=== PATIENT | female | born 1930 | race Caucasian/White ===

== ENCOUNTER 2017-09-10 09:32 | Emergency (ER) | payer OTHER ==
[~2017-09-10] VITALS: Ht 170.2 cm; Wt 45.0 kg
[~2017-09-10 09:32] MED LIST: ALBU1AER9 INH; HYT/2 PO; IPRA1AER2 INH; LISI40TA PO; MAGN400T6 PO; PARO1TAB27 PO; SIMV10TA2 PO; ULT50X PO
[2017-09-10 09:39] VITALS: Ht 170.2 cm; Wt 45.0 kg
[2017-09-10] MEDS ORDERED: SODIUM CHLORIDE 0.9% 500ML 500 ML IV STA (10:13)
[2017-09-10 10:45] LABS: BASO % 0.2 %; BASO ABS # 0.02 K/uL (0-0.2); EOS % 0.7 %; EOS ABS # 0.06 K/uL (0-0.5); IG# 0.01 K/uL (0.00-0.02); LYMPH % 19.5 %; LYMPH ABS # 1.58 K/uL (1.2-3.4); MEAN CELL VOLUME 85.8 fL (80-100); MEAN CORPUSCULAR HEMOGLOBIN 29.3 pg (25-34); MEAN CORPUSCULAR HGB CONC 34.1 g/dl (32-36); MEAN PLATELET VOLUME 10.5 fL (7.4-10.4); MONO % 6.5 %; MONO ABS # 0.53 K/uL (0.11-0.59); PLATELET COUNT 202 K/uL (130-400); RED CELL DISTRIBUTION WIDTH CV 13.7 % (11.5-14.5); RED CELL DISTRIBUTION WIDTH SD 43.1 fL (36.4-46.3)
[2017-09-10 10:48] LABS: INR 1.1 (0.9-1.1); PTT PATIENT 24.7 SECONDS (21.0-31.0)
[2017-09-10 10:53] LABS: ALBUMIN 3.8 gm/dl (3.4-5.0); CREATININE 0.99 mg/dl (0.60-1.20); POTASSIUM 3.8 mmol/L (3.5-5.1)
[2017-09-10 11:03] LABS: TOTAL PROTEIN 6.9 gm/dl (6.4-8.2)
--- NOTE | 2017-09-10 11:09 | DIAGNOSTIC IMAGING REPORT ---
CHEST 2 VIEWS ROUTINE HISTORY: 86 years-old Female eval for pna acute weakness with concern for pneumonia COMPARISON: Chest radiograph 07/04/2015 TECHNIQUE: AP and lateral views of the chest FINDINGS: Cardiac silhouette is within normal limits. Atherosclerosis of the aorta. Lungs are hyperinflated without pneumothorax, pleural effusion, focal airspace consolidation or overt pulmonary edema. Increased lucency of the lungs suggests emphysema. Linear subsegmental right basilar opacities suggest atelectasis. Areas of chronic interstitial coarsening are again noted throughout. Chronic left-sided rib fractures are noted. Bones appear osteopenic. Degenerative changes are noted throughout the spine and shoulders. Multiple age-indeterminate compression deformities are seen throughout the spine. IMPRESSION: 1. Emphysema and subsegmental right basilar atelectasis without acute process identified. 2. Multiple age-indeterminate compression deformities throughout the thoracic spine. The above report was generated using voice recognition software. It may contain grammatical, syntax or spelling errors. Electronically signed by: Aneudy Burks M.D. 09/10/2017 11:08 AM Dictated Date/Time: 09/10/2017 11:05 AM
[2017-09-10 13:46] VITALS: BP 168/79; PULSE 89; TEMP 36.6; O2SAT 94
--- NOTE | 2017-09-10 17:29 | EMERGENCY ROOM VISIT NOTE ---
History Report prepared by Lenore: Gordon Clifton Under the Supervision of: Dr. Joseph Farah M.D. First contact with patient: 10:00 Chief Complaint: ILLNESS Stated Complaint: WEAK,SHAKEY,SINUS/ALLERGY,ITCHY,SWOLLEN EYES History of Present Illness The patient is an 86 year old female who presents to the Emergency Room with complaints of a constant illness starting a few weeks ago. The patient's son states that the patient has been having sinus congestion, itchy and watery eyes , and last night the patient was shaking. The son states that she was shaking for 24-36 hours, and he states that he gave her a cupcake and an Ensure, and this stopped her shaking. The son states that the patient has not been eating well recently due to the illness, and the patient states that she has not been drinking fluids regularly. The patient has taken acetaminophen and an antihistamine over the counter, and this has not helped her systems, although her eye symptoms seem to be improved. She additionally notes that she had some chest tightness last night which was relieved with her inhaler. The patient has a history of COPD, and she states that she usually gets chest tightness with her COPD, and she has been wheezing recently. The patient denies any fever , abdominal pain, nausea, black stools, bloody stools, and headache. The son states that the patient had diarrhea 2 weeks ago, though that has since stopped. The son states that the patient is not diabetic, though her mother was a diabetic. The son states that the patient's memory is not very good, and when she was put on Paxil and pain medications she hallucinated after breaking her vertebra and getting a hip replacement years ago. The patient is not currently on any pain medications or Paxil. Source of History: patient, family Onset: a few weeks ago Position: other (global) Quality: other (illness) Timing: constant Associated Symptoms: No fevers, No headache, No nausea, No abdominal pain Note: Associated symptoms: sinus congestion, watery eyes, shaking, chest tightness Review of Systems See HPI for pertinent positives & negatives. A total of 10 systems reviewed and were otherwise negative. Past Medical & Surgical Medical Problems: (1) Asthma (2) COPD (chronic obstructive pulmonary disease) (3) High cholesterol (4) HTN (hypertension) Social History Smoking Status: Current Every Day Smoker Alcohol Use: none Drug Use: none Marital Status: Housing Status: unknown Occupation Status: retired Current/Historical Medications Scheduled Ipratropium-Albuterol (Combivent Respimat), 1 PUFFS INH QID Lisinopril (Zestril), 40 MG PO QAM Scheduled PRN Albuterol (Proair Hfa), 2 PUFFS INH QID PRN for Shortness of Breath Allergies Coded Allergies: Acetaminophen (Unverified Allergy, Severe, MEMORY LOSS, 09/10/17) Oxycodone (Verified Allergy, Unknown, UNKNOWN, 09/10/17) Penicillins (Verified Allergy, Unknown, UNKNOWN, 09/10/17) Uncoded Allergies: no depression meds (Adverse Reaction, Severe, HULLUCINATES, 09/10/17) Physical Exam Vital Signs Date Time Temp Pulse Resp B/P (MAP) Pulse Ox O2 Delivery O2 Flow Rate FiO2 09/10/17 13:46 36.6 89 22 168/79 94 09/10/17 13:40 168/79 09/10/17 13:37 85 22 09/10/17 13:32 154/98 09/10/17 13:19 86 09/10/17 13:07 85 29 94 09/10/17 13:01 187/103 09/10/17 12:43 180/155 09/10/17 12:37 82 92 09/10/17 12:07 82 23 93 09/10/17 11:37 75 27 100 09/10/17 11:32 76 27 100 09/10/17 11:02 71 17 98 09/10/17 10:41 184/89 09/10/17 10:41 77 09/10/17 09:39 36.6 83 20 162/82 95 Room Air Physical Exam Constitutional: Vital signs reviewed. Eyes: Pupils are equal round reactive to light. Conjunctiva are noninjected. ENT: Pharynx is clear without erythema or exudate. Mucous membranes are slightly dry. Neck supple without meningeal signs. No maxillary sinus tenderness. Respiratory: Clear to auscultation bilaterally. Breath sounds are equal bilaterally. Cardiovascular: Regular rate and rhythm. No rubs or gallops. GI: Soft, nondistended and nontender. Bowel sounds are present. Musculoskeletal: No peripheral edema. No lower extremity tenderness. Integumentary: No cyanosis. Neurological: The patient is awake and alert. No focal deficits. No tremors. Psychiatric: Normal affect. Medical Decision & Procedures ER Provider Diagnostic Interpretation: Radiology results as stated below per my review and the radiologist's interpretation: CHEST 2 VIEWS ROUTINE HISTORY: 86 years-old Female eval for pna acute weakness with concern for pneumonia COMPARISON: Chest radiograph 07/04/2015 TECHNIQUE: AP and lateral views of the chest FINDINGS: Cardiac silhouette is within normal limits. Atherosclerosis of the aorta. Lungs are hyperinflated without pneumothorax, pleural effusion, focal airspace consolidation or overt pulmonary edema. Increased lucency of the lungs suggests emphysema. Linear subsegmental right basilar opacities suggest atelectasis. Areas of chronic interstitial coarsening are again noted throughout. Chronic left-sided rib fractures are noted. Bones appear osteopenic. Degenerative changes are noted throughout the spine and shoulders. Multiple age-indeterminate compression deformities are seen throughout the spine. IMPRESSION: 1. Emphysema and subsegmental right basilar atelectasis without acute process identified. 2. Multiple age-indeterminate compression deformities throughout the thoracic spine. The above report was generated using voice recognition software. It may contain grammatical, syntax or spelling errors. Electronically signed by: Aneudy Burks M.D. 09/10/2017 11:08 AM Dictated Date/Time: 09/10/2017 11:05 AM Laboratory Results 09/10/17 10:25 Red Blood Count 4.78, Mean Corpuscular Volume 85.8, Mean Corpuscular Hemoglobin 29.3, Mean Corpuscular Hemoglobin Concent 34.1, Mean Platelet Volume 10.5, Neutrophils (%) (Auto) 73.0, Lymphocytes (%) (Auto) 19.5, Monocytes (%) (Auto) 6.5, Eosinophils (%) (Auto) 0.7, Basophils (%) (Auto) 0.2, Neutrophils # (Auto) 5.90, Lymphocytes # (Auto) 1.58, Monocytes # (Auto) 0.53, Eosinophils # (Auto) 0.06, Basophils # (Auto) 0.02 09/10/17 10:25 Test 09/10/17 10:25 09/10/17 12:08 09/10/17 12:44 White Blood Count 8.10 K/uL (4.8-10.8) Red Blood Count 4.78 M/uL (4.2-5.4) Hemoglobin 14.0 g/dL (12.0-16.0) Hematocrit 41.0 % (37-47) Mean Corpuscular Volume 85.8 fL (80-100) Mean Corpuscular Hemoglobin 29.3 pg (25-34) Mean Corpuscular Hemoglobin Concent 34.1 g/dl (32-36) Platelet Count 202 K/uL (130-400) Mean Platelet Volume 10.5 fL (7.4-10.4) Neutrophils (%) (Auto) 73.0 % Lymphocytes (%) (Auto) 19.5 % Monocytes (%) (Auto) 6.5 % Eosinophils (%) (Auto) 0.7 % Basophils (%) (Auto) 0.2 % Neutrophils # (Auto) 5.90 K/uL (1.4-6.5) Lymphocytes # (Auto) 1.58 K/uL (1.2-3.4) Monocytes # (Auto) 0.53 K/uL (0.11-0.59) Eosinophils # (Auto) 0.06 K/uL (0-0.5) Basophils # (Auto) 0.02 K/uL (0-0.2) RDW Standard Deviation 43.1 fL (36.4-46.3) RDW Coefficient of Variation 13.7 % (11.5-14.5) Immature Granulocyte % (Auto) 0.1 % Immature Granulocyte # (Auto) 0.01 K/uL (0.00-0.02) Prothrombin Time 11.6 SECONDS (9.0-12.0) Prothromb Time International Ratio 1.1 (0.9-1.1) Activated Partial Thromboplast Time 24.7 SECONDS (21.0-31.0) Partial Thromboplastin Ratio 1.0 Anion Gap 7.0 mmol/L (3-11) Est Creatinine Clear Calc Drug Dose 29.5 ml/min Estimated GFR () 60.2 Estimated GFR (Non- 52.0 BUN/Creatinine Ratio 23.9 (10-20) Calcium Level 9.0 mg/dl (8.5-10.1) Total Bilirubin 0.6 mg/dl (0.2-1) Direct Bilirubin 0.2 mg/dl (0-0.2) Aspartate Amino Transf (AST/SGOT) 23 U/L (15-37) Alanine Aminotransferase (ALT/SGPT) 28 U/L (12-78) Alkaline Phosphatase 87 U/L (45-117) Total Protein 6.9 gm/dl (6.4-8.2) Albumin 3.8 gm/dl (3.4-5.0) Thyroid Stimulating Hormone (TSH) 0.535 uIu/ml (0.300-4.500) Free Thyroxine 1.08 ng/dl (0.80-1.60) Bedside Troponin I < 0.030 ng/ml (0-0.045) Urine Color DK YELLOW Urine Appearance CLOUDY (CLEAR) Urine pH 6.0 (4.5-7.5) Urine Specific [place] 1.026 (1.000-1.030) Urine Protein TRACE (NEG) Urine Glucose (UA) NEG (NEG) Urine Ketones TRACE (NEG) Urine Occult Blood NEG (NEG) Urine Nitrite NEG (NEG) Urine Bilirubin NEG (NEG) Urine Urobilinogen NEG (NEG) Urine Leukocyte Esterase SMALL (NEG) Urine WBC (Auto) 1-5 /hpf (0-5) Urine RBC (Auto) 0-4 /hpf (0-4) Urine Hyaline Casts (Auto) 1-5 /lpf (0-5) Urine Epithelial Cells (Auto) >30 /lpf (0-5) Urine Bacteria (Auto) NEG (NEG) Laboratory results as reviewed by me. Medications Administered Medications (Trade) Dose Ordered Sig/Robert Route Start Time Stop Time Status Last Admin Dose Admin Sodium Chloride 500 ml @ 999 mls/hr Q31M STAT IV 09/10/17 10:13 09/10/17 10:43 DC 09/10/17 10:13 999 MLS/HR ECG Per My Interpretation Indication: other (chest tightness) Rate (beats per minute): 77 Rhythm: normal sinus Findings: other (No ST elevations, biphasic T waves in V4 to V5, no Q waves) ED Course 1000: The patient was evaluated in room C7. A complete history and physical exam was performed. 1013: Sodium Chloride 500 ml @ 999 mls/hr IV 1150: I reevaluated the patient, and she has no complaints. I discussed the test results with her, and she is going to get a second troponin. 1231: I reassessed the patient, and she is hungry and wants to go home. I discussed blood tests with her and the limitation of an ED work up. She has not given a urine sample yet, so she agrees to a urine catheterization. 1321: I reevaluated the patient, and she is very eager to go home. She states that she feels better. She will be discharged home. Medical Decision This is an 86-year-old female who presents with tremors and weakness with some chest tightness. Differential diagnosis includes dehydration, hypoglycemia, metabolic derangement, COPD exacerbation, cardiac, UTI. I did perform a limited focused review of portions of the patient's old chart on the electronic medical record. The patient has had no recent pertinent visits to this hospital. I did evaluate the patient as noted above. IV access was established. The patient was placed on a continuous earth auger operator. I did order and personally review the patient's 12-lead EKG and chest x-ray as described above. I did order and review the patient's blood work as noted in the electronic medical record. Troponin 2 are negative. She is not anemic. Her white blood cell count is not elevated. Electrolytes are unremarkable. I did order a urine analysis which did not show any obvious infection. The patient was treated with normal saline IV. She was able to eat here and felt much better. She did wish to go home. The exact cause of her symptoms is unclear. While her chest tightness appears to be related to her COPD and improved with her inhaler, I did recommend they follow closely with her regular physician for further evaluation of these symptoms. She was discharged with her son in good condition. Medication Reconcilliation Current Medication List: was personally reviewed by me Blood Pressure Screening Patient's blood pressure: Elevated blood pressure Blood pressure disposition: Referred to PCP Impression Primary Impression: Generalized weakness Additional Impressions: Tremor Acute chest pain COPD (chronic obstructive pulmonary disease) Scribe Attestation The scribe's documentation has been prepared under my direct and personally reviewed by me in its entirety. I confirm that the note above accurately reflects all work, treatment, procedures, and medical decision making performed by me. Departure Information Dispostion Home / Self-Care Referrals No Doctor, Assigned (PCP) Forms HOME CARE DOCUMENTATION FORM, IMPORTANT VISIT INFORMATION, WORK / SCHOOL INSTRUCTIONS Patient Instructions Chest Pain - [facility], ED Weakness [place], My [facility] Additional Instructions You have been examined and treated today on an emergency basis only. This is not a substitute for, or an effort to provide, complete comprehensive medical care. It is impossible to recognize and treat all injuries or illnesses in a single emergency department visit. It is therefore important that you follow up closely with your physician. Call as soon as possible for an appointment. Return for worsening symptoms or if you develop fever, vomiting, abdominal pain , shortness of breath or any other concerning symptoms. Problem Qualifiers Additional Impressions: COPD (chronic obstructive pulmonary disease) COPD type: unspecified COPD Qualified Codes: J44.9 - Chronic obstructive pulmonary disease, unspecified
== END 2017-09-10 13:47 | disposition home or self-care (01) ==
LOC: C.EDB 09:34 → C.EDC 13:47
DX: R53.1 Weakness (principal); R25.1 Tremor, unspecified; R07.89 Other chest pain; J44.9 Chronic obstructive pulmonary disease, unspecified; I10 Essential (primary) hypertension; F17.200 Nicotine dependence, unspecified, uncomplicated; Z88.6 Allergy status to analgesic agent; Z88.0 Allergy status to penicillin

== ENCOUNTER 2018-08-15 13:41 | Inpatient (IN) ==
[2018-08-15] MEDS ORDERED: levoFLOXacin 250 MG TABLET PO STA (14:18)
[2018-08-15] MEDS ORDERED: ALBUT/IPRATROP 3MG/0.5MG NEB 3 ML VIAL INH STA (14:18)
[2018-08-15] MEDS ORDERED: SODIUM CHLORIDE 0.9% 1000ML 1,000 ML IV SCH (14:30)
--- NOTE | 2018-08-15 14:37 | XRay Report ---
XR chest 1V portable HISTORY: Dyspnea COMPARISON: Chest 08/07/2018. Chest CT 08/12/2018. FINDINGS: Mild emphysema. No pneumothorax. No pleural effusions. The heart is normal in size. Right p erihilar hazy opacity. This is new from the prior study. The left lung remains clear. Healing distal right clavicle fracture. IMPRESSION: 1. There is new hazy opacity within the right perihilar location. This is nonspecific and could be du e to a developing pneumonia or overlying soft tissue. 2. Emphysema. 3. Healing distal right clavicle fracture. Electronically signed by: Enrike Ho M.D. 08/15/2018 2:35 PM
[2018-08-15 14:58] LABS: Hematocrit (blood only) 41.2 % (37-47); Hemoglobin 13.8 g/dL (12.0-16.0); Mean Corpuscular Hgb Conc 33.5 g/dL (32-36); Mean Corpuscular Volume 88.6 fL (80-100); Mean Platelet Volume 10.9 fL (7.4-10.4); Platelet Count 180 K/uL (130-400); RDW Coefficient of Variation 13.8 % (11.5-14.5); RDW Standard Deviation 44.8 fL (36.4-46.3); Red Blood Count 4.65 M/uL (4.2-5.4); White Blood Count 21.72 K/uL (4.8-10.8)
[2018-08-15 15:02] LABS: iSTAT Hemoglobin 13.3 g/dl (12.0-16.0); iSTAT Ionized Calcium 1.1 mmol/l (1.12-1.32)
[2018-08-15 15:10] LABS: Alanine Aminotransferase 27 U/L (12-78); Albumin Level 2.5 gm/dl (3.4-5.0); Aspartate Aminotransferase 17 U/L (15-37); BUN Creatinine Ratio 34.1 (10-20); Blood Urea Nitrogen 41 mg/dl (7-18); Calcium 8.4 mg/dl (8.5-10.1); Carbon Dioxide 27 mmol/L (21-32); Chloride 105 mmol/L (98-107); Creatinine Clr Calc Pharmacy 23.5 ml/min; Est GFR (African American) 47.4; Est GFR (Non-African American) 40.9; Glucose 166 mg/dl (70-99); Sodium 138 mmol/L (136-145)
[2018-08-15 15:15] LABS: Albumin Globulin Ratio 0.6 (0.9-2); Alkaline Phosphatase 122 U/L (45-117); Bilirubin,Total 0.3 mg/dl (0.2-1); Globulin 3.9 gm/dl (2.5-4.0); Total Protein 6.4 gm/dl (6.4-8.2); Troponin I < 0.015 ng/ml (0-0.045)
[2018-08-15 15:17] LABS: Basophils # (auto) 0.05 K/uL (0-0.2); Basophils % (auto) 0.2 %; Eosinophils # (auto) 0.01 K/uL (0-0.5); Immature Granulocytes # (auto) 0.29 K/uL (0.00-0.02); Immature Granulocytes % (auto) 1.3 %; Lymphocytes # (auto) 0.79 K/uL (1.2-3.4); Lymphocytes % (auto) 3.6 %; Monocytes # (auto) 0.64 K/uL (0.11-0.59); Monocytes % (auto) 2.9 %; Neutrophils # (auto) 19.94 K/uL (1.4-6.5)
[2018-08-15 15:19] LABS: INR 1.2 (0.9-1.1); Prothrombin Time 12.3 Seconds (9.0-12.0)
[2018-08-15 15:23] LABS: Influenza A virus by PCR Neg for Influ A (Neg); Influenza B virus by PCR Neg for Influ B (Neg)
[2018-08-15] MEDS ORDERED: methylPREDNISolone 125 MG/2 ML VIAL IV STA (15:39)
[2018-08-15] MEDS ORDERED: IOVERSOL 100ml IV PRN (16:56)
--- NOTE | 2018-08-15 17:12 | CT Scan Report ---
CT ANGIOGRAM OF THE CHEST CLINICAL HISTORY: Atypical chest pain. COMPARISON STUDY: Chest x-ray dated 08/15/2018. Chest CT dated 08/02/2018. TECHNIQUE: Following the IV administration of 92 cc of Optiray 320, CT angiogram of the chest was per formed from the upper abdomen to the thoracic inlet utilizing the pulmonary embolus protocol. Images are reviewed in the axial, sagittal, and coronal planes. 3-D MIPS images are created and assessed. IV contrast was administered without complication. A dose lowering technique was utilized adhering to the principles of ALARA. The examination is degraded by motion artifact, as well as by streak artifac t from the arms which could not be elevated above the chest. CT DOSE: 204.72 mGy.cm FINDINGS: Thyroid: Imaged portions of the thyroid gland are normal in size and attenuation. Thoracic aorta: There is atherosclerotic calcification of the thoracic aorta, which is normal in barbie stiven and demonstrates standard 3-vessel arch anatomy. No dissection is seen. Pulmonary vasculature: The main pulmonary arteries are dilated suggesting pulmonary artery hypertensi on. Segmental and subsegmental pulmonary emboli are seen within branches of the right upper and right middle lobe pulmonary arteries. The main and lobar branches are patent bilaterally. Heart: The heart is normal in size and without pericardial effusion. The coronary arteries are calcif ied. Lungs and pleural spaces: Evaluation of the lung parenchyma is degraded by motion artifact. Emphysema tous change is noted. No airspace consolidation is seen typical for pneumonia. There are small pleura l effusions. There is near complete atelectasis of the right lower lobe. Subsegmental atelectasis is seen at the left lung base and in the lingula. Mediastinum: There is no mediastinal lymphadenopathy. T[place]: Clear. Axillae: There is no axillary lymphadenopathy. 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 The kidneys ar e atrophic and without hydronephrosis. A 1.8 cm cyst is seen in the lower pole of the right kidney. Skeletal structures: The skeletal structures are osteopenic Compression deformities are seen at most thoracic levels. Mildly retropulsed fragments are noted at T8, T9, and L1. Degenerative change and hy perkyphosis are noted in the thoracic spine. No lytic or blastic bony lesions are seen. There are hea led right-sided rib fractures. There is posttraumatic deformity of the manubrium of the sternum. IMPRESSION: 1. The examination is compromised by streak and motion artifact. 2. There are segmental and subsegmental pulmonary emboli within branches of the right upper and right middle lobe pulmonary arteries. 3. Advanced emphysema. 4. There is near complete atelectasis of the right lower lobe. 5. Compression deformities are seen at nearly all thoracic levels. 6. There is age indeterminant posttraumatic deformity of the manubrium. Correlate for point tendernes s. 7. There are small pleural effusions. 8. 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 9. Additional findings as above. Electronically signed by: Efren Pate M.D. 08/15/2018 5:09 PM
--- NOTE | 2018-08-15 17:54 | History & Physical Report ---
Date of Service August 15, 2018 Assessment & Plan (1) Pulmonary embolism: - CXR with a new infiltrate but given the setting of PE this is likely a pulmonary infarct as well as there is RLL collapse due to atelectatsis - CTA supports PE and no findings of consolidation - WBC likely reactive vs steroid- induced as she is finishing a taper - Heparin gtt initiated - Echocardiogram - U/S of b/l lower extremities to R/O additional DVT as further clot burden could be detrimental given her poor underlying lung disease Present on Admission?: Yes (2) Acute and chronic respiratory failure: - She was utilizing 2 L NC prior to D/C and likely needed long-term supplemental O2 prior to her last admission given her advanced emphysema - currently on 4 L - Wean O2 as tolerated to maintain O2 saturations of 88% or greater - This is likely in setting of acute PE and suggested pulmonary HTN/RLL collapse - unlikely this is infectious in nature and did have Zithromax x 3 days on last admission - will hold on further abx at this time Present on Admission?: Yes (3) COPD (chronic obstructive pulmonary disease): - Does not appear to be in an exacerbation at this time with no wheezing - She was on Trelegy as an outpatient but this cost would be too much - it appears she was converted to Breo and Combivent - may need to further supplement due to formulary - Nebs PRN Present on Admission?: Yes (4) HTN (hypertension): - Normally has extremely uncontrolled BP - Continue Lisinopril 10 mg daily and Norvasc 5 mg daily (5) Tibial plateau fracture, right: - Occurred earlier in the month - non-weightbearing to RLE - Tramadol PRN - PT/OT when clinically improved Disposition: Son would like her to go to a [facility] instead of returning to [facility] Present on Admission?: Yes History of Present Illness Primary Care Provider: NO PCP Ms. Rousseau is an 87 y/o female with HTN, Emphysema, Dementia, and Recent R Tibial Plateau Fx who presents to the ED c/o acute SOB starting yesterday. She was recently admitted for hypoxia and her tibial plateau fracture. Her hypoxia and SOB were related to a COPD exacerbation. Per son, he states her breathing has been good until yesterday and this continued today. Patient is a poor historian and states her breathing is bad but denies any other symptoms. She does have some tachypnea but appropriate oxygenation with 4 L at this time. Denies chest pain. Discussed anticoagulation with the patient and son and heparin gtt will be initiated. Allergies Allergy/AdvReac Type Severity Reaction Status Date / Time oxycodone Allergy Unknown Verified 08/15/18 14:57 Penicillins Allergy Unknown Verified 08/15/18 14:57 acetaminophen [From Tylenol] AdvReac Severe memory loss Verified 08/16/18 02:13 antidepressant AdvReac Hallucinati Uncoded 08/15/18 14:33 ng Home Medications Home Medications Medication Instructions Recorded Confirmed Type albuterol sulfate 2 puff INHALATION Q6H PRN 08/02/18 08/15/18 History cyclosporine [Restasis] 1 drp OPB Q12H 08/02/18 08/15/18 History ipratropium-albuterol 1 puff INHALATION QID 08/02/18 08/15/18 History lisinopril 40 mg PO QAM 08/02/18 08/15/18 History amlodipine 5 mg PO DAILY 08/15/18 08/15/18 History bisacodyl 10 mg ND DAILY PRN 08/15/18 08/15/18 History docusate sodium 100 mg PO BID PRN 08/15/18 08/15/18 History fluticasone-vilanterol [Breo 1 inh INHALATION DAILY 08/15/18 08/15/18 History Ellipta] ipratropium-albuterol 3 ml INHALATION QID PRN 08/15/18 08/15/18 History magnesium hydroxide [Milk of 30 ml PO DAILY PRN 08/15/18 08/15/18 History Magnesia] montelukast 10 mg PO PM 08/15/18 08/15/18 History nicotine [Nicoderm CQ] 1 patch TRANSDERMAL DAILY 08/15/18 08/15/18 History prednisone 10 mg PO UD 08/15/18 08/15/18 History sennosides [senna] 8.6 mg PO DAILY PRN 08/15/18 08/15/18 History sulfamethoxazole-trimethoprim 1 tab PO BID 08/15/18 08/15/18 History [Bactrim DS] tramadol 25 mg PO Q4 PRN 08/15/18 08/15/18 History Past Med/Surg History Medical History Degenerative disc disease (Chronic) Osteoporosis Asthma (Chronic) HTN (hypertension) (Chronic) High cholesterol (Chronic) COPD (chronic obstructive pulmonary disease) (Chronic) Surgical History History of right hip replacement Social History Current Living Situation: Family Current Living Situation Comment: SON BUILT ADDITION ON HOUSE, PT WILL BE MOVING INTO SOON Other Information That Helps Us Care for You: No Feels Safe at Home: Yes Smoking Status: Current every day smoker Tobacco Type: cigarettes Do You Dip or Chew Tobacco: No Second Hand Exposure: No Tobacco Cessation Education Requested by Patient: No Hx Alcohol Use: No Hx Substance Use: No Beliefs That Will Affect Care: None Communication Ability: dementia Review of Systems Constitutional: + fatigue; no fever and no chills Respiratory: + dyspnea; no cough and no pain on inspiration Cardiovascular: no chest pain and no edema Gastrointestinal: no abdominal pain, no nausea, no vomiting, no constipation and no diarrhea/loose stools Genitourinary (Female): no dysuria Musculoskeletal: + joint pain (right knee pain) Integumentary: no rash Physical Exam 2 Vital Signs (Past 24 Hours): Last Vital Signs Temp 36.7 C 08/15/18 13:56 Pulse 93 H 08/15/18 17:09 Resp 22 08/15/18 17:09 BP 137/68 08/15/18 17:09 Pulse Ox 95 08/15/18 17:09 Constitutional: + ill appearing (chronically ill appearing); no acute distress Eyes: + anicteric sclerae ENMT: Ears: no hearing impairment Neck: trachea midline Respiratory: + labored breathing (slightly) Auscultation: + diminished lung sounds; no wheezes Cardiovascular: Rate/Rhythm: regular rate and regular rhythm Gastrointestinal (Abdomen): Inspection/Auscultation: normal bowel sounds Percussion/Palpation: abdomen soft; abdomen nontender Musculoskeletal: R knee remains in immobilizer Skin: no rashes, warm and dry Neurologic: moves all extremities Psychiatric: Orientation: alert and oriented x 3 Affect: + flat affect Code Status & VTE Plan Code Status FULL CODE VTE Prophylaxis Plan VTE Prophylaxis will be ordered: No Supervising Physician Co-Signing Physician Notes I examined the patient and interrogated the patient and family. I agree with above history and physical and note as stated above. In regards to her hypoxia, I agree this is likely secondary to her pulmonary emboli. At this time, I doubt an infection. Will hold antibiotics and closely monitor patient. I discussed code status and patient remains a full code. _ (1) Pulmonary embolism Acute cor pulmonale presence: Chronicity: Pulmonary embolism type:
[2018-08-15] MEDS ORDERED: HEPARIN SOD 5,000 UNIT/0.5 ML VIAL ONE (18:27)
[2018-08-15] MEDS ORDERED: HEPARIN 25000 UNIT/500 ML D5W IV ONE (18:27)
[2018-08-15] MEDS ORDERED: Heparin IV Low Dose *NO* Bolus STA (19:20)
[2018-08-15] MEDS ORDERED: TRAMADOL HCL 50 MG TABLET PO PRN (19:20)
[2018-08-15] MEDS ORDERED: SENNA 8.6 MG TAB PO PRN (19:20)
[2018-08-15] MEDS ORDERED: MAGNESIUM HYDROXIDE SUSP 30 ML UDC PO PRN (19:20)
[2018-08-15] MEDS ORDERED: ONDANSETRON INJ 2 MG/ML 2 ML VIAL IV PRN (19:20)
[2018-08-15] MEDS ORDERED: ALBUTEROL HFA 8 GM INHALER INH PRN (19:20)
[2018-08-15] MEDS ORDERED: BISACODYL 10 MG SUPP PR PRN (19:20)
[2018-08-15] MEDS ORDERED: INFLUENZA VIRUS QUAD VACCINE 0.5 ML SYR IM ONE (20:15)
[2018-08-15] MEDS: MONTELUKAST SODIUM 10 MG TABLET PO SCH (20:28)
[2018-08-15] MEDS: HEPARIN STANDARD DEXTROSE 25,000 UNITS/500 ML IV SCH (20:29)
[2018-08-15] MEDS ORDERED: INFLUENZA ADMINISTRATION CHARGE ONE (20:30)
[2018-08-15] MEDS ORDERED: INFLUENZA VACCINE HIGH DOSE 65+ 0.5 ML SYR IM ONE (20:30)
[2018-08-15] MEDS: IPRATROPIUM BROMIDE/ALBUTEROL respimat INH INH SCH (21:02)
--- NOTE | 2018-08-15 21:07 | Emergency Department Note ---
Entered by Neal Murphy acting as a scribe for Mehdi Espinal DO History of Present Illness General Chief complaint: Respiratory Problems Stated complaint: sob Source: patient and family History of Present Illness Provider complaint: SOB Onset (ago): day(s) Location: chest (SOB) Pain Consistency: + other (Worsening) Quality: + other (SOB) Exacerbated By: + other (Exertion) Associated symptoms: + other (Confusion) Treatments prior to arrival: none The patient is an 87 year old female who presents to the Emergency Room with complaints of worsening shortness of breath since this morning. The patient's son at bedside states that the patient has been recently diagnosed with new- onset dementia and has been at [facility] for the past two weeks after breaking her right leg. The son adds that he visited with the patient Burt night, 2 days ago and notes that he could hear a "rattling in her chest" while she was breathing. The nursing staff there placed her on supplemental oxygen, which she does not normally wear at baseline. The patient states that her shortness of breath worsened this morning. Per [facility] documentation the patient suffered a tibial plateau fracture two weeks ago and became dyspneic on exertion with hypoxia. The patient denies any sick contacts. The son adds that the patient is currently being treated with antibiotics for a UTI and has been exhibiting worsening confusion since she was admitted to [facility]. Home Medications Home Medications Medication Instructions Recorded Confirmed Type albuterol sulfate 2 puff INHALATION Q6H PRN 08/02/18 08/15/18 History cyclosporine [Restasis] 1 drp OPB Q12H 08/02/18 08/15/18 History ipratropium-albuterol 1 puff INHALATION QID 08/02/18 08/15/18 History lisinopril 40 mg PO QAM 08/02/18 08/15/18 History amlodipine 5 mg PO DAILY 08/15/18 08/15/18 History bisacodyl 10 mg UT DAILY PRN 08/15/18 08/15/18 History docusate sodium 100 mg PO BID PRN 08/15/18 08/15/18 History fluticasone-vilanterol [Breo 1 inh INHALATION DAILY 08/15/18 08/15/18 History Ellipta] ipratropium-albuterol 3 ml INHALATION QID PRN 08/15/18 08/15/18 History magnesium hydroxide [Milk of 30 ml PO DAILY PRN 08/15/18 08/15/18 History Magnesia] montelukast 10 mg PO PM 08/15/18 08/15/18 History nicotine [Nicoderm CQ] 1 patch TRANSDERMAL DAILY 08/15/18 08/15/18 History prednisone 10 mg PO UD 08/15/18 08/15/18 History sennosides [senna] 8.6 mg PO DAILY PRN 08/15/18 08/15/18 History sulfamethoxazole-trimethoprim 1 tab PO BID 08/15/18 08/15/18 History [Bactrim DS] tramadol 25 mg PO Q4 PRN 08/15/18 08/15/18 History Allergies Allergy/AdvReac Type Severity Reaction Status Date / Time acetaminophen [From Tylenol] Allergy Severe memory loss Verified 08/15/18 14:56 oxycodone Allergy Unknown Verified 08/15/18 14:57 Penicillins Allergy Unknown Verified 08/15/18 14:57 antidepressant AdvReac Hallucinati Uncoded 08/15/18 14:33 ng Past Med/Surg History Medical History Degenerative disc disease (Chronic) Osteoporosis Asthma (Chronic) HTN (hypertension) (Chronic) High cholesterol (Chronic) COPD (chronic obstructive pulmonary disease) (Chronic) Surgical History History of right hip replacement Social History Current Living Situation: Family Current Living Situation Comment: SON BUILT ADDITION ON HOUSE, PT WILL BE MOVING INTO SOON Other Information That Helps Us Care for You: No Feels Safe at Home: Yes Smoking Status: Current every day smoker Tobacco Type: cigarettes Do You Dip or Chew Tobacco: No Second Hand Exposure: No Tobacco Cessation Education Requested by Patient: No Hx Alcohol Use: No Hx Substance Use: No Beliefs That Will Affect Care: None Preferred Language: Korean Communication Ability: Impaired [employer] Operator Required: No Review of Systems See HPI for pertinent positives & negatives. and A total of 10 systems reviewed and were otherwise negative Physical Exam Vital Signs Vital Signs - 24 hr 08/15/18 13:56 08/15/18 14:48 08/15/18 15:38 Temperature 36.7 C Temperature Source Oral Sepsis Recent Fever Within 48 Hours No Sepsis Action Taken by Nursing No Action Required Pulse Rate 101 H Pulse Rate [Apical] 97 H 95 H Pulse Rhythm Regular Pulse Strength Normal Respiratory Rate 22 32 H Respiratory Effort / Characteristics Spontaneous Accessory Muscle Use Short of Breath Respiratory Depth Shallow Respiratory Pattern Regular Blood Pressure 146/80 H Blood Pressure [Right Arm] 125/74 Blood Pressure Mean 102 Blood Pressure Mean [Right Arm] 91 Blood Pressure Position Lying Blood Pressure Position [Right Arm] Pulse Oximetry 92 94 Oxygen Delivery Method Oxymask Room Air Oxymask Oxygen Flow Rate 6 6 5 08/15/18 15:53 08/15/18 17:09 08/15/18 18:32 Temperature Temperature Source Sepsis Recent Fever Within 48 Hours Sepsis Action Taken by Nursing Pulse Rate Pulse Rate [Apical] 98 H 93 H 101 H Pulse Rhythm Pulse Strength Respiratory Rate 30 H 22 30 H Respiratory Effort / Characteristics Labored Non-Labored Respiratory Depth Normal Respiratory Pattern Tachypnea Regular Blood Pressure Blood Pressure [Right Arm] 152/88 H 137/68 137/80 Blood Pressure Mean Blood Pressure Mean [Right Arm] 109 91 99 Blood Pressure Position Blood Pressure Position [Right Arm] Sitting Pulse Oximetry 96 95 94 Oxygen Delivery Method Nebulizer Oxymask Oxymask Oxygen Flow Rate 8 4 08/15/18 19:20 Temperature Temperature Source Sepsis Recent Fever Within 48 Hours Sepsis Action Taken by Nursing Pulse Rate Pulse Rate [Apical] Pulse Rhythm Pulse Strength Respiratory Rate Respiratory Effort / Characteristics Labored Respiratory Depth Normal Respiratory Pattern Tachypnea Blood Pressure Blood Pressure [Right Arm] Blood Pressure Mean Blood Pressure Mean [Right Arm] Blood Pressure Position Blood Pressure Position [Right Arm] Pulse Oximetry Oxygen Delivery Method Oxymask Oxygen Flow Rate 5 GENERAL: Sitting up in bed, alert, Chornically ill appearing, mal nourished, dyspneic with conversation on OXYmask. EYE EXAM: normal conjunctiva. OROPHARYNX: no exudate, no erythema, lips, buccal mucosa, and tongue normal and mucous membranes are moist NECK: supple, no nuchal rigidity, no adenopathy, non-tender. No JVD. LUNGS: There is poor air movement bilaterally. HEART: no murmurs, S1 normal and S2 normal ABDOMEN: abdomen soft, non-tender, normo-active bowel, sounds, no masses, no rebound or guarding. BACK: Back is symmetrical on inspection and there is no deformity, no midline tenderness, no CVA tenderness. SKIN: no rashes and no bruising UPPER EXTREMITIES: upper extremities are grossly normal. LOWER EXTREMITIES: No pitting edema. DPs are 2/4 bilaterally. knee immobilizer on the right lower extremity. NEURO EXAM: Awake and alert and oriented to person, place, but not year. Following all commands, non-focal. Course ED COURSE: Vital signs were reviewed and showed situational hypertension. The patients medical record was reviewed The above diagnostic studies were performed and reviewed. ED treatments and interventions as stated above. 1411: The patient was evaluated in room C5. A complete history and physical examination was performed. 1547: I reviewed the patient's case with Lynesy Pace Edward ALFARO. She will evaluate the patient for further management. 1549: I discussed my findings with the patient and he understands and agrees with the treatment plan. Based on the patients age, coexisting illnesses, exam and lab findings the decision to treat as an inpatient was made. The patient remained stable while under my care. The patient will be evaluated for further management. Consultations Consultation #1: 1547: I reviewed the patient's case with Lynsey Pace Edward ALFARO. She will evaluate the patient for further management. Administered Medications Albuterol (Combivent Respimat) 1 puffs INH QID BLAS Stop: 09/14/18 20:59 Last Admin: 08/15/18 21:02 Dose: 1 puffs Heparin Sodium/Dextrose (Heparin Sodium/Dextrose) 25,000 units in 500 mls @ 11 mls/hr IV .Q24H BLAS; Protocol Stop: 09/14/18 19:26 Last Admin: 08/15/18 20:29 Dose: 550 units/hr, 11 mls/hr Miscellaneous (Remove Nicoderm Patch) 1 ea N/A HS BLAS Stop: 09/14/18 20:59 Last Admin: 08/15/18 20:30 Dose: 1 ea Montelukast Sodium (Singulair) 10 mg PO PM BLAS Stop: 09/14/18 20:59 Last Admin: 08/15/18 20:28 Dose: 10 mg Discontinued Medications Albuterol (Duoneb) 6 ml INH NOW STA Stop: 08/15/18 14:19 Last Admin: 08/15/18 14:57 Dose: 6 ml Heparin Sodium (Porcine) (Heparin Sodium (Porcine)) Confirm Administered Dose 10 ,000 units .ROUTE .STK-MED ONE Stop: 08/15/18 18:28 Last Admin: 08/15/18 18:28 Dose: 4,000 units Heparin Sodium/Dextrose () 1 ea N/A NOW STA; Protocol Stop: 08/15/18 18:14 Last Admin: 08/15/18 20:29 Dose: Not Given Heparin Sodium/Dextrose (Heparin Sodium/Dextrose) Confirm Administered Dose 25, 000 units IV .STK-MED ONE Stop: 08/15/18 18:28 Last Admin: 08/15/18 18:29 Dose: 800 units Sodium Chloride (Nss 1000ml) 1,000 mls @ 999 mls/hr IV .Q1H1M BLAS Stop: 08/15/18 15:30 Last Infusion: 08/15/18 16:42 Dose: 0 mls/hr Admin: 08/15/18 14:54 Dose: 999 mls/hr Ioversol (Optiray 320 100ml) 92 ml IV ONCE PRN PRN Reason: Interaction Checking Stop: 08/19/18 16:55 Last Admin: 08/15/18 16:56 Dose: 92 ml Levofloxacin (Levaquin) 750 mg PO NOW STA Stop: 08/15/18 14:19 Last Admin: 08/15/18 14:54 Dose: 750 mg Methylprednisolone (Solumedrol) 125 mg IV NOW STA Stop: 08/15/18 15:40 Last Admin: 08/15/18 15:52 Dose: 125 mg Medical Decision Making Differential Diagnosis Differential diagnosis: Etiologies such as infections, reactive airway disease, COPD, pneumonia, pleural effusion, pulmonary edema, ARDS, pneumothorax, CHF, cardiac ischemia, cardiac tamponade, dysrhythmia, anemia, pulmonary embolism, musculoskeletal, gastrointestinal process, as well as others were entertained. Medical Records Attestation: I reviewed the patient's medical records. Home Medications Current Medication List: was personally reviewed by me Laboratory Data Attestation: I reviewed the patient's lab results. Result diagrams: 08/15/18 14:42 08/15/18 14:42 Lab Results 08/15/18 08/15/18 08/15/18 Range/Units 14:35 14:42 14:42 WBC 21.72 H (4.8-10.8) K/uL RBC 4.65 (4.2-5.4) M/uL Hgb 13.8 (12.0-16.0) g/dL POC Hgb (12.0-16.0) g/dl Hct 41.2 (37-47) % POC Hct (37-47) % MCV 88.6 (80-100) fL MCH 29.7 (25-34) pg MCHC 33.5 (32-36) g/dL RDW Std Deviation 44.8 (36.4-46.3) fL RDW Coeff of Juan Diego 13.8 (11.5-14.5) % Plt Count 180 (130-400) K/uL MPV 10.9 H (7.4-10.4) fL Immature Gran % (Auto) 1.3 % Neut % (Auto) 92.0 % Lymph % (Auto) 3.6 % [place] % (Auto) 2.9 % Eos % (Auto) 0.0 % Baso % (Auto) 0.2 % Immature Gran # (Auto) 0.29 H (0.00-0.02) K/uL Neut # (Auto) 19.94 H (1.4-6.5) K/uL Lymph # (Auto) 0.79 L (1.2-3.4) K/uL [place] # (Auto) 0.64 H (0.11-0.59) K/uL Eos # (Auto) 0.01 (0-0.5) K/uL Baso # (Auto) 0.05 (0-0.2) K/uL PT 12.3 H (9.0-12.0) Seconds INR 1.2 H (0.9-1.1) APTT 26.0 (21.0-31.0) Seconds PTT Ratio 1.0 D-Dimer 7990 H* (0-500) ug/L FEU POC Sodium (135-144) mEq/L Sodium (136-145) mmol/L POC Potassium (3.3-5.0) mEq/L Potassium (3.5-5.1) mmol/L POC Chloride (101-112) mEq/L Chloride (98-107) mmol/L Carbon Dioxide (21-32) mmol/L POC Total CO2 (24-31) mEq/l Anion Gap (3-11) POC Anion Gap (16-25) mmol/L POC BUN (7-18) mg/dl BUN (7-18) mg/dl Creatinine (0.6-1.2) mg/dl POC Creatinine (0.6-1.3) mg/dl Est Cr Clr Drug Dosing ml/min Est GFR ( Amer) Est GFR (Non-Af Amer) BUN/Creatinine Ratio (10-20) Glucose (70-99) mg/dl POC Glucose (other) (70-99) mg/dl Calcium (8.5-10.1) mg/dl POC Ioniz Calcium Alfredito (1.12-1.32) mmol/l Total Bilirubin (0.2-1) mg/dl AST (15-37) U/L ALT (12-78) U/L Alkaline Phosphatase (45-117) U/L Troponin I (0-0.045) ng/ml Total Protein (6.4-8.2) gm/dl Albumin (3.4-5.0) gm/dl Globulin (2.5-4.0) gm/dl Albumin/Globulin Ratio (0.9-2) Influenza Type A (PCR) Neg for Influ A (Neg) Influenza Type B (PCR) Neg for Influ B (Neg) 08/15/18 08/15/18 Range/Units 14:42 14:46 WBC (4.8-10.8) K/uL RBC (4.2-5.4) M/uL Hgb (12.0-16.0) g/dL POC Hgb 13.3 (12.0-16.0) g/dl Hct (37-47) % POC Hct 39 (37-47) % MCV (80-100) fL MCH (25-34) pg MCHC (32-36) g/dL RDW Std Deviation (36.4-46.3) fL RDW Coeff of Juan Diego (11.5-14.5) % Plt Count (130-400) K/uL MPV (7.4-10.4) fL Immature Gran % (Auto) % Neut % (Auto) % Lymph % (Auto) % [place] % (Auto) % Eos % (Auto) % Baso % (Auto) % Immature Gran # (Auto) (0.00-0.02) K/uL Neut # (Auto) (1.4-6.5) K/uL Lymph # (Auto) (1.2-3.4) K/uL [place] # (Auto) (0.11-0.59) K/uL Eos # (Auto) (0-0.5) K/uL Baso # (Auto) (0-0.2) K/uL PT (9.0-12.0) Seconds INR (0.9-1.1) APTT (21.0-31.0) Seconds PTT Ratio D-Dimer (0-500) ug/L FEU POC Sodium 139 (135-144) mEq/L Sodium 138 (136-145) mmol/L POC Potassium 5.0 (3.3-5.0) mEq/L Potassium 5.0 (3.5-5.1) mmol/L POC Chloride 104 (101-112) mEq/L Chloride 105 (98-107) mmol/L Carbon Dioxide 27 (21-32) mmol/L POC Total CO2 25 (24-31) mEq/l Anion Gap 6.0 (3-11) POC Anion Gap 16.0 (16-25) mmol/L POC BUN 35 H (7-18) mg/dl BUN 41 H (7-18) mg/dl Creatinine 1.20 (0.6-1.2) mg/dl POC Creatinine 1.0 (0.6-1.3) mg/dl Est Cr Clr Drug Dosing 23.5 ml/min Est GFR ( Amer) 47.4 Est GFR (Non-Af Amer) 40.9 BUN/Creatinine Ratio 34.1 H (10-20) Glucose 166 H (70-99) mg/dl POC Glucose (other) 168 H (70-99) mg/dl Calcium 8.4 L (8.5-10.1) mg/dl POC Ioniz Calcium Alfredito 1.10 L (1.12-1.32) mmol/l Total Bilirubin 0.3 (0.2-1) mg/dl AST 17 (15-37) U/L ALT 27 (12-78) U/L Alkaline Phosphatase 122 H (45-117) U/L Troponin I < 0.015 (0-0.045) ng/ml Total Protein 6.4 (6.4-8.2) gm/dl Albumin 2.5 L (3.4-5.0) gm/dl Globulin 3.9 (2.5-4.0) gm/dl Albumin/Globulin Ratio 0.6 L (0.9-2) Influenza Type A (PCR) (Neg) Influenza Type B (PCR) (Neg) Imaging Data Attestation: I personally reviewed and interpreted this imaging study as follows : Radiologist's Impression: XR chest 1V portable HISTORY: Dyspnea COMPARISON: Chest 08/07/2018. Chest CT 08/12/2018. FINDINGS: Mild emphysema. No pneumothorax. No pleural effusions. The heart is normal in size. Right perihilar hazy opacity. This is new from the prior study. The left lung remains clear. Healing distal right clavicle fracture. IMPRESSION: 1. There is new hazy opacity within the right perihilar location. This is nonspecific and could be due to a developing pneumonia or overlying soft tissue. 2. Emphysema. 3. Healing distal right clavicle fracture. Electronically signed by: Enrike Ho M.D. 08/15/2018 2:[address] ANGIOGRAM OF THE CHEST CLINICAL HISTORY: Atypical chest pain. COMPARISON STUDY: Chest x-ray dated 08/15/2018. Chest CT dated 08/02/2018. TECHNIQUE: Following the IV administration of 92 cc of Optiray 320, CT angiogram of the chest was performed from the upper abdomen to the thoracic inlet utilizing the pulmonary embolus protocol. Images are reviewed in the axial , sagittal, and coronal planes. 3-D MIPS images are created and assessed. IV contrast was administered without complication. A dose lowering technique was utilized adhering to the principles of ALARA. The examination is degraded by motion artifact, as well as by streak artifact from the arms which could not be elevated above the chest. CT DOSE: 204.72 mGy.cm FINDINGS: Thyroid: Imaged portions of the thyroid gland are normal in size and attenuation. Thoracic aorta: There is atherosclerotic calcification of the thoracic aorta, which is normal in caliber and demonstrates standard 3-vessel arch anatomy. No dissection is seen. Pulmonary vasculature: The main pulmonary arteries are dilated suggesting pulmonary artery hypertension. Segmental and subsegmental pulmonary emboli are seen within branches of the right upper and right middle lobe pulmonary arteries. The main and lobar branches are patent bilaterally. Heart: The heart is normal in size and without pericardial effusion. The coronary arteries are calcified. Lungs and pleural spaces: Evaluation of the lung parenchyma is degraded by motion artifact. Emphysematous change is noted. No airspace consolidation is seen typical for pneumonia. There are small pleural effusions. There is near complete atelectasis of the right lower lobe. Subsegmental atelectasis is seen at the left lung base and in the lingula. Mediastinum: There is no mediastinal lymphadenopathy. Tiffani: Clear. Axillae: There is no axillary lymphadenopathy. 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 The kidneys are atrophic and without hydronephrosis. A 1.8 cm cyst is seen in the lower pole of the right kidney. Skeletal structures: The skeletal structures are osteopenic Compression deformities are seen at most thoracic levels. Mildly retropulsed fragments are noted at T8, T9, and L1. Degenerative change and hyperkyphosis are noted in the thoracic spine. No lytic or blastic bony lesions are seen. There are healed right-sided rib fractures. There is posttraumatic deformity of the manubrium of the sternum. IMPRESSION: 1. The examination is compromised by streak and motion artifact. 2. There are segmental and subsegmental pulmonary emboli within branches of the right upper and right middle lobe pulmonary arteries. 3. Advanced emphysema. 4. There is near complete atelectasis of the right lower lobe. 5. Compression deformities are seen at nearly all thoracic levels. 6. There is age indeterminant posttraumatic deformity of the manubrium. Correlate for point tenderness. 7. There are small pleural effusions. 8. 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 9. Additional findings as above. Electronically signed by: Efren Pate M.D. 08/15/2018 5:09 PM ECG Data Attestation: I personally reviewed and interpreted this ECG as follows: Indication: SOB/dyspnea Rate (beats per minute): 99 Rhythm: sinus rhythm Findings: + nonspecific-ST abn (in high lateral leads); no PVC Blood Pressure Blood Pressure Findings: Elevated blood pressure Blood Pressure Disposition: elevated BP felt to be situational MDM Narrative Patient is an 87-year-old female who presents the ER from [facility] for altered mental status and shortness of breath. Patient was recently admitted and discharged with a leg fracture. Upon presentation she is found to be tachycardic and slightly hypoxic. She was placed on 5 L oxygen mask. Previous notes were reviewed from admission. Discussed with the hospitalist from previous admission. Labs were obtained and showed a leukocytosis of 21,000. INR was at 1.2. D-dimer elevated at 8000. BMP was unremarkable. Influenza was negative. Chest x-ray with a questionable infiltrate. With the elevated d- dimer and after discussion with the hospitalist CT PE was performed that showed bilateral PEs. Patient was placed on a heparin drip and bolus. Patient was also given IV fluids, neb treatment and Levaquin along with steroids in the history of COPD prior to the diagnosis of PEs. Patient was updated bedside as well as the son and was admitted to the hospital for bilateral PEs with hypoxia. Impression & Plan Pneumonia, Pulmonary embolism Critical Care Time I have personally spent greater than 35 minutes of critical care time in the direct management of this patient. This includes bedside care, interpretation of diagnostic studies, and testing, discussion with consultants, patient, and family members, and other required patient management activities. This 35 minutes is in excess of all separately billable procedures. Critical Care Time: Yes Total Critical Care Time: 35 Discharge Plan Visit Data *Final* Discharge Date/Time: 08/15/18 15:38 Chief Complaint: Respiratory Problems Stated Complaint: sob ED Provider: Mehdi Espinal Discharge Problem: Pneumonia, Pulmonary embolism Patient Disposition: Admitted As Inpatient Discharge Instructions Interventions: ED Discharge Assessment Last Done: 08/15/18 15:38 The scribe's documentation has been prepared under my direction and personally reviewed by me in its entirety. I confirm that the note above accurately reflects all work, treatment, procedures, and medical decision making performed by me.
[2018-08-16 01:42] LABS: Partial Thromboplastin Ratio 1.6; Partial Thromboplastin Time 40.6 Seconds (21.0-31.0)
[2018-08-16] MEDS ORDERED: HEPARIN IV BOLUS 3,000 UNITS in SYRINGE 0 ML IV ONE (02:15)
[2018-08-16 04:34] LABS: Appearance Urine Clear (Clear); Bacteria Urine Automated Negative (Negative); Bilirubin Urine Negative (Negative); Color Urine Yellow; Epithelial Cell Urine Auto >30 /lpf (0-5); Glucose Urine UA Negative (Negative); Ketones Urine Negative (Negative); Leukocyte Esterase Urine 1+ (Negative); Nitrite Urine Negative (Negative); Protein Urine Negative (Negative); Specific Gravity Urine 1.043 (1.000-1.030); Urobilinogen Urine Negative (Negative); pH Urine 5.5 (4.5-7.5)
[2018-08-16 06:53] LABS: Hematocrit (blood only) 37.5 % (37-47); Hemoglobin 12.6 g/dL (12.0-16.0); Mean Corpuscular Hgb Conc 33.6 g/dL (32-36); Mean Corpuscular Volume 88.2 fL (80-100); Mean Platelet Volume 10.8 fL (7.4-10.4); Platelet Count 137 K/uL (130-400); RDW Coefficient of Variation 13.6 % (11.5-14.5); RDW Standard Deviation 44.2 fL (36.4-46.3); Red Blood Count 4.25 M/uL (4.2-5.4)
[2018-08-16] MEDS: BREO ELLIPTA: ORDER AWAITING ACTION SCH ×3 (07:08→16:56)
[2018-08-16] MEDS: RESTASIS: ORDER AWAITING ACTION SCH ×3 (07:08→16:56)
[2018-08-16 07:24] LABS: Creatinine Clr Calc Pharmacy 29.9 ml/min; Est GFR (African American) 61.3; Est GFR (Non-African American) 52.9; Potassium 4.9 mmol/L (3.5-5.1)
--- NOTE | 2018-08-16 07:40 | Ultrasound Report ---
BILATERAL LOWER EXTREMITY VENOUS DOPPLER HISTORY: History of chronic DVT R/O residual DVT COMPARISON STUDY: None. FINDINGS: RIGHT LOWER EXTREMITY: There is normal compressibility, flow, and augmentation within the left lower extremity deep venous s tructures. LEFT LOWER EXTREMITY: Echogenic nonocclusive thrombi noted within the common femoral, superficial femoral vein both proxima lly and distally and also within the profunda femoris vein. The deep venous structures below the leve l of the knee appear normal. No occlusive thrombi identified. IMPRESSION: 1. Nonocclusive likely chronic deep venous thrombi of the left lower extremity as above. 2. No evidence of right-sided deep venous thrombosis. Electronically signed by: Aneudy Burks M.D. 08/16/2018 7:39 AM
[2018-08-16] MEDS: LISINOPRIL 40 MG TAB PO SCH (07:51)
[2018-08-16] MEDS: IPRATROPIUM BROMIDE/ALBUTEROL respimat INH INH SCH ×4 (07:51→21:32)
[2018-08-16] MEDS: AMLODIPINE BESYLATE 5 MG TAB PO SCH (07:51)
[2018-08-16] MEDS: NICOTINE 21 MG/24 HR TDSY TD SCH (07:51)
[2018-08-16 09:43] LABS: Partial Thromboplastin Ratio 1.8
[2018-08-16 09:44] LABS: Partial Thromboplastin Time 47.1 Seconds (21.0-31.0)
--- NOTE | 2018-08-16 12:05 | Hospitalist Progress Note ---
Date of Service August 16, 2018 Assessment & Plan (1) Pulmonary embolism: - CXR with a new infiltrate but given the setting of PE this is likely a pulmonary infarct as well as there is RLL collapse due to atelectatsis - CTA supports PE and no findings of consolidation - WBC likely reactive vs steroid- induced as she is finishing a taper - Heparin gtt initiated - She did have a recent fall resulting in her tibial plateau fracture however she has multiple chronic compression deformities of spine and old rib fractures and did wonder if she falls more than known at home and may be a better candidate for Coumadin therapy if home arrangements could be made with home services etc. - Echocardiogram pending - U/S of b/l lower extremities with nonocclusive thrombi in the common femoral and superficial femoral proximally and distally as well in the profunda femoris (2) Acute and chronic respiratory failure: - She was utilizing 2 L NC prior to D/C and likely needed long-term supplemental O2 prior to her last admission given her advanced emphysema - currently on 4 L - Wean O2 as tolerated to maintain O2 saturations of 88% or greater - This is likely in setting of acute PE and suggested pulmonary HTN/RLL collapse - unlikely this is infectious in nature and did have Zithromax x 3 days on last admission - will hold on further abx at this time (3) COPD (chronic obstructive pulmonary disease): - Does not appear to be in an exacerbation at this time with no wheezing and actually has good airflow on examination today - She was on Trelegy as an outpatient but this cost would be too much - it appears she was converted to Breo at [facility] and Combivent - Will continue Combivent QID and start Symbicort due to Breo being nonformulary - Nebs PRN Present on Admission?: Yes (4) HTN (hypertension): - Normally has extremely uncontrolled BP but improving and will monitor - Continue Lisinopril 10 mg daily and Norvasc 5 mg daily Present on Admission?: Yes (5) Tibial plateau fracture, right: - Occurred earlier in the month - non-weightbearing to RLE - Tramadol PRN - PT/OT when clinically improved Disposition: Son would like her to go to a [place] SNF instead of returning to [facility] (6) DVT prophylaxis: Heparin gtt and likely converting to Coumadin Disposition: Son would like her to go to a SNF in [place] if possible on D/C ; will order PT/OT evaluations Subjective Patient looks more comfortable today on visit. She is a poor historian when trying to obtain details of her symptoms. She states that her breathing isn't great but can't say if it is better than yesterday. She objectively looks more comfortable and not tachypneic. She denies chest pain at this time. She states she ate ok this morning but not much of an appetite. She has moments of hallucinations as she thought her son was in the room with her which this did happen on her last admission Constitutional: + fatigue; no fever and no chills Respiratory: + dyspnea; no cough and no pain on inspiration Musculoskeletal: + joint pain (right knee pain) Physical Exam 2 Vital Signs (Past 24 Hours): Last Vital Signs Temp 36.8 C 08/16/18 11:41 Pulse 88 08/16/18 11:41 Resp 16 08/16/18 11:41 BP 139/84 08/16/18 11:41 Pulse Ox 97 08/16/18 11:41 Constitutional: + ill appearing (chronically ill appearing); no acute distress Eyes: + anicteric sclerae ENMT: Ears: no hearing impairment Neck: trachea midline Respiratory: + labored breathing (slightly) Auscultation: + diminished lung sounds; no wheezes Cardiovascular: Rate/Rhythm: regular rate and regular rhythm Gastrointestinal (Abdomen): Inspection/Auscultation: normal bowel sounds Percussion/Palpation: abdomen soft; abdomen nontender Skin: no rashes, warm and dry Neurologic: moves all extremities Psychiatric: Orientation: alert and oriented x 3 Affect: + flat affect _ (1) Pulmonary embolism Acute cor pulmonale presence: Chronicity: Pulmonary embolism type:
[2018-08-16] MEDS: MONTELUKAST SODIUM 10 MG TABLET PO SCH (21:32)
[2018-08-16] MEDS: BUDESONIDE/FORMOTEROL FUMARATE 160/4.5 60 PUFFS/INHALER INH SCH (21:32)
[2018-08-17 05:53] LABS: Hematocrit (blood only) 41.3 % (37-47); Hemoglobin 13.6 g/dL (12.0-16.0); Mean Corpuscular Hgb Conc 32.9 g/dL (32-36); Mean Platelet Volume 10.6 fL (7.4-10.4); Platelet Count 148 K/uL (130-400); RDW Coefficient of Variation 13.8 % (11.5-14.5); RDW Standard Deviation 45.5 fL (36.4-46.3); Red Blood Count 4.64 M/uL (4.2-5.4); White Blood Count 16.27 K/uL (4.8-10.8)
[2018-08-17] MEDS: HEPARIN STANDARD DEXTROSE 25,000 UNITS/500 ML IV SCH (05:57)
[2018-08-17 06:09] LABS: Partial Thromboplastin Ratio 1.3; Partial Thromboplastin Time 34.5 Seconds (21.0-31.0)
[2018-08-17 06:22] LABS: BUN Creatinine Ratio 35.9 (10-20); Calcium 8.3 mg/dl (8.5-10.1); Est GFR (African American) 56.3; Est GFR (Non-African American) 48.6; Potassium 4.8 mmol/L (3.5-5.1)
[2018-08-17] MEDS ORDERED: HEPARIN IV BOLUS 3,000 UNITS in SYRINGE 0 ML IV ONE (06:45)
[2018-08-17] MEDS: RESTASIS: ORDER AWAITING ACTION SCH ×3 (07:18→16:16)
[2018-08-17] MEDS: BREO ELLIPTA: ORDER AWAITING ACTION SCH ×3 (07:18→16:16)
[2018-08-17] MEDS: AMLODIPINE BESYLATE 5 MG TAB PO SCH (08:05)
[2018-08-17] MEDS: NICOTINE 21 MG/24 HR TDSY TD SCH (08:05)
[2018-08-17] MEDS: LISINOPRIL 40 MG TAB PO SCH (08:06)
[2018-08-17] MEDS: IPRATROPIUM BROMIDE/ALBUTEROL respimat INH INH SCH ×4 (08:06→20:46)
[2018-08-17] MEDS: BUDESONIDE/FORMOTEROL FUMARATE 160/4.5 60 PUFFS/INHALER INH SCH ×2 (08:06→20:46)
--- NOTE | 2018-08-17 12:27 | Hospitalist Progress Note ---
Date of Service August 17, 2018 Assessment & Plan (1) Pulmonary embolism: - Breathing is relatively stable - continues to have significant desaturations with standing and ambulatory efforts - Leukocytosis is resolving without Abx coverage - CTA did not reveal a consolidation to suggest pneumonia but there is evidence of RLL collapse due to atelectasis and therefore will hold on Abx at this time - She did have a recent fall resulting in her tibial plateau fracture however she has multiple chronic compression deformities of spine and old rib fractures and did wonder if she falls more than known at home and may be a better candidate for Coumadin therapy if home arrangements could be made with home services etc. - U/S of b/l lower extremities with nonocclusive thrombi in the common femoral and superficial femoral proximally and distally as well in the profunda femoris - Will begin bridge therapy with Heparin/Coumadin and monitor INR - likely can transition to Lovenox on D/C to complete bridge Present on Admission?: Yes (2) Acute and chronic respiratory failure: - She was utilizing 2 L NC prior to D/C and likely needed long-term supplemental O2 prior to her last admission given her advanced emphysema - currently on 4-5 L - Wean O2 as tolerated to maintain O2 saturations of 88% or greater - This is likely in setting of acute PE and suggested pulmonary HTN/RLL collapse - unlikely this is infectious in nature and did have Zithromax x 3 days on last admission - will hold on further abx at this time Present on Admission?: Yes (3) COPD (chronic obstructive pulmonary disease): - Does not appear to be in an exacerbation at this time with no wheezing and actually has good airflow on examination just poor respiratory effort - She was on Trelegy as an outpatient but this cost would be too much - it appears she was converted to Breo at [facility] and Combivent - Will continue Combivent QID and use Symbicort due to Breo being non-formulary - recommend spacer use due to poor lung capacity - Nebs PRN Present on Admission?: Yes (4) HTN (hypertension): - Normally has extremely uncontrolled BP but improving and will monitor - Continue Lisinopril 10 mg daily and Norvasc 5 mg daily Present on Admission?: Yes (5) Tibial plateau fracture, right: - Occurred earlier in the month - non-weightbearing to RLE - Tramadol PRN - PT/OT - appreciate continued assessment Present on Admission?: Yes (6) DVT prophylaxis: Heparin gtt/Coumadin bridge Disposition: Son would like her to go to a SNF in [place] if possible on D/C ; will order PT/OT evaluations Subjective States today is "crappy" but cannot tell me why. She states her breathing feels okay but doesn't give much details of this either She says she tries to purse-lip breath to help her breathing but it doesn't always help. C/o of a cough but unable to move the mucous. She does seem to have a bit of a wet cough. She had a rough night last night per notes but states it was 50/50. She does not like the food but son states at home they basically can only get her to enjoy eating [employer]. She has some candy and snack at bedside that she states she is trying to gain some weight with Constitutional: no fever, no chills and no anorexia Respiratory: + cough, + chest congestion and + dyspnea; no pain on inspiration Cardiovascular: no chest pain Gastrointestinal: no abdominal pain, no nausea, no vomiting, no constipation and no diarrhea/loose stools Genitourinary (Female): no dysuria Musculoskeletal: + joint pain (right knee pain) Physical Exam 2 Vital Signs (Past 24 Hours): Last Vital Signs Temp 36.8 C 08/17/18 11:56 Pulse 80 08/17/18 11:56 Resp 18 08/17/18 11:56 BP 161/80 H 08/17/18 11:56 Pulse Ox 90 08/17/18 11:56 Constitutional: + ill appearing (chronically ill appearing); no acute distress Eyes: + anicteric sclerae ENMT: Ears: no hearing impairment Neck: trachea midline Respiratory: + labored breathing (occ. pursed lip breathing - rather baseline ) and + cough (wet sounding mostly bronchial but weak cough effort) Auscultation: + diminished lung sounds; no wheezes Cardiovascular: Rate/Rhythm: regular rate and regular rhythm Gastrointestinal (Abdomen): Inspection/Auscultation: normal bowel sounds Percussion/Palpation: abdomen soft; abdomen nontender Skin: no rashes, warm and dry Neurologic: moves all extremities Psychiatric: Orientation: alert and oriented x 3 Affect: + flat affect _ (1) Pulmonary embolism Acute cor pulmonale presence: Chronicity: Pulmonary embolism type:
[2018-08-17 13:39] LABS: Partial Thromboplastin Time 51.6 Seconds (21.0-31.0)
[2018-08-17] MEDS: guaiFENesin 600 MG TABCR PO SCH ×2 (14:18→20:47)
[2018-08-17] MEDS ORDERED: WARFARIN SOD 7.5 MG TAB PO SCH (16:00)
[2018-08-17] MEDS ORDERED: OLANZAPINE 2.5 MG TAB PO PRN (17:31)
[2018-08-17] MEDS: MONTELUKAST SODIUM 10 MG TABLET PO SCH (20:47)
[2018-08-18 06:42] LABS: Hematocrit (blood only) 39.5 % (37-47); Hemoglobin 13.3 g/dL (12.0-16.0); Mean Corpuscular Hgb Conc 33.7 g/dL (32-36); Mean Corpuscular Volume 87.6 fL (80-100); Mean Platelet Volume 10.5 fL (7.4-10.4); Platelet Count 110 K/uL (130-400); RDW Coefficient of Variation 13.7 % (11.5-14.5); RDW Standard Deviation 44.2 fL (36.4-46.3); Red Blood Count 4.51 M/uL (4.2-5.4); White Blood Count 13.58 K/uL (4.8-10.8)
[2018-08-18 07:02] LABS: INR 1.9 (0.9-1.1); Partial Thromboplastin Ratio 1.8; Prothrombin Time 18.9 Seconds (9.0-12.0)
[2018-08-18] MEDS: HEPARIN STANDARD DEXTROSE 25,000 UNITS/500 ML IV SCH ×2 (07:12→19:12)
[2018-08-18] MEDS: RESTASIS: ORDER AWAITING ACTION SCH ×3 (07:13→17:02)
[2018-08-18] MEDS: BREO ELLIPTA: ORDER AWAITING ACTION SCH ×3 (07:13→17:01)
[2018-08-18 07:24] LABS: BUN Creatinine Ratio 24.1 (10-20); Calcium 8.1 mg/dl (8.5-10.1); Creatinine Clr Calc Pharmacy 29.9 ml/min; Est GFR (African American) 62.9; Est GFR (Non-African American) 54.2; Potassium 4.3 mmol/L (3.5-5.1)
[2018-08-18] MEDS ORDERED: HEPARIN IV BOLUS 2,000 UNITS in SYRINGE 0 ML IV STA (07:30)
[2018-08-18] MEDS: guaiFENesin 600 MG TABCR PO SCH ×2 (10:10→20:39)
[2018-08-18] MEDS: LISINOPRIL 40 MG TAB PO SCH ×2 (10:11→11:26)
[2018-08-18] MEDS: NICOTINE 21 MG/24 HR TDSY TD SCH (10:18)
[2018-08-18] MEDS: IPRATROPIUM BROMIDE/ALBUTEROL respimat INH INH SCH ×4 (10:18→20:38)
[2018-08-18] MEDS: BUDESONIDE/FORMOTEROL FUMARATE 160/4.5 60 PUFFS/INHALER INH SCH ×2 (10:19→20:40)
[2018-08-18] MEDS: AMLODIPINE BESYLATE 5 MG TAB PO SCH ×2 (10:19→11:25)
--- NOTE | 2018-08-18 14:09 | XRay Report ---
XR chest 1V portable CLINICAL HISTORY: 87 years-old Female presenting with SOB. TECHNIQUE: Portable upright AP view of the chest was obtained. COMPARISON: 08/15/2018 and CTA from 08/15/2018. FINDINGS: Atherosclerosis of the aortic arch. Tortuosity and prominence of the thoracic aorta. Cardiac silhouet te prominence. Exaggerated thoracic kyphosis. Elevation of the bilateral hemidiaphragms. Heterogeneit y of lung parenchyma with bibasilar opacities. No large effusion or pneumothorax. Osteopenia. Posteri or matter deformity of the distal right clavicle. Multiple right rib fractures. Evaluation of the upp er abdomen limited by overlying leads and positioning of the arms. IMPRESSION: 1. Extensive bibasilar atelectasis suspected. 2. Underlying emphysema. Electronically signed by: Donn Murphy M.D. 08/18/2018 2:07 PM
[2018-08-18 14:13] LABS: Partial Thromboplastin Ratio 2.2
--- NOTE | 2018-08-18 14:29 | Hospitalist Progress Note ---
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 Severe Protein-Calorie Malnutrition - poor ongoing diet - regular diet and allow snacks and foods per patient preference Original Note: Date of Service August 18, 2018 Assessment & Plan (1) Pulmonary embolism: - Her breathing looks more comfortable today and she actually reports it feels better today - keeps taking her O2 off but is saturating around 89% - Leukocytosis is resolving without Abx coverage - CTA did not reveal a consolidation to suggest pneumonia but there is evidence of RLL collapse due to atelectasis and therefore will hold on Abx at this time - She did have a recent fall resulting in her tibial plateau fracture however she has multiple chronic compression deformities of spine and old rib fractures and did wonder if she falls more than known at home and may be a better candidate for Coumadin therapy if home arrangements could be made with home services etc. 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 - Continue heparin gtt at this time. Started Coumadin yesterday and INR is 1.9 and therefore will hold a dose today and check INR in AM prior to administering another dose (2) Acute and chronic respiratory failure: - She was utilizing 2 L NC prior to D/C and likely needed long-term supplemental O2 prior to her last admission given her advanced emphysema - currently on 4-5 L but continues to take this off through the day - Wean O2 as tolerated to maintain O2 saturations of 88% or greater - This is likely in setting of acute PE and suggested pulmonary HTN/RLL collapse - unlikely this is infectious in nature and did have Zithromax x 3 days on last admission - will hold on further abx at this time (3) COPD (chronic obstructive pulmonary disease): - Does not appear to be in an exacerbation at this time with no wheezing and actually has good airflow on examination just poor respiratory effort - She was on Trelegy as an outpatient but this cost would be too much - it appears she was converted to Breo at [facility] and Combivent - Will continue Combivent QID and use Symbicort due to Breo being non-formulary - recommend spacer use due to poor lung capacity - Nebs PRN (4) HTN (hypertension): - Normally has extremely uncontrolled BP but improving and will monitor - Continue Lisinopril 10 mg daily and Norvasc 5 mg daily (5) Tibial plateau fracture, right: - Occurred earlier in the month - non-weightbearing to RLE - Tramadol PRN - PT/OT - appreciate continued assessment (6) Dementia: - Has suggested baseline dementia but not formally evaluated - Seems to have sundowning tendencies which were present on last admission and continue this admission - some delusional thinking and hallucinations noted - Zyprexa 2.5 mg HS PRN Present on Admission?: Yes (7) DVT prophylaxis: Heparin gtt/Coumadin bridge Disposition: Referral to [facility]. If breathing status remains stable likely can be discharged when SNF arrangements made Supervising Physician Co-Signing Physician Notes Attending note: patient seen and examined with Lynsey Hassan PA-C. I agree with her progress note. Long discussion with patient and her son Gordon at the bedside as well as her son Musa over the phone. Discussed the difficulties of treating her hospital delirium on top of her PE and DVT. Patient has baseline dementia, making delirium more likely. Symptoms certainly wax and wane suggesting delirium. Will try to maintain proper sleep wake cycles, frequent re-orientation, watching her favorite shows. Will try some low dose Seroquel at bedtime to try to give her more clarity. Confirmed with her son Musa that she is a full code. - Right sided PE with acute on chronic hypoxia continue heparin drip, Coumadin started, INR 1.9 will need to be overlapped for 2 days with heparin - Delirium: due to hospitalization, baseline dementia try some low dose Seroquel at bedtime Subjective Patient was not very cooperative this morning. Laying in bed without close one and refused all interaction. Revisit at noon she ate her cheeseburger and was at her baseline but still exhibits confusion/delusional thoughts/hallucinations Today is the first day she states her breathing feels good. Surprisingly she was sitting in bed without her oxygen on but was saturating around 89% She reports she coughed up a large amount of sputum this morning. She verbalizes no complaints at this time. States she feels "stuffed" after eating her cheeseburger. Updated her son Musa over the phone and awaiting [facility] referral Constitutional: no fever and no chills Respiratory: + cough; no chest congestion, no dyspnea and no pain on inspiration Cardiovascular: no chest pain Gastrointestinal: no abdominal pain, no nausea, no vomiting, no constipation and no diarrhea/loose stools Genitourinary (Female): no dysuria Musculoskeletal: no joint pain Physical Exam 2 Vital Signs (Past 24 Hours): Last Vital Signs Temp 37.0 C 08/18/18 11:17 Pulse 97 H 08/18/18 11:17 Resp 18 08/18/18 11:17 BP 135/77 08/18/18 11:17 Pulse Ox 88 L 08/18/18 11:17 Constitutional: + ill appearing (chronically ill appearing); no acute distress Eyes: + anicteric sclerae ENMT: Ears: no hearing impairment Neck: trachea midline Respiratory: normal respiratory effort; no cough Auscultation: + diminished lung sounds; no wheezes Cardiovascular: Rate/Rhythm: regular rate and regular rhythm Gastrointestinal (Abdomen): Inspection/Auscultation: normal bowel sounds Percussion/Palpation: abdomen soft; abdomen nontender Skin: no rashes, warm and dry Neurologic: moves all extremities Psychiatric: Orientation: alert and oriented x 3 Affect: + flat affect _ (1) Pulmonary embolism Acute cor pulmonale presence: Chronicity: Pulmonary embolism type:
[2018-08-18 14:53] LABS: Partial Thromboplastin Time 56.4 Seconds (21.0-31.0)
[2018-08-18] MEDS: SODIUM CHLORIDE 0.9% 1000ML 1,000 ML IV SCH (16:32)
--- NOTE | 2018-08-18 17:03 | CT Scan Report ---
CT SCAN OF THE BRAIN WITHOUT IV CONTRAST CLINICAL HISTORY: Change in mental status. COMPARISON STUDY: CT of the brain dated 08/02/2018. TECHNIQUE: Unenhanced axial CT scan of the brain is performed from the vertex to the skull base. A do se lowering technique was utilized adhering to the principles of ALARA. CT DOSE: 614.27 mGy.cm FINDINGS: Brain parenchyma: There are age-related involutional changes noting advanced confluent subcortical a nd periventricular microangiopathic change. There is no hemorrhage, mass effect, or evidence of acute territorial ischemia by CT criteria. Barrientos-white matter differentiation is preserved. No extra-axial fluid collection is seen. Ventricles, sulci, cisterns: Prominent secondary to involutional change. Intracranial vasculature: There is atherosclerotic calcification of the cavernous carotid and vertebr al arteries. Calvarium: Unremarkable. Sinuses and mastoids: There is trace mucosal thickening within the right frontal sinus. The remaining paranasal sinuses are clear. The mastoid air cells are well pneumatized. Orbits: The bony orbits are grossly intact. There is a left ocular lens implants. IMPRESSION: Senescent changes as above with no hemorrhage, mass effect, or evidence of acute territor ial ischemia by CT criteria. Electronically signed by: Efren Pate M.D. 08/18/2018 5:02 PM
[2018-08-18] MEDS: MONTELUKAST SODIUM 10 MG TABLET PO SCH (20:39)
[2018-08-18] MEDS: QUETIAPINE FUMARATE 25 MG TABLET PO SCH (20:40)
[2018-08-19] MEDS: BREO ELLIPTA: ORDER AWAITING ACTION SCH ×4 (00:15→23:39)
[2018-08-19] MEDS: RESTASIS: ORDER AWAITING ACTION SCH ×4 (00:16→23:39)
[2018-08-19] MEDS: SODIUM CHLORIDE 0.9% 1000ML 1,000 ML IV SCH ×2 (00:54→18:34)
[2018-08-19 07:20] LABS: Hematocrit (blood only) 35.9 % (37-47); Hemoglobin 12.1 g/dL (12.0-16.0); Mean Corpuscular Hgb Conc 33.7 g/dL (32-36); Mean Corpuscular Volume 87.1 fL (80-100); Mean Platelet Volume 10.6 fL (7.4-10.4); Platelet Count 105 K/uL (130-400); RDW Coefficient of Variation 13.9 % (11.5-14.5); RDW Standard Deviation 44.3 fL (36.4-46.3); Red Blood Count 4.12 M/uL (4.2-5.4); White Blood Count 18.25 K/uL (4.8-10.8)
[2018-08-19 07:36] LABS: Partial Thromboplastin Ratio 1.8; Prothrombin Time 19.4 Seconds (9.0-12.0)
[2018-08-19 07:46] LABS: Partial Thromboplastin Time 46.1 Seconds (21.0-31.0)
[2018-08-19 07:54] LABS: BUN Creatinine Ratio 30.7 (10-20); Creatinine Clr Calc Pharmacy 36.3 ml/min; Est GFR (Non-African American) 69.9; Potassium 3.5 mmol/L (3.5-5.1)
[2018-08-19] MEDS: guaiFENesin 600 MG TABCR PO SCH ×2 (12:22→21:19)
[2018-08-19] MEDS: IPRATROPIUM BROMIDE/ALBUTEROL respimat INH INH SCH ×4 (12:22→21:19)
[2018-08-19] MEDS: cefTRIAXone SODIUM 1,000 MG in DEXTROSE 5% 50 ML IV SCH (12:23)
[2018-08-19] MEDS: AMLODIPINE BESYLATE 5 MG TAB PO SCH (12:23)
[2018-08-19] MEDS: LISINOPRIL 40 MG TAB PO SCH (12:23)
[2018-08-19] MEDS: BUDESONIDE/FORMOTEROL FUMARATE 160/4.5 60 PUFFS/INHALER INH SCH ×2 (12:23→21:20)
[2018-08-19] MEDS: NICOTINE 21 MG/24 HR TDSY TD SCH (12:24)
--- NOTE | 2018-08-19 15:40 | Hospitalist Progress Note ---
Date of Service August 19, 2018 Assessment & Plan (1) Pulmonary embolism: - Breathing appears relatively baseline and may take some time to improve but does have underlying severe emphysema so supplemental O2 will likely be needed indefinitely - CXR with increasing signs of atelectasis - unlikely this is pneumonia or infection - She did have a recent fall resulting in her tibial plateau fracture however she has multiple chronic compression deformities of spine and old rib fractures and did wonder if she falls more than known at home and may be a better candidate for Coumadin therapy if home arrangements could be made with home services etc. 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 - INR is 2.0 today and will stop heparin gtt and continue Coumadin 2 mg daily - see became therapeutic in only 2 days so likely low doses will be sufficient and will monitor (2) Acute and chronic respiratory failure: - She was utilizing 2 L NC prior to D/C and likely needed long-term supplemental O2 prior to her last admission given her advanced emphysema - currently on 4-5 L - Wean O2 as tolerated to maintain O2 saturations of 88% or greater - This is likely in setting of acute PE and suggested pulmonary HTN/RLL collapse - unlikely this is infectious in nature and did have Zithromax x 3 days on last admission (3) UTI (urinary tract infection): - Suspected UTI - see does endorse some suprapubic pain and pain on urination - She would not allow for straight cath and only has been incontinent so getting a sample will be difficult - Given reported symptoms and low grade fever and increasing WBC will treat - Rocephin 1 g IV daily and likely can convert to an equivalent cephalosporin on D/C to treat Present on Admission?: No (4) COPD (chronic obstructive pulmonary disease): - Does not appear to be in an exacerbation at this time with no wheezing and actually has good airflow on examination just poor respiratory effort - She was on Trelegy as an outpatient but this cost would be too much - it appears she was converted to Breo at [facility] and Combivent - Will continue Combivent QID and use Symbicort due to Breo being non-formulary - recommend spacer use due to poor lung capacity - Nebs PRN Present on Admission?: Yes (5) HTN (hypertension): - Normally has extremely uncontrolled BP but improving and will monitor - Continue Lisinopril 10 mg daily and Norvasc 5 mg daily Present on Admission?: Yes (6) Tibial plateau fracture, right: - Occurred earlier in the month - non-weightbearing to RLE - Tramadol PRN - PT/OT - appreciate continued assessment Present on Admission?: Yes (7) Dementia: - Has suggested baseline dementia but not formally evaluated - Seems to have sundowning tendencies which were present on last admission and continue this admission - some delusional thinking and hallucinations noted - seems delirium is more prevalent this admission - maybe a component of UTI? - Seroquel 25 mg HS (8) DVT prophylaxis: - Coumadin Disposition: Referral to [facility]. Anticipate hospitalization over the weekend given the confusion and for monitoring Subjective States she feels "rotten" today. She is calm and cooperative to most things today. She will not complain of any symptoms when asked generalized questions but with specific questioning she does report her lower abdomen hurting and intermittent pain with urinating. She did not want a straight cath so will treat for UTI given symptoms with increasing WBC and low grade fever this afternoon. Constitutional: + fatigue, + weakness and + anorexia; no fever and no chills Respiratory: + dyspnea; no cough Cardiovascular: no chest pain Gastrointestinal: + abdominal pain (lower - suprapubic region); no nausea and no vomiting Genitourinary (Female): + dysuria and + urinary incontinence Physical Exam 2 Vital Signs (Past 24 Hours): Last Vital Signs Temp 37.7 C H 08/19/18 15:31 Pulse 88 08/19/18 15:31 Resp 23 08/19/18 15:31 BP 161/74 H 08/19/18 15:31 Pulse Ox 91 08/19/18 15:31 Constitutional: + ill appearing (chronically ill appearing); no acute distress Eyes: + anicteric sclerae ENMT: Ears: no hearing impairment Neck: trachea midline Respiratory: normal respiratory effort; no cough Auscultation: + diminished lung sounds and + crackles (bases b/l); no wheezes Cardiovascular: Rate/Rhythm: regular rate and regular rhythm Gastrointestinal (Abdomen): Inspection/Auscultation: normal bowel sounds Percussion/Palpation: + abdomen tender (mild in suprapubic region) and abdomen soft Skin: no rashes, warm and dry Neurologic: moves all extremities Psychiatric: Orientation: alert and oriented x 3 Affect: + flat affect _ (1) Pulmonary embolism Acute cor pulmonale presence: Chronicity: Pulmonary embolism type:
[2018-08-19] MEDS: WARFARIN SOD 2 MG TAB PO SCH (17:05)
[2018-08-19] MEDS: MONTELUKAST SODIUM 10 MG TABLET PO SCH (21:19)
[2018-08-19] MEDS: QUETIAPINE FUMARATE 25 MG TABLET PO SCH (21:19)
[2018-08-20 07:17] LABS: Hematocrit (blood only) 33.9 % (37-47); Hemoglobin 11.4 g/dL (12.0-16.0); Mean Corpuscular Hgb Conc 33.6 g/dL (32-36); Mean Corpuscular Volume 87.6 fL (80-100); Mean Platelet Volume 10.7 fL (7.4-10.4); Platelet Count 128 K/uL (130-400); RDW Coefficient of Variation 13.8 % (11.5-14.5); RDW Standard Deviation 43.9 fL (36.4-46.3); Red Blood Count 3.87 M/uL (4.2-5.4); White Blood Count 16.39 K/uL (4.8-10.8)
[2018-08-20 07:27] LABS: INR 2.1 (0.9-1.1); Prothrombin Time 20.6 Seconds (9.0-12.0)
[2018-08-20 07:53] LABS: BUN Creatinine Ratio 26.4 (10-20); Calcium 7.7 mg/dl (8.5-10.1); Creatinine Clr Calc Pharmacy 37.8 ml/min; Est GFR (Non-African American) 73.4; Potassium 3.5 mmol/L (3.5-5.1)
[2018-08-20] MEDS: IPRATROPIUM BROMIDE/ALBUTEROL respimat INH INH SCH ×4 (10:26→20:32)
[2018-08-20] MEDS: guaiFENesin 600 MG TABCR PO SCH ×2 (10:27→20:37)
[2018-08-20] MEDS: BUDESONIDE/FORMOTEROL FUMARATE 160/4.5 60 PUFFS/INHALER INH SCH ×2 (10:28→20:33)
[2018-08-20] MEDS: NICOTINE 21 MG/24 HR TDSY TD SCH (10:28)
[2018-08-20] MEDS: AMLODIPINE BESYLATE 5 MG TAB PO SCH (10:28)
[2018-08-20] MEDS: LISINOPRIL 40 MG TAB PO SCH (10:29)
[2018-08-20] MEDS: BREO ELLIPTA: ORDER AWAITING ACTION SCH ×3 (10:30→23:14)
[2018-08-20] MEDS: RESTASIS: ORDER AWAITING ACTION SCH ×3 (10:31→23:14)
[2018-08-20] MEDS: cefTRIAXone SODIUM 1,000 MG in DEXTROSE 5% 50 ML IV SCH (12:20)
--- NOTE | 2018-08-20 16:01 | Hospitalist Progress Note ---
Date of Service August 20, 2018 Assessment & Plan (1) Pulmonary embolism: - Breathing appears relatively baseline and may take some time to improve but does have underlying severe emphysema so supplemental O2 will likely be needed indefinitely - She did have a recent fall resulting in her tibial plateau fracture however she has multiple chronic compression deformities of spine and old rib fractures and did wonder if she falls more than known at home and may be a better candidate for Coumadin therapy if home arrangements could be made with home services etc. 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 - INR is 2.1 today, heparin drip can be stopped (2) Acute and chronic respiratory failure: - She was utilizing 2 L NC prior to D/C and likely needed long-term supplemental O2 prior to her last admission given her advanced emphysema - currently on 4-5 L - Wean O2 as tolerated to maintain O2 saturations of 88% or greater - This is likely in setting of acute PE and suggested pulmonary HTN/RLL collapse - unlikely this is infectious in nature and did have Zithromax x 3 days on last admission (3) UTI (urinary tract infection): - Suspected UTI - see does endorse some suprapubic pain and pain on urination - She would not allow for straight cath and only has been incontinent so getting a sample will be difficult - Given reported symptoms and low grade fever and increasing WBC will treat - Rocephin 1 g IV daily, seems to be responding today, denies suprapubic pain, more alert and cooperative (4) COPD (chronic obstructive pulmonary disease): - Does not appear to be in an exacerbation at this time with no wheezing and actually has good airflow on examination just poor respiratory effort - She was on Trelegy as an outpatient but this cost would be too much - it appears she was converted to Breo at [facility] and Combivent - Will continue Combivent QID and use Symbicort due to Breo being non-formulary - recommend spacer use due to poor lung capacity - Nebs PRN (5) HTN (hypertension): - Continue Lisinopril 10 mg daily and Norvasc 5 mg daily (6) Tibial plateau fracture, right: - Occurred earlier in the month - non-weightbearing to RLE - Tramadol PRN - PT/OT - appreciate continued assessment (7) Dementia: - Has suggested baseline dementia but not formally evaluated - Seems to have sundowning tendencies which were present on last admission and continue this admission - some delusional thinking and hallucinations noted - seems delirium is more prevalent this admission - maybe a component of UTI? - Seroquel 25 mg HS, tolerating well, less aggressive the past day (8) DVT prophylaxis: - Coumadin Disposition: Referral to [facility]. Anticipate hospitalization over the weekend given the confusion and for monitoring Subjective patient calm and cooperative this morning she is not oriented but will allow vitals and blood work and will take her medications might be responding to the Rocephin to treat suspected UTI breathing is stable, she denies any chest pain or increased dyspnea reviewed labs, stable Review of Systems All systems reviewed & are unremarkable except as noted in HPI & below Physical Exam 2 Vital Signs (Past 24 Hours): Last Vital Signs Temp 36.3 C L 08/20/18 14:51 Pulse 100 H 08/20/18 14:51 Resp 20 08/20/18 14:51 BP 146/74 H 08/20/18 14:51 Pulse Ox 98 08/20/18 14:51 Constitutional: + ill appearing (chronically ill appearing); no acute distress Eyes: + anicteric sclerae ENMT: Ears: no hearing impairment Neck: trachea midline Respiratory: normal respiratory effort; no cough Auscultation: + diminished lung sounds; no wheezes Cardiovascular: Rate/Rhythm: regular rate and regular rhythm Gastrointestinal (Abdomen): Inspection/Auscultation: normal bowel sounds Percussion/Palpation: abdomen soft; abdomen nontender Musculoskeletal: Extremities: + abnormal strength and + muscle atrophy; no cyanosis and no clubbing Skin: no rashes, warm and dry Neurologic: moves all extremities Psychiatric: Orientation: oriented to person; + not alert (tired), + not oriented to place and + not oriented to time Affect: + flat affect Results & Data Laboratory Results Laboratory Results - last 24 hr 08/20/18 08/20/18 08/20/18 06:57 06:57 06:57 WBC 16.39 H RBC 3.87 L Hgb 11.4 L Hct 33.9 L MCV 87.6 MCH 29.5 MCHC 33.6 RDW Std Deviation 43.9 RDW Coeff of Juan Diego 13.8 Plt Count 128 L MPV 10.7 H PT 20.6 H INR 2.1 H Sodium 136 Potassium 3.5 Chloride 110 H Carbon Dioxide 23 Anion Gap 3.0 BUN 20 H Creatinine 0.74 Est Cr Clr Drug Dosing 37.8 Est GFR ( Amer) 85.0 Est GFR (Non-Af Amer) 73.4 BUN/Creatinine Ratio 26.4 H Glucose 97 Calcium 7.7 L Medications Administered Current Inpatient Medications Albuterol (Duoneb) 3 ml INH QID PRN PRN Reason: Shortness Of Breath Or Wheezing Stop: 09/14/18 19:19 Albuterol (Ventolin Hfa) 2 puffs INH Q6H PRN PRN Reason: Shortness Of Breath Or Wheezing Stop: 09/14/18 19:19 Albuterol (Combivent Respimat) 1 puffs INH QID [facility] Stop: 09/14/18 20:59 Last Admin: 08/20/18 14:31 Dose: 1 puffs Amlodipine Besylate (Norvasc) 5 mg PO DAILY [facility] Stop: 09/15/18 08:59 Last Admin: 08/20/18 10:28 Dose: 5 mg Bisacodyl (Dulcolax) 10 mg [place] DAILY PRN PRN Reason: Constipation Stop: 09/14/18 19:19 Budesonide/Formoterol Fumarate (Symbicort 160mcg/4.5mcg) 2 puffs INH BID [facility] Stop: 09/15/18 20:59 Last Admin: 08/20/18 10:28 Dose: 2 puffs Docusate Sodium (Colace) 100 mg PO BID PRN PRN Reason: Constipation Stop: 09/14/18 19:19 Guaifenesin (Mucinex) 600 mg PO Q12 [facility] Stop: 09/16/18 12:34 Last Admin: 08/20/18 10:27 Dose: 600 mg Ceftriaxone Sodium 1,000 mg/ (Dextrose) 60 mls @ 100 mls/hr IV Q24H [facility]; Protocol Stop: 08/24/18 11:59 Last Infusion: 08/20/18 12:56 Dose: 100 mls/hr Lisinopril (Zestril) 40 mg PO QAM [facility] Stop: 09/15/18 08:59 Last Admin: 08/20/18 10:29 Dose: 40 mg Magnesium Hydroxide (Milk Of Magnesia) 30 ml PO DAILY PRN PRN Reason: Constipation Stop: 09/14/18 19:19 Miscellaneous (Order Awaiting Action) 1 ea N/A QS [facility] Stop: 09/15/18 00:00 Last Admin: 08/20/18 10:31 Dose: Not Given Miscellaneous (Order Awaiting Action) 1 ea N/A QS [facility] Stop: 09/15/18 00:00 Last Admin: 08/20/18 10:30 Dose: Not Given Miscellaneous (Remove Nicoderm Patch) 1 ea N/A [facility] Stop: 09/14/18 20:59 Last Admin: 08/19/18 21:20 Dose: Not Given Montelukast Sodium (Singulair) 10 mg PO PM [facility] Stop: 09/14/18 20:59 Last Admin: 08/19/18 21:19 Dose: 10 mg Nicotine (Nicoderm Cq) 21 mg TD DAILY [facility] Stop: 09/15/18 08:59 Last Admin: 08/20/18 10:28 Dose: Not Given Ondansetron HCl (Zofran) 4 mg IV Q6H PRN PRN Reason: Nausea Stop: 09/14/18 19:19 Polyethylene Glycol (Miralax Powder Packet) 17 gm PO DAILY PRN PRN Reason: Constipation Stop: 09/14/18 19:19 Quetiapine Fumarate (Seroquel) 25 mg PO [facility] Stop: 09/17/18 20:59 Last Admin: 08/19/18 21:19 Dose: 25 mg Sennosides (Senokot) 8.6 mg PO DAILY PRN PRN Reason: Constipation Stop: 09/14/18 19:19 Tramadol HCl (Ultram) 25 mg PO Q4 PRN PRN Reason: Pain Stop: 09/14/18 19:19 Last Admin: 08/17/18 15:13 Dose: 25 mg Warfarin Sodium (Coumadin) 2 mg PO DAILY@1600 [facility] Stop: 09/18/18 15:59 Last Admin: 08/19/18 17:05 Dose: 2 mg _ (1) Pulmonary embolism Acute cor pulmonale presence: Chronicity: Pulmonary embolism type:
[2018-08-20] MEDS: WARFARIN SOD 2 MG TAB PO SCH (16:28)
[2018-08-20] MEDS: ALBUT/IPRATROP 3MG/0.5MG NEB 3 ML VIAL INH PRN (19:03)
[2018-08-20] MEDS: MONTELUKAST SODIUM 10 MG TABLET PO SCH (20:39)
[2018-08-20] MEDS: QUETIAPINE FUMARATE 25 MG TABLET PO SCH (20:39)
[2018-08-21 06:05] LABS: Hemoglobin 11.8 g/dL (12.0-16.0); Mean Corpuscular Hgb Conc 33.7 g/dL (32-36); Mean Corpuscular Volume 86.4 fL (80-100); Mean Platelet Volume 11.1 fL (7.4-10.4); Platelet Count 169 K/uL (130-400); RDW Coefficient of Variation 13.6 % (11.5-14.5); RDW Standard Deviation 43.3 fL (36.4-46.3); Red Blood Count 4.05 M/uL (4.2-5.4); White Blood Count 16.27 K/uL (4.8-10.8)
[2018-08-21 06:13] LABS: INR 2.1 (0.9-1.1); Prothrombin Time 20.6 Seconds (9.0-12.0)
[2018-08-21 06:40] LABS: BUN Creatinine Ratio 26.2 (10-20); Creatinine Clr Calc Pharmacy 36.3 ml/min; Est GFR (Non-African American) 69.9; Potassium 3.5 mmol/L (3.5-5.1)
[2018-08-21] MEDS: BUDESONIDE/FORMOTEROL FUMARATE 160/4.5 60 PUFFS/INHALER INH SCH ×2 (08:17→20:25)
[2018-08-21] MEDS: guaiFENesin 600 MG TABCR PO SCH ×2 (08:17→20:24)
[2018-08-21] MEDS: LISINOPRIL 40 MG TAB PO SCH (08:17)
[2018-08-21] MEDS: AMLODIPINE BESYLATE 5 MG TAB PO SCH (08:17)
[2018-08-21] MEDS: BREO ELLIPTA: ORDER AWAITING ACTION SCH ×3 (08:17→23:40)
[2018-08-21] MEDS: IPRATROPIUM BROMIDE/ALBUTEROL respimat INH INH SCH ×4 (08:18→20:24)
[2018-08-21] MEDS: NICOTINE 21 MG/24 HR TDSY TD SCH (08:18)
[2018-08-21] MEDS: RESTASIS: ORDER AWAITING ACTION SCH ×3 (08:18→23:40)
[2018-08-21] MEDS: cefTRIAXone SODIUM 1,000 MG in DEXTROSE 5% 50 ML IV SCH (12:43)
--- NOTE | 2018-08-21 13:24 | Hospitalist Progress Note ---
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 (2) Acute and chronic respiratory failure: - She was utilizing 2 L NC prior to D/C and likely needed long-term supplemental O2 prior to her last admission given her advanced emphysema - currently on 4L - Wean O2 as tolerated to maintain O2 saturations of 88% or greater, difficult time weaning thus far - This is likely in setting of acute PE and suggested pulmonary HTN/RLL collapse - unlikely this is infectious in nature and did have Zithromax x 3 days on last admission (3) UTI (urinary tract infection): - Suspected UTI - did endorse some suprapubic pain and pain on urination two days ago this has resolved since starting Rocephin will treat for 7 days - She would not allow for straight cath and only has been incontinent so getting a sample will be difficult (4) COPD (chronic obstructive pulmonary disease): - Does not appear to be in an exacerbation at this time with no wheezing and actually has good airflow on examination just poor respiratory effort - She was on Trilogy as an outpatient but this cost would be too much - it appears she was converted to Breo at [facility] and Combivent - Will continue Combivent QID and use Symbicort due to Breo being non-formulary - recommend spacer use due to poor lung capacity - Nebs PRN (5) HTN (hypertension): - Continue Lisinopril 10 mg daily and Norvasc 5 mg daily (6) Tibial plateau fracture, right: - Occurred earlier in the month - non-weightbearing to RLE - Tramadol PRN - PT/OT - appreciate continued assessment (7) Dementia: - Has suggested baseline dementia but not formally evaluated - Seems to have sundowning tendencies which were present on last admission and continue this admission - some delusional thinking and hallucinations noted - seems delirium is more prevalent this admission - maybe a component of UTI? - Seroquel 25 mg HS, tolerating well, less aggressive the past 3 days (8) DVT prophylaxis: - Coumadin Disposition: Referral to [facility]. Anticipate hospitalization over the weekend given the confusion and for monitoring likely okay for discharge on Thursday/Thursday Again, long talke with son YULIANA Vigil, about concerns for poor prognosis and not completely recovering to her former baseline addressed code status, remain level 1 Subjective patient very fatigued today, disoriented allows me to examine her did not eat her breakfast despite multiple attempts by RN she did take all of her medications discussed situation with patient's son over the phone explained that I am concerned about overall prognosis going forward given the fact that she is so inactive discussed that her rehab potential could be quite poor concerned that she will get another infection, breathing could get worse want patient's sons to have reasonable expectations discussed that often a fracture can lead to multiple ongoing issues that patient 's don't recover from son feels that she will do better once at [facility] and she can see sons everyday discussed that certainly that could be the case reviewed labs, WBC 16, Hb 11 INR 2.1 today, stable on the Coumadin 2mg daily BMP normal Review of Systems Unobtainable due to cognitive status Physical Exam 2 Vital Signs (Past 24 Hours): Last Vital Signs Temp 37.2 C 08/21/18 07:15 Pulse 88 08/21/18 07:15 Resp 16 08/21/18 07:15 BP 147/72 H 08/21/18 07:15 Pulse Ox 99 08/21/18 07:15 Constitutional: + ill appearing (chronically ill appearing); no acute distress Eyes: + anicteric sclerae ENMT: Ears: no hearing impairment Neck: trachea midline Respiratory: + labored breathing (slightly labored at rest) and + uses accessory muscles; no cough Auscultation: + diminished lung sounds; no wheezes Cardiovascular: Rate/Rhythm: regular rate and regular rhythm Gastrointestinal (Abdomen): Inspection/Auscultation: normal bowel sounds Percussion/Palpation: abdomen soft; abdomen nontender Musculoskeletal: Extremities: + abnormal strength and + muscle atrophy; no cyanosis and no clubbing Skin: no rashes, warm and dry Neurologic: moves all extremities Psychiatric: Orientation: oriented to person; + not alert (tired), + not oriented to place and + not oriented to time Affect: + flat affect Results & Data Laboratory Results Laboratory Results - last 24 hr 08/21/18 08/21/18 08/21/18 05:20 05:20 05:20 WBC 16.27 H RBC 4.05 L Hgb 11.8 L Hct 35.0 L MCV 86.4 MCH 29.1 MCHC 33.7 RDW Std Deviation 43.3 RDW Coeff of Juan Diego 13.6 Plt Count 169 MPV 11.1 H PT 20.6 H INR 2.1 H Sodium 137 Potassium 3.5 Chloride 106 Carbon Dioxide 24 Anion Gap 8.0 BUN 20 H Creatinine 0.77 Est Cr Clr Drug Dosing 36.3 Est GFR ( Amer) 81.0 Est GFR (Non-Af Amer) 69.9 BUN/Creatinine Ratio 26.2 H Glucose 118 H Calcium 8.0 L Medications Administered Current Inpatient Medications Albuterol (Duoneb) 3 ml INH QID PRN PRN Reason: Shortness Of Breath Or Wheezing Stop: 09/14/18 19:19 Last Admin: 08/20/18 19:03 Dose: 3 ml Albuterol (Ventolin Hfa) 2 puffs INH Q6H PRN PRN Reason: Shortness Of Breath Or Wheezing Stop: 09/14/18 19:19 Albuterol (Combivent Respimat) 1 puffs INH QID [facility] Stop: 09/14/18 20:59 Last Admin: 08/21/18 12:44 Dose: 1 puffs Amlodipine Besylate (Norvasc) 5 mg PO DAILY [facility] Stop: 09/15/18 08:59 Last Admin: 08/21/18 08:17 Dose: 5 mg Bisacodyl (Dulcolax) 10 mg [place] DAILY PRN PRN Reason: Constipation Stop: 09/14/18 19:19 Budesonide/Formoterol Fumarate (Symbicort 160mcg/4.5mcg) 2 puffs INH BID [facility] Stop: 09/15/18 20:59 Last Admin: 08/21/18 08:17 Dose: 2 puffs Docusate Sodium (Colace) 100 mg PO BID PRN PRN Reason: Constipation Stop: 09/14/18 19:19 Guaifenesin (Mucinex) 600 mg PO Q12 [facility] Stop: 09/16/18 12:34 Last Admin: 08/21/18 08:17 Dose: 600 mg Ceftriaxone Sodium 1,000 mg/ (Dextrose) 60 mls @ 100 mls/hr IV Q24H [facility]; Protocol Stop: 08/24/18 11:59 Last Infusion: 08/21/18 13:11 Dose: Infused Lisinopril (Zestril) 40 mg PO QAM [facility] Stop: 09/15/18 08:59 Last Admin: 08/21/18 08:17 Dose: 40 mg Magnesium Hydroxide (Milk Of Magnesia) 30 ml PO DAILY PRN PRN Reason: Constipation Stop: 09/14/18 19:19 Miscellaneous (Order Awaiting Action) 1 ea N/A QS [facility] Stop: 09/15/18 00:00 Last Admin: 08/21/18 08:18 Dose: Not Given Miscellaneous (Order Awaiting Action) 1 ea N/A [facility] Stop: 09/15/18 00:00 Last Admin: 08/21/18 08:17 Dose: Not Given Miscellaneous (Remove Nicoderm Patch) 1 ea N/A [facility] Stop: 09/14/18 20:59 Last Admin: 08/20/18 20:38 Dose: Not Given Montelukast Sodium (Singulair) 10 mg PO PM [facility] Stop: 09/14/18 20:59 Last Admin: 08/20/18 20:39 Dose: 10 mg Nicotine (Nicoderm Cq) 21 mg TD DAILY [facility] Stop: 09/15/18 08:59 Last Admin: 08/21/18 08:18 Dose: Not Given Ondansetron HCl (Zofran) 4 mg IV Q6H PRN PRN Reason: Nausea Stop: 09/14/18 19:19 Polyethylene Glycol (Miralax Powder Packet) 17 gm PO DAILY PRN PRN Reason: Constipation Stop: 09/14/18 19:19 Quetiapine Fumarate (Seroquel) 25 mg PO HS [facility] Stop: 09/17/18 20:59 Last Admin: 08/20/18 20:39 Dose: 25 mg Sennosides (Senokot) 8.6 mg PO DAILY PRN PRN Reason: Constipation Stop: 09/14/18 19:19 Tramadol HCl (Ultram) 25 mg PO Q4 PRN PRN Reason: Pain Stop: 09/14/18 19:19 Last Admin: 08/17/18 15:13 Dose: 25 mg Warfarin Sodium (Coumadin) 2 mg PO DAILY@1600 [facility] Stop: 09/18/18 15:59 Last Admin: 08/20/18 16:28 Dose: 2 mg _ (1) Pulmonary embolism Acute cor pulmonale presence: Chronicity: Pulmonary embolism type:
[2018-08-21] MEDS: WARFARIN SOD 2 MG TAB PO SCH (15:55)
[2018-08-21] MEDS: ALBUT/IPRATROP 3MG/0.5MG NEB 3 ML VIAL INH PRN (18:50)
[2018-08-21] MEDS: QUETIAPINE FUMARATE 25 MG TABLET PO SCH (20:24)
[2018-08-21] MEDS: MONTELUKAST SODIUM 10 MG TABLET PO SCH (20:25)
[2018-08-22 06:26] LABS: INR 2.2 (0.9-1.1); Prothrombin Time 21.6 Seconds (9.0-12.0)
[2018-08-22] MEDS: LISINOPRIL 40 MG TAB PO SCH (08:49)
[2018-08-22] MEDS: AMLODIPINE BESYLATE 5 MG TAB PO SCH (08:49)
[2018-08-22] MEDS: guaiFENesin 600 MG TABCR PO SCH ×2 (08:49→20:44)
[2018-08-22] MEDS: NICOTINE 21 MG/24 HR TDSY TD SCH (08:50)
[2018-08-22] MEDS: BUDESONIDE/FORMOTEROL FUMARATE 160/4.5 60 PUFFS/INHALER INH SCH ×2 (08:50→20:43)
[2018-08-22] MEDS: IPRATROPIUM BROMIDE/ALBUTEROL respimat INH INH SCH ×4 (08:51→20:44)
[2018-08-22] MEDS: RESTASIS: ORDER AWAITING ACTION SCH ×2 (08:51→15:40)
[2018-08-22] MEDS: BREO ELLIPTA: ORDER AWAITING ACTION SCH ×2 (08:51→15:40)
[2018-08-22] MEDS: cefTRIAXone SODIUM 1,000 MG in DEXTROSE 5% 50 ML IV SCH (12:24)
--- NOTE | 2018-08-22 14:13 | Hospitalist Progress Note ---
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 (2) Acute and chronic respiratory failure: - She was utilizing 2 L NC prior to D/C and likely needed long-term supplemental O2 prior to her last admission given her advanced emphysema - currently on 4L - Wean O2 as tolerated to maintain O2 saturations of 88% or greater, difficult time weaning thus far - This is likely in setting of acute PE and suggested pulmonary HTN/RLL collapse - unlikely this is infectious in nature and did have Zithromax x 3 days on last admission cannot perform a two step due to being non-ambulatory should be discharged on 4L when she goes [facility] (3) UTI (urinary tract infection): - Suspected UTI - did endorse some suprapubic pain and pain on urination two days ago this has resolved since starting Rocephin will treat for 7 days continue Rocephin while inpatient, change to Keflex BID on discharge - She would not allow for straight cath and only has been incontinent so getting a sample will be difficult (4) COPD (chronic obstructive pulmonary disease): - Does not appear to be in an exacerbation at this time with no wheezing and actually has good airflow on examination just poor respiratory effort - She was on Trilogy as an outpatient but this cost would be too much - it appears she was converted to Breo at [facility] and Combivent - Will continue Combivent QID and use Symbicort due to Breo being non-formulary - recommend spacer use due to poor lung capacity - Nebs PRN (5) HTN (hypertension): - Continue Lisinopril 10 mg daily and Norvasc 5 mg daily (6) Tibial plateau fracture, right: - Occurred earlier in the month - non-weightbearing to RLE - Tramadol PRN - PT/OT - appreciate continued assessment should follow up with orthopedics, Dr. [facility] can call his office to arrange appintment in next 7-10 days (7) Dementia: - Has suggested baseline dementia but not formally evaluated - Seems to have sundowning tendencies which were present on last admission and continue this admission - some delusional thinking and hallucinations noted - seems delirium is more prevalent this admission - maybe a component of UTI? - Seroquel 25 mg HS, tolerating well, less aggressive the past 3 days would continue Seroquel on discharge at least short term to try to prevent any delirium when she changes location realistically could come off in next 1-2 weeks (8) DVT prophylaxis: - Coumadin Disposition: Referral to [facility]. Anticipate hospitalization over the weekend given the confusion and for monitoring patient is calm for two days, cooperative likely okay for discharge on Thursday, check with CM in the morning will need to be on Coumadin, Keflex, Seroquel needs oxygen 4L long talk with son YULIANA Vigil, on 08/21/18 about concerns for poor prognosis and not completely recovering to her former baseline addressed code status, remain level 1 Subjective patient resting comfortably this morning, breathing is better denies any pain eating better the past [address] [facility] for rehab, she agrees with this plan discussed case with patient's sons yesterday, they would like her to go to [facility] tomorrow Review of Systems Unobtainable due to cognitive status (dementia) Physical Exam 2 Vital Signs (Past 24 Hours): Last Vital Signs Temp 36.9 C 08/22/18 07:08 Pulse 91 H 08/22/18 07:08 Resp 16 08/22/18 07:08 BP 148/66 H 08/22/18 07:08 Pulse Ox 93 08/22/18 07:08 Constitutional: + ill appearing (chronically ill appearing); no acute distress Eyes: + anicteric sclerae ENMT: Ears: no hearing impairment Neck: trachea midline Respiratory: normal respiratory effort, lungs clear to auscultation no cough Auscultation: no wheezes Cardiovascular: Rate/Rhythm: regular rate and regular rhythm Gastrointestinal (Abdomen): Inspection/Auscultation: normal bowel sounds Percussion/Palpation: abdomen soft; abdomen nontender Musculoskeletal: Extremities: + abnormal strength and + muscle atrophy; no cyanosis and no clubbing Skin: no rashes, warm and dry Neurologic: moves all extremities Psychiatric: Orientation: oriented to person; + not alert (tired), + not oriented to place and + not oriented to time Affect: + flat affect Results & Data Laboratory Results Laboratory Results - last 24 hr 08/22/18 05:18 PT 21.6 H INR 2.2 H Medications Administered Current Inpatient Medications Albuterol (Duoneb) 3 ml INH QID PRN PRN Reason: Shortness Of Breath Or Wheezing Stop: 09/14/18 19:19 Last Admin: 08/21/18 18:50 Dose: 3 ml Albuterol (Ventolin Hfa) 2 puffs INH Q6H PRN PRN Reason: Shortness Of Breath Or Wheezing Stop: 09/14/18 19:19 Albuterol (Combivent Respimat) 1 puffs INH QID [facility] Stop: 09/14/18 20:59 Last Admin: 08/22/18 12:24 Dose: 1 puffs Amlodipine Besylate (Norvasc) 5 mg PO DAILY [facility] Stop: 09/15/18 08:59 Last Admin: 08/22/18 08:49 Dose: 5 mg Bisacodyl (Dulcolax) 10 mg [place] DAILY PRN PRN Reason: Constipation Stop: 09/14/18 19:19 Budesonide/Formoterol Fumarate (Symbicort 160mcg/4.5mcg) 2 puffs INH BID [facility] Stop: 09/15/18 20:59 Last Admin: 08/22/18 08:50 Dose: 2 puffs Docusate Sodium (Colace) 100 mg PO BID PRN PRN Reason: Constipation Stop: 09/14/18 19:19 Guaifenesin (Mucinex) 600 mg PO Q12 [facility] Stop: 09/16/18 12:34 Last Admin: 08/22/18 08:49 Dose: 600 mg Ceftriaxone Sodium 1,000 mg/ (Dextrose) 60 mls @ 100 mls/hr IV Q24H [facility]; Protocol Stop: 08/24/18 11:59 Last Infusion: 08/22/18 13:16 Dose: Infused Lisinopril (Zestril) 40 mg PO QAM [facility] Stop: 09/15/18 08:59 Last Admin: 08/22/18 08:49 Dose: 40 mg Magnesium Hydroxide (Milk Of Magnesia) 30 ml PO DAILY PRN PRN Reason: Constipation Stop: 09/14/18 19:19 Miscellaneous (Order Awaiting Action) 1 ea N/A QS [facility] Stop: 09/15/18 00:00 Last Admin: 08/22/18 08:51 Dose: Not Given Miscellaneous (Order Awaiting Action) 1 ea N/A QS [facility] Stop: 09/15/18 00:00 Last Admin: 08/22/18 08:51 Dose: Not Given Miscellaneous (Remove Nicoderm Patch) 1 ea N/A HS [facility] Stop: 09/14/18 20:59 Last Admin: 08/21/18 20:24 Dose: Not Given Montelukast Sodium (Singulair) 10 mg PO PM [facility] Stop: 09/14/18 20:59 Last Admin: 08/21/18 20:25 Dose: 10 mg Nicotine (Nicoderm Cq) 21 mg TD DAILY [facility] Stop: 09/15/18 08:59 Last Admin: 08/22/18 08:50 Dose: Not Given Ondansetron HCl (Zofran) 4 mg IV Q6H PRN PRN Reason: Nausea Stop: 09/14/18 19:19 Polyethylene Glycol (Miralax Powder Packet) 17 gm PO DAILY PRN PRN Reason: Constipation Stop: 09/14/18 19:19 Quetiapine Fumarate (Seroquel) 25 mg PO [facility] Stop: 09/17/18 20:59 Last Admin: 08/21/18 20:24 Dose: 25 mg Sennosides (Senokot) 8.6 mg PO DAILY PRN PRN Reason: Constipation Stop: 09/14/18 19:19 Tramadol HCl (Ultram) 25 mg PO Q4 PRN PRN Reason: Pain Stop: 09/14/18 19:19 Last Admin: 08/17/18 15:13 Dose: 25 mg Warfarin Sodium (Coumadin) 2 mg PO DAILY@1600 [facility] Stop: 09/18/18 15:59 Last Admin: 08/21/18 15:55 Dose: 2 mg _ (1) Pulmonary embolism Acute cor pulmonale presence: Chronicity: Pulmonary embolism type:
[2018-08-22] MEDS ORDERED: SODIUM CHLORIDE 0.9% 500 ML IV SCH (15:00)
[2018-08-22] MEDS ORDERED: OPTIRAY 320 125ml IV PRN (15:33)
[2018-08-22] MEDS: IBUPROFEN 600 MG TAB PO PRN (15:37)
[2018-08-22] MEDS: WARFARIN SOD 2 MG TAB PO SCH (15:38)
--- NOTE | 2018-08-22 15:57 | CT Scan Report ---
CT chest w con CLINICAL HISTORY: 87 years-old Female presenting with fever, possible pneumonia? recent PE on right. TECHNIQUE: Multidetector CT imaging of the chest was performed after the administration of intravenou s contrast. IV contrast: 116 mL of Optiray 320. A dose lowering technique was used consistent with th e principles of ALARA (as low as reasonably achievable). COMPARISON: 08/15/2018. CT DOSE (mGy.cm): The estimated cumulative dose is 194.31 mGy.cm. FINDINGS: Casino Attendant topogram: Exaggerated thoracic kyphosis. Bilateral pleural effusions. On soft tissue windows, multinodular thyroid. No axillary, supraclavicular, hilar, or mediastinal lym phadenopathy. Atherosclerosis of the aorta. Suprarenal abdominal aortic aneurysm measuring up to 2.8 cm in diameter with prominent mural thrombus. Significant interval decrease in pulmonary emboli burde n previously most evident in the right lung. Main pulmonary artery top normal in size. Normal heart s ize. Coronary artery and aortic valve calcification. Small to moderate bilateral pleural effusions, w hich are simple appearing. Bilateral renal cysts primarily on the right. Left renal cortical atrophy. On lung windows, no pneumothorax. Central airways patent. Complete collapse of the right lower lobe. Near complete collapse of the left lower lobe. Moderate upper lobe predominant centrilobular emphysem a. Reticular and solid nodular consolidation in the anterior and apical segment of the right upper lo be is new from prior. Few additional scattered nodular opacities in the upper lobes are also new from prior. On bone windows, exaggerated thoracic kyphosis with multilevel compression deformities of varying sev erity. Osteopenia. Multiple bilateral old rib fractures. IMPRESSION: 1. Interval decrease in pulmonary embolus burden. 2. Worsened bilateral pleural effusions with worsened lower lobe predominant passive atelectasis. 3. Interval development of consolidation in the right upper lobe apex and anterior segment as well a s nodular opacities in the bilateral upper lobes. This is new since the prior CT on 08/15/2018. This i s most concerning for multifocal pneumonia with predominant right upper lobe involvement. 4. Abdominal aortic aneurysm. 5. Exaggerated thoracic kyphosis with multilevel severe compression deformities. Electronically signed by: Donn Murphy M.D. 08/22/2018 3:56 PM
[2018-08-22] MEDS ORDERED: VANCOMYCIN CONSULT ACTIVE PRN (16:01)
[2018-08-22] MEDS ORDERED: VANCOMYCIN HCL 500 MG in SODIUM CHLORIDE 0.9% 250 ML IV SCH (16:15)
[2018-08-22] MEDS ORDERED: VANCOMYCIN HCL 1,000 MG in SODIUM CHLORIDE 0.9% 250 ML IV ONE (16:30)
[2018-08-22] MEDS: LEVOFLOXACIN/D5W 750 MG/150 ML BAG IV SCH (19:11)
[2018-08-22] MEDS: QUETIAPINE FUMARATE 25 MG TABLET PO SCH (20:44)
[2018-08-22] MEDS: MONTELUKAST SODIUM 10 MG TABLET PO SCH (20:44)
[2018-08-22] MEDS ORDERED: CEFEPIME 1,000 MG in SYRINGE 0 ML IV SCH (21:00)
[2018-08-23] MEDS: RESTASIS: ORDER AWAITING ACTION SCH ×3 (00:14→16:35)
[2018-08-23] MEDS: BREO ELLIPTA: ORDER AWAITING ACTION SCH ×3 (00:14→16:35)
[2018-08-23] MEDS: IPRATROPIUM BROMIDE/ALBUTEROL respimat INH INH SCH ×4 (07:53→20:52)
[2018-08-23] MEDS: AMLODIPINE BESYLATE 5 MG TAB PO SCH (07:53)
[2018-08-23] MEDS: BUDESONIDE/FORMOTEROL FUMARATE 160/4.5 60 PUFFS/INHALER INH SCH ×2 (07:53→20:52)
[2018-08-23] MEDS: LISINOPRIL 40 MG TAB PO SCH (07:53)
[2018-08-23] MEDS: NICOTINE 21 MG/24 HR TDSY TD SCH (07:53)
[2018-08-23] MEDS: guaiFENesin 600 MG TABCR PO SCH ×2 (07:53→20:54)
[2018-08-23] MEDS: IBUPROFEN 600 MG TAB PO PRN (07:56)
[2018-08-23] MEDS: CEFEPIME 1,000 MG in SYRINGE 0 ML IV SCH ×2 (09:48→20:54)
[2018-08-23 10:54] LABS: Hematocrit (blood only) 32.6 % (37-47); Hemoglobin 10.9 g/dL (12.0-16.0); Mean Corpuscular Hgb Conc 33.4 g/dL (32-36); Mean Corpuscular Volume 86.7 fL (80-100); Mean Platelet Volume 10.8 fL (7.4-10.4); Platelet Count 255 K/uL (130-400); RDW Coefficient of Variation 13.7 % (11.5-14.5); RDW Standard Deviation 43.5 fL (36.4-46.3); Red Blood Count 3.76 M/uL (4.2-5.4); White Blood Count 16.61 K/uL (4.8-10.8)
[2018-08-23 11:18] LABS: BUN Creatinine Ratio 20.7 (10-20); Calcium 7.9 mg/dl (8.5-10.1); Creatinine Clr Calc Pharmacy 34.1 ml/min; Est GFR (African American) 75.1; Est GFR (Non-African American) 64.8; Potassium 3.5 mmol/L (3.5-5.1)
[2018-08-23 11:24] LABS: Basophils # (auto) 0.01 K/uL (0-0.2); Basophils % (auto) 0.1 %; Eosinophils # (auto) 0.06 K/uL (0-0.5); Eosinophils % (auto) 0.4 %; Immature Granulocytes # (auto) 0.11 K/uL (0.00-0.02); Immature Granulocytes % (auto) 0.7 %; Lymphocytes # (auto) 1.03 K/uL (1.2-3.4); Lymphocytes % (auto) 6.2 %; Monocytes # (auto) 0.26 K/uL (0.11-0.59); Monocytes % (auto) 1.6 %; Neutrophils # (auto) 15.14 K/uL (1.4-6.5)
[2018-08-23 11:30] LABS: INR 2.8 (0.9-1.1); Prothrombin Time 26.7 Seconds (9.0-12.0)
--- NOTE | 2018-08-23 13:01 | Hospitalist Progress Note ---
Date of Service August 23, 2018 Assessment & Plan (1) Pulmonary embolism: Provoked PE and DVT given recent tibial fracture and hospitalization breathing is stable today, oxygen saturations stable on 4L continue Coumadin, INR 2.8 U/S of b/l lower extremities with nonocclusive thrombi in the common femoral and superficial femoral proximally and distally as well in the profunda femoris - this likely supports a chronic DVT of LLE (2) Pneumonia: Developed fever on 08/[address] CHest with RUL predominant PNA Leukocytosis persistent since admission at 16k -started on Cefepime, Vanco, Levaquin for gram negative and MRSA PNAs MRSA swab neg so Vanco dcd -continue Cefepime, Levaquin-day#2 -follow CBC (3) Acute and chronic respiratory failure: - She was utilizing 2 L NC prior to D/C and likely needed long-term supplemental O2 prior to her last admission given her advanced emphysema - currently on 4L - Wean O2 as tolerated to maintain O2 saturations of 88% or greater, difficult time weaning thus far - This is likely in setting of acute PE and suggested pulmonary HTN, as well as bilateral lower lobe collapse/atelectasis on CT Chest -should be discharged on 4L when she goes to [facility] (4) UTI (urinary tract infection): - Suspected UTI - did endorse some suprapubic pain and pain on urination this admission which resolved since starting Rocephin UA on admission was contaminated - She would not allow for straight cath and only has been incontinent so getting a sample will be difficult -now on abx for PNA as above (5) COPD (chronic obstructive pulmonary disease): - no acute exacerbation, recently finished course of prednisone prior to admission - She was on Breo and Combivent at [facility] - Will continue Combivent QID and use Symbicort due to Breo being non-formulary - recommend spacer use due to poor lung capacity - Nebs PRN (6) HTN (hypertension): controlled to mildly elevated - Continue Lisinopril 10 mg daily and Norvasc 5 mg daily (7) Dementia: - Has suggested baseline dementia but not formally evaluated - Seems to have sundowning tendencies which were present on last admission and continue this admission - some delusional thinking and hallucinations noted - seems delirium is more prevalent this admission - maybe a component of UTI? - continue Seroquel 25 mg HS, tolerating well, less aggressive would continue Seroquel on discharge at least short term to try to prevent any delirium when she changes location realistically could come off in next 1-2 weeks (8) Tibial plateau fracture, right: - Occurred earlier in the month - non-weightbearing to RLE - Tramadol PRN, wearing knee immobilizer - PT/OT - appreciate continued assessment should follow up with orthopedics, Dr. George Gaines can call his office to arrange appointment in next 7-10 days (9) Osteoporosis with current pathological fracture: rt tibial plateau fracture,multiple compression fxs in thoracolumbar spine -check Vit D level, start Ca++ and Vit D -candidate for Forteo or Prolia as outpt (10) Severe protein-calorie malnutrition: underweight, BMI 16.6, albumin low at 2.5 -needs nutritional support, Dietary is consulted (11) Chronic deep vein thrombosis (DVT): LLE, nonocclusive, likely chronic -continue coumadin (12) Chronic diastolic CHF (congestive heart failure): Seen on ECHO this admission -no volume overload (13) Pleural effusion: Bilateral effusions, could be parapneumonic or secondary to PEs -Consulted Thoracic Surgery-too small to tap -with bilateral lower lobe collapse/atelectasis passive--> likely secondary to severe kyphosis (14) AAA (abdominal aortic aneurysm): 3.[address] imaging, with mural thrombus -on coumadin -follow as outpt if desired (15) Anemia: Hgb has trended downward since admission to 10.9. Normocytic, has been on anticoagulation -no gross bleeding evident -follow CBC -check Hemoccult (16) DVT prophylaxis: - Coumadin Disposition: Has been accepted at [facility] for SNF, however with new PNA, not stable for dc at this time--> likely in 1-2 days Subjective Pt reports she feels about the same, some cough, some SOB, no CP, no abd pain Slightly confused Review of Systems All systems reviewed & are unremarkable except as noted in HPI & below Physical Exam 2 Vital Signs (Past 24 Hours): Last Vital Signs Temp 36.2 C L 08/23/18 07:42 Pulse 87 08/23/18 07:42 Resp 18 08/23/18 07:42 BP 149/73 H 08/23/18 07:42 Pulse Ox 94 08/23/18 07:42 Constitutional: + cachectic; no acute distress Eyes: PERRL, conjunctivae normal, anicteric sclerae Neck: trachea midline, no thyromegaly Respiratory: Auscultation: + diminished lung sounds (at lower and middle lung jerez bilat) and + crackles (right upper lung field) Cardiovascular: RRR, no murmur, no edema Gastrointestinal (Abdomen): normal bowel sounds, soft, nontender, no hepatosplenomegaly Musculoskeletal: Extremities: + extremities abnormal to inspection (Right knee in immobilizer; bilat feet with hammer toes; Right ankle is frozen), no cyanosis and no clubbing +Severe kyphosis Skin: no rashes, warm and dry Neurologic: moves all extremities and awake; no focal motor deficits Psychiatric: Orientation: alert, oriented to person and cooperative Eye Contact: good eye contact Results & Data Laboratory Results 08/23/18 08/23/18 08/23/18 Range/Units 10:26 10:26 10:26 WBC 16.61 H (4.8-10.8) K/uL RBC 3.76 L (4.2-5.4) M/uL Hgb 10.9 L (12.0-16.0) g/dL Hct 32.6 L (37-47) % MCV 86.7 (80-100) fL MCH 29.0 (25-34) pg MCHC 33.4 (32-36) g/dL RDW Std Deviation 43.5 (36.4-46.3) fL RDW Coeff of Juan Diego 13.7 (11.5-14.5) % Plt Count 255 (130-400) K/uL MPV 10.8 H (7.4-10.4) fL Immature Gran % (Auto) 0.7 % Neut % (Auto) 91.0 % Lymph % (Auto) 6.2 % Bowie % (Auto) 1.6 % Eos % (Auto) 0.4 % Baso % (Auto) 0.1 % Immature Gran # (Auto) 0.11 H (0.00-0.02) K/uL Neut # (Auto) 15.14 H (1.4-6.5) K/uL Lymph # (Auto) 1.03 L (1.2-3.4) K/uL Bowie # (Auto) 0.26 (0.11-0.59) K/uL Eos # (Auto) 0.06 (0-0.5) K/uL Baso # (Auto) 0.01 (0-0.2) K/uL PT 26.7 H (9.0-12.0) Seconds INR 2.8 H (0.9-1.1) Sodium 136 (136-145) mmol/L Potassium 3.5 (3.5-5.1) mmol/L Chloride 104 (98-107) mmol/L Carbon Dioxide 24 (21-32) mmol/L Anion Gap 8.0 (3-11) BUN 17 (7-18) mg/dl Creatinine 0.82 (0.6-1.2) mg/dl Est Cr Clr Drug Dosing 34.1 ml/min Est GFR ( Amer) 75.1 Est GFR (Non-Af Amer) 64.8 BUN/Creatinine Ratio 20.7 H (10-20) Glucose 186 H (70-99) mg/dl Calcium 7.9 L (8.5-10.1) mg/dl _ (1) UTI (urinary tract infection) Urinary tract infection type: acute cystitis Hematuria presence: without hematuria Qualified Code(s): N30.00 - Acute cystitis without hematuria (2) Acute and chronic respiratory failure Respiratory failure complication: hypoxia Qualified Code(s): J96.21 - Acute and chronic respiratory failure with hypoxia (3) Dementia Dementia type: unspecified type Dementia behavioral disturbance: without behavioral disturbance Qualified Code(s): F03.90 - Unspecified dementia without behavioral disturbance (4) Tibial plateau fracture, right Encounter type: sequela Fracture type: closed Qualified Code(s): S82.141S - Displaced bicondylar fracture of right tibia, sequela (5) COPD (chronic obstructive pulmonary disease) COPD type: unspecified COPD Qualified Code(s): J44.9 - Chronic obstructive pulmonary disease, unspecified (6) Pulmonary embolism Acute cor pulmonale presence: without acute cor pulmonale Chronicity: acute Pulmonary embolism type: unspecified Qualified Code(s): I26.99 - Other pulmonary embolism without acute cor pulmonale (7) HTN (hypertension) Hypertension type: essential hypertension Qualified Code(s): I10 - Essential (primary) hypertension (8) Osteoporosis with current pathological fracture Osteoporosis type: age-related Encounter type: sequela Qualified Code(s): M80.00XS - Age-related osteoporosis with current pathological fracture, unspecified site, sequela (9) Pneumonia Laterality: right Lung location: upper lobe of lung Pneumonia type: due to unspecified organism Qualified Code(s): J18.1 - Lobar pneumonia, unspecified organism (10) Chronic deep vein thrombosis (DVT) DVT location: lower extremity Affected thrombotic vein of extremity: femoral Laterality: left Qualified Code(s): I82.512 - Chronic embolism and thrombosis of left femoral vein (11) Anemia Anemia type: unspecified type Qualified Code(s): D64.9 - Anemia, unspecified
[2018-08-23] MEDS ORDERED: VANCOMYCIN HCL 750 MG in SODIUM CHLORIDE 0.9% 250 ML IV SCH (16:00)
--- NOTE | 2018-08-23 19:13 | Consultation Report ---
DATE OF CONSULTATION: 08/23/2018 REASON FOR CONSULTATION: Evaluate pleural effusions. HISTORY OF PRESENT ILLNESS: Kimi Rousseau is a very nice 87-year-old female who is quite frail and presented to [facility] 8 days ago with acute on top of chronic respiratory failure. It is important to note the patient had a deep vein thrombosis following a recent tibial fracture. She is on Coumadin with an INR of 2.2. She had a urinary tract infection and has multiple underlying problems including oxygen-dependent chronic obstructive pulmonary disease, and some dementia. She is pleasantly demented. I was asked to evaluate her as she has small pleural effusions bilaterally. It was a point of discussion that perhaps draining these effusions would improve her oxygenation. Currently, she is in the low. She has a saturation in the low 90s on 3.5 L. The patient is awake and alert in bed, but she is confused. She is eating her breakfast independently. PAST MEDICAL HISTORY: 1. History of pulmonary emboli. 2. Chronic respiratory failure with chronic obstructive pulmonary disease. 3. Hypertension. 4. Recent right tibial plateau fracture. 5. Hypertension. 6. Degenerative disc disease. 7. Hypercholesterolemia. 8. Questionable chronic asthma. PAST SURGICAL HISTORY: 1. Right hip replacement. MEDICATIONS AT HOME: 1. Inhalers. 2. Tramadol. 3. Bactrim. 4. Prednisone. 5. Senokot. 6. Breo Ellipta. 7. Amlodipine. 8. Lisinopril. 9. Restasis eyedrops. ALLERGIES: 1. OXYCODONE. 2. APPARENT ACETAMINOPHEN. 3. PENICILLIN. 4. ANTIDEPRESSANTS. SOCIAL HISTORY: The patient's family is supportive. Her son has recently built additional house for his mother. Apparently she does smoke, although she was unclear whether she smoked when asked. She apparently does not use alcohol. FAMILY MEDICAL HISTORY: Apparently, her children are healthy. REVIEW OF SYSTEMS: It is difficult to ascertain is, but judging from the chart, the patient did have some chest pain with shortness of breath. She does complain of knee pain. She really did not have wound breakdown. She does not feel that her vision or hearing has been impacted recently. She denies palpitations. Again, it is difficult to say. She does smoke cigarettes every day. She currently states that she is in no pain. She is eating well. Rest of the systems are negative. PHYSICAL EXAMINATION: GENERAL: This is a tiny 5 feet 4 inches, female who weighs about 96 pounds. She is awake and alert and disoriented. HEENT: Her extraocular movements are intact. Sclerae are injected, but anicteric. She has bilateral arcus senilis. Tongue is midline. Oral mucosa is moist. She has no nasolabial flattening. NECK: She has very thin neck with no carotid bruits or lymphadenopathy. She has marked kyphosis. LUNGS: She has markedly decreased breath sounds in both lung jerez. I detect no wheezing today. HEART: She has a regular rate and rhythm of her heart. ABDOMEN: Flat, soft, nontender with no ascites. EXTREMITIES: She has marked muscle atrophy in her left leg. Of course, it is immobilized. She does have good perfusion to her feet. NEUROLOGIC: She is not oriented to time or place, although she does know who she is. She moves all extremities to commands, although I did not really push it with the left lower extremity. ASSESSMENT AND PLAN: Small bilateral pleural effusions. I would be glad to perform a thoracentesis if I thought it would help; however, quite frankly I am not sure this is going to add much. Let me follow along while she is here in the hospital and make a determination about whether to offer her a left thoracentesis, although at this point I am not an inclined to offer it to her. I simply do think it is going to help her much. I will follow along and we can always tap if necessary. I did discuss this with her and she is agreeable if we decide to do so, be it.
[2018-08-23] MEDS: MONTELUKAST SODIUM 10 MG TABLET PO SCH (20:54)
[2018-08-23] MEDS: QUETIAPINE FUMARATE 25 MG TABLET PO SCH (20:54)
[2018-08-24] MEDS: BREO ELLIPTA: ORDER AWAITING ACTION SCH ×3 (00:20→15:50)
[2018-08-24] MEDS: RESTASIS: ORDER AWAITING ACTION SCH ×3 (00:20→15:50)
[2018-08-24 05:55] LABS: Basophils # (auto) 0.01 K/uL (0-0.2); Basophils % (auto) 0.1 %; Eosinophils # (auto) 0.07 K/uL (0-0.5); Eosinophils % (auto) 0.5 %; Hematocrit (blood only) 31.3 % (37-47); Hemoglobin 10.3 g/dL (12.0-16.0); Immature Granulocytes # (auto) 0.06 K/uL (0.00-0.02); Immature Granulocytes % (auto) 0.4 %; Lymphocytes # (auto) 0.68 K/uL (1.2-3.4); Mean Corpuscular Hgb Conc 32.9 g/dL (32-36); Mean Corpuscular Volume 87.7 fL (80-100); Mean Platelet Volume 10.3 fL (7.4-10.4); Monocytes # (auto) 0.79 K/uL (0.11-0.59); Monocytes % (auto) 5.8 %; Neutrophils # (auto) 12.09 K/uL (1.4-6.5); Neutrophils % (auto) 88.2 %; Platelet Count 253 K/uL (130-400); RDW Coefficient of Variation 13.5 % (11.5-14.5); RDW Standard Deviation 43.9 fL (36.4-46.3); Red Blood Count 3.57 M/uL (4.2-5.4)
[2018-08-24 06:29] LABS: BUN Creatinine Ratio 23.8 (10-20); Creatinine Clr Calc Pharmacy 41.8 ml/min; Est GFR (African American) 92.2; Est GFR (Non-African American) 79.6; Potassium 3.5 mmol/L (3.5-5.1)
[2018-08-24] MEDS: IPRATROPIUM BROMIDE/ALBUTEROL respimat INH INH SCH ×4 (07:54→21:02)
[2018-08-24] MEDS: NICOTINE 21 MG/24 HR TDSY TD SCH (07:55)
[2018-08-24] MEDS: guaiFENesin 600 MG TABCR PO SCH ×2 (07:55→21:04)
[2018-08-24] MEDS: LISINOPRIL 40 MG TAB PO SCH (07:55)
[2018-08-24] MEDS: AMLODIPINE BESYLATE 5 MG TAB PO SCH (07:55)
[2018-08-24] MEDS: BUDESONIDE/FORMOTEROL FUMARATE 160/4.5 60 PUFFS/INHALER INH SCH ×2 (07:55→21:02)
[2018-08-24] MEDS: DOCUSATE SODIUM 100 MG CAP PO PRN (07:59)
[2018-08-24] MEDS: CEFEPIME 1,000 MG in SYRINGE 0 ML IV SCH ×2 (07:59→21:06)
[2018-08-24] MEDS: POLYETHYLENE (MIRALAX) 17 GM PACK PO PRN (07:59)
[2018-08-24] MEDS: CALCIUM 600MG + VIT D 400 IU TAB PO SCH ×2 (08:00→21:03)
[2018-08-24] MEDS ORDERED: ERGOCALCIFEROL 50,000 UNITS CAP PO ONE (09:30)
[2018-08-24 09:58] LABS: INR 2.1 (0.9-1.1); Prothrombin Time 19.9 Seconds (9.0-12.0)
--- NOTE | 2018-08-24 13:52 | Progress Note ---
DATE: 08/24/2018 Ms. Rousseau is seen today. She remains confused. I think her aeration is about the same. At this point, I would not keep her in the hospital any longer. I will be glad to follow up with her. I would be hesitant to drain this lady, and I think these effusions should be treated medically.
[2018-08-24] MEDS: WARFARIN SOD 2 MG TAB PO SCH (15:50)
[2018-08-24] MEDS: LEVOFLOXACIN/D5W 750 MG/150 ML BAG IV SCH (17:53)
--- NOTE | 2018-08-24 20:36 | Hospitalist Progress Note ---
Date of Service August 24, 2018 Assessment & Plan (1) Acute respiratory failure with hypoxia: 2nd to multiple PEs - and then later hospital-acquired pneumonia - in a background of pre-existing COPD from long-standing tobacco use. Cont to Rx the pneumonia and PEs. Cont NC O2. Will attempt to wean O2 but suspect she may need the O2 at hospital d/c. Repeat cxr today to ensure no complicating pulmonary edema, worsening infiltrates, etc. (2) Pulmonary embolism: 2nd to DVT in the setting of right tibia fracture and poor mobility. Coumadin therapeutic. Daily INR. (3) Pneumonia: gram negative etiology likely as she developed this while hospitalized. I cannot exclude that some of the infiltrates are pulmonary infarction from her PEs. However, she doesn't appear to be having any obvious pleuritic pain. Day #3 of cefepime/levaquin. Plan 7 days of Rx. Supportive care. (4) Chronic deep vein thrombosis (DVT): left leg coumadin daily INR (5) Severe protein-calorie malnutrition: MVI, boost, etc. likely due to underling dementia? cannot exclude other occult process (ie cancer) (6) UTI (urinary tract infection): history of such but urine cx this admission negative (7) Dementia: per her sons it appears she has developed a dementia process over the last year neurology referral after d/c (8) Chronic diastolic CHF (congestive heart failure): appears clinically compensated (9) COPD (chronic obstructive pulmonary disease): not in exacerbation at this time (10) Abdominal distension: check abd xrays -- r/o ileus, r/o fecal impaction (11) Metabolic encephalopathy: in the setting of dementia encephalopathy likely 2nd to pneuonia, etc seroquel HS (12) Chronic kidney disease, stage 3a: creatinine stable today sons updated Subjective 2 sons at bedside during the visit patient could not offer any meaningful history or ROS very confused - could not tell me the month, year, president, where she was, etc sons report "dementia" for 4-6 months if not longer patient w/ ongoing O2 requirement Review of Systems Unobtainable due to cognitive status Physical Exam 2 Vital Signs (Past 24 Hours): Last Vital Signs Temp 36.9 C 08/24/18 15:16 Pulse 94 H 08/24/18 15:16 Resp 18 08/24/18 15:16 BP 147/74 H 08/24/18 15:16 Pulse Ox 90 08/24/18 15:16 Constitutional: + ill appearing, + thin and + altered mental status mild dyspnea, mild tachypnea ENMT: external ear and nose normal, oropharynx normal Respiratory: + respiratory distress (tachypnea, mild retractions, but able to speak in full sentences ) Auscultation: lungs clear to auscultation bilaterally Cardiovascular: Rate/Rhythm: regular rate and regular rhythm Heart Sounds: normal S1 and normal S2; no murmur Vessels: posterior tibial pulses present and dorsalis pedis pulses present Extremities: no pedal edema Gastrointestinal (Abdomen): Inspection/Auscultation: + abdomen distended; + abnormal bowel sounds (decreased) Percussion/Palpation: abdomen nontender and no hepatosplenomegaly Musculoskeletal: right knee in immobilizer Psychiatric: Orientation: alert; + not oriented x 3 Results & Data Laboratory Results Laboratory Results - last 24 hr 08/24/18 08/24/18 08/24/18 05:30 05:30 05:30 WBC 13.70 H RBC 3.57 L Hgb 10.3 L Hct 31.3 L MCV 87.7 MCH 28.9 MCHC 32.9 RDW Std Deviation 43.9 RDW Coeff of Juan Diego 13.5 Plt Count 253 MPV 10.3 Immature Gran % (Auto) 0.4 Neut % (Auto) 88.2 Lymph % (Auto) 5.0 [place] % (Auto) 5.8 Eos % (Auto) 0.5 Baso % (Auto) 0.1 Immature Gran # (Auto) 0.06 H Neut # (Auto) 12.09 H Lymph # (Auto) 0.68 L [place] # (Auto) 0.79 H Eos # (Auto) 0.07 Baso # (Auto) 0.01 PT INR Sodium 138 Potassium 3.5 Chloride 107 Carbon Dioxide 25 Anion Gap 6.0 BUN 16 Creatinine 0.67 Est Cr Clr Drug Dosing 41.8 Est GFR ( Amer) 92.2 Est GFR (Non-Af Amer) 79.6 BUN/Creatinine Ratio 23.8 H Glucose 105 H Calcium 8.0 L 25-OH Vitamin D Total 12.7 L 08/24/18 09:27 WBC RBC Hgb Hct MCV MCH MCHC RDW Std Deviation RDW Coeff of Juan Diego Plt Count MPV Immature Gran % (Auto) Neut % (Auto) Lymph % (Auto) [place] % (Auto) Eos % (Auto) Baso % (Auto) Immature Gran # (Auto) Neut # (Auto) Lymph # (Auto) [place] # (Auto) Eos # (Auto) Baso # (Auto) PT 19.9 H INR 2.1 H Sodium Potassium Chloride Carbon Dioxide Anion Gap BUN Creatinine Est Cr Clr Drug Dosing Est GFR ( Amer) Est GFR (Non-Af Amer) BUN/Creatinine Ratio Glucose Calcium 25-OH Vitamin D Total _ (1) Pulmonary embolism Acute cor pulmonale presence: without acute cor pulmonale Chronicity: acute Pulmonary embolism type: unspecified Qualified Code(s): I26.99 - Other pulmonary embolism without acute cor pulmonale (2) Pneumonia Aspiration pneumonia type: Laterality: right Lung location: upper lobe of lung Pneumonia type: due to unspecified organism Qualified Code(s): J18.1 - Lobar pneumonia, unspecified organism (3) Chronic deep vein thrombosis (DVT) DVT location: lower extremity Affected thrombotic vein of extremity: femoral Laterality: left Qualified Code(s): I82.512 - Chronic embolism and thrombosis of left femoral vein (4) UTI (urinary tract infection) Urinary tract infection type: acute cystitis Hematuria presence: without hematuria Indwelling urinary catheter type: Encounter type: Qualified Code( s): N30.00 - Acute cystitis without hematuria (5) Dementia Dementia type: unspecified type Alzheimer's disease onset: Dementia behavioral disturbance: without behavioral disturbance Qualified Code(s): F03.90 - Unspecified dementia without behavioral disturbance (6) COPD (chronic obstructive pulmonary disease) COPD type: unspecified COPD Chronic bronchitis type: Emphysema type: Qualified Code(s): J44.9 - Chronic obstructive pulmonary disease, unspecified
[2018-08-24] MEDS: MONTELUKAST SODIUM 10 MG TABLET PO SCH (21:03)
[2018-08-24] MEDS: QUETIAPINE FUMARATE 25 MG TABLET PO SCH (21:04)
--- NOTE | 2018-08-24 21:16 | XRay Report ---
XR abdomen 2V w PA chest HISTORY: 87 years-old Female abd distension; ileus? fecal impaction? Acute abdominal pain with abdom inal distention COMPARISON: Chest radiograph 08/18/2018, CT chest 08/22/2018 TECHNIQUE: AP view the chest with erect and supine views of the abdomen. FINDINGS: Cardiac silhouette is mildly enlarged, unchanged. Small bilateral pleural effusions redemonstrated al viviane with bibasilar consolidation. Right upper lobe consolidative opacity redemonstrated without pneum othorax or overt pulmonary edema. Healed remote bilateral rib fractures. Degenerative changes of the shoulders and spine with osteoporotic appearance of the bones. Moderate gaseous distention of large bowel suggestive of transverse colon of the mid upper abdomen me asures up to 7.7 cm transversely. Gaseous distention of the descending colon also noted. Large volume of formed stool noted about the cecum and right hemicolon, distal sigmoid and rectum. No evidence of small bowel obstruction. No definite pneumatosis or pneumoperitoneum. Degenerative changes about the left hip, pelvis and lumbar spine. Right hip arthroplasty with heterotopic ossifications. IMPRESSION: 1. Persistent pleural effusions with bibasilar and right upper lobe consolidation. 2. No small bowel obstruction, pneumatosis or pneumoperitoneum. 3. Constipation with moderate gaseous distention of the transverse and descending colon. The above report was generated using voice recognition software. It may contain grammatical, syntax o r spelling errors. Electronically signed by: Aneudy Burks M.D. 08/24/2018 9:14 PM
[2018-08-25] MEDS: BREO ELLIPTA: ORDER AWAITING ACTION SCH ×3 (01:06→16:49)
[2018-08-25] MEDS: RESTASIS: ORDER AWAITING ACTION SCH ×3 (01:06→16:49)
[2018-08-25] MEDS: ALBUT/IPRATROP 3MG/0.5MG NEB 3 ML VIAL INH PRN (06:46)
[2018-08-25] MEDS ORDERED: FUROSEMIDE 10 MG in SYRINGE 0 ML IV STA (06:57)
--- NOTE | 2018-08-25 07:05 | XRay Report ---
XR chest 1V portable CLINICAL HISTORY: effusion COMPARISON STUDY: 08/24/2018 FINDINGS: The heart remains mildly enlarged. There is aortic tortuosity/ectasia. There are persistent bilateral pleural effusions. There is associated lower lobe compressive atelectatic change. There ar e right apical airspace opacity suspicious for a pneumonia. This appears slightly progressive.[ IMPRESSION: 1. Slight progression in the right upper lobe airspace opacity suspicious for pneumonia 2. Persistent bilateral pleural effusions with associated basilar parenchymal opacities likely atelec tatic Electronically signed by: Olivier Iqbal M.D. 08/25/2018 7:03 AM
[2018-08-25 08:13] LABS: INR 2.1 (0.9-1.1); Prothrombin Time 19.9 Seconds (9.0-12.0)
[2018-08-25] MEDS: DOCUSATE SODIUM 100 MG CAP PO PRN (08:19)
[2018-08-25] MEDS: POLYETHYLENE (MIRALAX) 17 GM PACK PO PRN (08:19)
[2018-08-25] MEDS: CEFEPIME 1,000 MG in SYRINGE 0 ML IV SCH ×2 (08:19→20:39)
[2018-08-25] MEDS: IPRATROPIUM BROMIDE/ALBUTEROL respimat INH INH SCH ×4 (08:19→20:43)
[2018-08-25] MEDS: CALCIUM 600MG + VIT D 400 IU TAB PO SCH ×2 (08:19→20:45)
[2018-08-25] MEDS: guaiFENesin 600 MG TABCR PO SCH ×2 (08:19→20:43)
[2018-08-25] MEDS: NICOTINE 21 MG/24 HR TDSY TD SCH (08:20)
[2018-08-25] MEDS: LISINOPRIL 40 MG TAB PO SCH (08:20)
[2018-08-25] MEDS: AMLODIPINE BESYLATE 5 MG TAB PO SCH (08:20)
[2018-08-25] MEDS: BUDESONIDE/FORMOTEROL FUMARATE 160/4.5 60 PUFFS/INHALER INH SCH ×2 (08:20→20:44)
[2018-08-25 08:42] LABS: BUN Creatinine Ratio 23.4 (10-20); Est GFR (African American) 77.4; Est GFR (Non-African American) 66.8; Potassium 3.7 mmol/L (3.5-5.1)
[2018-08-25] MEDS ORDERED: SOD PHOSPHATE/SOD BIPHOSPHATE ENEMA 132 ML BTL PR STA (13:29)
[2018-08-25] MEDS ORDERED: methylPREDNISolone 40 MG in SYRINGE 0 ML IV ONE (16:30)
[2018-08-25] MEDS: WARFARIN SOD 2 MG TAB PO SCH (17:19)
[2018-08-25] MEDS: NYSTATIN SUSP 500,000 U/5 ML UDC PO SCH ×2 (17:20→20:44)
--- NOTE | 2018-08-25 20:30 | Hospitalist Progress Note ---
Date of Service August 25, 2018 Assessment & Plan (1) Acute respiratory failure with hypoxia: 2nd to multiple PEs - and then later hospital-acquired pneumonia - in a background of pre-existing COPD from long-standing tobacco use. Cont to Rx the pneumonia and PEs. Cont NC O2. Will attempt to wean O2 but suspect she may need the O2 at hospital d/c. CXR today w/o overt pulmonary edema but worsening RUL infiltration. In light of worsening pulmonary status I asked Dr. Dixon to see in consult. appreciate any further recommendations. (2) Pulmonary embolism: 2nd to DVT in the setting of right tibia fracture and poor mobility. Coumadin therapeutic. Daily INR. (3) Pneumonia: gram negative etiology likely as she developed this while hospitalized. I cannot exclude that some of the infiltrates are pulmonary infarction from her PEs. However, she doesn't appear to be having any obvious pleuritic pain. Day #4 of cefepime/levaquin. Speech therapy saw patient - no dysphagia or overt aspiration seen. Plan 7 days of Rx. Supportive care. (4) Chronic deep vein thrombosis (DVT): left leg coumadin daily INR (5) Severe protein-calorie malnutrition: MVI, boost, etc. likely due to underling dementia cannot exclude other occult process (ie cancer) (6) UTI (urinary tract infection): history of such but urine cx this admission negative (7) Dementia: per her sons it appears she has developed a dementia process over the last year neurology referral after d/c (8) Chronic diastolic CHF (congestive heart failure): received IV lasix today but I don't believe she is decompensated serial exams repeat labs am (9) COPD (chronic obstructive pulmonary disease): not in exacerbation at this time cont nebs and symbicort (10) Abdominal distension: 2nd to fecal impaction mild colonic gaseous distension is likely from the impaction fleets enema x 1 today (11) Metabolic encephalopathy: in the setting of dementia encephalopathy likely 2nd to pneumonia cont seroquel (12) Chronic kidney disease, stage 3a: creatinine stable repeat bmp am 2 sons updated at bedside once again Subjective like yesterday, due to the patient's probable dementia and likely delirium, she offers no meaningful history or ROS overnight had more respiratory distress night resident evaluated, chest x-ray repeated, small dose of lasix (10mg IV) given for possible fluid overload during my visit she was tachypneic but able to speak in full sentences no change from yesterday's visit Review of Systems Unobtainable due to cognitive status Physical Exam 2 Vital Signs (Past 24 Hours): Last Vital Signs Temp 36.6 C 08/25/18 14:24 Pulse 96 H 08/25/18 14:24 Resp 26 H 08/25/18 14:24 BP 156/63 H 08/25/18 14:24 Pulse Ox 97 08/25/18 14:29 Constitutional: + ill appearing, + thin and + altered mental status ENMT: external ear and nose normal, oropharynx normal Respiratory: + respiratory distress (tachypnea, mild retractions, but able to speak in full sentences ) Auscultation: lungs clear to auscultation bilaterally Cardiovascular: Rate/Rhythm: regular rate and regular rhythm Heart Sounds: normal S1 and normal S2; no murmur Vessels: posterior tibial pulses present and dorsalis pedis pulses present Extremities: no pedal edema Gastrointestinal (Abdomen): Inspection/Auscultation: + abdomen distended and normal bowel sounds Percussion/Palpation: abdomen nontender and no hepatosplenomegaly Psychiatric: Orientation: alert; + not oriented x 3 Results & Data Laboratory Results Laboratory Results - last 24 hr 08/25/18 08/25/18 07:42 07:42 PT 19.9 H INR 2.1 H Sodium 137 Potassium 3.7 Chloride 100 Carbon Dioxide 28 Anion Gap 8.0 BUN 19 H Creatinine 0.80 Est Cr Clr Drug Dosing 35.0 Est GFR ( Amer) 77.4 Est GFR (Non-Af Amer) 66.8 BUN/Creatinine Ratio 23.4 H Glucose 106 H Calcium 9.0 Magnesium 2.0 _ (1) UTI (urinary tract infection) Encounter type: Hematuria presence: without hematuria Indwelling urinary catheter type: Urinary tract infection type: acute cystitis Qualified Code(s) : N30.00 - Acute cystitis without hematuria (2) Dementia Alzheimer's disease onset: Dementia behavioral disturbance: without behavioral disturbance Dementia type: unspecified type Qualified Code(s): F03.90 - Unspecified dementia without behavioral disturbance (3) Chronic deep vein thrombosis (DVT) Affected thrombotic vein of extremity: femoral DVT location: lower extremity Laterality: left Qualified Code(s): I82.512 - Chronic embolism and thrombosis of left femoral vein (4) COPD (chronic obstructive pulmonary disease) COPD type: unspecified COPD Chronic bronchitis type: Emphysema type: Qualified Code(s): J44.9 - Chronic obstructive pulmonary disease, unspecified (5) Pulmonary embolism Acute cor pulmonale presence: without acute cor pulmonale Chronicity: acute Pulmonary embolism type: unspecified Qualified Code(s): I26.99 - Other pulmonary embolism without acute cor pulmonale (6) Pneumonia Aspiration pneumonia type: Laterality: right Lung location: upper lobe of lung Pneumonia type: due to unspecified organism Qualified Code(s): J18.1 - Lobar pneumonia, unspecified organism
[2018-08-25] MEDS: QUETIAPINE FUMARATE 25 MG TABLET PO SCH (20:43)
[2018-08-25] MEDS: MONTELUKAST SODIUM 10 MG TABLET PO SCH (20:45)
--- NOTE | 2018-08-25 22:53 | Consultation Report ---
DATE OF CONSULTATION: 08/25/2018 TIME: 3:40 p.m. REPORT OF CONSULTATION: The patient was seen in room 403. She is a pleasant, but confused 87-year-old female who has a history of dementia which apparently began about 6 months ago and has been progressive. She did suffer a fall on 08/03/2018. She had a tibial plateau fracture on the right. She appears to have been treated with immobilization. She subsequently was referred to [facility]. It appears that she was discharged initially on 08/08/2018. She was readmitted on 08/15/2018. At that time, she had increasing shortness of breath. She also had some perihilar infiltrate. The patient is a poor historian. She really cannot give much detail about anything. She does acknowledge, however, that she is short of breath. She denies any cough. However, she admits that food occasionally goes the wrong way when she swallows. Reportedly, however, she has had a speech evaluation and they did not think she had any swallowing dysfunction. I think they just did an evaluation but not a swallow type eval. The patient denies any heartburn. She admits to feeling very cold, although her room is a little bit cold. PAST SURGICAL HISTORY: 1. Right hip replacement. 2. Left cataract surgery. PAST MEDICAL HISTORY: 1. Abdominal aortic aneurysm. 2. Emphysema. 3. Dementia. 4. Hyperlipidemia. 5. Osteoporosis. 6. Hypertension. 7. Numerous compression fractures including T2 through T9 and T11 and L1. 8. DJD of the spine. 9. Childbirth x2. SOCIAL HISTORY: Tobacco, the patient tells me that she quit smoking a while ago but could not tell me when. Historically, she did smoke more than 60 years at 1 pack per day or more. ALLERGIES: 1. OXYCODONE. 2. ACETAMINOPHEN. 3. PENICILLIN. 4. ANTIDEPRESSANT MEDICATIONS. HOME MEDICATIONS: 1. Albuterol inhaler. 2. Amlodipine 5 mg daily. 3. Bisacodyl p.r.n. 4. Restasis. 5. Docusate. 6. Breo Ellipta. 7. Combivent Respimat q.i.d. 8. DuoNeb p.r.n. 9. Lisinopril 40 mg daily. 10. Milk of magnesia. 11. Montelukast 10 mg. 12. Nicotine patch. 13. Prednisone. 14. Senna. 15. Bactrim DS. 16. Tramadol. REVIEW OF SYSTEMS: This was very difficult to obtain as the patient is a very poor historian. At this time, she denies any bowel problems or urine problems. She mostly is complaining of the shortness of breath. Ten systems were attempted to be reviewed, but with limitations as noted. PHYSICAL EXAMINATION: GENERAL: The patient is a pleasant 87-year-old female who was dyspneic at rest. She appears chronically ill as well. VITAL SIGNS: Weight is 43.9 kilograms with a BMI of only 16.6. HEENT: Eye exam suggests an implant in the left eye and a cataract on the right eye. Nares were clear. Mouth exam showed dry membranes with no erythema or exudate. Dentures are on top and an absence of teeth on the bottom. NECK: Palpation of the neck reveals no lymph nodes. HEART: The cardiac rate was 108. Blood pressure was 156/63. The cardiac rhythm was regular. LUNGS: Respiratory rate at the time of this exam is 36 per minute. As noted, she seemed short of breath. Saturation only could be obtained by forehead pulse oximetry and it was 95% on 4 liter nasal cannula. The breath sounds are diffusely diminished throughout. I did not hear significant wheezes, rales, or rhonchi. ABDOMEN: Soft. Bowel sounds were present. There was no apparent tenderness to palpation or definite mass. EXTREMITIES: Reveals the hands are cool to touch. They look slightly cyanotic. The right leg is in an immobilizer. There was no edema of the left leg. DATA: EKG on 08/17/2018 showed sinus rhythm, rate 90. No acute changes were noted, although she did have Q-waves across the precordium. The patient has had several chest x-rays and CAT scans done. On 08/15/2018, mild emphysema was noted with some right perihilar hazy opacity. There was a healing distal right clavicle fracture reported. She had a CT angio of the chest done on 08/15/2018. This revealed segmental and subsegmental pulmonary emboli in the right upper lobe and right middle lobe areas. Advanced emphysema was noted. There was near complete atelectasis of the right lower lobe. There was age-indeterminant posttraumatic deformity of the manubrium. There was a small aneurysm of the proximal abdominal aorta measuring 2.7 cm. Venous Doppler of the lower extremities showed nonocclusive and possibly chronic deep vein thrombi of the left lower extremity. X-ray on 08/18/2018 showed what appeared to be bibasilar atelectatic changes. Severe kyphosis was noted. Head CT on 08/18/2018 showed senescent changes, but no acute change. There were age-related involutional changes with advanced subcortical and periventricular microangiopathic change. A repeat chest CT was done on August 22. This showed a decrease in the pulmonary embolus. There was an increase in pleural effusions which were still fairly small. There was near complete right lower lobe atelectasis with some atelectasis also of the left lower lobe. There was no infiltrate involving the apical and anterior segments of the right upper lobe which had not been seen previously. In my opinion, these are not strongly suggestive for pulmonary infarctions. I would more likely suspect either infectious or aspiration etiologies. Chest x-ray done on 08/25/2018 showed some progression of the right upper lobe airspace opacity suggesting pneumonia. White count yesterday was 13.7. Hemoglobin 10.3. Platelets 253,000. INR today is 2.1. Electrolytes show sodium 137, potassium 3.7, chloride 100, bicarbonate 28. BUN is 19 with a creatinine of 0.8. Nasal smear for MRSA was negative. Flu test was negative back on 08/15/2018. IMPRESSION: 1. Acute pulmonary embolism. 2. Deep venous thrombosis of the left leg - questionable chronic. 3. Right lower lobe and left lower lobe atelectasis. 4. Right upper lobe infiltrate, suspicion for pneumonia - possibly aspiration. 5. Emphysema. COMMENTS: The patient appears poorly. She is quite tachypneic. I suspect the tachypnea is multifactorial based upon the reasons noted. The case was discussed with Dr. Moffett. Regarding the pulmonary embolism, obviously she needs anticoagulation for now and that seems to be doing reasonably well with the Coumadin. I suspect she is nonambulatory at present and thus the risk for falls are lessened significantly. Regarding the infiltrate in the right upper lobe, I would assume this is either infectious or aspiration induced. She is on cefepime and levofloxacin and I am fine with that. The areas of atelectasis in the right lower lobe and left lower lobe could also be related to aspiration if indeed that had happened. I do not believe she is a candidate for bronchoscopy or anything invasive. I do think the patient is likely not capable of doing Combivent Respimat. Would suggest giving her neb treatments 3-4 times per day, perhaps with levalbuterol rather than albuterol in light of the tachycardia and would likely do the 0.63 dosage, particularly considering her very low BMI. Would add ipratropium to the levalbuterol. I believe she will get more benefit out of this than she will her inhalers which I am quite certain she is incapable of doing properly. Finally, I believe her code status should be addressed with the family. She is a full code and considering her dementia and multiple problems mainly from a respiratory perspective, we would want to do whatever their wishes are, but I do not believe that putting her on the ventilator is likely in her best interests. I am going to give her a dose of methylprednisolone and then we can reassess if she should have more if it seems to improve her breathing.
[2018-08-26] MEDS: BREO ELLIPTA: ORDER AWAITING ACTION SCH ×4 (01:27→23:41)
[2018-08-26] MEDS: RESTASIS: ORDER AWAITING ACTION SCH ×4 (01:27→23:41)
[2018-08-26] MEDS: CALCIUM 600MG + VIT D 400 IU TAB PO SCH ×2 (08:34→20:25)
[2018-08-26] MEDS: guaiFENesin 600 MG TABCR PO SCH ×2 (08:35→20:25)
[2018-08-26] MEDS: CEFEPIME 1,000 MG in SYRINGE 0 ML IV SCH ×2 (08:35→20:24)
[2018-08-26] MEDS: IPRATROPIUM BROMIDE/ALBUTEROL respimat INH INH SCH ×4 (08:35→20:25)
[2018-08-26] MEDS: NICOTINE 21 MG/24 HR TDSY TD SCH (08:36)
[2018-08-26] MEDS: NYSTATIN SUSP 500,000 U/5 ML UDC PO SCH ×4 (08:36→20:26)
[2018-08-26] MEDS: AMLODIPINE BESYLATE 5 MG TAB PO SCH (08:37)
[2018-08-26] MEDS: BUDESONIDE/FORMOTEROL FUMARATE 160/4.5 60 PUFFS/INHALER INH SCH ×2 (08:37→20:26)
[2018-08-26] MEDS: LISINOPRIL 40 MG TAB PO SCH (08:38)
[2018-08-26 09:36] LABS: INR 2.4 (0.9-1.1); Prothrombin Time 23.2 Seconds (9.0-12.0)
[2018-08-26 09:51] LABS: BUN Creatinine Ratio 31.6 (10-20); Creatinine Clr Calc Pharmacy 36.3 ml/min; Est GFR (Non-African American) 69.9; Magnesium 2.2 mg/dl (1.8-2.4); Phosphorus 4.3 mg/dl (2.5-4.9); Potassium 4.2 mmol/L (3.5-5.1)
--- NOTE | 2018-08-26 10:02 | Progress Note ---
DATE: 08/26/2018 Ms. Rousseau is demented, but subjectively, she is more short of breath. In addition, she is on 4 L of O2 now. Despite the fact that this effusion appears to be small, we are going to do an ultrasound-guided thoracentesis on the left side later today. We will discuss this with her family.
--- NOTE | 2018-08-26 16:00 | Progress Note ---
DATE: 08/26/2018 Ms. Rousseau was seen this afternoon. We are going to perform a thoracentesis if she looked worse to me from a pulmonary standpoint this morning. This afternoon she looks better. She still has markedly decreased breath sounds; however her son was in the room and agreed that her pulmonary function was not what it has been in the past. I felt that a thoracentesis may be helpful symptomatically. The patient was set up at the edge of the bed and using a bedside ultrasound, I evaluated both pleural cavities and quite frankly she had very little fluid on either side. I elected to hold off offering her a tap. Her son was present for the entire procedure. We discussed this in detail. We will continue to follow along. At this point, I would hold off offering her a thoracentesis.
--- NOTE | 2018-08-26 16:03 | Progress Note ---
DATE: 08/26/2018 PULMONARY PROGRESS NOTE TIME: 3:10 p.m. SUBJECTIVE: The patient is a poor historian. She denies any complaints. Her son was with her during this evaluation. OBJECTIVE: GENERAL: The patient looked more comfortable than when she was seen yesterday. She was in no distress. VITAL SIGNS: Temperature is 36.5. She has had no fevers in the past 2 plus days. Cardiac rate was 83 per minute. The rhythm was regular. Blood pressure 122/67. CHEST: Examination of the chest reveals a significant kyphosis. Respiratory rate 16 breaths per minute and not labored. There are diminished breath sounds at the left lung base. Elsewhere, the breath sounds are just diminished. No active wheeze or rhonchi was heard. Saturation 95% on 4 liters. EXTREMITIES: Reveals the right leg to be in an immobilizer. No edema was noted. Dr. Adkins saw the patient today. He did an ultrasound of the chest to evaluate the effusions. He states they are small and from his conversation, I did not think he was going to do a thoracentesis. LABORATORY DATA: Electrolytes today show sodium 133, potassium 4.2, chloride 99, bicarbonate 30. BUN 24, creatinine 0.77. INR today was 2.4. IMPRESSION: 1. Acute pulmonary emboli. 2. Deep venous thrombosis of the left leg. 3. Right lower lobe atelectasis and left lower lobe atelectasis. 4. Right upper lobe pneumonia - questionable aspiration. 5. Emphysema. COMMENTS: Clinically, the patient seems improved. Would continue with her current treatments. She remains on cefepime and levofloxacin.
[2018-08-26] MEDS: WARFARIN SOD 2 MG TAB PO SCH (16:29)
[2018-08-26] MEDS: levoFLOXacin 750 MG TAB PO SCH (17:54)
--- NOTE | 2018-08-26 18:23 | Hospitalist Progress Note ---
Date of Service August 26, 2018 Assessment & Plan (1) Acute respiratory failure with hypoxia: 2nd to multiple PEs & hospital-acquired pneumonia - in a background of pre -existing COPD from long-standing tobacco use. Cont to Rx the pneumonia and PEs. Cont NC O2. Suspect she may need the O2 at hospital d/c. Appreciate pulmonary consultation. (2) Pulmonary embolism: 2nd to DVT in the setting of right tibia fracture and poor mobility. Coumadin therapeutic. Daily INR. (3) Pneumonia: gram negative etiology likely as she developed this while hospitalized. I cannot exclude that some of the infiltrates are pulmonary infarction from her PEs. aspiration also possible but passed swallow eval. Day #5 of cefepime/levaquin. Plan 7 days of Rx. Can possibly transition to just levaquin monotherapy tomorrow depending on her status. Supportive care. (4) Chronic deep vein thrombosis (DVT): left leg coumadin daily INR (5) Severe protein-calorie malnutrition: MVI, boost, etc. likely due to underling dementia cannot exclude other occult process (ie cancer) (6) UTI (urinary tract infection): history of such but urine cx this admission negative (7) Dementia: per her sons it appears she has developed a dementia process over the last year neurology referral after d/c (8) Chronic diastolic CHF (congestive heart failure): appears compensated (9) COPD (chronic obstructive pulmonary disease): not in exacerbation at this time; defer on steroids cont nebs and symbicort (10) Abdominal distension: 2nd to fecal impaction improved today s/p enema (11) Metabolic encephalopathy: seems better cont seroquel (12) Chronic kidney disease, stage 3a: creatinine stable repeat bmp am for stability to [facility] - next 48 hours? Subjective patient unable to provider any history or ROS due to altered mental status with that said she seemed more comfortable today --- less distress/tachypnea, more sprightly in appearance staff report no issues appetite is poor overall Review of Systems Unobtainable due to cognitive status Physical Exam 2 Vital Signs (Past 24 Hours): Last Vital Signs Temp 36.6 C 08/26/18 15:34 Pulse 96 H 08/26/18 15:34 Resp 26 H 08/26/18 15:34 BP 132/79 08/26/18 15:34 Pulse Ox 94 08/26/18 15:34 Constitutional: + ill appearing, + thin and + altered mental status ENMT: external ear and nose normal, oropharynx normal Respiratory: no respiratory distress Auscultation: lungs clear to auscultation bilaterally; no crackles, no rhonchi and no wheezes Cardiovascular: Rate/Rhythm: regular rate and regular rhythm Heart Sounds: normal S1 and normal S2; no murmur Vessels: posterior tibial pulses present and dorsalis pedis pulses present Extremities: no pedal edema Gastrointestinal (Abdomen): Inspection/Auscultation: + abdomen distended (but much less than previous ) and normal bowel sounds Percussion/Palpation: abdomen nontender and no hepatosplenomegaly Psychiatric: Orientation: alert; + not oriented x 3 Results & Data Laboratory Results Laboratory Results - last 24 hr 08/26/18 08/26/18 08:59 08:59 PT 23.2 H INR 2.4 H Sodium 133 L Potassium 4.2 Chloride 99 Carbon Dioxide 30 Anion Gap 4.0 BUN 24 H Creatinine 0.77 Est Cr Clr Drug Dosing 36.3 Est GFR ( Amer) 81.0 Est GFR (Non-Af Amer) 69.9 BUN/Creatinine Ratio 31.6 H Glucose 132 H Calcium 9.0 Phosphorus 4.3 Magnesium 2.2 _ (1) UTI (urinary tract infection) Encounter type: Hematuria presence: without hematuria Indwelling urinary catheter type: Urinary tract infection type: acute cystitis Qualified Code(s) : N30.00 - Acute cystitis without hematuria (2) Dementia Alzheimer's disease onset: Dementia behavioral disturbance: without behavioral disturbance Dementia type: unspecified type Qualified Code(s): F03.90 - Unspecified dementia without behavioral disturbance (3) Chronic deep vein thrombosis (DVT) Affected thrombotic vein of extremity: femoral DVT location: lower extremity Laterality: left Qualified Code(s): I82.512 - Chronic embolism and thrombosis of left femoral vein (4) COPD (chronic obstructive pulmonary disease) COPD type: unspecified COPD Chronic bronchitis type: Emphysema type: Qualified Code(s): J44.9 - Chronic obstructive pulmonary disease, unspecified (5) Pulmonary embolism Acute cor pulmonale presence: without acute cor pulmonale Chronicity: acute Pulmonary embolism type: unspecified Qualified Code(s): I26.99 - Other pulmonary embolism without acute cor pulmonale (6) Pneumonia Aspiration pneumonia type: Laterality: right Lung location: upper lobe of lung Pneumonia type: due to unspecified organism Qualified Code(s): J18.1 - Lobar pneumonia, unspecified organism
[2018-08-26] MEDS: QUETIAPINE FUMARATE 25 MG TABLET PO SCH (20:26)
[2018-08-26] MEDS: MONTELUKAST SODIUM 10 MG TABLET PO SCH (20:26)
[2018-08-27 06:15] LABS: Prothrombin Time 34.4 Seconds (9.0-12.0)
[2018-08-27 06:19] LABS: INR 3.7 (0.9-1.1)
[2018-08-27 06:24] LABS: BUN Creatinine Ratio 33.9 (10-20); Calcium 8.5 mg/dl (8.5-10.1); Est GFR (African American) 59.1
[2018-08-27] MEDS: RESTASIS: ORDER AWAITING ACTION SCH ×3 (08:24→23:12)
[2018-08-27] MEDS: CALCIUM 600MG + VIT D 400 IU TAB PO SCH ×2 (08:24→20:25)
[2018-08-27] MEDS: guaiFENesin 600 MG TABCR PO SCH ×2 (08:24→20:35)
[2018-08-27] MEDS: BREO ELLIPTA: ORDER AWAITING ACTION SCH ×3 (08:24→23:11)
[2018-08-27] MEDS: NYSTATIN SUSP 500,000 U/5 ML UDC PO SCH ×4 (08:25→20:32)
[2018-08-27] MEDS: BUDESONIDE/FORMOTEROL FUMARATE 160/4.5 60 PUFFS/INHALER INH SCH ×2 (08:25→20:25)
[2018-08-27] MEDS: LISINOPRIL 40 MG TAB PO SCH (08:25)
[2018-08-27] MEDS: AMLODIPINE BESYLATE 5 MG TAB PO SCH (08:25)
[2018-08-27] MEDS: IPRATROPIUM BROMIDE/ALBUTEROL respimat INH INH SCH ×4 (08:26→20:26)
[2018-08-27] MEDS: NICOTINE 21 MG/24 HR TDSY TD SCH (08:26)
[2018-08-27] MEDS: CEFEPIME 1,000 MG in SYRINGE 0 ML IV SCH ×2 (08:29→20:41)
--- NOTE | 2018-08-27 15:10 | XRay Report ---
XR chest 1V portable CLINICAL HISTORY: RUL pneumonia, left sided rales, eval infiltrates COMPARISON STUDY: 08/25/2018 FINDINGS: The cardiac and mediastinal contours remain stable. Underlying emphysema is suspected. Ther e are persistent bilateral pleural effusions. There are associated basilar opacities likely represent ing compressive atelectatic change. There are persistent right apical airspace opacity suspicious for pneumonia. IMPRESSION: 1. Persistent right apical airspace opacity suspicious for pneumonia 2. Persistent bilateral pleural effusions with basilar parenchymal opacities likely atelectatic Electronically signed by: Olivier Iqbal M.D. 08/27/2018 3:09 PM
--- NOTE | 2018-08-27 16:05 | Progress Note ---
DATE: 08/27/2018 PULMONARY PROGRESS NOTE TIME: 3:45 p.m. SUBJECTIVE: The patient remains weak. She is not a good historian. She denies any significant shortness of breath or cough. OBJECTIVE: GENERAL: The patient was comfortable. VITAL SIGNS: Temperature was 36.4. She was cooperative and alert. Cardiac rate was 84 per minute. Rhythm was regular. Blood pressure 132/68. LUNGS: Auscultation of the lung jerez revealed just a few rales posteriorly. Respiratory rate was 16. Saturation was 94% on 4-liter nasal cannula. EXTREMITIES: Showed no cyanosis, clubbing or edema. The right leg is immobilized. LABORATORY DATA: A chest x-ray was done this afternoon. This shows a persistent right apical infiltrate. There are bibasilar opacifications representing combination of effusions and atelectasis. These are unchanged. INR today was elevated at 3.7. Electrolytes show sodium 134, potassium 4, chloride 96, bicarbonate 31. BUN is increased to 34 and prior was 24. Creatinine was 1.0 and previously was 0.77. IMPRESSION: 1. Pulmonary embolism. 2. Deep venous thrombosis on the left leg. 3. Right lower lobe and left lower lobe atelectasis. 4. Bilateral pleural effusions. 5. Right upper lobe pneumonia - rule out aspiration. 6. Emphysema. COMMENTS AND RECOMMENDATIONS: The patient seems about the same. She was in no distress at all. She looks very similar to yesterday. She has not had significant fevers since August 22. Her overall status remains very marginal. Would continue with her current antibiotics. The INR is likely rising in response to the Levaquin in all likelihood and will need to be carefully watched and observed. She is still requiring more oxygen than expected considering her relatively few symptoms.
[2018-08-27] MEDS: QUETIAPINE FUMARATE 25 MG TABLET PO SCH (20:35)
[2018-08-27] MEDS: MONTELUKAST SODIUM 10 MG TABLET PO SCH (20:35)
--- NOTE | 2018-08-27 20:51 | Hospitalist Progress Note ---
Date of Service August 27, 2018 Assessment & Plan (1) Acute respiratory failure with hypoxia: 2nd to multiple PEs & hospital-acquired pneumonia - in a background of pre -existing COPD. Cont to Rx the pneumonia and PEs. Cont NC O2. Likely to need O2 at d/c. Appreciate pulmonary consultation and recs. (2) Pulmonary embolism: 2nd to DVT in the setting of right tibia fracture and poor mobility. Coumadin supratherapeutic. Hold coumadin today. Daily INR. (3) Pneumonia: gram negative etiology likely as she developed this while hospitalized. I cannot exclude that some of the infiltrates are pulmonary infarction from her PEs. aspiration also possible but passed swallow eval. Day #6 of cefepime/levaquin. Stop cefepime. Continue with levaquin monotherapy. Consider treating 10 days in light of severity of illness. (4) Chronic deep vein thrombosis (DVT): left leg daily INR INR high today - hold coumadin (5) Severe protein-calorie malnutrition: MVI, boost, etc. likely due to underling dementia cannot exclude other occult process (ie cancer) (6) UTI (urinary tract infection): none at this time (7) Dementia: per her sons it appears she has developed a dementia process over the last year neurology referral after d/c probably has superimposed delirium/encephalopathy from infection supportive care (8) Chronic diastolic CHF (congestive heart failure): compensated (9) COPD (chronic obstructive pulmonary disease): not in exacerbation at this time; defer on steroids cont nebs and symbicort (10) Abdominal distension: due to constipation no symptoms continue bowel regimen (11) Metabolic encephalopathy: ongoing cont seroquel (12) Chronic kidney disease, stage 3a: creatinine stable repeat bmp am for stability to [facility] - next 48 hours? attempted to call son Musa yesterday - could not leave message - voicemail full Subjective like previous visits the patient states "I"m tired" with asking a limited ROS she says no to every question but unsure if reliable staff report no issues Review of Systems Unobtainable due to cognitive status Physical Exam 2 Vital Signs (Past 24 Hours): Last Vital Signs Temp 36.5 C 08/27/18 16:24 Pulse 100 H 08/27/18 16:24 Resp 25 H 08/27/18 16:24 BP 137/72 08/27/18 16:24 Pulse Ox 92 08/27/18 16:24 Constitutional: + ill appearing, + thin and + altered mental status (baseline ) ENMT: external ear and nose normal, oropharynx normal Respiratory: no respiratory distress Auscultation: lungs clear to auscultation bilaterally; no crackles, no rhonchi and no wheezes Cardiovascular: Rate/Rhythm: regular rate and regular rhythm Heart Sounds: normal S1 and normal S2; no murmur Vessels: posterior tibial pulses present and dorsalis pedis pulses present Extremities: no pedal edema Gastrointestinal (Abdomen): Inspection/Auscultation: + abdomen distended (no change from prior exam) and normal bowel sounds Percussion/Palpation: abdomen nontender and no hepatosplenomegaly Psychiatric: Orientation: alert; + not oriented x 3 Results & Data Laboratory Results Laboratory Results - last 24 hr 08/27/18 08/27/18 05:22 05:22 PT 34.4 H INR 3.7 H Sodium 134 L Potassium 4.0 Chloride 96 L Carbon Dioxide 31 Anion Gap 7.0 BUN 34 H Creatinine 1.00 Est Cr Clr Drug Dosing 28.0 Est GFR ( Amer) 59.1 Est GFR (Non-Af Amer) 51.0 BUN/Creatinine Ratio 33.9 H Glucose 102 H Calcium 8.5 _ (1) UTI (urinary tract infection) Encounter type: Hematuria presence: without hematuria Indwelling urinary catheter type: Urinary tract infection type: acute cystitis Qualified Code(s) : N30.00 - Acute cystitis without hematuria (2) Dementia Alzheimer's disease onset: Dementia behavioral disturbance: without behavioral disturbance Dementia type: unspecified type Qualified Code(s): F03.90 - Unspecified dementia without behavioral disturbance (3) Chronic deep vein thrombosis (DVT) Affected thrombotic vein of extremity: femoral DVT location: lower extremity Laterality: left Qualified Code(s): I82.512 - Chronic embolism and thrombosis of left femoral vein (4) COPD (chronic obstructive pulmonary disease) COPD type: unspecified COPD Chronic bronchitis type: Emphysema type: Qualified Code(s): J44.9 - Chronic obstructive pulmonary disease, unspecified (5) Pulmonary embolism Acute cor pulmonale presence: without acute cor pulmonale Chronicity: acute Pulmonary embolism type: unspecified Qualified Code(s): I26.99 - Other pulmonary embolism without acute cor pulmonale (6) Pneumonia Aspiration pneumonia type: Laterality: right Lung location: upper lobe of lung Pneumonia type: due to unspecified organism Qualified Code(s): J18.1 - Lobar pneumonia, unspecified organism
[2018-08-28] MEDS: IPRATROPIUM BROMIDE/ALBUTEROL respimat INH INH SCH ×5 (07:43→21:01)
[2018-08-28] MEDS: LISINOPRIL 40 MG TAB PO SCH ×2 (07:43→10:49)
[2018-08-28] MEDS: AMLODIPINE BESYLATE 5 MG TAB PO SCH ×2 (07:43→10:49)
[2018-08-28] MEDS: CALCIUM 600MG + VIT D 400 IU TAB PO SCH ×3 (07:43→20:59)
[2018-08-28] MEDS: NICOTINE 21 MG/24 HR TDSY TD SCH (07:44)
[2018-08-28] MEDS: guaiFENesin 600 MG TABCR PO SCH ×3 (07:44→20:58)
[2018-08-28] MEDS: BUDESONIDE/FORMOTEROL FUMARATE 160/4.5 60 PUFFS/INHALER INH SCH ×3 (07:44→21:00)
[2018-08-28] MEDS: NYSTATIN SUSP 500,000 U/5 ML UDC PO SCH ×5 (07:44→21:01)
[2018-08-28] MEDS: BREO ELLIPTA: ORDER AWAITING ACTION SCH ×3 (07:45→23:30)
[2018-08-28] MEDS: RESTASIS: ORDER AWAITING ACTION SCH ×3 (07:45→23:30)
[2018-08-28 12:39] LABS: Hematocrit (blood only) 33.3 % (37-47); Hemoglobin 10.9 g/dL (12.0-16.0); Mean Corpuscular Hgb Conc 32.7 g/dL (32-36); Mean Corpuscular Volume 88.1 fL (80-100); Platelet Count 388 K/uL (130-400); RDW Coefficient of Variation 13.6 % (11.5-14.5); Red Blood Count 3.78 M/uL (4.2-5.4); White Blood Count 13.37 K/uL (4.8-10.8)
[2018-08-28 12:59] LABS: BUN Creatinine Ratio 25.5 (10-20); Creatinine Clr Calc Pharmacy 32.2 ml/min; Est GFR (African American) 69.9; Est GFR (Non-African American) 60.3; Potassium 3.8 mmol/L (3.5-5.1)
[2018-08-28 15:36] LABS: INR 2.2 (0.9-1.1); Prothrombin Time 21.7 Seconds (9.0-12.0)
[2018-08-28] MEDS: levoFLOXacin 750 MG TAB PO SCH (17:00)
[2018-08-28] MEDS: QUETIAPINE FUMARATE 25 MG TABLET PO SCH (20:57)
[2018-08-28] MEDS: MONTELUKAST SODIUM 10 MG TABLET PO SCH (20:58)
--- NOTE | 2018-08-28 21:56 | Hospitalist Progress Note ---
Date of Service August 28, 2018 Assessment & Plan (1) Acute respiratory failure with hypoxia: 2nd to multiple PEs & hospital-acquired pneumonia - in a background of pre -existing COPD. Supportive care of both issues. Cont NC O2. Likely to need O2 at d/c. Appreciate pulmonary consultation and recs. (2) Pulmonary embolism: 2nd to DVT in the setting of right tibia fracture and poor mobility. Coumadin was supratherapeutic but now INR back down to goal of between 2 and 3. Resume coumadin today. Daily INR. (3) Pneumonia: gram negative etiology likely as she developed this while hospitalized. I cannot exclude that some of the infiltrates are pulmonary infarction from her PEs. aspiration also possible but passed swallow eval. Day #7 of antibiotics. Currently on monotherapy alone with levaquin. In light of severity of pneumonia I have elected to keep the levaquin on board for total of 10 days. (4) Chronic deep vein thrombosis (DVT): left leg daily INR (5) Severe protein-calorie malnutrition: MVI, boost, etc. likely due to underling dementia cannot exclude other occult process (ie cancer) (6) UTI (urinary tract infection): none at this time (7) Dementia: per her sons it appears she has developed a dementia process over the last year neurology referral after d/c probably has superimposed delirium/encephalopathy from infection supportive care mental status is about the same as yesterday (8) Chronic diastolic CHF (congestive heart failure): compensated (9) COPD (chronic obstructive pulmonary disease): not in exacerbation at this time cont nebs/symbicort (10) Abdominal distension: due to constipation -- resolved continue bowel regimen (11) Metabolic encephalopathy: ongoing cont seroquel could consider titration if necessary (12) Chronic kidney disease, stage 3a: creatinine stable (13) HTN (hypertension): controlled cont current meds (14) DVT prophylaxis: [facility]in [facility] - next 48 hours? social work today called [facility] to see what bed status was possible d/c next 1-2 days depending on bed availability she is about as stable as she has been during her stay discussed code status with son Musa today his initial thought was that his mother would probably NOT want to be full code I encouraged him to talk w/ his brother about her code status and let us know their final wishes Subjective no issues overnight per staff son, Musa, was at bedside during the visit she is eating about the same still requiring 4-5 L NC O2 patient offered no complaints, history or any ROS during the encounter son Musa - when asked about code status - thought his mother would probably not want full code Review of Systems Unobtainable due to cognitive status Physical Exam 2 Vital Signs (Past 24 Hours): Last Vital Signs Temp 37.1 C 08/28/18 07:46 Pulse 85 08/28/18 07:46 Resp 20 08/28/18 07:46 BP 151/75 H 08/28/18 07:46 Pulse Ox 94 08/28/18 07:46 Constitutional: + ill appearing, + thin and + altered mental status (baseline ) ENMT: external ear and nose normal, oropharynx normal Respiratory: no respiratory distress (very mild "quiet" tachypnea but no distress) Auscultation: lungs clear to auscultation bilaterally; no crackles , no rhonchi and no wheezes Cardiovascular: Rate/Rhythm: regular rate and regular rhythm Heart Sounds: normal S1 and normal S2; no murmur Vessels: posterior tibial pulses present and dorsalis pedis pulses present Extremities: no pedal edema Gastrointestinal (Abdomen): Inspection/Auscultation: normal bowel sounds; abdomen not distended (no change from prior exam) Percussion/Palpation: abdomen soft; abdomen nontender and no hepatosplenomegaly Psychiatric: Orientation: alert; + not oriented x 3 Results & Data Laboratory Results Laboratory Results - last 24 hr 08/28/18 08/28/18 08/28/18 12:28 12:28 15:14 WBC 13.37 H RBC 3.78 L Hgb 10.9 L Hct 33.3 L MCV 88.1 MCH 28.8 MCHC 32.7 RDW Std Deviation 44.0 RDW Coeff of [place] 13.6 Plt Count 388 MPV 10.0 PT 21.7 H INR 2.2 H Sodium 136 Potassium 3.8 Chloride 97 L Carbon Dioxide 32 Anion Gap 7.0 BUN 22 H Creatinine 0.87 Est Cr Clr Drug Dosing 32.2 Est GFR ( Amer) 69.9 Est GFR (Non-Af Amer) 60.3 BUN/Creatinine Ratio 25.5 H Glucose 115 H Calcium 9.0 _ (1) UTI (urinary tract infection) Encounter type: Hematuria presence: without hematuria Indwelling urinary catheter type: Urinary tract infection type: acute cystitis Qualified Code(s) : N30.00 - Acute cystitis without hematuria (2) Dementia Alzheimer's disease onset: Dementia behavioral disturbance: without behavioral disturbance Dementia type: unspecified type Qualified Code(s): F03.90 - Unspecified dementia without behavioral disturbance (3) Chronic deep vein thrombosis (DVT) Affected thrombotic vein of extremity: femoral DVT location: lower extremity Laterality: left Qualified Code(s): I82.512 - Chronic embolism and thrombosis of left femoral vein (4) COPD (chronic obstructive pulmonary disease) COPD type: unspecified COPD Chronic bronchitis type: Emphysema type: Qualified Code(s): J44.9 - Chronic obstructive pulmonary disease, unspecified (5) Pulmonary embolism Acute cor pulmonale presence: without acute cor pulmonale Chronicity: acute Pulmonary embolism type: unspecified Qualified Code(s): I26.99 - Other pulmonary embolism without acute cor pulmonale (6) Pneumonia Aspiration pneumonia type: Laterality: right Lung location: upper lobe of lung Pneumonia type: due to unspecified organism Qualified Code(s): J18.1 - Lobar pneumonia, unspecified organism
[2018-08-29 06:31] LABS: INR 1.8 (0.9-1.1); Prothrombin Time 17.4 Seconds (9.0-12.0)
[2018-08-29] MEDS: BREO ELLIPTA: ORDER AWAITING ACTION SCH ×2 (07:57→15:00)
[2018-08-29] MEDS: RESTASIS: ORDER AWAITING ACTION SCH ×2 (07:57→15:00)
--- NOTE | 2018-08-29 08:43 | Progress Note ---
DATE: 08/29/2018 PULMONARY PROGRESS NOTE TIME: 8:05 a.m. SUBJECTIVE: The patient offers no complaints of significance. She denies being short of breath. She has just a mild cough. OBJECTIVE: GENERAL: The patient is pleasantly confused. She was cooperative. Overall, the patient appears a little stronger than she did a few days ago and a little mentally brighter. VITAL SIGNS: Temperature is 37 degrees. Heart rate is 78 per minute. Rhythm was regular. Blood pressure 156/72. LUNGS: Auscultation of the lung jerez reveals mildly decreased breath sounds at the left base compared with the right base. No significant rales, wheezes or rhonchi were heard. Saturation is still lower than expected at 90% on 4 liter nasal cannula. ABDOMEN: Soft. Bowel sounds were present. EXTREMITIES: Showed no cyanosis, clubbing or edema. The right leg has an immobilizer in place. Last chest x-ray was done back on 08/27 and showed persistent right apical airspace disease suggesting pneumonia as well as bibasilar opacification secondary to effusion and atelectasis. INR this morning is 1.8. No other labs are available from today. IMPRESSIONS: 1. Acute pulmonary embolism. 2. Left leg deep venous thrombosis. 3. Right lower lobe and left lower lobe atelectasis. 4. Right upper lobe pneumonia -- questionable aspiration -- doubtful for infarct. 5. Emphysema. 6. Small bilateral effusions. The patient seems reasonably stable but certainly chronically ill. Arrangements are apparently being made for her for [facility]. She has made slow but mild progress in the past several days that I have been seeing her. Case has been discussed with Dr. Moffett. Pulmonary will sign off for now, but will be happy to see again if requested.
[2018-08-29] MEDS: CALCIUM 600MG + VIT D 400 IU TAB PO SCH ×2 (09:41→20:33)
[2018-08-29] MEDS: AMLODIPINE BESYLATE 5 MG TAB PO SCH (09:42)
[2018-08-29] MEDS: LISINOPRIL 40 MG TAB PO SCH (09:42)
[2018-08-29] MEDS: NYSTATIN SUSP 500,000 U/5 ML UDC PO SCH ×4 (09:42→20:41)
[2018-08-29] MEDS: NICOTINE 21 MG/24 HR TDSY TD SCH (09:42)
[2018-08-29] MEDS: guaiFENesin 600 MG TABCR PO SCH ×2 (09:42→20:36)
[2018-08-29] MEDS: BUDESONIDE/FORMOTEROL FUMARATE 160/4.5 60 PUFFS/INHALER INH SCH ×2 (09:43→20:40)
[2018-08-29] MEDS: IPRATROPIUM BROMIDE/ALBUTEROL respimat INH INH SCH ×4 (09:43→20:39)
[2018-08-29] MEDS ORDERED: ENOXAPARIN INJ 40 MG/0.4 ML SYR SQ SCH (10:00)
--- NOTE | 2018-08-29 15:06 | Discharge Summary ---
Date of Service August 29, 2018 Admission HPI Per Admitting Provider Ms. Rousseau is an 87 y/o female with HTN, Emphysema, Dementia, and Recent R Tibial Plateau Fx who presents to the ED c/o acute SOB starting yesterday. She was recently admitted for hypoxia and her tibial plateau fracture. Her hypoxia and SOB were related to a COPD exacerbation. Per son, he states her breathing has been good until yesterday and this continued today. Patient is a poor historian and states her breathing is bad but denies any other symptoms. She does have some tachypnea but appropriate oxygenation with 4 L at this time. Denies chest pain. Discussed anticoagulation with the patient and son and heparin gtt will be initiated. Principal Diagnosis Acute pulmonary embolism, pneumonia Discharge Exam Constitutional + cachectic; no acute distress Eyes PERRL, conjunctivae normal, anicteric sclerae Neck trachea midline, no thyromegaly Respiratory Auscultation: + diminished lung sounds (at lower and middle lung jerez bilat) and + crackles (right upper lung field) Cardiovascular RRR, no murmur, no edema Gastrointestinal (Abdomen) normal bowel sounds, soft, nontender, no hepatosplenomegaly Musculoskeletal Spine: + kyphosis Extremities: + extremities abnormal to inspection (Right knee in immobilizer; bilat feet with hammer toes; Right ankle is frozen), no cyanosis and no clubbing Skin no rashes, warm and dry Neurologic moves all extremities and awake; no focal motor deficits Psychiatric Orientation: alert, oriented to person and cooperative Eye Contact: good eye contact Discharge Data Allergies Allergy/AdvReac Type Severity Reaction Status Date / Time oxycodone Allergy Unknown Verified 08/15/18 14:57 Penicillins Allergy Unknown Verified 08/15/18 14:57 acetaminophen [From Tylenol] AdvReac Severe memory loss Verified 08/16/18 02:13 antidepressant AdvReac Hallucinati Uncoded 08/15/18 14:33 ng Consultations Thoracic Surgery Pulmonology Procedures Performed Echocardiogram Ordered Studies 08/15/18 15:47 CT angio chest PE protocol Stat 08/15/18 20:00 US venous doppler LE BI Routine 08/18/18 16:32 CT head/brain wo con Urgent 08/22/18 14:50 CT chest w con Urgent Chest x-ray x4 Abdomen x-ray Hospital Course (1) Acute respiratory failure with hypoxia: Secondary to multiple PEs & hospital-acquired pneumonia - in a background of pre-existing COPD. Supportive care of both issues was provided. Cont NC supplemental O2. Appreciate pulmonary consultation and recs. (2) Pulmonary embolism: Secondary to DVT in the setting of right tibia fracture and poor mobility. Coumadin was supratherapeutic and Coumadin had been held, has since been restarted but INR was 1.8 on the day of discharge Bridged with Lovenox 1 mg/kg subcutaneously every 12 hours until INR therapeutic again -Continue Coumadin -Follow PT/INR (3) Pneumonia: Suspected gram negative etiology likely as she developed this while hospitalized. I cannot exclude that some of the infiltrates are pulmonary infarction from her PEs. aspiration also possible but passed swallow eval. Day #8 of antibiotics. Currently on monotherapy alone with levaquin. In light of severity of pneumonia I have elected to keep the levaquin on board for total of 10 days. (4) Chronic deep vein thrombosis (DVT): left leg daily INR (5) Severe protein-calorie malnutrition: MVI, boost, etc. likely due to underling dementia cannot exclude other occult process (ie cancer) (6) UTI (urinary tract infection): none at this time (7) Dementia: per her sons it appears she has developed a dementia process over the last year neurology referral after d/c routinely as an outpatient probably had some element of superimposed delirium/encephalopathy from infection supportive care Stable -Started on Seroquel 25 mg p.o. nightly (8) Chronic diastolic CHF (congestive heart failure): compensated Is not on diuretics (9) COPD (chronic obstructive pulmonary disease): not in exacerbation at this time cont nebs/symbicort (10) Abdominal distension: due to constipation -- resolved continue bowel regimen (11) Metabolic encephalopathy: As above, improved cont seroquel (12) Chronic kidney disease, stage 3a: creatinine stable (13) HTN (hypertension): controlled cont current meds (14) DVT prophylaxis: coumadin to [facility] -today Full code Total Time Total Time Spent Total Time Spent (In Minutes): Greater than 30 minutes Total Time Includes: Examination of the Patient, Discharge Planning and Medication Reconciliation Discharge Plan Discharge Items Patient Disposition: Transfer [facility] Fac Reason For Visit: PULMONARY EMBOLISM Discharge Diagnosis: Pulmonary embolism, pneumonia Condition: Fair Discharge Goals: Decrease discomfort, Diagnostic testing, Improve disease control, Learn about illness and Therapeutic intervention Activity: As commented below Activity Comment: Work daily with PT and OT Lifting: Gradually increase as tolerated Bathing: No limitations Exercise/Sports: Gradually increase as tolerated Non-emergency contact: Primary Care Provider Call non-emergency contact if: you have any medication questions, your symptoms worsen and your temperature is above 101 Follow-up/Referrals: George Richardson MD [Surgeon] - (Needs appointment within 1 week for right tibial plateau fracture) Addtl Provider Instructions: Mrs. Rousseau was admitted with acute pulmonary embolism. She was started on Coumadin and needs her INR checked on 08/30/18. Her INR was supratherapeutic and Coumadin had been held, then it was subtherapeutic on 08/29/18 at 1.8. She is currently being bridged with Lovenox 1 mg/kilogram SQ every 12 hours. She was also treated for pneumonia and needs 2 more days of her p.o. Levaquin.She is requiring oxygen. She needs follow-up with orthopedic surgery for her previous right tibial plateau fracture within 1 week-this will have been 4 weeks since the time of the fracture. She needs to remain nonweightbearing with the right lower extremity in a knee immobilizer. Prescriptions: New nystatin 100,000 unit/mL Suspension 5 ml PO QID 5 Days Qty: 100 RF: 0 levofloxacin 750 mg Tablet 750 mg PO Q48H Qty: 1 RF: 0 enoxaparin 40 mg/0.4 mL Syringe 40 mg subcut Q12H 5 Days Qty: 4 RF: 0 quetiapine 25 mg Tablet 25 mg PO HS Qty: 30 RF: 0 warfarin [Coumadin] 2 mg Tablet 2 mg PO DAILY@1600 Qty: 30 RF: 0 [id number] [Caltrate 600-D Plus Minerals] 600 mg calcium- 800 unit-50 mg Tablet 1 tab PO BID Qty: 60 RF: 0 Continue albuterol sulfate 90 mcg/actuation HFA aerosol inhaler 2 puff Inhalation Q6H PRN (Reason: Shortness Of Breath Or Wheezing) RF: 0 lisinopril 40 mg tablet 40 mg PO QAM RF: 0 cyclosporine [Restasis] 0.05 % Dropperette 1 drp OPB Q12H RF: 0 ipratropium-albuterol 20-100 mcg/actuation mist 1 puff Inhalation QID RF: 0 sennosides [senna] 8.6 mg Tablet 8.6 mg PO DAILY PRN (Reason: Constipation) RF: 0 ipratropium-albuterol 0.5 mg-3 mg(2.5 mg base)/3 mL Solution For Nebulization 3 ml Inhalation QID PRN (Reason: Shortness Of Breath Or Wheezing) RF: 0 amlodipine 5 mg Tablet 5 mg PO DAILY RF: 0 magnesium hydroxide [Milk of Magnesia] 400 mg/5 mL Suspension 30 ml PO DAILY PRN (Reason: Constipation) RF: 0 bisacodyl 10 mg Suppository 10 mg DC DAILY PRN (Reason: Constipation) RF: 0 nicotine [Nicoderm CQ] 21 mg/24 hr Patch 24 Hour 1 patch TRANSDERMAL DAILY RF: 0 docusate sodium 100 mg Capsule 100 mg PO BID PRN (Reason: Constipation) RF: 0 montelukast 10 mg Tablet 10 mg PO PM RF: 0 fluticasone-vilanterol [Breo Ellipta] 100-25 mcg/dose Blister With Device 1 inh INHALATION DAILY RF: 0 tramadol 50 mg Tablet 25 mg PO Q4 PRN (Reason: Pain) Qty: 6 RF: 0 Discontinued prednisone 10 mg Tablet 10 mg PO UD RF: 0 sulfamethoxazole-trimethoprim [Bactrim DS] 800-160 mg Tablet 1 tab PO BID RF: 0 Stand-Alone Forms: [facility] Discharge Orders: Discharge Order (Routine); Ordered 08/29/18 Ordered By: Augustina Eaton Skilled Items Patient informed of condition?: Yes DNR: No Discharge Level of Care: Skilled Communicable Disease: No Discharge Prognosis: Stable Admission Data Admit Date/Time: 08/15/18 17:53 Attending Provider: Augustina Eaton Admit Provider: Momo Hay Primary Care Provider: PCP,NO Other Providers: Reece Ruiz ; Momo Hay ; Alfredo Adkins ; Alfredo Dixon ; IRB Approved Study,Shalini Service: Medical Other Interventions: Discharge Summary Assessment (RN) Last Done: 08/29/18 15:04 Pending Studies at Discharge: No DC Date/Time DO NOT enter until pt leaves facility: 08/29/18 21:28
[2018-08-29] MEDS: WARFARIN SOD 2 MG TAB PO SCH (18:17)
[2018-08-29] MEDS: QUETIAPINE FUMARATE 25 MG TABLET PO SCH (20:37)
[2018-08-29] MEDS: MONTELUKAST SODIUM 10 MG TABLET PO SCH (20:38)
== END 2018-08-29 21:28 | DRG 175 ==
LOC: ED 13:41 → 2S 15:38 → SUATTDRO 17:53 → 2S 17:53 → 4E 08-19 15:35
DX: M81.0 Age-related osteoporosis without current pathological fracture; J44.9 Chronic obstructive pulmonary disease, unspecified; F03.90 Unspecified dementia, unspecified severity, without behavioral disturbance, psychotic disturbance, mood disturbance, and anxiety; J90 Pleural effusion, not elsewhere classified; Z88.5 Allergy status to narcotic agent; Z88.0 Allergy status to penicillin; I82.502 Chronic embolism and thrombosis of unspecified deep veins of left lower extremity; I10 Essential (primary) hypertension; J96.20 Acute and chronic respiratory failure, unspecified whether with hypoxia or hypercapnia; W19.XXXA Unspecified fall, initial encounter; S82.191A Other fracture of upper end of right tibia, initial encounter for closed fracture; Z96.641 Presence of right artificial hip joint; J45.909 Unspecified asthma, uncomplicated; E43 Unspecified severe protein-calorie malnutrition; N39.0 Urinary tract infection, site not specified; J18.9 Pneumonia, unspecified organism; J98.11 Atelectasis; Z88.8 Allergy status to other drugs, medicaments and biological substances; I26.99 Other pulmonary embolism without acute cor pulmonale

== ENCOUNTER 2018-09-05 09:43 | Inpatient (IN) ==
[2018-09-05] MEDS ORDERED: ALBUT/IPRATROP 3MG/0.5MG NEB 3 ML VIAL NEB STA (09:55)
--- NOTE | 2018-09-05 09:57 | Emergency Department Note ---
Entered by Stephie Shelton acting as a scribe for History of Present Illness General Chief complaint: Lethargic Source: other (nursing staff) History of Present Illness Onset (ago): day(s) (several) Location: chest Pain Consistency: + other (persistent ) Quality: + other (shortness of breath) Associated symptoms: + loss of appetite The patient is a 87 year old female who presents to the Emergency Room with complaints of persistent shortness of breath that began several days prior to arrival, per the nursing staff. Per nursing staff, the patient has not been eating or drinking over the past several days. Per nursing staff, the patient is on 4L of oxygen. Per medical records, the patient was started on 750 of Levaquin every other day beginning 6 days ago. Per the patient's medical records , the patient was found to have moderate right upper lobe and modest bilateral lower lobe infiltrates on chest x-ray 5 days ago. The patient's history and physical are limited secondary to altered mental status. Home Medications Home Medications Medication Instructions Recorded Confirmed Type albuterol sulfate 2 puff INHALATION Q6H PRN 08/02/18 09/05/18 History cyclosporine [Restasis] 1 drp OPB Q12H 08/02/18 09/05/18 History ipratropium-albuterol 1 puff INHALATION QID 08/02/18 09/05/18 History lisinopril 40 mg PO QAM 08/02/18 09/05/18 History amlodipine 5 mg PO DAILY 08/15/18 09/05/18 History bisacodyl 10 mg DC DAILY PRN 08/15/18 09/05/18 History docusate sodium 100 mg PO BID PRN 08/15/18 09/05/18 History fluticasone-vilanterol [Breo 1 inh INHALATION DAILY 08/15/18 09/05/18 History Ellipta] ipratropium-albuterol 3 ml INHALATION QID PRN 08/15/18 09/05/18 History magnesium hydroxide [Milk of 30 ml PO DAILY PRN 08/15/18 09/05/18 History Magnesia] montelukast 10 mg PO PM 08/15/18 09/05/18 History nicotine [Nicoderm CQ] 1 patch TRANSDERMAL DAILY 08/15/18 09/05/18 History sennosides [senna] 8.6 mg PO DAILY PRN 08/15/18 09/05/18 History [id number] 1 tab PO BID #60 tab 08/29/18 09/05/18 Rx [Caltrate 600-D Plus Minerals] levofloxacin 750 mg PO Q48H #1 tab 08/29/18 09/05/18 Rx quetiapine 25 mg PO HS #30 tab 08/29/18 09/05/18 Rx tramadol 25 mg PO Q4 PRN #6 tab 08/29/18 09/05/18 Rx warfarin [Coumadin] 2 mg PO DAILY@1600 #30 tab 08/29/18 09/05/18 Rx Allergies Allergy/AdvReac Type Severity Reaction Status Date / Time oxycodone Allergy Unknown Verified 09/05/18 10:12 Penicillins Allergy Unknown Verified 09/05/18 10:12 acetaminophen [From Tylenol] AdvReac Severe memory loss Verified 09/05/18 10:12 antidepressant AdvReac Hallucinati Uncoded 09/05/18 10:12 ng Past Med/Surg History Medical History Chronic diastolic CHF (congestive heart failure) Chronic deep vein thrombosis (DVT) Severe protein-calorie malnutrition Degenerative disc disease (Chronic) Osteoporosis Asthma (Chronic) HTN (hypertension) (Chronic) High cholesterol (Chronic) COPD (chronic obstructive pulmonary disease) (Chronic) Surgical History History of right hip replacement Social History Current Living Situation: Family Current Living Situation Comment: [facility]elsie Gaines Other Information That Helps Us Care for You: No Feels Safe at Home: Yes Safety Concerns: Feels Safe At This Time Smoking Status: Current every day smoker Tobacco Type: cigarettes Hx Alcohol Use: No Hx Substance Use: No Beliefs That Will Affect Care: None Preferred Language: Indonesian Communication Ability: Impaired [employer] Supervisor Required: No Review of Systems The patient's history and physical are limited secondary to altered mental status. Physical Exam Vital Signs Vital Signs - 24 hr 09/05/18 10:02 09/05/18 10:09 09/05/18 11:00 Temperature 36.8 C Temperature Source Oral Sepsis Recent Fever Within 48 Hours No Sepsis Action Taken by Nursing No Action Required Pulse Rate 89 87 Pulse Rate [Right Finger] Pulse Rhythm Regular Pulse Strength Normal Respiratory Rate 26 H 24 Respiratory Effort / Characteristics Respiratory Depth Shallow Blood Pressure 145/86 H 152/85 H Blood Pressure [Left Arm] Blood Pressure Mean 105 107 Blood Pressure Mean [Left Arm] Blood Pressure Position Lying Blood Pressure Position [Left Arm] Pulse Oximetry 90 93 Oxygen Delivery Method Nasal Cannula Nasal Cannula Nasal Cannula Oxygen Flow Rate 4 4 4 09/05/18 11:30 09/05/18 12:00 09/05/18 12:31 Temperature Temperature Source Sepsis Recent Fever Within 48 Hours Sepsis Action Taken by Nursing Pulse Rate 85 87 89 Pulse Rate [Right Finger] Pulse Rhythm Pulse Strength Respiratory Rate 24 25 H 23 Respiratory Effort / Characteristics Respiratory Depth Blood Pressure 152/110 H 159/91 H 136/87 Blood Pressure [Left Arm] Blood Pressure Mean 124 113 103 Blood Pressure Mean [Left Arm] Blood Pressure Position Blood Pressure Position [Left Arm] Pulse Oximetry 94 93 92 Oxygen Delivery Method Oxygen Flow Rate 09/05/18 13:00 09/05/18 13:31 09/05/18 14:00 Temperature Temperature Source Sepsis Recent Fever Within 48 Hours Sepsis Action Taken by Nursing Pulse Rate 85 84 84 Pulse Rate [Right Finger] Pulse Rhythm Pulse Strength Respiratory Rate 26 H 26 H 25 H Respiratory Effort / Characteristics Respiratory Depth Blood Pressure 159/78 H 157/72 H 136/73 Blood Pressure [Left Arm] Blood Pressure Mean 105 100 94 Blood Pressure Mean [Left Arm] Blood Pressure Position Blood Pressure Position [Left Arm] Pulse Oximetry 94 97 94 Oxygen Delivery Method Nasal Cannula Nasal Cannula Oxygen Flow Rate 4 4 09/05/18 14:08 09/05/18 14:38 09/05/18 15:45 Temperature 36.8 C Temperature Source Oral Sepsis Recent Fever Within 48 Hours Sepsis Action Taken by Nursing Pulse Rate 84 Pulse Rate [Right Finger] 88 Pulse Rhythm Pulse Strength Respiratory Rate 25 H 18 16 Respiratory Effort / Characteristics Non-Labored Spontaneous Respiratory Depth Blood Pressure 136/73 Blood Pressure [Left Arm] 160/78 H Blood Pressure Mean Blood Pressure Mean [Left Arm] 105 Blood Pressure Position Blood Pressure Position [Left Arm] Lying Pulse Oximetry 94 90 92 Oxygen Delivery Method Room Air Nasal Cannula Oxygen Flow Rate 3 3 09/05/18 17:46 Temperature Temperature Source Sepsis Recent Fever Within 48 Hours Sepsis Action Taken by Nursing Pulse Rate Pulse Rate [Right Finger] Pulse Rhythm Pulse Strength Respiratory Rate Respiratory Effort / Characteristics Respiratory Depth Blood Pressure Blood Pressure [Left Arm] Blood Pressure Mean Blood Pressure Mean [Left Arm] Blood Pressure Position Blood Pressure Position [Left Arm] Pulse Oximetry 91 Oxygen Delivery Method Nasal Cannula Oxygen Flow Rate 4 GENERAL: Patient was listless and very lethargic. She does respond to loud verbal commands. EYES: The conjunctivae are clear. The pupils are round and reactive. EARS, NOSE, MOUTH AND THROAT: Mucous members are dry peer NECK: The neck is nontender and supple. RESPIRATORY: Shallow respirations were noted. There were diminished breath sounds noted throughout with expiratory wheezing in upper lung jerez. CARDIOVASCULAR: Regular rate and rhythm noted there no murmurs rubs or gallops normal S1 normal S2 GASTROINTESTINAL: The abdomen is soft. Bowel sounds are present in all quadrants. Abdomen is nontender MUSCULOSKELETAL/EXTREMITIES: There is no evidence of gross deformity full range of motion is noted in the hips and shoulders SKIN: There is no obvious evidence of any rash. There was no pedal edema. Skin was warm and dry. NEUROLOGIC: Patient moves all extremities but strength is symmetric but diminished. Course 0949: Past medical records reviewed. The patient was evaluated in room A11B, and a complete history and physical examination were performed. 1103: I discussed the case with the patient's son and [id number]. The patient's family states that the patient was living on her own until she had a fall several weeks ago where she suffered from a leg fracture. The patient's family states that since this time the patient has been in and out of the , [facility] with DVTs and PEs. 1124: I discussed the [facility] who will further evaluate the patient. 1128: I discussed the case with the patient's son who was made aware of the treatment plan. Consultations Consultation #1: I discussed the [facility] who will further evaluate the patient. Time: 11:24 Administered Medications Albuterol (Duoneb) 3 ml NEB QIDR BLAS Stop: 10/05/18 15:59 Last Admin: 09/05/18 15:41 Dose: 3 ml Metronidazole (Flagyl) 500 mg in 100 mls @ 100 mls/hr IV Q8H BLAS Stop: 09/12/18 15:59 Last Infusion: 09/05/18 17:31 Dose: 0 mls/hr Admin: 09/05/18 16:16 Dose: 100 mls/hr Cefepime HCl 2,000 mg/ Syringe 20 mls @ 5.5 mls/min IV Q12H BLAS; Protocol Stop: 09/12/18 17:59 Last Admin: 09/05/18 17:32 Dose: 5.5 mls/min Sodium Chloride (Nss 1000ml) 1,000 mls @ 80 mls/hr IV .[id number] BLAS Stop: 10/05/18 15:59 Last Admin: 09/05/18 15:00 Dose: 80 mls/hr Miscellaneous (Order Awaiting Action) 1 ea N/A QS BLAS Stop: 10/05/18 15:59 Last Admin: 09/05/18 16:18 Dose: Not Given Miscellaneous (Order Awaiting Action) 1 ea N/A QS BLAS Stop: 10/05/18 15:59 Last Admin: 09/05/18 16:18 Dose: Not Given Discontinued Medications Albuterol (Duoneb) 3 ml NEB NOW STA Stop: 09/05/18 09:56 Last Admin: 09/05/18 10:22 Dose: 3 ml Sodium Chloride (Nss) 500 mls @ 999 mls/hr IV .Q31M BLAS Stop: 09/05/18 10:30 Last Infusion: 09/05/18 16:19 Dose: 0 mls/hr Admin: 09/05/18 10:14 Dose: 999 mls/hr Ceftriaxone Sodium (Rocephin) 1,000 mg in 50 mls @ 100 mls/hr IV NOW STA Stop: 09/05/18 11:38 Last Infusion: 09/05/18 12:19 Dose: 0 mls/hr Admin: 09/05/18 11:49 Dose: 100 mls/hr Medical Decision Making Differential Diagnosis Differential diagnosis: Etiologies such as infections, reactive airway disease, COPD, pneumonia, pleural effusion, pulmonary edema, ARDS, pneumothorax, CHF, cardiac ischemia, cardiac tamponade, dysrhythmia, anemia, pulmonary embolism, musculoskeletal, gastrointestinal process, as well as others were entertained. Medical Records Attestation: I reviewed the patient's medical records. Home Medications Current Medication List: was personally reviewed by me Laboratory Data Attestation: I reviewed the patient's lab results. Result diagrams: 09/05/18 10:00 09/05/18 10:00 Lab Results 09/05/18 09/05/18 09/05/18 Range/Units 10:00 10:00 10:42 WBC 20.64 H (4.8-10.8) K/uL RBC 3.89 L (4.2-5.4) M/uL Hgb 11.2 L (12.0-16.0) g/dL Hct 34.6 L (37-47) % MCV 88.9 (80-100) fL MCH 28.8 (25-34) pg MCHC 32.4 (32-36) g/dL RDW Std Deviation 46.4 H (36.4-46.3) fL RDW Coeff of Juan [place] 14.3 (11.5-14.5) % Plt Count 418 H (130-400) K/uL MPV 9.5 (7.4-10.4) fL Immature Gran % (Auto) 1.9 % Neut % (Auto) 85.8 % Lymph % (Auto) 6.2 % [place] % (Auto) 5.1 % Eos % (Auto) 0.8 % Baso % (Auto) 0.2 % Immature Gran # (Auto) 0.39 H (0.00-0.02) K/uL Neut # (Auto) 17.71 H (1.4-6.5) K/uL Lymph # (Auto) 1.28 (1.2-3.4) K/uL [place] # (Auto) 1.05 H (0.11-0.59) K/uL Eos # (Auto) 0.16 (0-0.5) K/uL Baso # (Auto) 0.05 (0-0.2) K/uL PT 59.5 H (9.0-12.0) Seconds INR 6.6 H* (0.9-1.1) APTT 52.7 H* (21.0-31.0) Seconds PTT Ratio 2.0 ABG pH (7.35-7.45) ABG pCO2 (35-46) mmHg ABG pO2 (80-95) mm/Hg ABG HCO3 (19-24) mmol/L ABG O2 Saturation (90-95) % ABG Base Excess (-9-1.8) mEq/L Cuco Test (Pos) VBG pH (7.36-7.41) VBG pCO2 (38-50) mmHg VBG pO2 mmHg VBG HCO3 mmol/L VBG O2 Saturation % VBG Base Excess mEq/L Barometric Pressure mm/Hg Oxygen Given Sodium 137 (136-145) mmol/L Potassium 4.1 (3.5-5.1) mmol/L Chloride 104 (98-107) mmol/L Carbon Dioxide 30 (21-32) mmol/L Anion Gap 3.0 (3-11) BUN 21 H (7-18) mg/dl Creatinine 0.78 (0.6-1.2) mg/dl Est Cr Clr Drug Dosing Not Reportable Est GFR ( Amer) 79.8 Est GFR (Non-Af Amer) 68.8 BUN/Creatinine Ratio 26.5 H (10-20) Glucose 85 (70-99) mg/dl Calcium 8.6 (8.5-10.1) mg/dl Magnesium 2.1 (1.8-2.4) mg/dl Total Bilirubin 0.4 (0.2-1) mg/dl AST 22 (15-37) U/L ALT 25 (12-78) U/L Alkaline Phosphatase 97 (45-117) U/L Troponin I < 0.015 (0-0.045) ng/ml Total Protein 6.9 (6.4-8.2) gm/dl Albumin 1.8 L (3.4-5.0) gm/dl Globulin 5.1 H (2.5-4.0) gm/dl Albumin/Globulin Ratio 0.4 L (0.9-2) Procalcitonin (0-0.5) ng/ml Nasal Screen MRSA (PCR) (Negative) Influenza Type A (PCR) (Neg) Influenza Type B (PCR) (Neg) 09/05/18 09/05/18 09/05/18 Range/Units 10:44 15:16 16:40 WBC (4.8-10.8) K/uL RBC (4.2-5.4) M/uL Hgb (12.0-16.0) g/dL Hct (37-47) % MCV (80-100) fL MCH (25-34) pg MCHC (32-36) g/dL RDW Std Deviation (36.4-46.3) fL RDW Coeff of [place] (11.5-14.5) % Plt Count (130-400) K/uL MPV (7.4-10.4) fL Immature Gran % (Auto) % Neut % (Auto) % Lymph % (Auto) % [place] % (Auto) % Eos % (Auto) % Baso % (Auto) % Immature Gran # (Auto) (0.00-0.02) K/uL Neut # (Auto) (1.4-6.5) K/uL Lymph # (Auto) (1.2-3.4) K/uL [place] # (Auto) (0.11-0.59) K/uL Eos # (Auto) (0-0.5) K/uL Baso # (Auto) (0-0.2) K/uL PT (9.0-12.0) Seconds INR (0.9-1.1) APTT (21.0-31.0) Seconds PTT Ratio ABG pH (7.35-7.45) ABG pCO2 (35-46) mmHg ABG pO2 (80-95) mm/Hg ABG HCO3 (19-24) mmol/L ABG O2 Saturation (90-95) % ABG Base Excess (-9-1.8) mEq/L Cuco Test (Pos) VBG pH 7.40 (7.36-7.41) VBG pCO2 47 (38-50) mmHg VBG pO2 33 mmHg VBG HCO3 28 mmol/L VBG O2 Saturation 60.1 % VBG Base Excess 2.8 mEq/L Barometric Pressure 741.7 mm/Hg Oxygen Given Sodium (136-145) mmol/L Potassium (3.5-5.1) mmol/L Chloride (98-107) mmol/L Carbon Dioxide (21-32) mmol/L Anion Gap (3-11) BUN (7-18) mg/dl Creatinine (0.6-1.2) mg/dl Est Cr Clr Drug Dosing Est GFR ( Amer) Est GFR (Non-Af Amer) BUN/Creatinine Ratio (10-20) Glucose (70-99) mg/dl Calcium (8.5-10.1) mg/dl Magnesium (1.8-2.4) mg/dl Total Bilirubin (0.2-1) mg/dl AST (15-37) U/L ALT (12-78) U/L Alkaline Phosphatase (45-117) U/L Troponin I (0-0.045) ng/ml Total Protein (6.4-8.2) gm/dl Albumin (3.4-5.0) gm/dl Globulin (2.5-4.0) gm/dl Albumin/Globulin Ratio (0.9-2) Procalcitonin 0.14 (0-0.5) ng/ml Nasal Screen MRSA (PCR) (Negative) Influenza Type A (PCR) Neg for Influ A (Neg) Influenza Type B (PCR) Neg for Influ B (Neg) 09/05/18 09/05/18 Range/Units 16:40 16:56 WBC (4.8-10.8) K/uL RBC (4.2-5.4) M/uL Hgb (12.0-16.0) g/dL Hct (37-47) % MCV (80-100) fL MCH (25-34) pg MCHC (32-36) g/dL RDW Std Deviation (36.4-46.3) fL RDW Coeff of [place] (11.5-14.5) % Plt Count (130-400) K/uL MPV (7.4-10.4) fL Immature Gran % (Auto) % Neut % (Auto) % Lymph % (Auto) % [place] % (Auto) % Eos % (Auto) % Baso % (Auto) % Immature Gran # (Auto) (0.00-0.02) K/uL Neut # (Auto) (1.4-6.5) K/uL Lymph # (Auto) (1.2-3.4) K/uL [place] # (Auto) (0.11-0.59) K/uL Eos # (Auto) (0-0.5) K/uL Baso # (Auto) (0-0.2) K/uL PT (9.0-12.0) Seconds INR (0.9-1.1) APTT (21.0-31.0) Seconds PTT Ratio ABG pH 7.45 (7.35-7.45) ABG pCO2 38 (35-46) mmHg ABG pO2 59 L (80-95) mm/Hg ABG HCO3 26 H (19-24) mmol/L ABG O2 Saturation 89.2 L (90-95) % ABG Base Excess 1.9 H (-9-1.8) mEq/L Cuco Test Pos (Pos) VBG pH (7.36-7.41) VBG pCO2 (38-50) mmHg VBG pO2 mmHg VBG HCO3 mmol/L VBG O2 Saturation % VBG Base Excess mEq/L Barometric Pressure 741.2 mm/Hg Oxygen Given 3 LITERS Sodium (136-145) mmol/L Potassium (3.5-5.1) mmol/L Chloride (98-107) mmol/L Carbon Dioxide (21-32) mmol/L Anion Gap (3-11) BUN (7-18) mg/dl Creatinine (0.6-1.2) mg/dl Est Cr Clr Drug Dosing Est GFR ( Amer) Est GFR (Non-Af Amer) BUN/Creatinine Ratio (10-20) Glucose (70-99) mg/dl Calcium (8.5-10.1) mg/dl Magnesium (1.8-2.4) mg/dl Total Bilirubin (0.2-1) mg/dl AST (15-37) U/L ALT (12-78) U/L Alkaline Phosphatase (45-117) U/L Troponin I (0-0.045) ng/ml Total Protein (6.4-8.2) gm/dl Albumin (3.4-5.0) gm/dl Globulin (2.5-4.0) gm/dl Albumin/Globulin Ratio (0.9-2) Procalcitonin (0-0.5) ng/ml Nasal Screen MRSA (PCR) Negative (Negative) Influenza Type A (PCR) (Neg) Influenza Type B (PCR) (Neg) Imaging Data Radiologist's Impression: Radiology results as stated below per my review and the radiologist's interpretation: XR chest 1V portable HISTORY: Dyspnea COMPARISON: Chest 08/27/2018. FINDINGS: Severe emphysema. No pneumothorax. Old, healed bilateral rib fractures. The bones are osteopenic. There is no distal right clavicle fracture , unchanged. The heart is normal in size. Small bilateral pleural effusions and bibasilar densities persist. There is progressive right upper lobe airspace opacity consistent with worsening pneumonia. IMPRESSION: 1. Progressive right upper lobe airspace opacity consistent with a worsening pneumonia. 2. Small bilateral pleural effusions and bibasilar densities persist. Electronically signed by: Enrike Ho M.D. 09/05/2018 10:28 AM ECG Data Attestation: I personally reviewed and interpreted this ECG as follows: Indication: SOB/dyspnea Rate (beats per minute): 91 Rhythm: normal sinus Findings: no nonspecific-ST abn and no ectopy Comparison ECG Date: from (08/17/2018) Change: no significant change Blood Pressure Blood Pressure Findings: Elevated blood pressure Blood Pressure Disposition: further management by hospitalist MDM Narrative The patient is an 87-year-old female who presented to the emergency department for an evaluation of altered mental status and difficulty breathing. The patient was diagnosed with pneumonia and started on antibiotic approximately 6 days ago. The patient continues to worsen. The patient was visited by the son today and was found to be in worsening mental status than baseline. The patient has a history of recurrent pneumonia over the last few weeks. She has a history of a recent leg injury which led to a DVT which led to a pulmonary embolus. The patient's clinical status continues to deteriorate ever since that time. The son has noticed a significant change in her mental status over the last 3-4 days. I discussed the patient's laboratory and radiographic studies with the family. The patient was started on an antibiotic, Levaquin. This does not appear to be helping the patient's condition so a different antibiotic was started in the emergency department along with IV fluids. I also discussed this case with the on-call [facility] hospitalist. They have agreed to evaluate the patient in the emergency department for further management and disposition. Impression & Plan Altered mental status, Hypoxia, Pneumonia Discharge Plan Visit Data *Final* Discharge Date/Time: 09/05/18 14:08 Chief Complaint: Lethargic Other Complaint: Shortness of Breath/Dyspnea ED Provider: Gopal Covarrubias Discharge Problem: Altered mental status, Hypoxia, Pneumonia Patient Disposition: Admitted As Inpatient Discharge Instructions Interventions: ED Discharge Assessment Last Done: 09/05/18 14:08 The scribe's documentation has been prepared under my direction and personally reviewed by me in its entirety. I confirm that the note above accurately reflects all work, treatment, procedures, and medical decision making performed by me.
[2018-09-05] MEDS ORDERED: SODIUM CHLORIDE 0.9% 500 ML IV SCH (10:00)
[2018-09-05 10:08] LABS: Basophils # (auto) 0.05 K/uL (0-0.2); Basophils % (auto) 0.2 %; Eosinophils # (auto) 0.16 K/uL (0-0.5); Eosinophils % (auto) 0.8 %; Hematocrit (blood only) 34.6 % (37-47); Hemoglobin 11.2 g/dL (12.0-16.0); Immature Granulocytes # (auto) 0.39 K/uL (0.00-0.02); Immature Granulocytes % (auto) 1.9 %; Lymphocytes # (auto) 1.28 K/uL (1.2-3.4); Lymphocytes % (auto) 6.2 %; Mean Corpuscular Hgb Conc 32.4 g/dL (32-36); Mean Corpuscular Volume 88.9 fL (80-100); Mean Platelet Volume 9.5 fL (7.4-10.4); Monocytes # (auto) 1.05 K/uL (0.11-0.59); Monocytes % (auto) 5.1 %; Neutrophils # (auto) 17.71 K/uL (1.4-6.5); Neutrophils % (auto) 85.8 %; Platelet Count 418 K/uL (130-400); RDW Coefficient of Variation 14.3 % (11.5-14.5); RDW Standard Deviation 46.4 fL (36.4-46.3); Red Blood Count 3.89 M/uL (4.2-5.4); White Blood Count 20.64 K/uL (4.8-10.8)
[2018-09-05 10:24] LABS: Alanine Aminotransferase 25 U/L (12-78); Albumin Level 1.8 gm/dl (3.4-5.0); Aspartate Aminotransferase 22 U/L (15-37); BUN Creatinine Ratio 26.5 (10-20); Blood Urea Nitrogen 21 mg/dl (7-18); Calcium 8.6 mg/dl (8.5-10.1); Carbon Dioxide 30 mmol/L (21-32); Chloride 104 mmol/L (98-107); Est GFR (African American) 79.8; Est GFR (Non-African American) 68.8; Glucose 85 mg/dl (70-99); Magnesium 2.1 mg/dl (1.8-2.4); Potassium 4.1 mmol/L (3.5-5.1); Sodium 137 mmol/L (136-145)
[2018-09-05 10:29] LABS: Albumin Globulin Ratio 0.4 (0.9-2); Alkaline Phosphatase 97 U/L (45-117); Bilirubin,Total 0.4 mg/dl (0.2-1); Globulin 5.1 gm/dl (2.5-4.0); Total Protein 6.9 gm/dl (6.4-8.2); Troponin I < 0.015 ng/ml (0-0.045)
--- NOTE | 2018-09-05 10:30 | XRay Report ---
XR chest 1V portable HISTORY: Dyspnea COMPARISON: Chest 08/27/2018. FINDINGS: Severe emphysema. No pneumothorax. Old, healed bilateral rib fractures. The bones are osteo penic. There is no distal right clavicle fracture, unchanged. The heart is normal in size. Small bila teral pleural effusions and bibasilar densities persist. There is progressive right upper lobe airspa ce opacity consistent with worsening pneumonia. IMPRESSION: 1. Progressive right upper lobe airspace opacity consistent with a worsening pneumonia. 2. Small bilateral pleural effusions and bibasilar densities persist. Electronically signed by: Enrike Ho M.D. 09/05/2018 10:28 AM
[2018-09-05] MEDS ORDERED: cefTRIAXone SODIUM 1,000 MG/50 ML BAG IV STA (11:09)
[2018-09-05 11:18] LABS: Prothrombin Time 59.5 Seconds (9.0-12.0)
[2018-09-05 11:20] LABS: INR 6.6 (0.9-1.1)
[2018-09-05 11:21] LABS: Partial Thromboplastin Time 52.7 Seconds (21.0-31.0)
--- NOTE | 2018-09-05 13:45 | History & Physical Report ---
Date of Service September 05, 2018 Assessment & Plan (1) Pneumonia: CXR on 09/05 showed worsening RUL pneumonia, despite being on levofloxacin. WBC elevated to 20. - Switch to cefepime & metronidazole given her frequent hospitalizations ( Concern for Pseudomonas and anaerobes with aspiration) - Gentle IV fluids given her history of diastolic CHF - Sputum culture - Chest CT - O2 PRN - DuoNebs standing - Note: Patient does not want intubation or CPR. In discussion with family, will hold off on BiPap/CPaP due to discomfort and concern for aspiration. - Palliative care consult (2) Altered mental status: Mental status is depressed, likely in the setting of infection vs. hypercapnea. - Vbg - Hold BiPap for now (see above) - Treat infection as above - Hold evening quetiapine for now (3) COPD (chronic obstructive pulmonary disease): Long-standing smoking history with only recently quitting due to having the broken leg. - Continue home inhaler (4) Chronic diastolic CHF (congestive heart failure): Echo in 07/2018 showed EF 65% with Grade 1 diastolic dysfunction. Currently appears hypovolemic which corresponds as son says she has had little PO intake in the last few days. - Gentle IV fluids - Monitor volume status (5) Chronic deep vein thrombosis (DVT): DVT/PE diagnosed on 08/15/2018, presumed due to the leg fracture. On admission, INR was 6.6 without any signs of bleeding. - Hold warfarin - Monitor INR - Will not reverse given she has no signs of bleeding and is on anticoagulation for clot and not afib. (6) HTN (hypertension): BP was 135/75 in the ED. - Continue home meds as mental status allows (7) DVT prophylaxis: On warfarin for DVT/PE (INR currently 6.6). History of Present Illness Primary Care Provider: NO PCP 87yo F w/ hx of right tibial plateau fracture on 08/02/2018 and DVT/PE afterward who presents for worsening pneumonia and lethargy. The son reports that his mother was in an ok state of health on Thursday when he saw her at [facility]. She was tired, but had been up in a chair and had a normal conversation. On Thursday, he saw her, and she looked sicker and more tired, but was alert and talking with him. On Thursday, he went in, and she was essentially unresponsive , only opening her eyes for a few minutes before falling back asleep and not really answering questions. He reports that she had a cough at that time with yellow sputum. On my interview, she wakes up and reports some shortness of breath and cough, but otherwise denies any nausea or vomiting, denies any chest pain or abdominal pain, or any MSK pain. Allergies Allergy/AdvReac Type Severity Reaction Status Date / Time oxycodone Allergy Unknown Verified 09/05/18 10:12 Penicillins Allergy Unknown Verified 09/05/18 10:12 acetaminophen [From Tylenol] AdvReac Severe memory loss Verified 09/05/18 10:12 antidepressant AdvReac Hallucinati Uncoded 09/05/18 10:12 ng Home Medications Home Medications Medication Instructions Recorded Confirmed Type albuterol sulfate 2 puff INHALATION Q6H PRN 08/02/18 09/05/18 History cyclosporine [Restasis] 1 drp OPB Q12H 08/02/18 09/05/18 History ipratropium-albuterol 1 puff INHALATION QID 08/02/18 09/05/18 History lisinopril 40 mg PO QAM 08/02/18 09/05/18 History amlodipine 5 mg PO DAILY 08/15/18 09/05/18 History bisacodyl 10 mg DC DAILY PRN 08/15/18 09/05/18 History docusate sodium 100 mg PO BID PRN 08/15/18 09/05/18 History fluticasone-vilanterol [Breo 1 inh INHALATION DAILY 08/15/18 09/05/18 History Ellipta] ipratropium-albuterol 3 ml INHALATION QID PRN 08/15/18 09/05/18 History magnesium hydroxide [Milk of 30 ml PO DAILY PRN 08/15/18 09/05/18 History Magnesia] montelukast 10 mg PO PM 08/15/18 09/05/18 History nicotine [Nicoderm CQ] 1 patch TRANSDERMAL DAILY 08/15/18 09/05/18 History sennosides [senna] 8.6 mg PO DAILY PRN 08/15/18 09/05/18 History [id number] 1 tab PO BID #60 tab 08/29/18 09/05/18 Rx [Caltrate 600-D Plus Minerals] levofloxacin 750 mg PO Q48H #1 tab 08/29/18 09/05/18 Rx quetiapine 25 mg PO HS #30 tab 08/29/18 09/05/18 Rx tramadol 25 mg PO Q4 PRN #6 tab 08/29/18 09/05/18 Rx warfarin [Coumadin] 2 mg PO DAILY@1600 #30 tab 08/29/18 09/05/18 Rx Past Med/Surg History Medical History Chronic diastolic CHF (congestive heart failure) Chronic deep vein thrombosis (DVT) Severe protein-calorie malnutrition Degenerative disc disease (Chronic) Osteoporosis Asthma (Chronic) HTN (hypertension) (Chronic) High cholesterol (Chronic) COPD (chronic obstructive pulmonary disease) (Chronic) Surgical History History of right hip replacement Social History Current Living Situation: Family Current Living Situation Comment: [facility] Other Information That Helps Us Care for You: No Feels Safe at Home: Yes Safety Concerns: Feels Safe At This Time Smoking Status: Current every day smoker Tobacco Type: cigarettes Hx Alcohol Use: No Hx Substance Use: No Beliefs That Will Affect Care: None Preferred Language: Welsh Communication Ability: Impaired 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 Required: No Review of Systems Constitutional: no fever, no chills and no sweats Eyes: no diplopia Ear, Nose, Mouth, Throat: no ear trauma, no nasal discharge and no dental pain Respiratory: + cough and + dyspnea; no chest congestion Cardiovascular: no chest pain, no dyspnea on exertion, no palpitations and no syncope Gastrointestinal: no abdominal pain, no belching, no constipation, no diarrhea/ loose stools, no blood in stools and no melena Musculoskeletal: no back pain, no joint pain and no muscle weakness Integumentary: no rash, no skin ulcer and no erythema Neurologic: no generalized weakness, no loss of sensation, no numbness and no paresthesia Psychiatric: no depression and no anxiety Endocrine: no fatigue, no polydipsia and no polyphagia Physical Exam 2 Vital Signs (Past 24 Hours): Last Vital Signs Temp 36.8 C 09/05/18 10:02 Pulse 85 09/05/18 13:00 Resp 26 H 09/05/18 13:00 BP 159/78 H 09/05/18 13:00 Pulse Ox 94 09/05/18 13:00 Constitutional: WD/WN, vitals as above + cachectic, + frail appearing and + lethargic Eyes: EOM intact bilaterally; no conjunctival abnormality ENMT: external ear and nose normal, oropharynx normal Neck: trachea midline, no thyromegaly normal visual inspection Respiratory: normal respiratory effort, lungs clear to auscultation no respiratory distress Cardiovascular: RRR, no murmur, no edema Gastrointestinal (Abdomen): Inspection/Auscultation: abdomen normal to inspection; abdomen not distended Musculoskeletal: no cyanosis or clubbing, extremities motor strength 5/5 Skin: no rashes, warm and dry Neurologic: moves all extremities and awake Psychiatric: Orientation: alert, oriented to person and cooperative _ (1) COPD (chronic obstructive pulmonary disease) COPD type: unspecified COPD Chronic bronchitis type: Emphysema type: Qualified Code(s): J44.9 - Chronic obstructive pulmonary disease, unspecified (2) Chronic deep vein thrombosis (DVT) DVT location: lower extremity Affected thrombotic vein of extremity: femoral Laterality: left Qualified Code(s): I82.512 - Chronic embolism and thrombosis of left femoral vein (3) HTN (hypertension) Hypertension type: essential hypertension Qualified Code(s): I10 - Essential (primary) hypertension (4) Pneumonia Aspiration pneumonia type: Laterality: right Lung location: upper lobe of lung Pneumonia type: due to unspecified organism Qualified Code(s): J18.1 - Lobar pneumonia, unspecified organism (5) Altered mental status Altered mental status type: unspecified Coma depth: Coma timing: Qualified Code(s): R41.82 - Altered mental status, unspecified
[2018-09-05] MEDS ORDERED: ACETAMINOPHEN 325 MG TAB PO PRN (14:36)
[2018-09-05] MEDS: SODIUM CHLORIDE 0.9% 1000ML 1,000 ML IV SCH (15:00)
[2018-09-05 15:26] LABS: Base Excess VBG 2.8 mEq/L; Oxygen Saturation VBG 60.1 %; pH VBG 7.4 (7.36-7.41)
[2018-09-05] MEDS: ALBUT/IPRATROP 3MG/0.5MG NEB 3 ML VIAL NEB SCH ×2 (15:41→19:16)
--- NOTE | 2018-09-05 15:49 | CT Scan Report ---
CT OF THE CHEST WITHOUT IV CONTRAST CLINICAL HISTORY: Pneumonia, abnormal CXR COMPARISON STUDY: Chest CT August 22, 2018. Chest radiograph September 05, 2018. CT DOSE: 177.96 mGycm TECHNIQUE: Axial images of the chest were obtained without IV contrast. Images were reviewed in the axial, sagittal, and coronal planes. IV contrast was not administered for this examination. Automat ed exposure control was utilized for the study. A dose lowering technique was utilized adhering to t he principles of ALARA. FINDINGS: No enlarged thoracic lymph nodes are present. The heart is mildly enlarged. There is no pe ricardial effusion. Small bilateral pleural effusions are noted. These have slightly decreased since exam of August 22, 2018. There is extensive bilateral lower lobe opacity with volume loss. There are extensive secretions within the bilateral lower lobe bronchi. Right lower lobe aeration has slightly improved since CT of August 22, 2018. Left lower lobe aeration has slightly worsened. There is mode rate emphysema. Interlobular septal thickening is noted within the right upper lobe. Right upper lobe airspace opacity has progressed since CT of August 22, 2018. A 3.9 cm cavity within the right upper lobe which contains a 2.2 cm soft tissue focus is new since prior CT. There is no pneumothorax. Old thoracic spine, manubrial and rib fractures are noted. Apparent urothelial thickening of the proximal left ureter is noted. There is a right renal cyst. IMPRESSION: 1. Interval increase in right upper lobe consolidation since CT of August 22, 2018 suggestive of pne umonia. Interval development of an associated 3.9 cm right upper lobe cavitary opacity which contains a 2.2 cm soft tissue focus. This favors a cavitary/necrotizing pneumonia. A fungal pneumonia such as aspergillosis could appear similar. A cavitary infarct is within the differential but considered les s likely. Radiographic follow up to ensure resolution is recommended. 2. Extensive bilateral lower lobe opacity with volume loss, as described above. This may reflect atel ectasis or pneumonia. Extensive lower lobe secretions raise the possibility of aspiration. 3. Small bilateral pleural effusions. 4. Moderate emphysema. 5. Apparent left-sided urothelial thickening which could be correlated with urinalysis. Electronically signed by: Dex Sanchez M.D. 09/05/2018 3:47 PM
[2018-09-05] MEDS ORDERED: CEFEPIME CONSULT ACTIVE PRN (15:52)
[2018-09-05] MEDS: metroNIDAZOLE 500 MG/100 ML BAG IV SCH (16:16)
[2018-09-05] MEDS: BREO ELLIPTA: ORDER AWAITING ACTION SCH (16:18)
[2018-09-05] MEDS: RESTASIS: ORDER AWAITING ACTION SCH (16:18)
[2018-09-05 17:13] LABS: HCO3 ABG 26 mmol/L (19-24); Oxygen Saturation ABG 89.2 % (90-95); PCO2 ABG 38 mmHg (35-46); PO2 ABG 59 mm/Hg (80-95); pH ABG 7.45 (7.35-7.45)
[2018-09-05 17:24] LABS: Influenza A virus by PCR Neg for Influ A (Neg); Influenza B virus by PCR Neg for Influ B (Neg)
[2018-09-05 17:27] LABS: Allen Test Pos (Pos)
[2018-09-05] MEDS: CEFEPIME 2,000 MG in SYRINGE 7.5 ML IV SCH (17:32)
--- NOTE | 2018-09-05 18:21 | Pulmonary Consultation ---
Date of Consultation September 05, 2018 Assessment & Plan (1) Hypoxia: (2) Pneumonia: I have reviewed the CT scan of the chest. Patient has extensive pneumonia on the right side and now that has converted into the cavitary lesion. She also has ongoing smoking more than a pack a day until the day of admission according to the son. The patient is maintaining oxygenation on 3-4 L around 92-94%. We have done the ABG she is not retaining any CO2 and she does not have any acid-base abnormalities. At this stage we are going to continue with oxygen as well as antibiotics which has been prescribed, currently patient is on cefepime as well as metronidazole to cover for broad- spectrum gram-negative, gram-positive and anaerobes. I am also going to start on Mucomyst as well as duo nebs and if we need a sputum to be induced then we will use 3% normal saline solution. We are going to send the sputum for Gram stain culture and sensitivity including fungus and any other bacteria. I have discussed with the respiratory patient for this particular request. I had a long discussion with the [place] who was by the bedside who had concern about his mother after discussing with his friend who is in a different place who recommended him that how about putting your mother on a ventilator to heal the lungs. We had a long discussion about that particular point and I explained to the son and told him that the patient/mother is not in any respiratory distress or respiratory failure. She is hypoxemic but she is saturating in the low 90s on nasal cannula O2. She also does not require any BiPAP. Also the arterial blood gas did not reveal any acid-base impairment but just low PO2 of 59 which could be where she is living because of her severe emphysema/chronic obstructive pulmonary disease secondary to ongoing tobacco abuse. We also discussed that this particular cavitary lesion or pneumonia could be also malignancy because of ongoing tobacco abuse. We are going to send the sputum for examination and worse comes to worse point she might need a bronchoscopy but I do not think the patient is stable to go for a bronchoscopy because she may go into respiratory failure. Also we discussed that because of her malnourishment if at all she goes on a ventilator she will never be able to come off from the breathing machine and at that point we have to make a tracheostomy and look for a home where she can be placed with a ventilator in place. But by reviewing the current medical condition and situation she is not a candidate for an elective intubation just to heal her lungs because the ventilator has lots of other complications including ventilator associated pneumonia. Son Musa understands all this thing very well and he agrees with us and at this stage he has decided that we are going to keep the mother DNR no CPR no shock no intubation but continue with all other plan of care including fluids oxygen antibiotics. Bedside RN Graciela was with us in the room when this conversation was going on. We are going to continue with all other management as prescribed. The patient is DNR at this time. Aspiration pneumonia type: Laterality: right Lung location: upper lobe of lung Pneumonia type: due to unspecified organism Qualified Code( s): J18.1 - Lobar pneumonia, unspecified organism (3) Chronic kidney disease, stage 3a: (4) Pulmonary embolism: Acute cor pulmonale presence: without acute cor pulmonale Chronicity: acute Pulmonary embolism type: unspecified Qualified Code(s): I26.99 - Other pulmonary embolism without acute cor pulmonale (5) Underweight: (6) Severe protein-calorie malnutrition: (7) Altered mental status: Altered mental status type: unspecified Coma depth: Coma timing : Qualified Code(s): R41.82 - Altered mental status, unspecified History of Present Illness Reason for Consultation: Right upper lung cavitary consolidation/pneumonia Requesting Physician: Gerardo Laird MD. Attending Physician: Gerardo Laird MD History of Present Illness 87yo F w/ hx of right tibial plateau fracture on 08/02/2018 and DVT/PE afterward who presents for worsening pneumonia and lethargy. The son reports that his mother was in an ok state of health on Thursday when he saw her at [facility]. She was tired, but had been up in a chair and had a normal conversation. On Thursday, he saw her, and she looked sicker and more tired, but was alert and talking with him. On Thursday, he went in, and she was essentially unresponsive , only opening her eyes for a few minutes before falling back asleep and not really answering questions. He reports that she had a cough at that time with yellow sputum. Upon questioning she wakes up and denies any shortness of breath and cough, also denies any nausea or vomiting, denies any chest pain or abdominal pain, or any MSK pain and then goes back to sleep. The patient is very weak and malnaurished and currently she is skin and bone. The son Musa is by the bedside who must have discussed with his Friend who advised him that, if she is intubated, than that will help her to heal her lungs. The patient is not in any respiratory distress and is on 4 L NC O2 and is oxygenating 94 to 96 %. The patient had the ABG on 2 L NC O2, which revealed pH of 7.45/38/PO2 of 59/ bicarb of 26 and saturation of 89% and base excess of 1.9. The patient has been smoking until the day of admission more than a pack of cigarettes a day and she also has lung condition which is equivalent to moderate to severe emphysema and there is arterial blood gas is stable for her in that condition. We will try to maintain a saturation around 91-92%. D/W the bedside RN. Allergies Allergy/AdvReac Type Severity Reaction Status Date / Time oxycodone Allergy Unknown Verified 09/05/18 10:12 Penicillins Allergy Unknown Verified 09/05/18 10:12 acetaminophen [From Tylenol] AdvReac Severe memory loss Verified 09/05/18 10:12 antidepressant AdvReac Hallucinati Uncoded 09/05/18 10:12 ng Home Medications Home Medications Medication Instructions Recorded Confirmed Type albuterol sulfate 2 puff INHALATION Q6H PRN 08/02/18 09/05/18 History cyclosporine [Restasis] 1 drp OPB Q12H 08/02/18 09/05/18 History ipratropium-albuterol 1 puff INHALATION QID 08/02/18 09/05/18 History lisinopril 40 mg PO QAM 08/02/18 09/05/18 History amlodipine 5 mg PO DAILY 08/15/18 09/05/18 History bisacodyl 10 mg CO DAILY PRN 08/15/18 09/05/18 History docusate sodium 100 mg PO BID PRN 08/15/18 09/05/18 History fluticasone-vilanterol [Breo 1 inh INHALATION DAILY 08/15/18 09/05/18 History Ellipta] ipratropium-albuterol 3 ml INHALATION QID PRN 08/15/18 09/05/18 History magnesium hydroxide [Milk of 30 ml PO DAILY PRN 08/15/18 09/05/18 History Magnesia] montelukast 10 mg PO PM 08/15/18 09/05/18 History nicotine [Nicoderm CQ] 1 patch TRANSDERMAL DAILY 08/15/18 09/05/18 History sennosides [senna] 8.6 mg PO DAILY PRN 08/15/18 09/05/18 History [id number] 1 tab PO BID #60 tab 08/29/18 09/05/18 Rx [Caltrate 600-D Plus Minerals] levofloxacin 750 mg PO Q48H #1 tab 08/29/18 09/05/18 Rx quetiapine 25 mg PO HS #30 tab 08/29/18 09/05/18 Rx tramadol 25 mg PO Q4 PRN #6 tab 08/29/18 09/05/18 Rx warfarin [Coumadin] 2 mg PO DAILY@1600 #30 tab 08/29/18 09/05/18 Rx Patient History Medical History Chronic diastolic CHF (congestive heart failure) Chronic deep vein thrombosis (DVT) Severe protein-calorie malnutrition Degenerative disc disease (Chronic) Osteoporosis Asthma (Chronic) HTN (hypertension) (Chronic) High cholesterol (Chronic) COPD (chronic obstructive pulmonary disease) (Chronic) Surgical History History of right hip replacement Social History Current Living Situation: Family Current Living Situation Comment: [facility] Other Information That Helps Us Care for You: No Feels Safe at Home: Yes Safety Concerns: Feels Safe At This Time Smoking Status: Current every day smoker Tobacco Type: cigarettes Hx Alcohol Use: No Hx Substance Use: No Beliefs That Will Affect Care: None Preferred Language: Amharic Communication Ability: Impaired Jacker Required: No Review of Systems Unable to obtain in detail, since the patient is very poor informant and do not give detailed information, but denies any SOB or the cough or chest pain or hemoptysis or abdominal pain or N/Vomitting. Physical Exam 2 Vital Signs (Past 24 Hours): Last Vital Signs Temp 36.8 C 09/05/18 14:38 Pulse 88 09/05/18 15:45 Resp 16 09/05/18 15:45 BP 160/78 H 09/05/18 14:38 Pulse Ox 91 09/05/18 17:46 Physical Exam: Elderly female who is very malnourished and emaciated and is lying in the bed comfortably. She is not in any acute distress. HEENT: Sclera is clear normocephalic. Neck: Neck is supple no JVD no lymphadenopathy. Chest: Bilateral coarse breathing with rhonchi and no wheezing but crackles on the right side of the chest. Overall the patient's chest is skin and bone. No mass felt. Heart: S1-S2 heard, no murmur is appreciated. Abdomen: Soft, nontender, no mass felt, bowel sounds are positive. Neurologic exams: The patient has got generalized weakness, very weak but nonfocal neuro exam and is moving all her extremities. Extremities: No edema, no clubbing, nontender calf muscles. Skin: No rash, no lesion seen. Results & Data Laboratory Results Abnormal lab results 09/05/18 09/05/18 09/05/18 Range/Units 10:00 10:00 10:42 WBC 20.64 H (4.8-10.8) K/uL RBC 3.89 L (4.2-5.4) M/uL Hgb 11.2 L (12.0-16.0) g/dL Hct 34.6 L (37-47) % RDW Std Deviation 46.4 H (36.4-46.3) fL Plt Count 418 H (130-400) K/uL Immature Gran # (Auto) 0.39 H (0.00-0.02) K/uL Neut # (Auto) 17.71 H (1.4-6.5) K/uL [place] # (Auto) 1.05 H (0.11-0.59) K/uL PT 59.5 H (9.0-12.0) Seconds INR 6.6 H* (0.9-1.1) APTT 52.7 H* (21.0-31.0) Seconds ABG pO2 (80-95) mm/Hg ABG HCO3 (19-24) mmol/L ABG O2 Saturation (90-95) % ABG Base Excess (-9-1.8) mEq/L BUN 21 H (7-18) mg/dl BUN/Creatinine Ratio 26.5 H (10-20) Albumin 1.8 L (3.4-5.0) gm/dl Globulin 5.1 H (2.5-4.0) gm/dl Albumin/Globulin Ratio 0.4 L (0.9-2) 09/05/18 Range/Units 16:56 WBC (4.8-10.8) K/uL RBC (4.2-5.4) M/uL Hgb (12.0-16.0) g/dL Hct (37-47) % RDW Std Deviation (36.4-46.3) fL Plt Count (130-400) K/uL Immature Gran # (Auto) (0.00-0.02) K/uL Neut # (Auto) (1.4-6.5) K/uL [place] # (Auto) (0.11-0.59) K/uL PT (9.0-12.0) Seconds INR (0.9-1.1) APTT (21.0-31.0) Seconds ABG pO2 59 L (80-95) mm/Hg ABG HCO3 26 H (19-24) mmol/L ABG O2 Saturation 89.2 L (90-95) % ABG Base Excess 1.9 H (-9-1.8) mEq/L BUN (7-18) mg/dl BUN/Creatinine Ratio (10-20) Albumin (3.4-5.0) gm/dl Globulin (2.5-4.0) gm/dl Albumin/Globulin Ratio (0.9-2) Diagnostic Findings CT OF THE CHEST WITHOUT IV CONTRAST CLINICAL HISTORY: Pneumonia, abnormal CXR COMPARISON STUDY: Chest CT August 22, 2018. Chest radiograph September 05, 2018. CT DOSE: 177.96 mGycm TECHNIQUE: Axial images of the chest were obtained without IV contrast. Images were reviewed in the axial, sagittal, and coronal planes. IV contrast was not administered for this examination. Automated exposure control was utilized for the study. A dose lowering technique was utilized adhering to the principles of ALARA. FINDINGS: No enlarged thoracic lymph nodes are present. The heart is mildly enlarged. There is no pericardial effusion. Small bilateral pleural effusions are noted. These have slightly decreased since exam of August 22, 2018. There is extensive bilateral lower lobe opacity with volume loss. There are extensive secretions within the bilateral lower lobe bronchi. Right lower lobe aeration has slightly improved since CT of August 22, 2018. Left lower lobe aeration has slightly worsened. There is moderate emphysema. Interlobular septal thickening is noted within the right upper lobe. Right upper lobe airspace opacity has progressed since CT of August 22, 2018. A 3.9 cm cavity within the right upper lobe which contains a 2.2 cm soft tissue focus is new since prior CT. There is no pneumothorax. Old thoracic spine, manubrial and rib fractures are noted. Apparent urothelial thickening of the proximal left ureter is noted. There is a right renal cyst. IMPRESSION: 1. Interval increase in right upper lobe consolidation since CT of August 22, 2018 suggestive of pneumonia. Interval development of an associated 3.9 cm right upper lobe cavitary opacity which contains a 2.2 cm soft tissue focus. This favors a cavitary/necrotizing pneumonia. A fungal pneumonia such as aspergillosis could appear similar. A cavitary infarct is within the differential but considered less likely. Radiographic follow up to ensure resolution is recommended. 2. Extensive bilateral lower lobe opacity with volume loss, as described above. This may reflect atelectasis or pneumonia. Extensive lower lobe secretions raise the possibility of aspiration. 3. Small bilateral pleural effusions. 4. Moderate emphysema. 5. Apparent left-sided urothelial thickening which could be correlated with urinalysis. Electronically signed by: Dex Sanchez M.D. 09/05/2018 3:47 PM Medications Administered Current Inpatient Medications Acetaminophen (Tylenol) 650 mg PO Q4H PRN PRN Reason: pain/fever Stop: 10/05/18 14:35 Acetylcysteine (Mucomyst 20%) 4 ml INH BIDR BLAS Stop: 10/05/18 19:59 Albuterol (Duoneb) 3 ml NEB QIDR BLAS Stop: 10/05/18 15:59 Last Admin: 09/05/18 15:41 Dose: 3 ml Amlodipine Besylate (Norvasc) 5 mg PO DAILY BLAS Stop: 10/06/18 08:59 Metronidazole (Flagyl) 500 mg in 100 mls @ 100 mls/hr IV Q8H [facility]AS Stop: 09/12/18 15:59 Last Infusion: 09/05/18 17:31 Dose: Infused Cefepime HCl 2,000 mg/ Syringe 20 mls @ 5.5 mls/min IV Q12H [facility]; Protocol Stop: 09/12/18 17:59 Last Admin: 09/05/18 17:32 Dose: 5.5 mls/min Sodium Chloride (Nss 1000ml) 1,000 mls @ 80 mls/hr IV .[id number] [facility] Stop: 10/05/18 15:59 Last Admin: 09/05/18 15:00 Dose: 80 mls/hr Lisinopril (Zestril) 40 mg PO QAM [facility] Stop: 10/06/18 08:59 Miscellaneous (Order Awaiting Action) 1 ea N/A QS [facility] Stop: 10/05/18 15:59 Last Admin: 09/05/18 16:18 Dose: Not Given Miscellaneous (Order Awaiting Action) 1 ea N/A QS [facility] Stop: 10/05/18 15:59 Last Admin: 09/05/18 16:18 Dose: Not Given Miscellaneous Information (Cefepime Consult Active) 1 ea N/A UD PRN PRN Reason: Consult Stop: 10/05/18 15:51 Montelukast Sodium (Singulair) 10 mg PO PM [facility] Stop: 10/05/18 20:59 Sodium Chloride (Sodium Chlor 7% Neb Solution) 4 ml INH Q4 PRN PRN Reason: For sputum induction Stop: 10/05/18 18:25
[2018-09-05] MEDS ORDERED: SODIUM CHLOR 7% 4 ML NEB INH PRN (18:26)
[2018-09-05] MEDS ORDERED: SODIUM CHLOR 7% 4 ML NEB INH STA (18:48)
[2018-09-05] MEDS: ACETYLCYSTEINE 20% INHAL SOLN ***DISPENSED BY RESP. INH SCH (19:16)
[2018-09-05] MEDS: MONTELUKAST SODIUM 10 MG TABLET PO SCH (20:48)
[2018-09-06] MEDS: BREO ELLIPTA: ORDER AWAITING ACTION SCH ×3 (00:10→16:35)
[2018-09-06] MEDS: metroNIDAZOLE 500 MG/100 ML BAG IV SCH ×3 (00:10→15:39)
[2018-09-06] MEDS: RESTASIS: ORDER AWAITING ACTION SCH ×3 (00:10→16:35)
[2018-09-06] MEDS: SODIUM CHLORIDE 0.9% 1000ML 1,000 ML IV SCH ×2 (03:41→17:59)
[2018-09-06] MEDS: CEFEPIME 2,000 MG in SYRINGE 7.5 ML IV SCH ×2 (05:16→17:59)
[2018-09-06] MEDS: ALBUT/IPRATROP 3MG/0.5MG NEB 3 ML VIAL NEB SCH ×4 (07:14→18:59)
[2018-09-06] MEDS: ACETYLCYSTEINE 20% INHAL SOLN ***DISPENSED BY RESP. INH SCH ×2 (07:14→18:59)
[2018-09-06 07:48] LABS: Hematocrit (blood only) 33.7 % (37-47); Mean Corpuscular Hgb Conc 32.6 g/dL (32-36); Mean Corpuscular Volume 87.5 fL (80-100); Mean Platelet Volume 9.4 fL (7.4-10.4); Platelet Count 386 K/uL (130-400); RDW Coefficient of Variation 14.2 % (11.5-14.5); RDW Standard Deviation 45.3 fL (36.4-46.3); Red Blood Count 3.85 M/uL (4.2-5.4)
[2018-09-06 08:02] LABS: Prothrombin Time 35.2 Seconds (9.0-12.0)
[2018-09-06 08:04] LABS: INR 3.8 (0.9-1.1)
[2018-09-06] MEDS: LISINOPRIL 40 MG TAB PO SCH (08:14)
[2018-09-06] MEDS: AMLODIPINE BESYLATE 5 MG TAB PO SCH ×2 (08:14→08:21)
[2018-09-06 08:16] LABS: BUN Creatinine Ratio 33.7 (10-20); Blood Urea Nitrogen 22 mg/dl (7-18); Calcium 7.9 mg/dl (8.5-10.1); Carbon Dioxide 26 mmol/L (21-32); Chloride 107 mmol/L (98-107); Est GFR (African American) 93.6; Est GFR (Non-African American) 80.8; Glucose 105 mg/dl (70-99); Magnesium 1.8 mg/dl (1.8-2.4); Potassium 3.6 mmol/L (3.5-5.1); Sodium 138 mmol/L (136-145)
[2018-09-06] MEDS ORDERED: PATIENT'S HEIGHT AND/OR WEIGHT NEEDED SCH (08:45)
--- NOTE | 2018-09-06 10:40 | Palliative Care Consultation ---
Date of Consultation September 06, 2018 Assessment & Plan (1) Goals of care, counseling/discussion: -87 year old female with PMH COPD, chronic diastolic CHF, recent DVT, malnutrition and others, presented from [facility] where she was undergoing rehab after recent hospitalization with altered mental status and lethargy. She was in hospital from end of July to 08/29/18 s/p tibeal fracture and subsequent PE/DVT. DUring that hospitalization patient did have a RUL pneumonia. This admission, the RUL pneumonia is worsening and she even has a cavitary lesion that could represent a necrotizing pneumonia or malignancy. Sputum culture was sent and is pending. She is on abx and treatment for COPD. A long conversation was had with patient's son by our intensivisit/senior pastor physician about goals of care. The decision was made that patient would remain a DNR with no intubation, but continue with conservative and supportive measures such as abx, oxygen, fluids, etc. Bronchoscopy might be necessary, however there would be concern of that procedure putting her into respiratory failure and dependence on ventilator. Palliative care is consulted to establish goals of care. -Met with patient in room 410. She is awake but confused. Could not tell me where she was, why she is in hospital, etc. I called her son but his voicemail is full. Will try again later or tomorrow. -Patient is frail, appears severely deconditioned. Her hair and fingernails are stained yellow indicating long-term and frequent tobacco smoking. Patient has had several recent readmissions to the hospital with weakness and falls. I do not know how much rehab potential she has or what her wishes would be at this point. She also may be aspirating, speech therapy is consulted to see her as well. -Will attempt to see patient and talk with her son again. Curious to know what patient's baseline is, although her baseline would have been from June 2018 , as she has mostly been in hospital through July and August. (2) Altered mental status: Altered mental status type: unspecified Coma depth: Coma timing : Qualified Code(s): R41.82 - Altered mental status, unspecified (3) Pneumonia: Aspiration pneumonia type: Laterality: right Lung location: upper lobe of lung Pneumonia type: due to unspecified organism Qualified Code( s): J18.1 - Lobar pneumonia, unspecified organism (4) Chronic diastolic CHF (congestive heart failure): (5) Severe protein-calorie malnutrition: (6) Acute and chronic respiratory failure: Respiratory failure complication: hypoxia Qualified Code(s): J96.21 - Acute and chronic respiratory failure with hypoxia (7) COPD (chronic obstructive pulmonary disease): COPD type: unspecified COPD Chronic bronchitis type: Emphysema type: Qualified Code(s): J44.9 - Chronic obstructive pulmonary disease, unspecified Supervising Physician Co-Signing Physician Notes Chart reviewed, patient seen and examined. Collaborated with PARMINDER Hi PE: Patient oriented to person only, no acute distress HEENT: EOMI, normal hearing Respirations: Unlabored, diminished breath sounds bilaterally CV: Regular rate, no edema Abdomen: Soft, nontender Neuro: Oriented to person only Agree with above note, assessment and plan as per PARMINDER Hi Will continue to follow and assist family with medical decision making. History of Present Illness Reason for Consultation: Goals of care Requesting Physician: Dr. Laird Attending Physician: Juan Luis Moffett History of Present Illness This 87 year old female with PMH COPD, chronic diastolic CHF, recent DVT, malnutrition and others, presented from [facility] where she was undergoing rehab after recent hospitalization with altered mental status and lethargy. She was in hospital from end of July to 08/29/18 s/p tibeal fracture and subsequent PE/DVT. DUring that hospitalization patient did have a RUL pneumonia. This admission, the RUL pneumonia is worsening and she even has a cavitary lesion that could represent a necrotizing pneumonia or malignancy. Sputum culture was sent and is pending. She is on abx and treatment for COPD. A long conversation was had with patient's son by our intensivisit/senior pastor physician about goals of care. The decision was made that patient would remain a DNR with no intubation, but continue with conservative and supportive measures such as abx, oxygen, fluids, etc. Bronchoscopy might be necessary, however there would be concern of that procedure putting her into respiratory failure and dependence on ventilator. Palliative care is consulted to establish goals of care. Thank you kindly for this consult. I will follow. Allergies Allergy/AdvReac Type Severity Reaction Status Date / Time oxycodone Allergy Unknown Verified 09/05/18 10:12 Penicillins Allergy Unknown Verified 09/05/18 10:12 acetaminophen [From Tylenol] AdvReac Severe memory loss Verified 09/05/18 10:12 antidepressant AdvReac Hallucinati Uncoded 09/05/18 10:12 ng Home Medications Home Medications Medication Instructions Recorded Confirmed Type albuterol sulfate 2 puff INHALATION Q6H PRN 08/02/18 09/05/18 History cyclosporine [Restasis] 1 drp OPB Q12H 08/02/18 09/05/18 History ipratropium-albuterol 1 puff INHALATION QID 08/02/18 09/05/18 History lisinopril 40 mg PO QAM 08/02/18 09/05/18 History amlodipine 5 mg PO DAILY 08/15/18 09/05/18 History bisacodyl 10 mg LA DAILY PRN 08/15/18 09/05/18 History docusate sodium 100 mg PO BID PRN 08/15/18 09/05/18 History fluticasone-vilanterol [Breo 1 inh INHALATION DAILY 08/15/18 09/05/18 History Ellipta] ipratropium-albuterol 3 ml INHALATION QID PRN 08/15/18 09/05/18 History magnesium hydroxide [Milk of 30 ml PO DAILY PRN 08/15/18 09/05/18 History Magnesia] montelukast 10 mg PO PM 08/15/18 09/05/18 History nicotine [Nicoderm CQ] 1 patch TRANSDERMAL DAILY 08/15/18 09/05/18 History sennosides [senna] 8.6 mg PO DAILY PRN 08/15/18 09/05/18 History [id number] 1 tab PO BID #60 tab 08/29/18 09/05/18 Rx [Caltrate 600-D Plus Minerals] levofloxacin 750 mg PO Q48H #1 tab 08/29/18 09/05/18 Rx quetiapine 25 mg PO HS #30 tab 08/29/18 09/05/18 Rx tramadol 25 mg PO Q4 PRN #6 tab 08/29/18 09/05/18 Rx warfarin [Coumadin] 2 mg PO DAILY@1600 #30 tab 08/29/18 09/05/18 Rx Patient History Medical History Chronic diastolic CHF (congestive heart failure) Chronic deep vein thrombosis (DVT) Severe protein-calorie malnutrition Degenerative disc disease (Chronic) Osteoporosis Asthma (Chronic) HTN (hypertension) (Chronic) High cholesterol (Chronic) COPD (chronic obstructive pulmonary disease) (Chronic) Surgical History History of right hip replacement Social History Current Living Situation: Family Current Living Situation Comment: [facility] Other Information That Helps Us Care for You: No Feels Safe at Home: Yes Safety Concerns: Feels Safe At This Time Smoking Status: Current every day smoker Tobacco Type: cigarettes Hx Alcohol Use: No Hx Substance Use: No Beliefs That Will Affect Care: None Communication Ability: Unable Review of Systems unable to obtain due to confusion Physical Exam 2 Vital Signs (Past 24 Hours): Last Vital Signs Temp 36.8 C 09/06/18 07:14 Pulse 82 09/06/18 07:15 Resp 30 H 09/06/18 07:15 BP 164/87 H 09/06/18 07:14 Pulse Ox 89 L 09/06/18 07:15 Constitutional: + ill appearing (chronically), + thin and + cachectic; no acute distress Eyes: PERRL ENMT: Ears: no hearing impairment Neck: normal visual inspection and trachea midline Respiratory: + labored breathing; no respiratory distress Auscultation: + diminished lung sounds and + rhonchi Cardiovascular: RRR, no murmur, no edema Gastrointestinal (Abdomen): normal bowel sounds, soft, nontender, no hepatosplenomegaly Neurologic: awake and + confused Psychiatric: Orientation: oriented to person; + not oriented to place and + not oriented to time Time Spent Midlevel 50 minutes with >50% of time spent at bedside with patient and collaborating with nursing, speech, and hospitalist teams.
--- NOTE | 2018-09-06 15:54 | Hospitalist Progress Note ---
Date of Service September 06, 2018 Assessment & Plan (1) Pneumonia: - CXR showed worsening RUL PNA; pt. failed outpt. treatment with Levaquin. - CT chest: increase in RUL opacity, 3.9 cm RUL cavitary lesion - may be necrotizing PNA vs. fungal PNA. Will need f/u studies. - Continue Cefepime/Flagyl due to aspiration risk and need for Pseudomonas coverage. - Sputum culture negative to date. - Duonebs QID, Mucomyst BID scheduled. - Pulmonary consulted, appreciate input. Discussed code status at bedside with her son on admission and with pulmonary -- pt. is DNR. - Palliative consulted to discuss goals of care -- will contact her son tomorrow to discuss goals of care. (2) Acute and chronic respiratory failure with hypoxia: - Has been requiring 4-5L via NC. - Related to underlying COPD vs. acute pneumonia vs. other. (3) Metabolic encephalopathy: - Pt. is altered, cannot obtain history from her. - Her baseline mental status is unclear; will need to discuss with her son. - Speech therapy consulted due to aspiration risk -- would need VFSS pending goals of care discussion. No overt evidence of aspiration. - Holding home Seroquel 25 mg qhs. - VBG with no evidence of acute hypercapnia on admission; consider repeat VBG if indicated. (4) COPD (chronic obstructive pulmonary disease): - Very long standing tobacco history, recently quit. - Duoneb QID and Mucomyst BID scheduled. - Holding home Breo-Ellipta and Albuterol. - On Cefepime/Flagyl as noted above. - Consider IV steroids for COPD exacerbation. (5) Chronic diastolic CHF (congestive heart failure): - Echo Jul 2018: EF 65% with Grade 1 diastolic dysfunction. - Monitor net I/O's and daily weights. - Appears hypovolemic on exam - on NS at 80 cc/hr. - Continue ACEI as prescribed. (6) Chronic deep vein thrombosis (DVT): - DVT/PE diagnosed on 08/15/2018, presumed due to the leg fracture. - Supratherapeutic INR on admission -- now improved but remains >3. - Continue to hold Warfarin. - Monitor PT/INR qAM. (7) HTN (hypertension): - Continue Amlodipine 5 mg daily and Lisinopril 40 mg qAM as prescribed. (8) DVT prophylaxis: - Holding Warfarin due to elevated INR. Dispo: Med/surg for acute encephalopathy & treatment of PNA. Will need to determine goals of care, palliative consulted. Supervising Physician Co-Signing Physician Notes Attending Attestation - Chart reviewed in detail, and care plan d/w ROBERT Juárez. I agree w/ the cannon components of her documentation. Sickly 87yo female with recent right leg fracture, DVT/PEs following the fracture, and development of significant RUL pneumonia during the hospital stay associated w/ the DVTs/PEs. Now with worsening RUL pneumonia - possibly necrotizing or fungal in etiology. Has evidence of severe protein calorie malnutrition with very low albumin and at least 15 pounds of weight loss since early July 2018 based on weights in our computer. Continue broad-spectrum IV antibiotics and await additional recommendations from pulmonary. Juan Luis Moffett MD Subjective Pt. is altered, was not able to provide detailed R.O.S. She did deny SOB, chest pain during morning rounds. Review of Systems Unobtainable due to cognitive status Physical Exam 2 Vital Signs (Past 24 Hours): Last Vital Signs Temp 36.4 C L 09/06/18 15:02 Pulse 79 09/06/18 15:06 Resp 20 09/06/18 15:06 BP 124/70 09/06/18 15:02 Pulse Ox 95 09/06/18 15:06 Physical Exam: General: Resting comfortably in no apparent distress HEENT: NC/AT; PERRLA with EOMI; [place] conjunctiva, MMM. Neck: Supple and nontender Cardiac: RRR Lungs: on 4L via NC; CTA bilaterally Abdomen: Bowel normoactive X 4; Nontender to palpation Extremities: Warm. No edema present Neuro: No focal weakness; not alert to person or place but is pleasant,awake. Skin: No rash Results & Data Laboratory Results 09/06/18 09/06/18 09/06/18 Range/Units 07:38 07:38 07:38 WBC 18.70 H (4.8-10.8) K/uL RBC 3.85 L (4.2-5.4) M/uL Hgb 11.0 L (12.0-16.0) g/dL Hct 33.7 L (37-47) % MCV 87.5 (80-100) fL MCH 28.6 (25-34) pg MCHC 32.6 (32-36) g/dL RDW Std Deviation 45.3 (36.4-46.3) fL RDW Coeff of Juan Diego 14.2 (11.5-14.5) % Plt Count 386 (130-400) K/uL MPV 9.4 (7.4-10.4) fL PT 35.2 H (9.0-12.0) Seconds INR 3.8 H (0.9-1.1) ABG pH (7.35-7.45) ABG pCO2 (35-46) mmHg ABG pO2 (80-95) mm/Hg ABG HCO3 (19-24) mmol/L ABG O2 Saturation (90-95) % ABG Base Excess (-9-1.8) mEq/L Cuco Test (Pos) Barometric Pressure mm/Hg Oxygen Given Sodium 138 (136-145) mmol/L Potassium 3.6 (3.5-5.1) mmol/L Chloride 107 (98-107) mmol/L Carbon Dioxide 26 (21-32) mmol/L Anion Gap 5.0 (3-11) BUN 22 H (7-18) mg/dl Creatinine 0.64 (0.6-1.2) mg/dl Est Cr Clr Drug Dosing Not Reportable Est GFR ( Amer) 93.6 Est GFR (Non-Af Amer) 80.8 BUN/Creatinine Ratio 33.7 H (10-20) Glucose 105 H (70-99) mg/dl Calcium 7.9 L (8.5-10.1) mg/dl Magnesium 1.8 (1.8-2.4) mg/dl Nasal Screen MRSA (PCR) (Negative) Influenza Type A (PCR) (Neg) Influenza Type B (PCR) (Neg) 09/05/18 09/05/18 09/05/18 Range/Units 16:56 16:40 16:40 WBC (4.8-10.8) K/uL RBC (4.2-5.4) M/uL Hgb (12.0-16.0) g/dL Hct (37-47) % MCV (80-100) fL MCH (25-34) pg MCHC (32-36) g/dL RDW Std Deviation (36.4-46.3) fL RDW Coeff of Juan Diego (11.5-14.5) % Plt Count (130-400) K/uL MPV (7.4-10.4) fL PT (9.0-12.0) Seconds INR (0.9-1.1) ABG pH 7.45 (7.35-7.45) ABG pCO2 38 (35-46) mmHg ABG pO2 59 L (80-95) mm/Hg ABG HCO3 26 H (19-24) mmol/L ABG O2 Saturation 89.2 L (90-95) % ABG Base Excess 1.9 H (-9-1.8) mEq/L Cuco Test Pos (Pos) Barometric Pressure 741.2 mm/Hg Oxygen Given 3 LITERS Sodium (136-145) mmol/L Potassium (3.5-5.1) mmol/L Chloride (98-107) mmol/L Carbon Dioxide (21-32) mmol/L Anion Gap (3-11) BUN (7-18) mg/dl Creatinine (0.6-1.2) mg/dl Est Cr Clr Drug Dosing Est GFR ( Amer) Est GFR (Non-Af Amer) BUN/Creatinine Ratio (10-20) Glucose (70-99) mg/dl Calcium (8.5-10.1) mg/dl Magnesium (1.8-2.4) mg/dl Nasal Screen MRSA (PCR) Negative (Negative) Influenza Type A (PCR) Neg for Influ A (Neg) Influenza Type B (PCR) Neg for Influ B (Neg) _ (1) Chronic deep vein thrombosis (DVT) Affected thrombotic vein of extremity: femoral DVT location: lower extremity Laterality: left Qualified Code(s): I82.512 - Chronic embolism and thrombosis of left femoral vein (2) COPD (chronic obstructive pulmonary disease) COPD type: unspecified COPD Chronic bronchitis type: Emphysema type: Qualified Code(s): J44.9 - Chronic obstructive pulmonary disease, unspecified (3) HTN (hypertension) Hypertension type: essential hypertension Qualified Code(s): I10 - Essential (primary) hypertension (4) Pneumonia Aspiration pneumonia type: Laterality: right Lung location: upper lobe of lung Pneumonia type: due to unspecified organism Qualified Code(s): J18.1 - Lobar pneumonia, unspecified organism
[2018-09-06] MEDS: MONTELUKAST SODIUM 10 MG TABLET PO SCH ×2 (20:44→21:06)
[2018-09-07] MEDS: RESTASIS: ORDER AWAITING ACTION SCH ×3 (00:41→16:37)
[2018-09-07] MEDS: BREO ELLIPTA: ORDER AWAITING ACTION SCH ×3 (00:41→16:37)
[2018-09-07] MEDS: metroNIDAZOLE 500 MG/100 ML BAG IV SCH ×4 (00:55→23:53)
[2018-09-07] MEDS: SODIUM CHLORIDE 0.9% 1000ML 1,000 ML IV SCH ×2 (06:13→21:36)
[2018-09-07] MEDS: CEFEPIME 2,000 MG in SYRINGE 7.5 ML IV SCH ×2 (06:13→18:34)
[2018-09-07 06:58] LABS: Hematocrit (blood only) 33.9 % (37-47); Hemoglobin 10.9 g/dL (12.0-16.0); Mean Corpuscular Hgb Conc 32.2 g/dL (32-36); Mean Corpuscular Volume 87.1 fL (80-100); Mean Platelet Volume 9.8 fL (7.4-10.4); Platelet Count 428 K/uL (130-400); RDW Coefficient of Variation 14.1 % (11.5-14.5); RDW Standard Deviation 44.7 fL (36.4-46.3); Red Blood Count 3.89 M/uL (4.2-5.4); White Blood Count 16.33 K/uL (4.8-10.8)
[2018-09-07 07:04] LABS: INR 2.2 (0.9-1.1); Prothrombin Time 21.4 Seconds (9.0-12.0)
[2018-09-07] MEDS: ACETYLCYSTEINE 20% INHAL SOLN ***DISPENSED BY RESP. INH SCH ×2 (07:04→19:11)
[2018-09-07] MEDS: ALBUT/IPRATROP 3MG/0.5MG NEB 3 ML VIAL NEB SCH ×4 (07:04→19:09)
[2018-09-07 07:35] LABS: BUN Creatinine Ratio 28.7 (10-20); Calcium 7.8 mg/dl (8.5-10.1); Creatinine Clr Calc Pharmacy 41.8 ml/min; Est GFR (African American) 93.2; Est GFR (Non-African American) 80.4; Magnesium 1.8 mg/dl (1.8-2.4); Potassium 3.5 mmol/L (3.5-5.1)
[2018-09-07] MEDS: AMLODIPINE BESYLATE 5 MG TAB PO SCH (09:55)
[2018-09-07] MEDS: LISINOPRIL 40 MG TAB PO SCH (09:56)
[2018-09-07] MEDS ORDERED: VORICONAZOLE 200 MG TABLET PO SCH (10:00)
--- NOTE | 2018-09-07 11:01 | Hospitalist Progress Note ---
Date of Service September 07, 2018 Assessment & Plan (1) Pneumonia: - CXR showed worsening RUL PNA; pt. failed outpt. treatment with Levaquin. - CT chest: increase in RUL opacity, 3.9 cm RUL cavitary lesion - may be necrotizing PNA vs. fungal PNA. - Sputum culture +fungus, identity pending -- Aspergillus Ab, Fungitell and Quantiferon gold serology all pending. - Continue Cefepime/Flagyl due to aspiration risk and need for Pseudomonas coverage. - Start Voriconazole for fungal coverage; monitor QTc daily in setting of multiple QT prolonging medications. - Duonebs QID, Mucomyst BID scheduled. - Pulmonary consulted, appreciate input. Discussed code status at bedside with her son -- pt. is DNR but he would like to continue IV abx, IV fluids, etc. - Palliative consulted - discussed goals of care with family, understands that her prognosis is poor. (2) Acute and chronic respiratory failure with hypoxia: - Has been requiring O2 via NC as O2 sat <90% on room air; cannot obtain review of systems, including dyspnea, due to cognitive status. - O2 requirements now improved to 3L via NC. - Related to underlying COPD vs. acute pneumonia vs. other. (3) Metabolic encephalopathy: - Pt. is altered, cannot obtain history from her since admission. This may be her baseline. - Etiology is likely multifactorial: acute infection vs. hospital delirium vs. worsening dementia. - Speech therapy consulted -- will hold VFSS at this time as diagnosis of aspiration will not improve overall medical care in setting of multiple co- morbidities. - VBG with no evidence of acute hypercapnia on admission; consider repeat VBG if indicated. (4) Dementia: - Has had progression of dementia over last year; unclear baseline mental status. - Son would like patient to be alert, awake and oriented prior to discharge -- this is likely an unrealistic goal. - Will resume Seroquel 25 mg PO daily; monitor QTc frequently. (5) COPD (chronic obstructive pulmonary disease): - Very long standing tobacco history, is a current smoker. - Duoneb QID and Mucomyst BID scheduled. - Holding home Breo-Ellipta and Albuterol. - On Cefepime/Flagyl as noted above. (6) Chronic diastolic CHF (congestive heart failure): - Echo Jul 2018: EF 65% with Grade 1 diastolic dysfunction. - Monitor net I/O's and daily weights. - Appears hypovolemic on exam - continue NS at 80 cc/hr. - Continue ACEI as prescribed. (7) Pulmonary embolism: - Resumed to be 2/2 DVT in setting of right tibia fracture and poor mobility. - Monitor PT/INR daily -- 2.2 this morning. - Will resume Coumadin 2 mg PO this evening, adjust as necessary. (8) Chronic deep vein thrombosis (DVT): - Left leg DVT. - On Warfarin as noted above. (9) HTN (hypertension): - Continue Amlodipine 5 mg daily and Lisinopril 40 mg qAM as prescribed. - BP has been well controlled. (10) Chronic kidney disease, stage 3a: - Monitor renal function daily; renally adjust all medications. - Creatinine is currently at baseline; on IV fluids. (11) Severe protein-calorie malnutrition: - Encourage oral intake; on IV fluids. (12) DVT prophylaxis: - Warfarin. Dispo: Med/surg for acute encephalopathy & treatment of PNA. Will need to determine goals of care, palliative following. Pt. does not have a POA but her son provides primary care for the patient. Supervising Physician Co-Signing Physician Notes Attending Attestation - Chart reviewed in detail, and care plan d/w ROBERT Juárez. I agree w/ the cannon components of her documentation. Patient's sputum now + for fungus. Agree with antifungal coverage. Remains on coumadin for DVT/PE - INRs will need close watching due to azole therapy for fungus. Appreciate pulmonary consultation. I am very familiar with Ms. Rousseau from the prior hospital stay and I agree completely with palliative care consultation. Prognosis is very poor and she has declined considerably over the last 2 months. Juan Luis Moffett MD Subjective Pt. remains confused but was awake this morning. She was agitated. When asked about place, she said "yes I know I am at a hospital". When asked about year, pt. stated "do you think I am an idiot?" Her son Musa was contacted today regarding goals of care. He states his mother was doing well prior to the fracture. She was completing chores in her home and ambulating independently. She has significantly declined following fracture leading to admission for DVT/PE. He believes she has had decline at [facility] as well due to inadequate medical care. When asked about goals of care for his mother, he stated he would like PT/OT with the goal of reaching her baseline prior to fracture. I explained that she may not return to baseline in the setting of progression of dementia with acute delirium, a pulmonary infection ( fungal vs. bacterial?) and general deconditioning/malnutrition/failure to thrive following fracture. Palliative also discussed prognosis with the patient , greatly appreciate their input. Review of Systems Unobtainable due to cognitive status Physical Exam 2 Vital Signs (Past 24 Hours): Last Vital Signs Temp 36.5 C 09/07/18 07:27 Pulse 92 H 09/07/18 07:27 Resp 18 09/07/18 07:27 BP 134/65 09/07/18 07:27 Pulse Ox 93 09/07/18 07:27 Physical Exam: General: Resting comfortably in no apparent distress HEENT: NC/AT; PERRLA with EOMI; [place] conjunctiva, MMM. Neck: Supple and nontender Cardiac: RRR Lungs: on 3L via NC; CTA bilaterally Abdomen: Bowel normoactive X 4; Nontender to palpation Extremities: Warm. No edema present Neuro: No focal weakness; not alert to person or place but is awake, agitated. Skin: No rash Results & Data Laboratory Results 09/07/18 09/07/18 09/07/18 Range/Units 06:36 06:36 06:36 WBC 16.33 H (4.8-10.8) K/uL RBC 3.89 L (4.2-5.4) M/uL Hgb 10.9 L (12.0-16.0) g/dL Hct 33.9 L (37-47) % MCV 87.1 (80-100) fL MCH 28.0 (25-34) pg MCHC 32.2 (32-36) g/dL RDW Std Deviation 44.7 (36.4-46.3) fL RDW Coeff of Juan Diego 14.1 (11.5-14.5) % Plt Count 428 H (130-400) K/uL MPV 9.8 (7.4-10.4) fL PT 21.4 H (9.0-12.0) Seconds INR 2.2 H (0.9-1.1) Sodium 139 (136-145) mmol/L Potassium 3.5 (3.5-5.1) mmol/L Chloride 109 H (98-107) mmol/L Carbon Dioxide 26 (21-32) mmol/L Anion Gap 4.0 (3-11) BUN 19 H (7-18) mg/dl Creatinine 0.65 (0.6-1.2) mg/dl Est Cr Clr Drug Dosing 41.8 ml/min Est GFR ( Amer) 93.2 Est GFR (Non-Af Amer) 80.4 BUN/Creatinine Ratio 28.7 H (10-20) Glucose 102 H (70-99) mg/dl Calcium 7.8 L (8.5-10.1) mg/dl Magnesium 1.8 (1.8-2.4) mg/dl _ (1) Dementia Alzheimer's disease onset: Dementia behavioral disturbance: without behavioral disturbance Dementia type: unspecified type Qualified Code(s): F03.90 - Unspecified dementia without behavioral disturbance (2) Chronic deep vein thrombosis (DVT) Affected thrombotic vein of extremity: femoral DVT location: lower extremity Laterality: left Qualified Code(s): I82.512 - Chronic embolism and thrombosis of left femoral vein (3) COPD (chronic obstructive pulmonary disease) COPD type: unspecified COPD Chronic bronchitis type: Emphysema type: Qualified Code(s): J44.9 - Chronic obstructive pulmonary disease, unspecified (4) HTN (hypertension) Hypertension type: essential hypertension Qualified Code(s): I10 - Essential (primary) hypertension (5) Pneumonia Aspiration pneumonia type: Laterality: right Lung location: upper lobe of lung Pneumonia type: due to unspecified organism Qualified Code(s): J18.1 - Lobar pneumonia, unspecified organism
[2018-09-07] MEDS: VORICONAZOLE 200 MG TABLET PO SCH ×2 (11:05→20:09)
--- NOTE | 2018-09-07 12:33 | Progress Note ---
DATE: 09/07/2018 PULMONARY MEDICINE PROGRESS NOTE Chart reviewed, patient examined. SUBJECTIVE: The patient has been seen earlier in consultation by Dr. Valenzuela. She is an 87-year-old with a history of right tibial plateau fracture in early July, DVT, worsening pneumonia and lethargy. She resides at [facility]. She became more somnolent and was productive of yellowish phlegm. She is weak and appears malnourished. She was found to be hypoxic, placed on 4 liters. She had been smoking up to the day of admission with a long history of smoking abuse with severe emphysema. I referred to Dr. Valenzuela's consultative note, on 09/05. CAT scan at that time was seen previously on 08/22/2018 with a followup radiograph on 09/05/2018 showed interval increase in the right upper lobe consolidation since CAT scan of 08/22/2018 with a 3.9 cm right upper lobe cavitary opacity which contains a 2.2 cm soft tissue focus favoring a cavitary necrotizing pneumonia. Aspergillosis was contemplated. Extensive bilateral lower lobe opacities were noted with secretions raising the possibility of aspiration. Moderate emphysema was seen. In reading Dr. Valenzuela's notes, Dr. Valenzuela had discussed the patient's situation with her son. The patient was in no distress. He did not feel the patient was stable for bronchoscopy at that point and the patient was made a DNR with no further workup planned. The patient was seen today by her hospitalist, by the physician facility assistant, Raven Suarez. The patient failed outpatient treatment with Levaquin. Sputum cultures have been pending. The patient has been on cefepime and Flagyl for possible aspiration and consideration of new pseudomonas coverage. Voriconazole was also started along with nebulizer treatments with DuoNeb solution and Mucomyst. Due to patient's dementia, I was unable to ascertain whether she was feeling improvement. She has been maintained on anticoagulant therapy as well for left leg DVT. LABORATORY DATA: Her white count is 16,000, H and H 10.9 and 33.9. Sputum is growing a fungus, not sure how good the specimen was. Chest CT is noted. Influenza A and B PCR have been negative. ASSESSMENT: Necrotizing RUL pneumonia/rapid appearance probably Gram neg infection but necrotizing Aspergillus infection/semi-invasive etc vs pulm TB in the differential. Will check a QuantiFERON gold serology as well as fungitell etc and follow. Will discuss case w hospitalist service. GAYE
--- NOTE | 2018-09-07 14:17 | Palliative Care Progress Note ---
Date of Service September 07, 2018 Assessment & Plan (1) Goals of care, counseling/discussion: -87 year old female with PMH COPD, chronic diastolic CHF, recent DVT, malnutrition and others, presented from [facility] where she was undergoing rehab after recent hospitalization with altered mental status and lethargy. She was in hospital from end of July to 08/29/18 s/p tibeal fracture and subsequent PE/DVT. DUring that hospitalization patient did have a RUL pneumonia. This admission, the RUL pneumonia is worsening and she even has a cavitary lesion that could represent a necrotizing pneumonia or malignancy. Sputum culture was sent and is pending. She is on abx and treatment for COPD. A long conversation was had with patient's son by our intensivisit/law writer physician about goals of care. The decision was made that patient would remain a DNR with no intubation, but continue with conservative and supportive measures such as abx, oxygen, fluids, etc. Bronchoscopy might be necessary, however there would be concern of that procedure putting her into respiratory failure and dependence on ventilator. Palliative care is consulted to establish goals of care. -Patient remains confused but in no distress or discomfort today. -Spoke at length with patient's son, Musa Rousseau. Musa is upset with the care patient received while at SNF. He states, "She was fine before this fracture." -We discussed for quite a while about the progression of dementia, especially after an event such as a fracture/hospitalization/infection. Also talked about patient's long-standing malnourishment, frailty, low albumin and little reserve to heal and recover from such an event. On top of those issues, the pneumonia she has is a terrible one that is difficult to treat. Musa verbalized understanding and stated, "So you're saying it might just be time to make her comfortable." -We talked about options at this point. Musa would like to continue current treatment and reevaluate each day to see if there is any improvement in mental status or functional status. This is reasonable given that she has improved since admission and it is possible she still has an element of acute delirium from the infection. -Uncertain of any rehab potential at this point. Will need further discussion based on how patient does. -Of note, her son asked me about artificial nutrition to improve her albumin level. I explained that a feeding tube in an elderly person with dementia, confusion, pneumonia, and frailty is not shown to be of much benefit from a medical or comfort standpoint. He verbalized understanding. -For now, continue current treatment. Will reevaluate each day. If patient does not improve from her current state, I would recommend discharging on PO abx if tolerated and sending patient to SNF on hospice. -Will continue to follow. (2) Altered mental status: (3) Pneumonia: (4) Chronic diastolic CHF (congestive heart failure): (5) Severe protein-calorie malnutrition: (6) Acute and chronic respiratory failure: (7) COPD (chronic obstructive pulmonary disease): Physical Exam 2 Vital Signs (Past 24 Hours): Last Vital Signs Temp 36.5 C 09/07/18 07:27 Pulse 76 09/07/18 11:25 Resp 18 09/07/18 11:25 BP 134/65 09/07/18 07:27 Pulse Ox 88 L 09/07/18 11:25 Constitutional: + ill appearing (chronically), + thin and + cachectic; no acute distress Eyes: PERRL ENMT: Ears: no hearing impairment Neck: normal visual inspection and trachea midline Respiratory: + labored breathing; no respiratory distress Auscultation: + diminished lung sounds and + rhonchi Cardiovascular: RRR, no murmur, no edema Gastrointestinal (Abdomen): normal bowel sounds, soft, nontender, no hepatosplenomegaly Neurologic: awake and + confused Psychiatric: Orientation: oriented to person; + not oriented to place and + not oriented to time Time Spent Midlevel 45 minutes with >50% of time spent at bedside with patient and on phone with patient's son discussing condition, GOC, and EOL issues. _ (1) Altered mental status Altered mental status type: unspecified Coma depth: Coma timing: Qualified Code(s): R41.82 - Altered mental status, unspecified (2) Pneumonia Aspiration pneumonia type: Laterality: right Lung location: upper lobe of lung Pneumonia type: due to unspecified organism Qualified Code(s): J18.1 - Lobar pneumonia, unspecified organism (3) Acute and chronic respiratory failure Respiratory failure complication: hypoxia Qualified Code(s): J96.21 - Acute and chronic respiratory failure with hypoxia (4) COPD (chronic obstructive pulmonary disease) COPD type: unspecified COPD Chronic bronchitis type: Emphysema type: Qualified Code(s): J44.9 - Chronic obstructive pulmonary disease, unspecified
[2018-09-07] MEDS: WARFARIN SOD 2 MG TAB PO SCH (16:20)
[2018-09-07] MEDS: QUETIAPINE FUMARATE 25 MG TABLET PO SCH (20:10)
[2018-09-07] MEDS: MONTELUKAST SODIUM 10 MG TABLET PO SCH (20:10)
[2018-09-08] MEDS: RESTASIS: ORDER AWAITING ACTION SCH ×3 (01:03→15:53)
[2018-09-08] MEDS: BREO ELLIPTA: ORDER AWAITING ACTION SCH ×3 (01:03→15:52)
[2018-09-08] MEDS: CEFEPIME 2,000 MG in SYRINGE 7.5 ML IV SCH ×2 (04:59→17:55)
[2018-09-08 06:25] LABS: Hematocrit (blood only) 28.2 % (37-47); Hemoglobin 9.2 g/dL (12.0-16.0); Mean Corpuscular Hgb Conc 32.6 g/dL (32-36); Platelet Count 339 K/uL (130-400); RDW Coefficient of Variation 14.2 % (11.5-14.5); RDW Standard Deviation 44.3 fL (36.4-46.3); Red Blood Count 3.28 M/uL (4.2-5.4); White Blood Count 13.97 K/uL (4.8-10.8)
[2018-09-08 06:36] LABS: INR 2.4 (0.9-1.1); Prothrombin Time 22.7 Seconds (9.0-12.0)
[2018-09-08 07:04] LABS: Albumin Globulin Ratio 0.4 (0.9-2); Albumin Level 1.4 gm/dl (3.4-5.0); BUN Creatinine Ratio 28.4 (10-20); Bilirubin,Total 0.3 mg/dl (0.2-1); Calcium 6.9 mg/dl (8.5-10.1); Est GFR (African American) 95.7; Est GFR (Non-African American) 82.5; Globulin 3.9 gm/dl (2.5-4.0); Magnesium 1.7 mg/dl (1.8-2.4); Potassium 3.1 mmol/L (3.5-5.1); Total Protein 5.3 gm/dl (6.4-8.2)
[2018-09-08] MEDS: ALBUT/IPRATROP 3MG/0.5MG NEB 3 ML VIAL NEB SCH ×2 (07:17→11:17)
[2018-09-08] MEDS: ACETYLCYSTEINE 20% INHAL SOLN ***DISPENSED BY RESP. INH SCH (07:17)
[2018-09-08] MEDS: SODIUM CHLORIDE 0.9% 1000ML 1,000 ML IV SCH (07:32)
[2018-09-08] MEDS: metroNIDAZOLE 500 MG/100 ML BAG IV SCH ×2 (07:33→15:52)
[2018-09-08] MEDS: AMLODIPINE BESYLATE 5 MG TAB PO SCH (07:35)
[2018-09-08] MEDS: VORICONAZOLE 200 MG TABLET PO SCH ×2 (07:36→21:35)
[2018-09-08] MEDS: LISINOPRIL 40 MG TAB PO SCH (07:36)
[2018-09-08] MEDS: POTASSIUM CHLORIDE 40 MEQ in LACTATED RINGER'S 1,000 ML IV SCH (08:51)
[2018-09-08] MEDS: MAGNESIUM SULFATE / D5W 1 GM/100 ML BAG IV SCH ×2 (08:51→09:59)
--- NOTE | 2018-09-08 12:57 | Palliative Care Progress Note ---
Date of Service September 08, 2018 Assessment & Plan (1) Goals of care, counseling/discussion: -87 year old female with PMH COPD, chronic diastolic CHF, recent DVT, malnutrition and others, presented from [facility] where she was undergoing rehab after recent hospitalization with altered mental status and lethargy. Found to have cavitary lung mass: infection vs. malignancy vs. TB infection. Now on airborne precautions until TB ruled out. -Patient clinically worsened today. During my visit, she did wake up and was talking to me. She is certainly more lethargic today, though. her oxygen was at 4LNC when I was in room and she had no respiratory distrss. -After I left, I received a call from hospitalist physician that patient suddenly became more SOB, oxygen saturation in 70s, now on 15L NRB mask. More lethargic. -Many attempts have been made to contact patient's son, Musa, by myself, Dr. Eaton, Surjit Suarez PA-C, and Juan Carlos Beauchamp case management social worker. We have been unable to reach him. I looked back through all case management notes from previous admissions, case management social worker contacted [facility] and [facility] to see if they had any other phone numbers. Unfortunately, we only have Musa's cell number. We will continue to try and reach him with an update on patient's condition. (2) Altered mental status: (3) Pneumonia: (4) Chronic diastolic CHF (congestive heart failure): (5) Severe protein-calorie malnutrition: (6) Acute and chronic respiratory failure: (7) COPD (chronic obstructive pulmonary disease): Subjective Review of Systems Unobtainable due to cognitive status Physical Exam 2 Vital Signs (Past 24 Hours): Last Vital Signs Temp 36.8 C 09/08/18 07:27 Pulse 77 09/08/18 11:17 Resp 20 09/08/18 11:17 BP 136/64 09/08/18 07:27 Pulse Ox 83 L 09/08/18 11:17 Constitutional: + ill appearing (chronically), + thin and + cachectic; no acute distress ENMT: Ears: no hearing impairment Neck: normal visual inspection and trachea midline Respiratory: + labored breathing; no respiratory distress Auscultation: + diminished lung sounds and + rhonchi Cardiovascular: RRR, no murmur, no edema Gastrointestinal (Abdomen): normal bowel sounds, soft, nontender, no hepatosplenomegaly Neurologic: awake and + confused Psychiatric: Orientation: oriented to person; + not oriented to place and + not oriented to time Time Spent Midlevel 25 minutes with >50% of time spent at bedside with patient discussing plan of care and collaborating with hospitalist physician to discuss case. _ (1) Altered mental status Altered mental status type: unspecified Coma depth: Coma timing: Qualified Code(s): R41.82 - Altered mental status, unspecified (2) Pneumonia Aspiration pneumonia type: Laterality: right Lung location: upper lobe of lung Pneumonia type: due to unspecified organism Qualified Code(s): J18.1 - Lobar pneumonia, unspecified organism (3) Acute and chronic respiratory failure Respiratory failure complication: hypoxia Qualified Code(s): J96.21 - Acute and chronic respiratory failure with hypoxia (4) COPD (chronic obstructive pulmonary disease) COPD type: unspecified COPD Chronic bronchitis type: Emphysema type: Qualified Code(s): J44.9 - Chronic obstructive pulmonary disease, unspecified
--- NOTE | 2018-09-08 13:00 | XRay Report ---
XR chest 1V portable CLINICAL HISTORY: Hypoxia dyspnea COMPARISON STUDY: 09/05/2017 FINDINGS: Progressive right apical infiltrate. Small bilateral pleural effusions slightly increased i n volume from the prior study. Mild stable cardiomegaly. IMPRESSION: Progressive infiltrate right upper lung. Slight increase in volume of bilateral pleural effusions. The above report was generated using voice recognition software. It may contain grammatical, syntax or spelling errors. Electronically signed by: Jimmy Gomes M.D. 09/08/2018 12:59 PM
[2018-09-08] MEDS ORDERED: MoRPHine SULFATE 4 MG/ML 1 ML CARP\\VIAL IV PRN (13:46)
[2018-09-08] MEDS ORDERED: LORazepam 1 MG TAB SL PRN (13:46)
--- NOTE | 2018-09-08 14:42 | Progress Note ---
DATE: 09/08/2018 PULMONARY MEDICINE PROGRESS NOTE Chart reviewed, patient examined. SUBJECTIVE: I have had a chance to examine the patient, review her most recent chest radiograph and was asked by her providers, ROBERT Crane and Dr. Augustina Eaton, to meet with the family to discuss her clinical status. Overnight, the patient has become markedly tachypneic, dyspneic and diaphoretic requiring high-flow O2 supplementation. A chest x-ray has clearly worsened with progressive right apical infiltrate, bilateral pleural effusions and dada out basically of the right chest, although a lot of that may be fluid layering out in the supine position. I had a lengthy discussion with both sons who were in the patient's room. We did step out into the adjoining hallway. We discussed their mother's poor prognosis given the patient's COPD, longstanding smoking history, dementia and very aggressive necrotizing pneumonia. (can not rule out an underlying bronchogenic Ca) I felt that the antibiotic coverage including antifungal agents were appropriate, but patient was not responding and I felt palliative measures were really the best way to proceed;.using lorazepam or narcotic to help with the patient's symptoms of breathlessness. The family was in agreement and Dr. Augustina Eaton and ARIEL Hi were in attendance along with Raven Suarez, the physician embalmer assistant who were all providing care for this patient. GAYE
[2018-09-08] MEDS: WARFARIN SOD 2 MG TAB PO SCH (15:51)
--- NOTE | 2018-09-08 15:58 | Hospitalist Progress Note ---
Date of Service September 08, 2018 Assessment & Plan (1) Pneumonia: - Developed worsening hypoxia this afternoon likely related to progression of PNA. - CXR showed progressive infiltrate of right upper lung, bilateral pleural effusions. - CT chest 09/05: increase in RUL opacity, 3.9 cm RUL cavitary lesion - may be necrotizing PNA vs. fungal PNA. - Sputum culture +Aspergillus -- Aspergillus Ab, Fungitell, Quantiferon gold serology all pending. - Continue Cefepime/Flagyl/Voriconazole. - Pulmonary and palliative care following, greatly appreciate input. - Discussed goals of care with family at bedside -- is DNR, will pursue partial comfort measures with Morphine IV and Ativan SL prn. - Will continue IV meds and home PO medications as tolerated per family wishes. (2) Acute and chronic respiratory failure with hypoxia: - Worsening respiratory failure this afternoon, O2 sat ~86-88% on 15L Oxymask. - Likely related to progression of PNA -- visualized on CXR. - Did not initially tolerate BiPAP: will attempt BiPAP again this afternoon. (3) Metabolic encephalopathy: - Pt. is altered, cannot obtain accurate history from her since admission - this is likely her baseline. - Etiology is likely multifactorial: acute infection vs. hospital delirium vs. worsening dementia. - Speech therapy consulted -- no indication for VFSS due to poor prognosis. (4) Dementia: - Has had progression of dementia over last year; unclear baseline mental status. - Continue Seroquel 25 mg PO daily. (5) COPD (chronic obstructive pulmonary disease): - Very long standing tobacco history, is a current smoker. - Limited treatment in setting of comfort care -- on abx as noted above. (6) Chronic diastolic CHF (congestive heart failure): - Echo Jul 2018: EF 65% with Grade 1 diastolic dysfunction. - On IVFs at 80 cc/hr as pt. was hypovolemic on admission. - Continue ACEI as prescribed. (7) Pulmonary embolism: - Resumed to be 2/2 DVT in setting of right tibia fracture and poor mobility. - Monitor PT/INR daily -- 2.4 this morning. - Continue Coumadin 2 mg PO daily. (8) Chronic deep vein thrombosis (DVT): - Left leg DVT. - On Warfarin as noted above. (9) HTN (hypertension): - Continue Amlodipine 5 mg daily and Lisinopril 40 mg qAM if pt. tolerating PO meds. (10) Chronic kidney disease, stage 3a: - Monitor renal function daily. - Creatinine is currently at baseline; on IV fluids. (11) Tibial plateau fracture, right: - Presented on 08/03/18; orthopedics (Adeel) recommended conservative measures. - No indication for ortho consult, PT/OT as pt. is comfort care. (12) Severe protein-calorie malnutrition: - Comfort care measures -- PO intake as tolerated. (13) Electrolyte abnormality: - K level 3.1 - added KCl 40 mEq to IV fluids. - Mag 1.7 - mag sulfate 2 gm IV. (14) DVT prophylaxis: - Warfarin. Dispo: Med/surg; palliative following, on partial comfort care measures but will continue IV abx/anti-fungals, home PO meds and IV fluids. Is requiring increased O2, attempting BiPAP this afternoon. Code Status: DNR, no intubation -- confirmed with family today. Ok with supportive treatment at this time. Supervising Physician Co-Signing Physician Notes PA Supervision Note: I personally saw and examined the patient. I verified all cannon points and agree with ROBERT Suarez with the following exceptions and/or additions: Pt declining rapidly today due to progressive PNA in setting of COPD, poolr lung reserve. Lengthy discussion had with Pulmonology, two sons today-discussed her declining status and decided on pursuing compfrt care but continue ABX for now. Vitals reviewed looks very frail, lethargic, opened eyes briefly but could not answer questions kyphotic, mild resp distress with tachypnea, use of accessory muscles lungs with coarse BS throughout, rhonchi RRR no mgr Abd soft +BS, NT Ext with sarcopenia Continue care as above, O2 support but not tolerating BiPAP, continue abx for now, appreciate Palliative consultation Subjective Pt. was more lethargic this morning, was requiring 2-3L via NC. She developed increased hypoxia, was placed on oxymask at 15L O2 with O2 sats ~86-87%. Pt. remained hypoxic despite high flow oxygen. BiPAP was attempted but pt. did not tolerate. Her sons were contacted regarding her current status and were present at bedside. Dr. Eaton, Dr. Xiong, Cristina GEORGE and I spoke with both sons regarding prognosis. They were agreeable to continuing oxygen as needed but decided to pursue comfort measures. They would like to continue abx and labs for now, will re-visit this discussion if necessary. Pt. was agreeable to trying BiPAP again this afternoon, currently tolerating treatment. CXR showed progressive right upper lung infiltrate. Review of Systems Unobtainable due to cognitive status Physical Exam 2 Vital Signs (Past 24 Hours): Last Vital Signs Temp 36.9 C 09/08/18 15:23 Pulse 84 09/08/18 15:23 Resp 22 09/08/18 15:23 BP 155/78 H 09/08/18 15:23 Pulse Ox 91 09/08/18 15:23 Physical Exam: General: In mild-moderate distress 2/2 dyspnea/hypoxia. Chronically ill appearing. HEENT: NC/AT; PERRLA with EOMI; Novi conjunctiva, MMM. Cardiac: RRR Lungs: oxymask at 15L, appeared tachypneic; scattered rhonchi throughout. Abdomen: Bowel normoactive X 4; Nontender to palpation Extremities: Warm. No edema present Neuro: No focal weakness; not alert to person or place, very lethargic. Skin: No rash Results & Data Laboratory Results 09/08/18 09/08/18 09/08/18 Range/Units 05:40 05:40 05:40 WBC 13.97 H (4.8-10.8) K/uL RBC 3.28 L (4.2-5.4) M/uL Hgb 9.2 L (12.0-16.0) g/dL Hct 28.2 L (37-47) % MCV 86.0 (80-100) fL MCH 28.0 (25-34) pg MCHC 32.6 (32-36) g/dL RDW Std Deviation 44.3 (36.4-46.3) fL RDW Coeff of Juan Diego 14.2 (11.5-14.5) % Plt Count 339 (130-400) K/uL MPV 10.0 (7.4-10.4) fL PT 22.7 H (9.0-12.0) Seconds INR 2.4 H (0.9-1.1) Sodium 140 (136-145) mmol/L Potassium 3.1 L (3.5-5.1) mmol/L Chloride 112 H (98-107) mmol/L Carbon Dioxide 22 (21-32) mmol/L Anion Gap 6.0 (3-11) BUN 17 (7-18) mg/dl Creatinine 0.60 (0.6-1.2) mg/dl Est Cr Clr Drug Dosing 47.0 ml/min Est GFR ( Amer) 95.7 Est GFR (Non-Af Amer) 82.5 BUN/Creatinine Ratio 28.4 H (10-20) Glucose 90 (70-99) mg/dl Calcium 6.9 L (8.5-10.1) mg/dl Magnesium 1.7 L (1.8-2.4) mg/dl Total Bilirubin 0.3 (0.2-1) mg/dl AST 13 L (15-37) U/L ALT 13 (12-78) U/L Alkaline Phosphatase 65 (45-117) U/L Total Protein 5.3 L (6.4-8.2) gm/dl Albumin 1.4 L (3.4-5.0) gm/dl Globulin 3.9 (2.5-4.0) gm/dl Albumin/Globulin Ratio 0.4 L (0.9-2) _ (1) Dementia Alzheimer's disease onset: Dementia behavioral disturbance: without behavioral disturbance Dementia type: unspecified type Qualified Code(s): F03.90 - Unspecified dementia without behavioral disturbance (2) Tibial plateau fracture, right Encounter type: sequela Fracture healing: Fracture type: closed Open fracture type: Qualified Code(s): S82.141S - Displaced bicondylar fracture of right tibia, sequela (3) Chronic deep vein thrombosis (DVT) Affected thrombotic vein of extremity: femoral DVT location: lower extremity Laterality: left Qualified Code(s): I82.512 - Chronic embolism and thrombosis of left femoral vein (4) COPD (chronic obstructive pulmonary disease) COPD type: unspecified COPD Chronic bronchitis type: Emphysema type: Qualified Code(s): J44.9 - Chronic obstructive pulmonary disease, unspecified (5) HTN (hypertension) Hypertension type: essential hypertension Qualified Code(s): I10 - Essential (primary) hypertension (6) Pneumonia Aspiration pneumonia type: Laterality: right Lung location: upper lobe of lung Pneumonia type: due to unspecified organism Qualified Code(s): J18.1 - Lobar pneumonia, unspecified organism
--- NOTE | 2018-09-08 16:15 | Orthopedic Consultation ---
Date of Consultation September 08, 2018 Assessment & Plan (1) Tibial plateau fracture, right: She is about 5 weeks out from this tibia fracture. She has a hinged knee brace but hasn't really been wearing it. She really only needs this brace for weight bearing. She can WBAT with the hinged knee brace and does not need it while in bed. Please call [phone] with any orthopedic questions. History of Present Illness Reason for Consultation: weightbearing status for right tibia plateau fracture Attending Physician: Augustina Eaton MD History of Present Illness Kimi is a 87 y/o female, admitted with worsening pneumonia and respiratory failure. She is approx 5 weeks s/p right tibia plateau fx. She was just seen by Dr. Richardson in the office 6 days. ago. She denies any knee pain at this time. She really hasn't been doing any walking or weightbearing. Allergies Allergy/AdvReac Type Severity Reaction Status Date / Time oxycodone Allergy Unknown Verified 09/05/18 10:12 Penicillins Allergy Unknown Verified 09/05/18 10:12 acetaminophen [From Tylenol] AdvReac Severe memory loss Verified 09/05/18 10:12 antidepressant AdvReac Hallucinati Uncoded 09/05/18 10:12 ng Home Medications Home Medications Medication Instructions Recorded Confirmed Type albuterol sulfate 2 puff INHALATION Q6H PRN 08/02/18 09/05/18 History cyclosporine [Restasis] 1 drp OPB Q12H 08/02/18 09/05/18 History ipratropium-albuterol 1 puff INHALATION QID 08/02/18 09/05/18 History lisinopril 40 mg PO QAM 08/02/18 09/05/18 History amlodipine 5 mg PO DAILY 08/15/18 09/05/18 History bisacodyl 10 mg MN DAILY PRN 08/15/18 09/05/18 History docusate sodium 100 mg PO BID PRN 08/15/18 09/05/18 History fluticasone-vilanterol [Breo 1 inh INHALATION DAILY 08/15/18 09/05/18 History Ellipta] ipratropium-albuterol 3 ml INHALATION QID PRN 08/15/18 09/05/18 History magnesium hydroxide [Milk of 30 ml PO DAILY PRN 08/15/18 09/05/18 History Magnesia] montelukast 10 mg PO PM 08/15/18 09/05/18 History nicotine [Nicoderm CQ] 1 patch TRANSDERMAL DAILY 08/15/18 09/05/18 History sennosides [senna] 8.6 mg PO DAILY PRN 08/15/18 09/05/18 History [id number] 1 tab PO BID #60 tab 08/29/18 09/05/18 Rx [Caltrate 600-D Plus Minerals] levofloxacin 750 mg PO Q48H #1 tab 08/29/18 09/05/18 Rx quetiapine 25 mg PO HS #30 tab 08/29/18 09/05/18 Rx tramadol 25 mg PO Q4 PRN #6 tab 08/29/18 09/05/18 Rx warfarin [Coumadin] 2 mg PO DAILY@1600 #30 tab 08/29/18 09/05/18 Rx Patient History Medical History Chronic diastolic CHF (congestive heart failure) Chronic deep vein thrombosis (DVT) Severe protein-calorie malnutrition Degenerative disc disease (Chronic) Osteoporosis Asthma (Chronic) HTN (hypertension) (Chronic) High cholesterol (Chronic) COPD (chronic obstructive pulmonary disease) (Chronic) Surgical History History of right hip replacement Social History Current Living Situation: Family Current Living Situation Comment: [facility] Other Information That Helps Us Care for You: No Feels Safe at Home: Yes Safety Concerns: Feels Safe At This Time Smoking Status: Current every day smoker Tobacco Type: cigarettes Hx Alcohol Use: No Hx Substance Use: No Beliefs That Will Affect Care: None Communication Ability: Unable Physical Exam 2 Vital Signs (Past 24 Hours): Last Vital Signs Temp 36.9 C 09/08/18 15:23 Pulse 84 09/08/18 15:23 Resp 22 09/08/18 15:23 BP 155/78 H 09/08/18 15:23 Pulse Ox 91 09/08/18 15:23 Musculoskeletal: She is alert. No significant swelling of right knee. No tenderness to palpation. Skin is warm and intact. No discoloration or skin breakdown around the right knee area. She is able to do a SLR. No knee pain with gentle ROM _ (1) Tibial plateau fracture, right Encounter type: sequela Fracture type: closed Open fracture type: Fracture healing: Qualified Code(s): S82.141S - Displaced bicondylar fracture of right tibia, sequela
[2018-09-08] MEDS ORDERED: MoRPHine SULFATE 4 MG/ML 1 ML CARP\\VIAL IV STA (20:45)
[2018-09-08] MEDS ORDERED: MoRPHine SULFATE 4 MG/ML 1 ML CARP\\VIAL ONE (21:02)
[2018-09-08] MEDS: QUETIAPINE FUMARATE 25 MG TABLET PO SCH (21:35)
[2018-09-08] MEDS: LORazepam 0.5 MG/1 ML VIAL IV PRN (21:45)
[2018-09-09] MEDS: POTASSIUM CHLORIDE 40 MEQ in LACTATED RINGER'S 1,000 ML IV SCH (01:23)
[2018-09-09] MEDS: MoRPHine SULFATE 4 MG/ML 1 ML CARP\\VIAL IV PRN ×4 (01:24→14:40)
[2018-09-09] MEDS: BREO ELLIPTA: ORDER AWAITING ACTION SCH ×4 (01:36→23:59)
[2018-09-09] MEDS: RESTASIS: ORDER AWAITING ACTION SCH ×4 (01:37→23:59)
[2018-09-09] MEDS: metroNIDAZOLE 500 MG/100 ML BAG IV SCH ×3 (01:41→16:12)
[2018-09-09 06:11] LABS: Hemoglobin 9.7 g/dL (12.0-16.0); Mean Corpuscular Hgb Conc 32.3 g/dL (32-36); Mean Corpuscular Volume 88.8 fL (80-100); Mean Platelet Volume 9.9 fL (7.4-10.4); Platelet Count 388 K/uL (130-400); RDW Coefficient of Variation 14.4 % (11.5-14.5); RDW Standard Deviation 47.1 fL (36.4-46.3); Red Blood Count 3.38 M/uL (4.2-5.4); White Blood Count 16.28 K/uL (4.8-10.8)
[2018-09-09 06:24] LABS: INR 3.2 (0.9-1.1); Prothrombin Time 30.7 Seconds (9.0-12.0)
[2018-09-09] MEDS: CEFEPIME 2,000 MG in SYRINGE 7.5 ML IV SCH ×2 (06:28→18:46)
[2018-09-09 06:54] LABS: BUN Creatinine Ratio 23.2 (10-20); Calcium 7.2 mg/dl (8.5-10.1); Creatinine Clr Calc Pharmacy 44.5 ml/min; Est GFR (African American) 89.4; Est GFR (Non-African American) 77.1; Potassium 4.3 mmol/L (3.5-5.1)
[2018-09-09] MEDS: VORICONAZOLE 200 MG TABLET PO SCH ×2 (12:32→20:47)
[2018-09-09] MEDS: LISINOPRIL 40 MG TAB PO SCH (12:33)
[2018-09-09] MEDS: AMLODIPINE BESYLATE 5 MG TAB PO SCH (12:33)
[2018-09-09 13:45] LABS: Quantiferon Mitogen-NIL 1.63 IU/ML; Quantiferon NIL 0.06 IU/ML; Quantiferon TB Gold Plus NEGATIVE; Quantiferon TB1-NIL <0.00 IU/ML
--- NOTE | 2018-09-09 14:39 | Palliative Care Progress Note ---
Date of Service September 09, 2018 Assessment & Plan (1) Goals of care, counseling/discussion: -Yesterday, patient took a turn for the worst. She became more hypoxic, sats in 70s. Family meeting was held with patient's two sons, Dr. Xiong, myself , Surjit Suarez PA-C, and Dr. Eaton. Decision was made to not escalate care, continue abx and oxygen, and treat symptoms. -Patient's son apparently did ask that the bipap be put back on patient last night. Today, however, patient became agitated with bipap while son, Musa, was in room. They removed the bipap and placed oxymask on. -During my visit with patient and son, Musa, patient was mostly obtunded by jannette blas while I was doing exam. She is tachypneic, using accessory muscles. Talked with son about NOT placing bipap back on as it is not providing patient any sort of comfort-- he agreed to only conitnue the oxymask. We also talked about treating the SOB/dyspnea with morphine, he is still in agreement with that. -Will increase morphine to Q2h PRN pain or SOB. I anticipate that patient's need for comfort medications will continue to increase. -Will continue to follow. (2) Altered mental status: (3) Pneumonia: (4) Chronic diastolic CHF (congestive heart failure): (5) Severe protein-calorie malnutrition: (6) Acute and chronic respiratory failure: (7) COPD (chronic obstructive pulmonary disease): Subjective Patient is obtunded today, but does still respond to tactile stimuli but moving extremities and facial grimacing. She was resisting the bipap earlier today. Her oxygen saturation is 93% on 15L oxymask now. Son, Musa, is at bedside. See A &P. Review of Systems Unobtainable due to cognitive status Physical Exam 2 Vital Signs (Past 24 Hours): Last Vital Signs Temp 37.2 C 09/09/18 07:18 Pulse 97 H 09/09/18 12:31 Resp 24 09/09/18 12:31 BP 138/75 09/09/18 12:31 Pulse Ox 93 09/09/18 12:31 Constitutional: + ill appearing (chronically), + thin and + cachectic Neck: normal visual inspection and trachea midline Respiratory: + labored breathing Auscultation: + diminished lung sounds and + rhonchi Cardiovascular: RRR, no murmur, no edema Gastrointestinal (Abdomen): normal bowel sounds, soft, nontender, no hepatosplenomegaly Psychiatric: Orientation: + not alert (obtunded) Time Spent Midlevel 35 minutes with >50% of time spent at bedside with patient and family discussing condition, comfort care, and EOL issues. _ (1) Altered mental status Altered mental status type: unspecified Coma depth: Coma timing: Qualified Code(s): R41.82 - Altered mental status, unspecified (2) Pneumonia Aspiration pneumonia type: Laterality: right Lung location: upper lobe of lung Pneumonia type: due to unspecified organism Qualified Code(s): J18.1 - Lobar pneumonia, unspecified organism (3) Acute and chronic respiratory failure Respiratory failure complication: hypoxia Qualified Code(s): J96.21 - Acute and chronic respiratory failure with hypoxia (4) COPD (chronic obstructive pulmonary disease) COPD type: unspecified COPD Chronic bronchitis type: Emphysema type: Qualified Code(s): J44.9 - Chronic obstructive pulmonary disease, unspecified
[2018-09-09] MEDS ORDERED: MoRPHine SULFATE 4 MG/ML 1 ML CARP\\VIAL IV PRN (15:08)
--- NOTE | 2018-09-09 18:23 | Hospitalist Progress Note ---
Date of Service September 09, 2018 Assessment & Plan (1) Pneumonia: - Developed worsening hypoxia on 09/08 likely related to progression of PNA. - CXR showed progressive infiltrate of right upper lung, bilateral pleural effusions. - CT chest 09/05: increase in RUL opacity, 3.9 cm RUL cavitary lesion - may be necrotizing PNA vs. fungal PNA. - Sputum culture +Aspergillus -- Aspergillus Ab, Fungitell pending, Quantiferon gold serology negative. - Continue Cefepime/Flagyl/Voriconazole. - Pulmonary and palliative care following, greatly appreciate input. - Discussed goals of care with family at bedside -- DNR, partial comfort measures with Morphine IV and Ativan SL prn. - Will continue IV meds and home PO medications as tolerated per family wishes. (2) Acute and chronic respiratory failure with hypoxia: - Worsening respiratory failure over last 24 hours; BiPAP now removed and pt. is maintaining appropriate sats with Oxymask at 15L. - Her son was agreeable to discontinuing use of BiPAP if O2 sats worsen overnight. - Likely related to progression of PNA. - Morphine IV prn SOB/discomfort. (3) Metabolic encephalopathy: - Pt. is altered, related to acute respiratory failure in setting of comfort measures. (4) Dementia: - Has had progression of dementia over last year; unclear baseline mental status. - Continue Seroquel 25 mg PO daily. (5) COPD (chronic obstructive pulmonary disease): - Very long standing tobacco history, is a current smoker. - Limited treatment in setting of comfort care -- on abx as noted above. (6) Chronic diastolic CHF (congestive heart failure): - Echo Jul 2018: EF 65% with Grade 1 diastolic dysfunction. - Continue ACEI as prescribed. (7) Pulmonary embolism: - Resumed to be 2/2 DVT in setting of right tibia fracture and poor mobility. - Monitor PT/INR daily -- 3.2 this morning. - Hold Coumadin this evening. (8) Chronic deep vein thrombosis (DVT): - Left leg DVT. - On Warfarin as noted above. (9) HTN (hypertension): - Continue Amlodipine 5 mg daily and Lisinopril 40 mg qAM if pt. tolerating PO meds. (10) Chronic kidney disease, stage 3a: - Monitor renal function daily; renally adjust all medications. - Creatinine is currently at baseline. (11) Tibial plateau fracture, right: - Presented on 08/03/18; orthopedics (Dylan and Velma) recommended conservative measures. - No indication for ortho consult, PT/OT as pt. is comfort care. (12) Severe protein-calorie malnutrition: - Comfort care measures -- PO intake as tolerated. (13) DVT prophylaxis: - Warfarin. Dispo: Med/surg; palliative following, on partial comfort care measures but will continue IV abx/anti-fungals, home PO meds and IV fluids. Is requiring increased O2, attempting BiPAP this afternoon. Code Status: DNR, no intubation -- confirmed with family today. Ok with supportive treatment at this time. Supervising Physician Co-Signing Physician Notes PA Supervision Note: I did not personally see or examine the patient today, but I verified all cannon points of ROBERT Suarez's assessment and plan with the following exceptions/ additions: None Subjective Pt. was lethargic this morning but was tolerating BiPAP. O2 sats were stable overnight with BiPAP. She did not take morning meds due to lethargy. Son was present at bedside and requested to continue abx. He also inquired about the next CXR for follow up of PNA progression. Explained that we are leaning towards comfort measures and will likely not continue imaging but will monitor labs/continue meds. This afternoon, BiPAP was removed by son as the patient had to cough. She was placed on Oxymask at 15L and O2 sats have been relatively stable. ORACLE HRMS DEVELOPER from palliative met with the son; he was agreeable to discontinuing BiPAP if she desaturates again but would like ongoing abx. Pt. has been using Morphine intermittently for SOB/discomfort. Review of Systems Unobtainable due to cognitive status Physical Exam 2 Vital Signs (Past 24 Hours): Last Vital Signs Temp 36.8 C 09/09/18 15:16 Pulse 91 H 09/09/18 15:16 Resp 22 09/09/18 15:16 BP 145/71 H 09/09/18 15:16 Pulse Ox 90 09/09/18 15:16 Physical Exam: General: In moderate distress 2/2 dyspnea. Chronically ill appearing. HEENT: NC/AT; PERRLA with EOMI; [place] conjunctiva, MMM. Cardiac: RRR Lungs: oxymask at 15L,; very coarse breath sounds noted throughout. Abdomen: Bowel normoactive X 4; Nontender to palpation Extremities: Warm. No edema present Neuro: No focal weakness; not alert to verbal stimuli. Skin: No rash Results & Data Laboratory Results 09/09/18 09/09/18 09/09/18 Range/Units 05:13 05:13 05:13 WBC 16.28 H (4.8-10.8) K/uL RBC 3.38 L (4.2-5.4) M/uL Hgb 9.7 L (12.0-16.0) g/dL Hct 30.0 L (37-47) % MCV 88.8 (80-100) fL MCH 28.7 (25-34) pg MCHC 32.3 (32-36) g/dL RDW Std Deviation 47.1 H (36.4-46.3) fL RDW Coeff of [place] 14.4 (11.5-14.5) % Plt Count 388 (130-400) K/uL MPV 9.9 (7.4-10.4) fL PT 30.7 H (9.0-12.0) Seconds INR 3.2 H (0.9-1.1) Sodium 142 (136-145) mmol/L Potassium 4.3 D (3.5-5.1) mmol/L Chloride 115 H (98-107) mmol/L Carbon Dioxide 23 (21-32) mmol/L Anion Gap 4.0 (3-11) BUN 16 (7-18) mg/dl Creatinine 0.71 (0.6-1.2) mg/dl Est Cr Clr Drug Dosing 44.5 ml/min Est GFR ( Amer) 89.4 Est GFR (Non-Af Amer) 77.1 BUN/Creatinine Ratio 23.2 H (10-20) Glucose 88 (70-99) mg/dl Calcium 7.2 L (8.5-10.1) mg/dl TB Test (QFT) Gold Plus TB Test (QFT) Nil IU/ML TB Test Mitogen - Nil IU/ML TB Test Ag - Nil 1 IU/ML TB Test Ag - Nil 2 IU/ML 09/07/18 Range/Units 12:07 WBC (4.8-10.8) K/uL RBC (4.2-5.4) M/uL Hgb (12.0-16.0) g/dL Hct (37-47) % MCV (80-100) fL MCH (25-34) pg MCHC (32-36) g/dL RDW Std Deviation (36.4-46.3) fL RDW Coeff of [place] (11.5-14.5) % Plt Count (130-400) K/uL MPV (7.4-10.4) fL PT (9.0-12.0) Seconds INR (0.9-1.1) Sodium (136-145) mmol/L Potassium (3.5-5.1) mmol/L Chloride (98-107) mmol/L Carbon Dioxide (21-32) mmol/L Anion Gap (3-11) BUN (7-18) mg/dl Creatinine (0.6-1.2) mg/dl Est Cr Clr Drug Dosing ml/min Est GFR ( Amer) Est GFR (Non-Af Amer) BUN/Creatinine Ratio (10-20) Glucose (70-99) mg/dl Calcium (8.5-10.1) mg/dl TB Test (QFT) Gold Plus NEGATIVE TB Test (QFT) Nil 0.06 IU/ML TB Test Mitogen - Nil 1.63 IU/ML TB Test Ag - Nil 1 <0.00 IU/ML TB Test Ag - Nil 2 0.00 IU/ML _ (1) Dementia Alzheimer's disease onset: Dementia behavioral disturbance: without behavioral disturbance Dementia type: unspecified type Qualified Code(s): F03.90 - Unspecified dementia without behavioral disturbance (2) Tibial plateau fracture, right Encounter type: sequela Fracture healing: Fracture type: closed Open fracture type: Qualified Code(s): S82.141S - Displaced bicondylar fracture of right tibia, sequela (3) Chronic deep vein thrombosis (DVT) Affected thrombotic vein of extremity: femoral DVT location: lower extremity Laterality: left Qualified Code(s): I82.512 - Chronic embolism and thrombosis of left femoral vein (4) COPD (chronic obstructive pulmonary disease) COPD type: unspecified COPD Chronic bronchitis type: Emphysema type: Qualified Code(s): J44.9 - Chronic obstructive pulmonary disease, unspecified (5) HTN (hypertension) Hypertension type: essential hypertension Qualified Code(s): I10 - Essential (primary) hypertension (6) Pneumonia Aspiration pneumonia type: Laterality: right Lung location: upper lobe of lung Pneumonia type: due to unspecified organism Qualified Code(s): J18.1 - Lobar pneumonia, unspecified organism
[2018-09-09] MEDS: LORazepam 0.5 MG/1 ML VIAL IV PRN (20:24)
[2018-09-09] MEDS: QUETIAPINE FUMARATE 25 MG TABLET PO SCH (20:47)
[2018-09-09] MEDS: ATROPINE SULFATE 1% OP SOLN 5 ML BTL SL PRN (20:53)
[2018-09-10] MEDS: metroNIDAZOLE 500 MG/100 ML BAG IV SCH ×2 (00:08→09:18)
[2018-09-10 05:30] LABS: Hematocrit (blood only) 30.6 % (37-47); Hemoglobin 9.6 g/dL (12.0-16.0); Mean Corpuscular Hgb Conc 31.4 g/dL (32-36); Mean Corpuscular Volume 88.4 fL (80-100); Mean Platelet Volume 9.8 fL (7.4-10.4); Platelet Count 385 K/uL (130-400); RDW Coefficient of Variation 14.8 % (11.5-14.5); RDW Standard Deviation 47.8 fL (36.4-46.3); Red Blood Count 3.46 M/uL (4.2-5.4); White Blood Count 15.65 K/uL (4.8-10.8)
[2018-09-10 05:42] LABS: Prothrombin Time 41.9 Seconds (9.0-12.0)
[2018-09-10 05:45] LABS: INR 4.5 (0.9-1.1)
[2018-09-10] MEDS: CEFEPIME 2,000 MG in SYRINGE 7.5 ML IV SCH (05:55)
[2018-09-10 05:58] LABS: BUN Creatinine Ratio 27.7 (10-20); Calcium 7.3 mg/dl (8.5-10.1); Creatinine Clr Calc Pharmacy 45.8 ml/min; Est GFR (African American) 91.4; Est GFR (Non-African American) 78.8; Potassium 3.9 mmol/L (3.5-5.1)
[2018-09-10] MEDS: ATROPINE SULFATE 1% OP SOLN 5 ML BTL SL PRN ×2 (06:48→18:09)
[2018-09-10] MEDS: RESTASIS: ORDER AWAITING ACTION SCH ×3 (07:23→23:51)
[2018-09-10] MEDS: BREO ELLIPTA: ORDER AWAITING ACTION SCH ×3 (07:23→23:50)
[2018-09-10] MEDS: AMLODIPINE BESYLATE 5 MG TAB PO SCH (09:19)
[2018-09-10] MEDS: LISINOPRIL 40 MG TAB PO SCH (09:20)
[2018-09-10] MEDS: VORICONAZOLE 200 MG TABLET PO SCH (09:20)
[2018-09-10] MEDS: MoRPHine SULFATE 4 MG/ML 1 ML CARP\\VIAL IV PRN ×2 (10:20→18:09)
--- NOTE | 2018-09-10 13:19 | Palliative Care Progress Note ---
Date of Service September 10, 2018 Assessment & Plan (1) Goals of care, counseling/discussion: -Discussed with both of patient's sons again today about patient's condition. She is declining, actively dying. Her lungs sound more moist. SHe is very uncomfortable with any sort of mask on, bipap or oxymask. We will switch her to nasal cannula and NOT place bipap or oxymask back on. -At this point, will discontinue abx and IVF as her lungs are more moist, secretions increasing. Does have atropine drops for secretions. -Comfort measures only. -Will increase morphine to Q1h PRN pain or SOB. I anticipate that patient's need for comfort medications will continue to increase. -Will continue to follow. (2) Altered mental status: (3) Pneumonia: (4) Chronic diastolic CHF (congestive heart failure): (5) Severe protein-calorie malnutrition: (6) Acute and chronic respiratory failure: (7) COPD (chronic obstructive pulmonary disease): Subjective Patient's condition continues to deteriorate. Patient's son and mother were at bedside. See A&P. Review of Systems Unobtainable due to cognitive status Physical Exam 2 Vital Signs (Past 24 Hours): Last Vital Signs Temp 37.4 C 09/10/18 07:20 Pulse 91 H 09/10/18 07:20 Resp 20 09/10/18 07:20 BP 118/72 09/10/18 07:20 Pulse Ox 94 09/10/18 07:20 Constitutional: + ill appearing (chronically), + thin and + cachectic; no acute distress Eyes: PERRL ENMT: Ears: no hearing impairment Neck: normal visual inspection and trachea midline Respiratory: + labored breathing and + tachypneic Auscultation: + diminished lung sounds, + crackles and + rhonchi Cardiovascular: RRR, no murmur, no edema Gastrointestinal (Abdomen): normal bowel sounds, soft, nontender, no hepatosplenomegaly Neurologic: + confused Psychiatric: Orientation: alert (lethargic, does wake up sometimes but disoriented) Time Spent Midlevel 35 minutes with >50% of time spent at bedside with patient and family discussing condition and EOL issues as well as NURSE TECHNICIAN. _ (1) Altered mental status Altered mental status type: unspecified Coma depth: Coma timing: Qualified Code(s): R41.82 - Altered mental status, unspecified (2) Pneumonia Aspiration pneumonia type: Laterality: right Lung location: upper lobe of lung Pneumonia type: due to unspecified organism Qualified Code(s): J18.1 - Lobar pneumonia, unspecified organism (3) Acute and chronic respiratory failure Respiratory failure complication: hypoxia Qualified Code(s): J96.21 - Acute and chronic respiratory failure with hypoxia (4) COPD (chronic obstructive pulmonary disease) COPD type: unspecified COPD Chronic bronchitis type: Emphysema type: Qualified Code(s): J44.9 - Chronic obstructive pulmonary disease, unspecified
--- NOTE | 2018-09-10 17:40 | Hospitalist Progress Note ---
Date of Service September 10, 2018 Assessment & Plan (1) Pneumonia: - Developed worsening hypoxia on 09/08 likely related to progression of PNA. - CXR showed progressive infiltrate of right upper lung, bilateral pleural effusions. - CT chest 09/05: increase in RUL opacity, 3.9 cm RUL cavitary lesion - may be necrotizing PNA vs. fungal PNA. - Sputum culture +Aspergillus -- Aspergillus Ab, Fungitell pending, Quantiferon gold serology negative. - Pulmonary and palliative care following, greatly appreciate input. - Converted to comfort care measures, discontinued all abx/anti-fungals. (2) Acute and chronic respiratory failure with hypoxia: - Worsening respiratory failure over last 48 hours. - Likely related to progression of PNA. - O2 via NC for comfort measures only. - Morphine IV prn SOB/discomfort. (3) Metabolic encephalopathy: - Pt. is altered, related to acute respiratory failure in setting of comfort measures. (4) Dementia: - Has had progression of dementia over last year; unclear baseline mental status. - D/c'ed Seroquel. (5) COPD (chronic obstructive pulmonary disease): - Very long standing tobacco history, is a current smoker. (6) Chronic diastolic CHF (congestive heart failure): - Echo Jul 2018: EF 65% with Grade 1 diastolic dysfunction. (7) Pulmonary embolism: - Resumed to be 2/2 DVT in setting of right tibia fracture and poor mobility. - Discontinue Coumadin and lab monitoring. (8) Chronic deep vein thrombosis (DVT): - Left leg DVT. (9) HTN (hypertension): - Discontinued PO meds. (10) Chronic kidney disease, stage 3a: - No further renal monitoring. (11) Tibial plateau fracture, right: - Presented on 08/03/18; orthopedics (Adeel) recommended conservative measures. (12) Severe protein-calorie malnutrition: - Comfort care measures -- PO intake as tolerated. (13) DVT prophylaxis: None Dispo: Comfort care measures. Supervising Physician Co-Signing Physician Notes PA Supervision Note: I did not personally see or examine the patient today, but I verified all cannon points of ROBERT Suarez's assessment and plan with the following exceptions/ additions: None Subjective Pt. is not responsive today, family at bedside. She appears tachypneic, in acute distress. Has been receiving intermittent doses of Morphine IV for respiratory distress. On NC for comfort measures. Palliative care met with the family today, converted her to comfort care and discontinued all meds. Review of Systems Unobtainable due to cognitive status Physical Exam 2 Vital Signs (Past 24 Hours): Last Vital Signs Temp 37.4 C 09/10/18 07:20 Pulse 91 H 09/10/18 07:20 Resp 20 09/10/18 07:20 BP 118/72 09/10/18 07:20 Pulse Ox 94 09/10/18 07:20 Physical Exam: General: In moderate distress 2/2 dyspnea. HEENT: NC/AT; PERRLA with EOMI; [place] conjunctiva, MMM. Cardiac: RRR Lungs: on O2 via NC,; diminished throughout Abdomen: Bowel normoactive X 4; Nontender to palpation Extremities: Warm. No edema present Neuro: No focal weakness; not alert to verbal stimuli. Skin: No rash Results & Data Laboratory Results 09/10/18 09/10/18 09/10/18 Range/Units 05:17 05:17 05:17 WBC 15.65 H (4.8-10.8) K/uL RBC 3.46 L (4.2-5.4) M/uL Hgb 9.6 L (12.0-16.0) g/dL Hct 30.6 L (37-47) % MCV 88.4 (80-100) fL MCH 27.7 (25-34) pg MCHC 31.4 L (32-36) g/dL RDW Std Deviation 47.8 H (36.4-46.3) fL RDW Coeff of Juan [place] 14.8 H (11.5-14.5) % Plt Count 385 (130-400) K/uL MPV 9.8 (7.4-10.4) fL PT 41.9 H (9.0-12.0) Seconds INR 4.5 H (0.9-1.1) Sodium 143 (136-145) mmol/L Potassium 3.9 (3.5-5.1) mmol/L Chloride 115 H (98-107) mmol/L Carbon Dioxide 25 (21-32) mmol/L Anion Gap 3.0 (3-11) BUN 19 H (7-18) mg/dl Creatinine 0.69 (0.6-1.2) mg/dl Est Cr Clr Drug Dosing 45.8 ml/min Est GFR ( Amer) 91.4 Est GFR (Non-Af Amer) 78.8 BUN/Creatinine Ratio 27.7 H (10-20) Glucose 73 (70-99) mg/dl Calcium 7.3 L (8.5-10.1) mg/dl _ (1) Dementia Alzheimer's disease onset: Dementia behavioral disturbance: without behavioral disturbance Dementia type: unspecified type Qualified Code(s): F03.90 - Unspecified dementia without behavioral disturbance (2) Tibial plateau fracture, right Encounter type: sequela Fracture healing: Fracture type: closed Open fracture type: Qualified Code(s): S82.141S - Displaced bicondylar fracture of right tibia, sequela (3) Chronic deep vein thrombosis (DVT) Affected thrombotic vein of extremity: femoral DVT location: lower extremity Laterality: left Qualified Code(s): I82.512 - Chronic embolism and thrombosis of left femoral vein (4) COPD (chronic obstructive pulmonary disease) COPD type: unspecified COPD Chronic bronchitis type: Emphysema type: Qualified Code(s): J44.9 - Chronic obstructive pulmonary disease, unspecified (5) HTN (hypertension) Hypertension type: essential hypertension Qualified Code(s): I10 - Essential (primary) hypertension (6) Pneumonia Aspiration pneumonia type: Laterality: right Lung location: upper lobe of lung Pneumonia type: due to unspecified organism Qualified Code(s): J18.1 - Lobar pneumonia, unspecified organism
[2018-09-10] MEDS ORDERED: OXYCODONE HCL SOLN 5 MG/5 ML UDC PO PRN (18:58)
[2018-09-11] MEDS: MoRPHine SULFATE 4 MG/ML 1 ML CARP\\VIAL IV PRN ×2 (00:09→02:30)
[2018-09-11] MEDS: ATROPINE SULFATE 1% OP SOLN 5 ML BTL SL PRN (02:37)
[2018-09-11] MEDS: BREO ELLIPTA: ORDER AWAITING ACTION SCH ×3 (07:26→23:49)
[2018-09-11] MEDS: RESTASIS: ORDER AWAITING ACTION SCH ×3 (07:27→23:49)
[2018-09-11] MEDS ORDERED: OXYCODONE HCL SOLN 5 MG/5 ML UDC PO PRN (12:15)
[2018-09-11] MEDS ORDERED: CEFEPIME 2,000 MG in SYRINGE 7.5 ML IV SCH (12:15)
[2018-09-11] MEDS: metroNIDAZOLE 500 MG/100 ML BAG IV SCH ×2 (14:18→22:20)
[2018-09-11] MEDS: CEFEPIME 2,000 MG in SYRINGE 7.5 ML IV SCH (14:20)
--- NOTE | 2018-09-11 15:58 | Hospitalist Progress Note ---
Date of Service September 11, 2018 Assessment & Plan (1) Pneumonia: (1) Pneumonia: - Developed worsening hypoxia on 09/08 likely related to progression of PNA. - CXR showed progressive infiltrate of right upper lung, bilateral pleural effusions. - CT chest 09/05: increase in RUL opacity, 3.9 cm RUL cavitary lesion - may be necrotizing PNA vs. fungal PNA. - Sputum culture +Aspergillus -- Aspergillus Ab, Fungitell pending, Quantiferon gold serology negative. - Pulmonary and palliative care following, greatly appreciate input. - Converted to comfort care measures, discontinued all abx/anti-fungals. but now family wants bx restarted (2) Acute and chronic respiratory failure with hypoxia: - Worsening respiratory failure over last 48 hours. - Likely related to progression of PNA. - O2 via NC - Morphine IV prn SOB/discomfort. (3) Metabolic encephalopathy: - Pt. is altered, related to acute respiratory failure in setting of comfort measures. (4) Dementia: - Has had progression of dementia over last year; unclear baseline mental status. - D/c'ed Seroquel. (5) COPD (chronic obstructive pulmonary disease): - Very long standing tobacco history, is a current smoker. (6) Chronic diastolic CHF (congestive heart failure): - Echo Jul 2018: EF 65% with Grade 1 diastolic dysfunction. (7) Pulmonary embolism: - Resumed to be 2/2 DVT in setting of right tibia fracture and poor mobility. - Discontinue Coumadin and lab monitoring. (8) Chronic deep vein thrombosis (DVT): - Left leg DVT. (9) HTN (hypertension): - Discontinued PO meds. (10) Chronic kidney disease, stage 3a: - No further renal monitoring. (11) Tibial plateau fracture, right: - Presented on 08/03/18; orthopedics (Adeel) recommended conservative measures. (12) Severe protein-calorie malnutrition: - Comfort care measures -- PO intake as tolerated. (13) DVT prophylaxis: None Dispo: Comfort care measures. 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 is in acute respiratory distress; her family is at bedside and has denied morphine/ativan use due to sedation. Dr. Eaton and I discussed plan of care with her son Musa at bedside today. He states the patient was able to wake up and eat this morning after the Morphine effect had worn off. He would like to restart abx -- he does not want to "give up" treating her. We discussed the potential for pulm edema, etc in the setting of abx. Will restart abx/anti- fungals and continue to monitor closely. She remains on Oxymask at 15L O2. Review of Systems Unobtainable due to cognitive status Physical Exam 2 Vital Signs (Past 24 Hours): Last Vital Signs Temp 37.4 C 09/10/18 07:20 Pulse 91 H 09/10/18 07:20 Resp 20 09/10/18 07:20 BP 118/72 09/10/18 07:20 Pulse Ox 94 09/10/18 07:20 Physical Exam: General: In acute distress 2/2 dyspnea. HEENT: NC/AT; PERRLA with EOMI; [place] conjunctiva, MMM. Cardiac: RRR Lungs: oxymask; coarse breath sounds throughout with rhonchi/wheezing. Abdomen: Bowel normoactive X 4; Nontender to palpation Extremities: Warm. No edema present Neuro: No focal weakness; not alert to verbal stimuli. Skin: No rash _ (1) Dementia Alzheimer's disease onset: Dementia behavioral disturbance: without behavioral disturbance Dementia type: unspecified type Qualified Code(s): F03.90 - Unspecified dementia without behavioral disturbance (2) Tibial plateau fracture, right Encounter type: sequela Fracture healing: Fracture type: closed Open fracture type: Qualified Code(s): S82.141S - Displaced bicondylar fracture of right tibia, sequela (3) Chronic deep vein thrombosis (DVT) Affected thrombotic vein of extremity: femoral DVT location: lower extremity Laterality: left Qualified Code(s): I82.512 - Chronic embolism and thrombosis of left femoral vein (4) COPD (chronic obstructive pulmonary disease) COPD type: unspecified COPD Chronic bronchitis type: Emphysema type: Qualified Code(s): J44.9 - Chronic obstructive pulmonary disease, unspecified (5) HTN (hypertension) Hypertension type: essential hypertension Qualified Code(s): I10 - Essential (primary) hypertension (6) Pneumonia Aspiration pneumonia type: Laterality: right Lung location: upper lobe of lung Pneumonia type: due to unspecified organism Qualified Code(s): J18.1 - Lobar pneumonia, unspecified organism
[2018-09-11] MEDS: VORICONAZOLE 200 MG TABLET PO SCH (20:29)
[2018-09-11 21:21] LABS: Aspergillus Flavus Negative (Negative); Aspergillus Niger Negative (Negative)
[2018-09-11] MEDS ORDERED: QUETIAPINE FUMARATE 25 MG TABLET PO SCH (23:15)
[2018-09-12] MEDS: CEFEPIME 2,000 MG in SYRINGE 7.5 ML IV SCH ×2 (01:46→14:23)
[2018-09-12] MEDS: metroNIDAZOLE 500 MG/100 ML BAG IV SCH ×3 (05:56→22:57)
[2018-09-12] MEDS: BREO ELLIPTA: ORDER AWAITING ACTION SCH ×2 (07:55→17:11)
[2018-09-12] MEDS: RESTASIS: ORDER AWAITING ACTION SCH ×2 (07:55→17:11)
[2018-09-12] MEDS: VORICONAZOLE 200 MG TABLET PO SCH (08:10)
[2018-09-12 08:44] LABS: Hematocrit (blood only) 30.1 % (37-47); Hemoglobin 9.7 g/dL (12.0-16.0); Mean Corpuscular Hgb Conc 32.2 g/dL (32-36); Mean Platelet Volume 9.8 fL (7.4-10.4); Platelet Count 379 K/uL (130-400); RDW Coefficient of Variation 15.3 % (11.5-14.5); RDW Standard Deviation 49.3 fL (36.4-46.3); Red Blood Count 3.42 M/uL (4.2-5.4); White Blood Count 13.15 K/uL (4.8-10.8)
[2018-09-12 09:02] LABS: Albumin Level 1.5 gm/dl (3.4-5.0); BUN Creatinine Ratio 31.3 (10-20); Creatinine Clr Calc Pharmacy 29.3 ml/min; Est GFR (African American) 53.8; Est GFR (Non-African American) 46.4; Potassium 3.6 mmol/L (3.5-5.1)
[2018-09-12 09:05] LABS: Albumin Globulin Ratio 0.3 (0.9-2); Bilirubin,Total 0.2 mg/dl (0.2-1); Globulin 4.4 gm/dl (2.5-4.0); Total Protein 5.9 gm/dl (6.4-8.2)
[2018-09-12 09:12] LABS: Prothrombin Time 98.1 Seconds (9.0-12.0)
[2018-09-12 09:34] LABS: INR > 11.0 (0.9-1.1)
[2018-09-12] MEDS ORDERED: PHYTONADIONE 5 MG in SODIUM CHLORIDE 0.9% 50 ML IV ONE (10:00)
--- NOTE | 2018-09-12 11:59 | XRay Report ---
XR chest 1V portable CLINICAL HISTORY: Hypoxia, dyspnea. Pneumonia. COMPARISON STUDY: 09/08/2018 FINDINGS: The heart is normal in size. There are small bilateral pleural effusions. There is persiste nt extensive right upper lobe pulmonary airspace opacities consistent with pneumonia. There is persis tent evidence of left lower lobe atelectasis/consolidation IMPRESSION: 1. Persistent right upper lobe consolidation suspicious for pneumonia 2. Small bilateral pleural effusions and left lower lobe atelectasis/consolidation 3. Emphysema Electronically signed by: Olivier Iqbal M.D. 09/12/2018 11:58 AM
[2018-09-12] MEDS ORDERED: GLYCOPYRROLATE 0.2 MG/ML VIAL IV SCH (12:00)
[2018-09-12] MEDS: SCOPOLAMINE 1.5 MG TDSY TD SCH (12:18)
--- NOTE | 2018-09-12 12:25 | Hospitalist Progress Note ---
Date of Service September 12, 2018 Assessment & Plan (1) Pneumonia: - Developed worsening hypoxia on 09/08 likely related to progression of PNA. - CXR showed progressive infiltrate of right upper lung, bilateral pleural effusions. - CT chest 09/05: increase in RUL opacity, 3.9 cm RUL cavitary lesion - may be necrotizing PNA vs. fungal PNA. - Repeat CXR today showed persistent RUL consolidation, small bilat pleural effusions and emphysema. - Sputum culture +Aspergillus -- Aspergillus Ab negative, Fungitell positive, Quantiferon gold serology negative. - Pulmonary and palliative care following, greatly appreciate input. - Restarted Cefepime/Flagyl/Voriconazole on 09/11 per family request. (2) Acute and chronic respiratory failure with hypoxia: - Worsening respiratory distress over last 12 hours; on nasal cannula with stable O2 saturations. - Likely related to progression of PNA. - Oxygen as needed via oxymask or nasal cannula. - Atropine drops, Robinul IV and Scopolamine patch for increased secretions. - Had extensive discussion with family -- they are refusing Morphine/Ativan prn , would like patient to naturally even if she is having acute pain/SOB. - Discontinued comfort measures today; will continue to monitor. (3) Metabolic encephalopathy: - Pt. is altered, related to acute respiratory failure. (4) Dementia: - Has had progression of dementia over last year; unclear baseline mental status. - Did receive Seroquel 25 mg last evening; Seroquel 25 mg qhs prn insomnia ( will need to confirm with family before giving medication!) (5) COPD (chronic obstructive pulmonary disease): - Very long standing tobacco history, current smoker prior to admission. (6) Chronic diastolic CHF (congestive heart failure): - Echo Jul 2018: EF 65% with Grade 1 diastolic dysfunction. - Caution with continuous IV fluids. (7) Pulmonary embolism: - Presumed to be 2/2 DVT in setting of right tibia fracture and poor mobility. - Last dose of Coumadin on 09/08; held medication on 09/09 due to elevated INR and discontinued lab monitoring on 09/10 for comfort measures. - Repeated INR level today -- was >11. Ordered Vit K 5 mg IV x 1 dose. - Monitor INR levels qAM. (8) Chronic deep vein thrombosis (DVT): - Left leg DVT. - Coumadin as noted above. (9) Coagulopathy: - INR elevated, likely related to medication interactions vs. malnutrition. - Received Vitamin K IV x 1 dose, will repeat further doses if necessary. (10) HTN (hypertension): - Discontinued PO anti-hypertensives on 09/10. - Will resume vital signs & monitor BP. (11) Hypernatremia: - Na level increased to 147 -- likely related to dehydration. - Hold continuous IV fluids in setting of CHF and respiratory distress. - Monitor levels qAM. (12) Chronic kidney disease, stage 3a: - Renally dose all meds. (13) Tibial plateau fracture, right: - Presented on 08/03/18; orthopedics (Dylan and Velma) recommended conservative measures. (14) Severe protein-calorie malnutrition: - PO intake as tolerated. (15) DVT prophylaxis: - Hold Coumadin due to supratherapeutic INR. Dispo: Med/surg -- will continue ongoing goals of care discussion with the family. At this point, they would like to continue abx and anti-fungal as tolerated and discontinue use of Morphine/Ativan prn to avoid sedation during the dying process. Supervising Physician Co-Signing Physician Notes PA Supervision Note: I personally saw and examined the patient. I verified all cannon points and agree with ROBERT Suarez with the following exceptions and/or additions: Pt appears lethargic. RN reported significant respiratory distress this AM and that pt said "help me" and when asked if she was SOB, said "absolutely." Son at bedside does not want her to get any sedating medications, even if she is SOB because he says she has been SOB for years and that's how she always breathes at home. He wants her to be awake enough to eat. Vitals reviewed chart reviewed frail, sleeping, curled into position, cachectic no current respiratory distress +audible rhonchi no rashes 87 yo female with a h/o recent PE, tibial plateau fracture and bedbound status, here with multifocal PNA, possible necrotixzing PNA, acute hypoxic resp failure. Worsening condition -family wishes to continue all abx, later in day asked for IVFs to be started, have revoked her comfort measures I feel this pt is approaching end of life at this point. SHe has a bad PNA and CXR today is unchanged. She is struggling to breathe at times. -Will not give morphine or ativan at this time as per family request -continue IV abx -continue supplemental O2 -reverse INR and follow INR in AM Subjective Pt. was relatively stable overnight on Oxymask at 4L. Her last dose of Morphine was administered on 09/11/18 at 02:30. Last dose of Ativan was given on 09/09/18 at 20:24. Multiple discussions have been held with the family regarding comfort care measures in the setting of worsening respiratory failure. Medications and lab work discontinued on Thursday09/10/18 after palliative care discussion with family by ARIEL Hi. The family requested to speak with the providers yesterday morning -- they requested to restart antibiotics and anti- fungals. We explained the benefits vs. risks of restarting medications. This morning, pt. was lethargic and did not take morning medications as she was not able to tolerate them. IV Cefepime and Flagyl were administered. Voriconazole was not administered due to inablity to take PO meds. Pt. did receive a dose of Seroquel last evening. She has been requiring Oxymask at 4-5L this morning with stable oxygen saturations. Pt. appeared very tachypneic with acute distress secondary to shortness of breath. The bedside nurse reported that the patient told her "please help me". During evaluation, I asked the patient if she felt short of breath -- she replied "absolutely". We administered Morphine 2 mg IV due to acute respiratory distress (please refer to other documention for exact time administered). I called her son, Musa, to update him on the current status. We discussed her decline in respiratory status. He was also informed that she did receive Morphine 2 mg IV. He became very agitated and stated "someone should have fucking called me before giving her morphine". He demanded to hold the dose; morphine had already been administered. We discussed the need for ongoing morphine to make the patient comfortable during the dying process. The son told me "I know her, she would rather in pain/being short of breath than receive Morphine and because of that". He also stated "I know how hospice works, they starve you for 5-6 days and that leads to . I am not going to let her starve like that". He requested no further doses of Morphine IV or Ativan are given. He continuously requested that we continue abx and hold sedating medications, including morphine and ativan, as he would like his mother to "naturally". He would like her to eat today and was planning on stopping at [facility] for mashed potatoes. We explained that she is not awake/alert and may not be able to eat appropriately at this time. After this phone conversation, pt. called back a few minutes later. He wanted to verify that no further doses of Ativan were administered. The patient responded well to the Morphine 2 mg IV. Respiratory distress was improved overall. She became very agitated in the early afternoon. Dr. Eaton met with her son this afternoon in the room. He would like to hold further doses of Ativan or Morphine; he also stated he will let the nurses know if she appears to be in distress. Will dc comfort measures, resume vital signs. Review of Systems Unobtainable due to cognitive status Physical Exam 2 Vital Signs (Past 24 Hours): Last Vital Signs Temp 37.4 C 09/10/18 07:20 Pulse 91 H 09/10/18 07:20 Resp 20 09/10/18 07:20 BP 118/72 09/10/18 07:20 Pulse Ox 94 09/10/18 07:20 Physical Exam: General: Severe resp distress 2/2 to dyspnea; no family were present at bedside this morning. Pt. appears very uncomfortable/agitated. Cardiac: +tachycardia. Lungs: +tachypnea; on O2 via NC; coarse breath sounds through, crackles in lower lung jerez. Abdomen: Bowel normoactive X 4; Nontender to palpation Extremities: No edema present Neuro: No focal weakness; responsive to verbal stimuli but does not stay alert for conversation. Results & Data Laboratory Results 09/12/18 09/12/18 09/12/18 Range/Units 08:30 08:30 08:30 WBC 13.15 H (4.8-10.8) K/uL RBC 3.42 L (4.2-5.4) M/uL Hgb 9.7 L (12.0-16.0) g/dL Hct 30.1 L (37-47) % MCV 88.0 (80-100) fL MCH 28.4 (25-34) pg MCHC 32.2 (32-36) g/dL RDW Std Deviation 49.3 H (36.4-46.3) fL RDW Coeff of Juan Diego 15.3 H (11.5-14.5) % Plt Count 379 (130-400) K/uL MPV 9.8 (7.4-10.4) fL PT 98.1 H (9.0-12.0) Seconds INR > 11.0 H* (0.9-1.1) Sodium 147 H (136-145) mmol/L Potassium 3.6 (3.5-5.1) mmol/L Chloride 116 H (98-107) mmol/L Carbon Dioxide 24 (21-32) mmol/L Anion Gap 7.0 (3-11) BUN 34 H (7-18) mg/dl Creatinine 1.08 (0.6-1.2) mg/dl Est Cr Clr Drug Dosing 29.3 ml/min Est GFR ( Amer) 53.8 Est GFR (Non-Af Amer) 46.4 BUN/Creatinine Ratio 31.3 H (10-20) Glucose 122 H (70-99) mg/dl Calcium 8.0 L (8.5-10.1) mg/dl Magnesium 2.0 (1.8-2.4) mg/dl Total Bilirubin 0.2 (0.2-1) mg/dl AST 16 (15-37) U/L ALT 9 L (12-78) U/L Alkaline Phosphatase 63 (45-117) U/L Total Protein 5.9 L (6.4-8.2) gm/dl Albumin 1.5 L (3.4-5.0) gm/dl Globulin 4.4 H (2.5-4.0) gm/dl Albumin/Globulin Ratio 0.3 L (0.9-2) Aspergillus flavus Ab (Negative) Aspergill fumigatus Ab (Negative) Aspergillus niger Ab (Negative) TB Test (QFT) Gold Plus TB Test (QFT) Nil TB Test Mitogen - Nil TB Test Ag - Nil 1 TB Test Ag - Nil 2 Beta-(1,3)-D-Glucan pg/mL B-(1,3)-D-Glucan Intrp 09/07/18 Range/Units 12:07 WBC (4.8-10.8) K/uL RBC (4.2-5.4) M/uL Hgb (12.0-16.0) g/dL Hct (37-47) % MCV (80-100) fL MCH (25-34) pg MCHC (32-36) g/dL RDW Std Deviation (36.4-46.3) fL RDW Coeff of Juan Diego (11.5-14.5) % Plt Count (130-400) K/uL MPV (7.4-10.4) fL PT (9.0-12.0) Seconds INR (0.9-1.1) Sodium (136-145) mmol/L Potassium (3.5-5.1) mmol/L Chloride (98-107) mmol/L Carbon Dioxide (21-32) mmol/L Anion Gap (3-11) BUN (7-18) mg/dl Creatinine (0.6-1.2) mg/dl Est Cr Clr Drug Dosing ml/min Est GFR ( Amer) Est GFR (Non-Af Amer) BUN/Creatinine Ratio (10-20) Glucose (70-99) mg/dl Calcium (8.5-10.1) mg/dl Magnesium (1.8-2.4) mg/dl Total Bilirubin (0.2-1) mg/dl AST (15-37) U/L ALT (12-78) U/L Alkaline Phosphatase (45-117) U/L Total Protein (6.4-8.2) gm/dl Albumin (3.4-5.0) gm/dl Globulin (2.5-4.0) gm/dl Albumin/Globulin Ratio (0.9-2) Aspergillus flavus Ab Negative (Negative) Aspergill fumigatus Ab Negative (Negative) Aspergillus niger Ab Negative (Negative) TB Test (QFT) Gold Plus Cancelled TB Test (QFT) Nil Cancelled TB Test Mitogen - Nil Cancelled TB Test Ag - Nil 1 Cancelled TB Test Ag - Nil 2 Cancelled Beta-(1,3)-D-Glucan 88 H pg/mL B-(1,3)-D-Glucan Intrp POSITIVE A _ (1) Dementia Alzheimer's disease onset: Dementia behavioral disturbance: without behavioral disturbance Dementia type: unspecified type Qualified Code(s): F03.90 - Unspecified dementia without behavioral disturbance (2) Tibial plateau fracture, right Encounter type: sequela Fracture healing: Fracture type: closed Open fracture type: Qualified Code(s): S82.141S - Displaced bicondylar fracture of right tibia, sequela (3) Chronic deep vein thrombosis (DVT) Affected thrombotic vein of extremity: femoral DVT location: lower extremity Laterality: left Qualified Code(s): I82.512 - Chronic embolism and thrombosis of left femoral vein (4) COPD (chronic obstructive pulmonary disease) COPD type: unspecified COPD Chronic bronchitis type: Emphysema type: Qualified Code(s): J44.9 - Chronic obstructive pulmonary disease, unspecified (5) HTN (hypertension) Hypertension type: essential hypertension Qualified Code(s): I10 - Essential (primary) hypertension (6) Pneumonia Aspiration pneumonia type: Laterality: right Lung location: upper lobe of lung Pneumonia type: due to unspecified organism Qualified Code(s): J18.1 - Lobar pneumonia, unspecified organism
[2018-09-12] MEDS ORDERED: QUETIAPINE FUMARATE 25 MG TABLET PO PRN (13:49)
[2018-09-12] MEDS: CHECK SCOPOLAMINE PATCH PLACEMENT SCH (17:11)
[2018-09-12] MEDS ORDERED: GLYCOPYRROLATE IV PRN (18:00)
[2018-09-12] MEDS ORDERED: GLYCOPYRROLATE IV SCH (18:00)
[2018-09-12] MEDS: D5W AND 1/2NSS 1,000 ML IV SCH (20:01)
[2018-09-12] MEDS ORDERED: CASPOFUNGIN 70 MG in SODIUM CHLORIDE 0.9% 250 ML IV ONE (21:00)
[2018-09-13] MEDS: RESTASIS: ORDER AWAITING ACTION SCH ×3 (00:06→18:02)
[2018-09-13] MEDS: BREO ELLIPTA: ORDER AWAITING ACTION SCH ×3 (00:06→15:50)
[2018-09-13] MEDS: CHECK SCOPOLAMINE PATCH PLACEMENT SCH ×3 (01:27→15:50)
[2018-09-13] MEDS: CEFEPIME 2,000 MG in SYRINGE 7.5 ML IV SCH (01:27)
[2018-09-13] MEDS: metroNIDAZOLE 500 MG/100 ML BAG IV SCH (05:49)
[2018-09-13 05:51] LABS: Hematocrit (blood only) 32.5 % (37-47); Hemoglobin 10.2 g/dL (12.0-16.0); Mean Corpuscular Hgb Conc 31.4 g/dL (32-36); Mean Corpuscular Volume 88.1 fL (80-100); Platelet Count 391 K/uL (130-400); RDW Coefficient of Variation 15.3 % (11.5-14.5); RDW Standard Deviation 49.2 fL (36.4-46.3); Red Blood Count 3.69 M/uL (4.2-5.4); White Blood Count 12.07 K/uL (4.8-10.8)
[2018-09-13 06:20] LABS: Prothrombin Time 19.7 Seconds (9.0-12.0)
[2018-09-13 06:29] LABS: Albumin Level 1.4 gm/dl (3.4-5.0); BUN Creatinine Ratio 32.3 (10-20); Creatinine Clr Calc Pharmacy 35.9 ml/min; Est GFR (Non-African American) 59.5; Potassium 3.5 mmol/L (3.5-5.1)
[2018-09-13 06:33] LABS: Albumin Globulin Ratio 0.3 (0.9-2); Bilirubin,Total 0.3 mg/dl (0.2-1); Globulin 4.4 gm/dl (2.5-4.0); Total Protein 5.8 gm/dl (6.4-8.2)
[2018-09-13] MEDS ORDERED: XOPENEX/ATROVENT 1.25mg/0.5MG NEB COMBO NEB SCH (10:05)
--- NOTE | 2018-09-13 10:05 | Palliative Care Progress Note ---
Date of Service September 13, 2018 Assessment & Plan (1) Goals of care, counseling/discussion: -Comfort measures was reversed over the weekend. IVF and abx restarted. Sons are not allowing nursing to given morphine and/or ativan for comfort. -Sons were not present at bedside this morning when I visited. Discussed case with Dr. Moffett, he will speak with patient's sons today. -Patient continues to deteriorate and decline. -I will continue to follow and be off assistance in any way I can. (2) Altered mental status: (3) Pneumonia: (4) Chronic diastolic CHF (congestive heart failure): (5) Severe protein-calorie malnutrition: (6) Acute and chronic respiratory failure: (7) COPD (chronic obstructive pulmonary disease): Subjective Patient continues to decline. She has labored breathing and appears uncomfortable. Does occasionally wake up, but is confused. Comfort measures was reversed over the weekend, sons are not requesting that patient not be given morphine and ativan. Review of Systems Unobtainable due to cognitive status Physical Exam 2 Vital Signs (Past 24 Hours): Last Vital Signs Temp 36.7 C 09/13/18 07:30 Pulse 100 H 09/13/18 07:30 Resp 22 09/13/18 07:30 BP 145/84 H 09/13/18 07:30 Pulse Ox 92 09/13/18 08:00 Constitutional: + ill appearing (chronically), + thin and + cachectic Neck: normal visual inspection and trachea midline Respiratory: + labored breathing and + tachypneic Auscultation: + crackles and + rhonchi Cardiovascular: RRR, no murmur, no edema Gastrointestinal (Abdomen): normal bowel sounds, soft, nontender, no hepatosplenomegaly Psychiatric: Orientation: alert (lethargic, does wake up sometimes but disoriented) Time Spent Midlevel 25 minutes with >50% of time spent at bedside with patient and collaborating with IDT to coordinate care. _ (1) Altered mental status Altered mental status type: unspecified Coma depth: Coma timing: Qualified Code(s): R41.82 - Altered mental status, unspecified (2) Pneumonia Aspiration pneumonia type: Laterality: right Lung location: upper lobe of lung Pneumonia type: due to unspecified organism Qualified Code(s): J18.1 - Lobar pneumonia, unspecified organism (3) Acute and chronic respiratory failure Respiratory failure complication: hypoxia Qualified Code(s): J96.21 - Acute and chronic respiratory failure with hypoxia (4) COPD (chronic obstructive pulmonary disease) COPD type: unspecified COPD Chronic bronchitis type: Emphysema type: Qualified Code(s): J44.9 - Chronic obstructive pulmonary disease, unspecified
[2018-09-13] MEDS: IPRATROPIUM BROMIDE NEB SOLN 0.02% 2.5 ML VIAL INH SCH ×3 (10:30→19:56)
[2018-09-13] MEDS: LEVALBUTEROL 1.25MG/0.5ML NEB INH SCH ×3 (10:30→19:56)
[2018-09-13] MEDS: D5W AND 1/2NSS 1,000 ML IV SCH (15:48)
--- NOTE | 2018-09-13 18:25 | Pulmonology Progress Note ---
Date of Service September 13, 2018 Assessment & Plan (1) Pneumonia: Impression: 1. COPD, advanced. 2. Right upper lobe aspergilloma. 3. Cachexia and poor nutrition. 4. Encephalopathy. Plan: 1. No need for fungal therapy, the patient has aspergilloma, the only treatment effective if the patient started having hemoptysis. Treatment would be with lobectomy in which the patient cannot tolerate such a procedure. Intracavitary treatment with amphotericin is only experimental. 2. Consider palliative care. 3. Agree with the rest of your management. Thank you, will follow as needed. Aspiration pneumonia type: Laterality: right Lung location: upper lobe of lung Pneumonia type: due to unspecified organism Qualified Code( s): J18.1 - Lobar pneumonia, unspecified organism Subjective The patient was seen and examined, however the patient is super lethargic, could not even give me any review of system. Physical Exam 2 Vital Signs (Past 24 Hours): Last Vital Signs Temp 36.8 C 09/13/18 15:30 Pulse 90 09/13/18 15:30 Resp 22 09/13/18 15:30 BP 127/78 09/13/18 15:30 Pulse Ox 96 09/13/18 15:30 Physical Exam: Although she does not have any fever, vital signs remained stable, O2 saturation 96% on nasal cannula, she does have hyperinflated chest cavity, rhonchi bilaterally, S1-S2, abdomen is soft and benign, cachexia. No skin changes, oral mucosa cannot be examined as the patient was almost obtunded. Results & Data Laboratory Results Her labs showed mild leukocytosis, the rest of her BMP is comparable. Diagnostic Findings I have reviewed her CAT scan of the chest myself which showed cavitary lesion in the right upper lobe with aspergilloma, the findings are highly suspicious for growing aspergilloma, cannot rule out the possibility of necrotizing pulmonary aspergillosis.
--- NOTE | 2018-09-13 19:24 | Hospitalist Progress Note ---
Date of Service September 13, 2018 Assessment & Plan (1) Acute and chronic respiratory failure with hypoxia: chronic component 2nd to PEs, emphysema/COPD, +/- RUL infiltrative disease. 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 remains on NC O2. prognosis very poor. (2) Hypernatremia: cont hypotonic fluids BMP in am (3) Pulmonary embolism: INR 2 today fluctuating INRs due to antibiotics, poor oral intake, etc hold coumadin again today due to altered mental status may need to consider heparin bridge if unable to take coumadin (4) Metabolic encephalopathy: in setting of dementia encephalopathy 2nd to pneumonia, hypernatremia, etc (5) Pneumonia: RUL abx had 48-hour stop on them will resume cefepime/flagyl at son's request (6) Chronic kidney disease, stage 3a: repeat BMP am (7) Chronic diastolic CHF (congestive heart failure): compensated she is volume contracted clinically (8) Chronic deep vein thrombosis (DVT): coumadin daily INR (9) Severe protein-calorie malnutrition: in setting of dementia, ongoing debilitation from recent leg fracture/PEs/ DVTs/RUL pneumonia, etc albumin 1.4 today (10) Dementia: at least moderate if not severe by history (11) Tibial plateau fracture, right: (12) COPD (chronic obstructive pulmonary disease): added xopenex/atrovent nebs (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 I went over all of the pt's problems, discussed her ongoing malnutrition/ altered MS/etc, and reviewed the care plan. I discussed with him that her prognosis is very poor. I explained to Musa that at times his mother has significant respiratory distress despite O2, nebs, etc I further explained that we utilize morphine in these situations to help ease air hunger. Musa was adamant that we do NOT use any morphine, ativan, etc unless he gives us permission. He told me that if she were to develop distress at any time that he can be contacted, he would come to the hospital and assess her situation. If he felt she was in distress then he would then give us permission to use morphine, etc at that time. He was very sure that her altered mental status today was from a small dose of morphine given yesterday morning. He also told me that he feels hospice is a means of allowing someone to simply faster (ie a form of euthanasia). I explained to him that hospice or palliative care is in no way any of those. I recommended another 48 hours of supportive care (IV fluids, IV abx, NC O2, etc ) and if she did not improve then we transition to comfort care. He did not seem agreeable to that plan. I spoke extensively with the palliative care team who are aware of the pt's status and the current situation. Subjective patient unable to offer any history or ROS during my first visit to see her in the AM she had her eyes open and said hello but otherwise was confused, played with her sheets/linens, etc during my second visit in the afternoon she was asleep the entire time Review of Systems Unobtainable due to cognitive status Physical Exam 2 Vital Signs (Past 24 Hours): Last Vital Signs Temp 36.8 C 09/13/18 15:30 Pulse 90 09/13/18 15:30 Resp 22 09/13/18 15:30 BP 127/78 09/13/18 15:30 Pulse Ox 96 09/13/18 15:30 Constitutional: + acute distress (tachypneic, accessory muscle use), + thin, + cachectic and + altered mental status ENMT: Mouth: + oral mucosal abnormality (MM very dry ) Respiratory: + respiratory distress, + labored breathing, + retractions and + uses accessory muscles Auscultation: + crackles, + rhonchi and + wheezes Cardiovascular: Rate/Rhythm: regular rhythm and + tachycardic Heart Sounds : normal S1 and normal S2 Vessels: posterior tibial pulses present and dorsalis pedis pulses present Gastrointestinal (Abdomen): normal bowel sounds, soft, nontender, no hepatosplenomegaly Psychiatric: lethargic Results & Data Laboratory Results Laboratory Results - last 24 hr 09/13/18 09/13/18 09/13/18 05:22 05:22 05:22 WBC 12.07 H RBC 3.69 L Hgb 10.2 L Hct 32.5 L MCV 88.1 MCH 27.6 MCHC 31.4 L RDW Std Deviation 49.2 H RDW Coeff of Juan Diego 15.3 H Plt Count 391 MPV 10.0 PT 19.7 H INR 2.0 H Sodium 148 H Potassium 3.5 Chloride 116 H Carbon Dioxide 26 Anion Gap 6.0 BUN 29 H Creatinine 0.88 Est Cr Clr Drug Dosing 35.9 Est GFR ( Amer) 69.0 Est GFR (Non-Af Amer) 59.5 BUN/Creatinine Ratio 32.3 H Glucose 129 H Calcium 8.0 L Magnesium 2.0 Total Bilirubin 0.3 AST 15 ALT 8 L Alkaline Phosphatase 61 Total Protein 5.8 L Albumin 1.4 L Globulin 4.4 H Albumin/Globulin Ratio 0.3 L _ (1) Pneumonia Aspiration pneumonia type: Laterality: right Lung location: upper lobe of lung Pneumonia type: due to unspecified organism Qualified Code(s): J18.1 - Lobar pneumonia, unspecified organism (2) Chronic deep vein thrombosis (DVT) DVT location: lower extremity Affected thrombotic vein of extremity: femoral Laterality: left Qualified Code(s): I82.512 - Chronic embolism and thrombosis of left femoral vein (3) Dementia Dementia type: unspecified type Alzheimer's disease onset: Dementia behavioral disturbance: without behavioral disturbance Qualified Code(s): F03.90 - Unspecified dementia without behavioral disturbance (4) Tibial plateau fracture, right Encounter type: sequela Fracture type: closed Open fracture type: Fracture healing: Qualified Code(s): S82.141S - Displaced bicondylar fracture of right tibia, sequela (5) COPD (chronic obstructive pulmonary disease) COPD type: unspecified COPD Chronic bronchitis type: Emphysema type: Qualified Code(s): J44.9 - Chronic obstructive pulmonary disease, unspecified
[2018-09-13] MEDS: CASPOFUNGIN 50 MG in SODIUM CHLORIDE 0.9% 250 ML IV SCH (20:57)
[2018-09-14] MEDS: CHECK SCOPOLAMINE PATCH PLACEMENT SCH ×3 (00:54→15:33)
[2018-09-14] MEDS: BREO ELLIPTA: ORDER AWAITING ACTION SCH ×4 (00:55→23:40)
[2018-09-14] MEDS: RESTASIS: ORDER AWAITING ACTION SCH ×4 (00:55→23:40)
[2018-09-14] MEDS ORDERED: CEFEPIME CONSULT ACTIVE PRN (01:12)
[2018-09-14] MEDS: IPRATROPIUM BROMIDE NEB SOLN 0.02% 2.5 ML VIAL INH SCH ×4 (01:44→20:40)
[2018-09-14] MEDS: LEVALBUTEROL 1.25MG/0.5ML NEB INH SCH ×4 (01:44→20:40)
[2018-09-14] MEDS: CEFEPIME 1,000 MG in SYRINGE 0 ML IV SCH ×2 (02:09→13:08)
[2018-09-14] MEDS: metroNIDAZOLE 500 MG/100 ML BAG IV SCH ×3 (03:01→18:03)
[2018-09-14 08:31] LABS: INR 2.5 (0.9-1.1); Prothrombin Time 24.3 Seconds (9.0-12.0)
[2018-09-14 08:53] LABS: BUN Creatinine Ratio 23.5 (10-20); Calcium 7.7 mg/dl (8.5-10.1); Creatinine Clr Calc Pharmacy 45.8 ml/min; Est GFR (African American) 91.4; Est GFR (Non-African American) 78.8; Potassium 2.8 mmol/L (3.5-5.1)
[2018-09-14] MEDS: POTASSIUM CHLORIDE / WTR 10 MEQ/100 ML PLCT IV SCH ×2 (10:22→11:17)
[2018-09-14] MEDS: D5W AND 1/2NSS 1,000 ML IV SCH (11:18)
--- NOTE | 2018-09-14 16:16 | Palliative Care Progress Note ---
Date of Service September 14, 2018 Assessment & Plan (1) Goals of care, counseling/discussion: -Comfort measures was reversed over the weekend. IVF and abx restarted. Sons are not allowing nursing to given morphine and/or ativan for comfort. -Sons were not present at bedside this morning when I visited. Discussed case with Dr. Moffett, and he will continue to have converation with sons during hospital stay. -Patient continues to deteriorate and decline. -PPS: 10% -I will continue to follow and be off assistance in any way I can. (2) Altered mental status: (3) Pneumonia: (4) Chronic diastolic CHF (congestive heart failure): (5) Severe protein-calorie malnutrition: (6) Acute and chronic respiratory failure: (7) COPD (chronic obstructive pulmonary disease): Subjective Patient continues to decline. She has labored breathing and appears uncomfortable. Does occasionally wake up, per nursing and upon turns does seem more uncomfortable. Comfort measures was reversed over the weekend, sons are continuing to request that patient not be given morphine and ativan. Further discussion was held by hospitalist and sons yesterday, confirming the above. Physical Exam 2 Vital Signs (Past 24 Hours): Last Vital Signs Temp 36.4 C L 09/14/18 08:13 Pulse 87 09/14/18 14:16 Resp 26 H 09/14/18 14:16 BP 187/84 H 09/14/18 08:13 Pulse Ox 92 09/14/18 14:16 Physical Exam: Patient lying in bed, resting upon entering the room. Respiratory: + respiratory distress (patient using diaphragmatic muscles), + labored breathing and + uses accessory muscles; no cough and no stridor Auscultation: + diminished lung sounds Cardiovascular: Heart Sounds: normal S1 and normal S2 Extremities: no pedal edema and no edema Skin: + turgor decreased mottling noted starting on her knees and heels. Time Spent Midlevel Total time spent 25 minutes with >50% of that time spent reviewing the chart, assessing the patient, discussing plan of care with IDT at rounds. _ (1) Altered mental status Altered mental status type: unspecified Coma depth: Coma timing: Qualified Code(s): R41.82 - Altered mental status, unspecified (2) Pneumonia Aspiration pneumonia type: Laterality: right Lung location: upper lobe of lung Pneumonia type: due to unspecified organism Qualified Code(s): J18.1 - Lobar pneumonia, unspecified organism (3) Acute and chronic respiratory failure Respiratory failure complication: hypoxia Qualified Code(s): J96.21 - Acute and chronic respiratory failure with hypoxia (4) COPD (chronic obstructive pulmonary disease) COPD type: unspecified COPD Chronic bronchitis type: Emphysema type: Qualified Code(s): J44.9 - Chronic obstructive pulmonary disease, unspecified
[2018-09-14] MEDS: CASPOFUNGIN 50 MG in SODIUM CHLORIDE 0.9% 250 ML IV SCH (20:21)
--- NOTE | 2018-09-14 21:10 | Hospitalist Progress Note ---
Date of Service September 14, 2018 Assessment & Plan (1) Acute and chronic respiratory failure with hypoxia: chronic component 2nd to PEs, emphysema/COPD, +/- RUL infiltrative disease. 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 remains on NC O2 -now requiring 6 L. looks worse today. today is day #9 of IV abx therapy. prognosis very poor. repeat cxr in am for interval change. I have communicated once again to her son, Musa, the poor prognosis. (2) Hypokalemia: replace IV KCL, repeat BMP am. mag normal. (3) Hypernatremia: slowly improving. 2nd to poor oral intake. cont 1/2 NS. bmp in am. (4) Pulmonary embolism: INR 2.5 fluctuating INRs due to antibiotics, poor oral intake, etc hold coumadin again today due to altered mental status INR am (5) Metabolic encephalopathy: in setting of dementia ongoing encephalopathy 2nd to pneumonia, hypernatremia, medications, etc. (6) Pneumonia: RUL cefepime/flagyl day #9 of Rx today stop abx tomorrow (7) Chronic kidney disease, stage 3a: repeat BMP am (8) Chronic diastolic CHF (congestive heart failure): compensated she is volume contracted clinically (9) Chronic deep vein thrombosis (DVT): coumadin daily INR (10) Severe protein-calorie malnutrition: in setting of dementia, ongoing debilitation from recent leg fracture/PEs/ DVTs/RUL pneumonia, etc severe hypoalbuminemia hardly eating even when awake (11) Dementia: at least moderate if not severe by history (12) Tibial plateau fracture, right: Presented on 08/03/18 with such; orthopedics (Adeel) recommended conservative measures. 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 but pulmonary is suggesting we stop the caspofungin will do that (15) Poor prognosis: another conversation held with pt's son, Musa, by phone today he firmly believes she is improving he was encouraged by the amount of eating she did late today (mashed potatoes and grapes) he admitted she was quite confused, however he continues to state we need to "give this more time" since tomorrow is last day of IV abx will need to primary substance abuse counselor her sons again about poor prognosis in light of this prolonged hospitalization, lack of any meaningful progress, etc Subjective I could not awaken the patient during my visit today. Staff report she has slept most of the day. Apparently received seroquel 25mg at HS last night. Unable to obtain any history or ROS from patient due to altered MS. Physical Exam 2 Vital Signs (Past 24 Hours): Last Vital Signs Temp 36.4 C L 09/14/18 08:13 Pulse 84 09/14/18 20:40 Resp 18 09/14/18 20:40 BP 172/90 H 09/14/18 19:25 Pulse Ox 94 09/14/18 20:40 Constitutional: + acute distress (mild tachypnea and accessory muscle use), + thin, + cachectic and + altered mental status ENMT: Mouth: + oral mucosal abnormality (MM very dry ) Respiratory: + retractions and + uses accessory muscles Auscultation: + crackles, + rhonchi and + wheezes Cardiovascular: Rate/Rhythm: regular rate and regular rhythm Heart Sounds: normal S1 and normal S2 Vessels: posterior tibial pulses present and dorsalis pedis pulses present Gastrointestinal (Abdomen): normal bowel sounds, soft, nontender, no hepatosplenomegaly Psychiatric: sleeping/lethargic Results & Data Laboratory Results Laboratory Results - last 24 hr 09/14/18 09/14/18 08:10 08:10 PT 24.3 H INR 2.5 H Sodium 146 H Potassium 2.8 L D Chloride 112 H Carbon Dioxide 28 Anion Gap 6.0 BUN 16 Creatinine 0.69 Est Cr Clr Drug Dosing 45.8 Est GFR ( Amer) 91.4 Est GFR (Non-Af Amer) 78.8 BUN/Creatinine Ratio 23.5 H Glucose 111 H Calcium 7.7 L _ (1) Dementia Alzheimer's disease onset: Dementia behavioral disturbance: without behavioral disturbance Dementia type: unspecified type Qualified Code(s): F03.90 - Unspecified dementia without behavioral disturbance (2) Tibial plateau fracture, right Encounter type: sequela Fracture healing: Fracture type: closed Open fracture type: Qualified Code(s): S82.141S - Displaced bicondylar fracture of right tibia, sequela (3) Chronic deep vein thrombosis (DVT) Affected thrombotic vein of extremity: femoral DVT location: lower extremity Laterality: left Qualified Code(s): I82.512 - Chronic embolism and thrombosis of left femoral vein (4) COPD (chronic obstructive pulmonary disease) COPD type: unspecified COPD Chronic bronchitis type: Emphysema type: Qualified Code(s): J44.9 - Chronic obstructive pulmonary disease, unspecified (5) Pulmonary embolism Pulmonary embolism type: other Chronicity: unspecified Acute cor pulmonale presence: without acute cor pulmonale Qualified Code(s): I26.99 - Other pulmonary embolism without acute cor pulmonale (6) Pneumonia Aspiration pneumonia type: Laterality: right Lung location: upper lobe of lung Pneumonia type: due to unspecified organism Qualified Code(s): J18.1 - Lobar pneumonia, unspecified organism
[2018-09-15] MEDS: CHECK SCOPOLAMINE PATCH PLACEMENT SCH ×3 (00:38→15:45)
[2018-09-15] MEDS: CEFEPIME 1,000 MG in SYRINGE 0 ML IV SCH (00:41)
[2018-09-15] MEDS: metroNIDAZOLE 500 MG/100 ML BAG IV SCH (01:42)
[2018-09-15] MEDS: IPRATROPIUM BROMIDE NEB SOLN 0.02% 2.5 ML VIAL INH SCH ×4 (02:15→18:43)
[2018-09-15] MEDS: LEVALBUTEROL 1.25MG/0.5ML NEB INH SCH ×4 (02:15→18:43)
[2018-09-15 06:10] LABS: Basophils # (auto) 0.02 K/uL (0-0.2); Basophils % (auto) 0.2 %; Eosinophils # (auto) 0.13 K/uL (0-0.5); Eosinophils % (auto) 1.5 %; Hematocrit (blood only) 31.6 % (37-47); Hemoglobin 10.2 g/dL (12.0-16.0); Immature Granulocytes # (auto) 0.06 K/uL (0.00-0.02); Immature Granulocytes % (auto) 0.7 %; Lymphocytes # (auto) 0.98 K/uL (1.2-3.4); Lymphocytes % (auto) 11.6 %; Mean Corpuscular Hgb Conc 32.3 g/dL (32-36); Mean Corpuscular Volume 85.4 fL (80-100); Mean Platelet Volume 10.3 fL (7.4-10.4); Monocytes # (auto) 0.66 K/uL (0.11-0.59); Monocytes % (auto) 7.8 %; Neutrophils # (auto) 6.61 K/uL (1.4-6.5); Neutrophils % (auto) 78.2 %; Platelet Count 360 K/uL (130-400); RDW Coefficient of Variation 14.8 % (11.5-14.5); White Blood Count 8.46 K/uL (4.8-10.8)
[2018-09-15 06:38] LABS: INR 2.7 (0.9-1.1); Prothrombin Time 25.6 Seconds (9.0-12.0)
[2018-09-15 06:39] LABS: BUN Creatinine Ratio 19.6 (10-20); Calcium 7.2 mg/dl (8.5-10.1); Creatinine Clr Calc Pharmacy 50.2 ml/min; Est GFR (African American) 94.1; Est GFR (Non-African American) 81.2; Magnesium 1.4 mg/dl (1.8-2.4); Potassium 2.8 mmol/L (3.5-5.1)
--- NOTE | 2018-09-15 07:19 | XRay Report ---
XR chest 1V portable HISTORY: 87 years-old Female RUL/LLL pneumonia acute shortness of breath with pneumonia. Follow-up exam. COMPARISON: Chest radiograph 09/12/2018, chest CT 09/05/2018 TECHNIQUE: Portable AP view of the chest FINDINGS: Cardiomediastinal and hilar silhouettes are unchanged. Moderate emphysema. Increased size of the bila teral pleural effusions. Persistent focal airspace opacities of the right upper lobe, slightly improv ed from comparison. Pulmonary vascular congestion with bibasilar opacities. The mineralized appearance of the bones with degenerative changes of the shoulders and spine. Remote rib fractures redemonstrated. IMPRESSION: 1. Increased size of bilateral pleural effusions. 2. Persistent bibasilar and right upper lobe airspace opacities with mildly improved aeration of the right upper lobe. 3. Emphysema. 4. Pulmonary vascular congestion. The above report was generated using voice recognition software. It may contain grammatical, syntax o r spelling errors. Electronically signed by: Aneudy Burks M.D. 09/15/2018 7:17 AM
[2018-09-15] MEDS: BREO ELLIPTA: ORDER AWAITING ACTION SCH ×2 (07:29→15:45)
[2018-09-15] MEDS: D5W AND 1/2NSS 1,000 ML IV SCH (07:29)
[2018-09-15] MEDS: RESTASIS: ORDER AWAITING ACTION SCH ×2 (07:29→15:44)
[2018-09-15] MEDS: POTASSIUM CHLORIDE / WTR 10 MEQ/100 ML PLCT IV SCH ×2 (08:57→09:52)
[2018-09-15] MEDS: MAGNESIUM SULFATE / D5W 1 GM/100 ML BAG IV SCH ×2 (08:57→09:52)
[2018-09-15] MEDS: SCOPOLAMINE 1.5 MG TDSY TD SCH (13:15)
--- NOTE | 2018-09-15 18:42 | Hospitalist Progress Note ---
Date of Service September 15, 2018 Assessment & Plan (1) Acute and chronic respiratory failure with hypoxia: chronic component 2nd to PEs, emphysema/COPD, +/- RUL infiltrative disease. 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 remains on NC O2 -now requiring 5-6 L. day #10 of abx - stop them after today. repeat cxr w/ worsening effusions - likely due to severe hypoalbuminemia. I have communicated once again to her son, Musa, the poor prognosis by phone today. Strongly recommend comfort care measures. (2) Hypokalemia: replace IV KCL, repeat BMP am. replace low mag as well. 2nd to poor oral intake and/or renal wasting (no diarrhea by report). (3) Hypernatremia: resolved stop fluids due to worsening effusions (4) Pulmonary embolism: INR 2.7 fluctuating INRs due to antibiotics, poor oral intake, etc hold coumadin again today due to altered mental status and INR rising still INR in am (5) Metabolic encephalopathy: in setting of dementia ongoing encephalopathy 2nd to pneumonia etc (6) Pneumonia: RUL stop abx today (7) Chronic kidney disease, stage 3a: repeat BMP am (8) Chronic diastolic CHF (congestive heart failure): decompensated (effusions) although these may be 2nd to severe hypoalbuminemia diuresis not possible due to severe hypokalemia and hypoalbuminemia (9) Chronic deep vein thrombosis (DVT): coumadin daily INR (10) Severe protein-calorie malnutrition: in setting of dementia, ongoing debilitation from recent leg fracture/PEs/ DVTs/RUL pneumonia, etc severe hypoalbuminemia not a candidate for any appetite stimulant (11) Dementia: moderate-severe (12) Tibial plateau fracture, right: Presented on 08/03/18 with such; orthopedics ([facility]) recommended conservative measures. 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 Morales antifungals would not clear this; she would need surgery ; not a candidate for such stop anti-fungal therapy (15) Poor prognosis: spoke with son Musa by phone updated him asked him to meet with me tomorrow to discuss comfort care asked him to have his brother come as well, if possible will involve palliative care Subjective patient with eyes open could not answer questions no ROS or history obtained son, Musa, updated by phone staff report patient did not eat anything for breakfast or lunch Review of Systems Unobtainable due to cognitive status Physical Exam 2 Vital Signs (Past 24 Hours): Last Vital Signs Temp 36.7 C 09/15/18 15:04 Pulse 84 09/15/18 15:04 Resp 20 09/15/18 15:04 BP 149/74 H 09/15/18 15:04 Pulse Ox 90 09/15/18 15:04 Constitutional: + acute distress (mild tachypnea and accessory muscle use -- no change from prior exams), + thin, + cachectic and + altered mental status ENMT: Mouth: no oropharynx abnormality and no oral mucosal abnormality Respiratory: + retractions, + uses accessory muscles and + tachypneic Auscultation: + diminished lung sounds and + crackles Cardiovascular: Rate/Rhythm: regular rate, regular rhythm and + tachycardic Heart Sounds: normal S1 and normal S2 Vessels: posterior tibial pulses present and dorsalis pedis pulses present Gastrointestinal (Abdomen): normal bowel sounds, soft, nontender, no hepatosplenomegaly Psychiatric: Orientation: + not oriented x 3 Results & Data Laboratory Results mag 1.4 K 2.8 creatinine, BUN normal INR 2.7 _ (1) Dementia Alzheimer's disease onset: Dementia behavioral disturbance: without behavioral disturbance Dementia type: unspecified type Qualified Code(s): F03.90 - Unspecified dementia without behavioral disturbance (2) Tibial plateau fracture, right Encounter type: sequela Fracture healing: Fracture type: closed Open fracture type: Qualified Code(s): S82.141S - Displaced bicondylar fracture of right tibia, sequela (3) Chronic deep vein thrombosis (DVT) Affected thrombotic vein of extremity: femoral DVT location: lower extremity Laterality: left Qualified Code(s): I82.512 - Chronic embolism and thrombosis of left femoral vein (4) COPD (chronic obstructive pulmonary disease) COPD type: unspecified COPD Chronic bronchitis type: Emphysema type: Qualified Code(s): J44.9 - Chronic obstructive pulmonary disease, unspecified (5) Pulmonary embolism Acute cor pulmonale presence: without acute cor pulmonale Chronicity: unspecified Pulmonary embolism type: other Qualified Code(s): I26.99 - Other pulmonary embolism without acute cor pulmonale (6) Pneumonia Aspiration pneumonia type: Laterality: right Lung location: upper lobe of lung Pneumonia type: due to unspecified organism Qualified Code(s): J18.1 - Lobar pneumonia, unspecified organism
[2018-09-15] MEDS: QUETIAPINE FUMARATE 25 MG TABLET PO PRN (22:43)
[2018-09-15] MEDS: ALBUT/IPRATROP 3MG/0.5MG NEB 3 ML VIAL NEB SCH (22:47)
[2018-09-16] MEDS: RESTASIS: ORDER AWAITING ACTION SCH ×3 (00:07→15:49)
[2018-09-16] MEDS: BREO ELLIPTA: ORDER AWAITING ACTION SCH ×3 (00:07→15:48)
[2018-09-16] MEDS: CHECK SCOPOLAMINE PATCH PLACEMENT SCH ×3 (00:07→16:06)
[2018-09-16] MEDS: LEVALBUTEROL 1.25MG/0.5ML NEB INH SCH ×5 (01:56→19:04)
[2018-09-16] MEDS: IPRATROPIUM BROMIDE NEB SOLN 0.02% 2.5 ML VIAL INH SCH ×5 (01:56→19:04)
[2018-09-16] MEDS: ALBUT/IPRATROP 3MG/0.5MG NEB 3 ML VIAL NEB SCH (03:45)
[2018-09-16] MEDS ORDERED: ALBUT/IPRATROP 3MG/0.5MG NEB 3 ML VIAL NEB PRN (03:49)
[2018-09-16 06:41] LABS: INR 2.6 (0.9-1.1); Prothrombin Time 25.1 Seconds (9.0-12.0)
[2018-09-16 07:13] LABS: BUN Creatinine Ratio 15.7 (10-20); Creatinine Clr Calc Pharmacy 51.8 ml/min; Est GFR (African American) 95.1; Est GFR (Non-African American) 82.1; Magnesium 1.9 mg/dl (1.8-2.4); Potassium 2.5 mmol/L (3.5-5.1)
[2018-09-16] MEDS ORDERED: POTASSIUM CHLORIDE / WTR 10 MEQ/100 ML PLCT IV ONE (09:30)
--- NOTE | 2018-09-16 15:47 | Palliative Care Progress Note ---
Date of Service September 16, 2018 Assessment & Plan (1) Goals of care, counseling/discussion: -Discussion with patient and her son, Musa, and Dr. Moffett. -IVF and abx completed at this time. Patient still in very tenuous state and likely to decompensate very quickly. Son verbalized understanding. -Musa would like to take patient home on hospice and 24/7 care. -Patient's son is adamant that he does NOT want patient to have morphine at this time. He states that if patient is SOB, Seroquel works best and that is okay to give. Dr. Moffett did provide education on morphine and EOL care. -Case management updated. Will work on getting patient home with hospice. (2) Altered mental status: (3) Pneumonia: (4) Chronic diastolic CHF (congestive heart failure): (5) Severe protein-calorie malnutrition: (6) Acute and chronic respiratory failure: (7) COPD (chronic obstructive pulmonary disease): Subjective Patient is awake today. No distress but respirations are still mildly labored. Patient's son Musa at bedside and states he thinks patient looks comfortable. When asked how she feels today, patient smiles and says, "okay." Review of Systems Unobtainable due to cognitive status Physical Exam Vital Signs (Past 24 Hours): Last Vital Signs Temp 36.4 C L 09/16/18 15:12 Pulse 67 09/16/18 15:14 Resp 20 09/16/18 15:14 BP 178/90 H 09/16/18 15:12 Pulse Ox 91 09/16/18 15:14 Constitutional: + ill appearing (chronically), + thin and + cachectic; no acute distress Eyes: PERRL ENMT: Ears: no hearing impairment Neck: normal visual inspection and trachea midline Respiratory: + labored breathing and + tachypneic; no respiratory distress Auscultation: + diminished lung sounds and + rhonchi Cardiovascular: RRR, no murmur, no edema Gastrointestinal (Abdomen): normal bowel sounds, soft, nontender, no hepatosplenomegaly Neurologic: awake and + confused Psychiatric: Orientation: alert (lethargic, does wake up sometimes but disoriented) and oriented to person; + not oriented to place and + not oriented to time Time Spent Midlevel 35 minutes with >50% of time spent at bedside with patient, son and physician discussing condition and GOC. (1) Altered mental status Altered mental status type: unspecified Coma depth: Coma timing: Qualified Code(s): R41.82 - Altered mental status, unspecified (2) Pneumonia Aspiration pneumonia type: Laterality: right Lung location: upper lobe of lung Pneumonia type: due to unspecified organism Qualified Code(s): J18.1 - Lobar pneumonia, unspecified organism (3) Acute and chronic respiratory failure Respiratory failure complication: hypoxia Qualified Code(s): J96.21 - Acute and chronic respiratory failure with hypoxia (4) COPD (chronic obstructive pulmonary disease) COPD type: unspecified COPD Chronic bronchitis type: Emphysema type: Qualified Code(s): J44.9 - Chronic obstructive pulmonary disease, unspecified
[2018-09-16] MEDS ORDERED: POTASSIUM CHLORIDE / WTR 10 MEQ/100 ML PLCT IV SCH (18:15)
--- NOTE | 2018-09-16 20:08 | Hospitalist Progress Note ---
Date of Service September 16, 2018 Assessment & Plan (1) Acute and chronic respiratory failure with hypoxia: chronic component 2nd to PEs, emphysema/COPD, +/- RUL infiltrative disease. 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 remains on NC O2 - requiring 5-6 L. antibiotic course (10+ days) completed for pneumonia repeat cxr w/ worsening effusions - likely due to severe hypoalbuminemia. (2) Hypokalemia: ongoing despite multiple attempts at replacement with IV potassium corrected calcium level is normal mag level is normal give another K-rider today repeat K level in am suspect total body depletion of potassium from nonexistent oral intake renal wasting also possible but less likely (3) Hypernatremia: resolved stopped fluids due to worsening effusions (4) Pulmonary embolism: INR 2.6 fluctuating INRs due to antibiotics, poor oral intake, etc cont to hold coumadin INR am (5) Metabolic encephalopathy: in setting of dementia but seems improved w/ use of seroquel at HS (6) Pneumonia: lengthy abx course completed (7) Chronic kidney disease, stage 3a: stable Cr (8) Chronic diastolic CHF (congestive heart failure): decompensated (effusions) although these may be 2nd to severe hypoalbuminemia diuresis not possible due to severe hypokalemia and hypoalbuminemia (9) Chronic deep vein thrombosis (DVT): coumadin daily INR (10) Severe protein-calorie malnutrition: in setting of dementia, ongoing debilitation from recent leg fracture/PEs/ DVTs/RUL pneumonia, etc severe hypoalbuminemia not a candidate for any appetite stimulant this issue will continue in light of advanced dementia (11) Dementia: moderate-severe (12) Tibial plateau fracture, right: Presented on 08/03/18 with such; orthopedics ([facility]deel) recommended conservative measures. 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 Morales antifungals would not clear this; she would need surgery ; not a candidate for such stop anti-fungal therapy (15) Poor prognosis: spoke with Musa at bedside today Cristina Gaffney from palliative care was present we spoke for about 30 minutes discussing her current status and very, very poor prognosis in the end Musa seemed agreeable to hospice he was adamant about her returning home we emphasized she would need 24/ care and he stated "I'll take care of that on my end" we talked about home health nursing and private duty nursing I showed Musa his mother's chest x-ray and he voiced understanding of how poor it looked during a 2nd visit to the patient's room later in the day it seemed as if Musa was retracting on his previous desire for home w/ hospice he asked "shouldn't we treat her with more antibiotics?" he then asked "shouldn't we keep her another 2-3 more days to get the potassium normal?" will involve SW and palliative care again tomorrow I explained to Musa that even if we managed to get the K level normal in the hospital it would likely fall at home due to poor intake also, she would not be able to tolerate oral K supplementation very well (tabs or liquid) total time today about 65 minutes between 2 visits Subjective 2 visits to see the patient today during both visits pt's son Musa was at bedside during one of the visits Musa was trying to feed her pie and she kept refusing, putting her hand up in front of her face several times patient more awake today and able to speak but unable to give any history or ROS staff report next to NO oral intake during any meal today Review of Systems Unobtainable due to cognitive status Physical Exam 2 Vital Signs (Past 24 Hours): Last Vital Signs Temp 36.4 C L 09/16/18 15:12 Pulse 68 09/16/18 19:05 Resp 20 09/16/18 19:05 BP 178/90 H 09/16/18 15:12 Pulse Ox 91 09/16/18 19:05 Constitutional: + thin, + cachectic and + altered mental status; no acute distress respiratory distress not present today ENMT: Mouth: no oropharynx abnormality and no oral mucosal abnormality Respiratory: + tachypneic Auscultation: + diminished lung sounds and + crackles Cardiovascular: Rate/Rhythm: regular rate and regular rhythm Heart Sounds: normal S1 and normal S2 Vessels: posterior tibial pulses present and dorsalis pedis pulses present Gastrointestinal (Abdomen): normal bowel sounds, soft, nontender, no hepatosplenomegaly Psychiatric: Orientation: + not oriented x 3 Results & Data Laboratory Results Laboratory Results - last 24 hr 09/16/18 09/16/18 05:40 05:40 PT 25.1 H INR 2.6 H Sodium 141 Potassium 2.5 L* Chloride 106 Carbon Dioxide 30 Anion Gap 5.0 BUN 10 Creatinine 0.61 Est Cr Clr Drug Dosing 51.8 Est GFR ( Amer) 95.1 Est GFR (Non-Af Amer) 82.1 BUN/Creatinine Ratio 15.7 Glucose 85 Calcium 7.0 L Magnesium 1.9 _ (1) Dementia Alzheimer's disease onset: Dementia behavioral disturbance: without behavioral disturbance Dementia type: unspecified type Qualified Code(s): F03.90 - Unspecified dementia without behavioral disturbance (2) Tibial plateau fracture, right Encounter type: sequela Fracture healing: Fracture type: closed Open fracture type: Qualified Code(s): S82.141S - Displaced bicondylar fracture of right tibia, sequela (3) Chronic deep vein thrombosis (DVT) Affected thrombotic vein of extremity: femoral DVT location: lower extremity Laterality: left Qualified Code(s): I82.512 - Chronic embolism and thrombosis of left femoral vein (4) COPD (chronic obstructive pulmonary disease) COPD type: unspecified COPD Chronic bronchitis type: Emphysema type: Qualified Code(s): J44.9 - Chronic obstructive pulmonary disease, unspecified (5) Pulmonary embolism Acute cor pulmonale presence: without acute cor pulmonale Chronicity: unspecified Pulmonary embolism type: other Qualified Code(s): I26.99 - Other pulmonary embolism without acute cor pulmonale (6) Pneumonia Aspiration pneumonia type: Laterality: right Lung location: upper lobe of lung Pneumonia type: due to unspecified organism Qualified Code(s): J18.1 - Lobar pneumonia, unspecified organism
[2018-09-17] MEDS: BREO ELLIPTA: ORDER AWAITING ACTION SCH ×3 (01:28→16:29)
[2018-09-17] MEDS: RESTASIS: ORDER AWAITING ACTION SCH ×3 (01:28→16:29)
[2018-09-17] MEDS: CHECK SCOPOLAMINE PATCH PLACEMENT SCH ×3 (01:29→16:30)
[2018-09-17] MEDS: LEVALBUTEROL 1.25MG/0.5ML NEB INH SCH ×4 (01:35→23:13)
[2018-09-17] MEDS: IPRATROPIUM BROMIDE NEB SOLN 0.02% 2.5 ML VIAL INH SCH ×4 (01:35→23:13)
[2018-09-17 07:51] LABS: INR 2.3 (0.9-1.1)
[2018-09-17 08:28] LABS: BUN Creatinine Ratio 12.8 (10-20); Calcium 7.4 mg/dl (8.5-10.1); Creatinine Clr Calc Pharmacy 50.2 ml/min; Est GFR (African American) 94.1; Est GFR (Non-African American) 81.2; Potassium 2.6 mmol/L (3.5-5.1)
[2018-09-17] MEDS: POTASSIUM CHLORIDE / WTR 10 MEQ/100 ML PLCT IV SCH ×3 (09:53→12:55)
--- NOTE | 2018-09-17 14:03 | Palliative Care Progress Note ---
Date of Service September 17, 2018 Assessment & Plan (1) Goals of care, counseling/discussion: -Patient feeling okay today. No family at bedside. -NO s/s distress today. Breathing is labored at baseline. -IVF and abx completed at this time. Patient still in very tenuous state and likely to decompensate very quickly. Son verbalized understanding yesterday during our meeting. -Son, Musa, would like to take patient home on hospice and 24/ care. -Patient's son is adamant that he does NOT want patient to have morphine at this time. He states that if patient is SOB, Seroquel works best and that is okay to give. Dr. Moffett did provide education on morphine and EOL care. -Case management updated. Will work on getting patient home with hospice. Patient's other son will be back in town tomorrow and they will start planning on how to bring patient home. (2) Altered mental status: (3) Pneumonia: (4) Chronic diastolic CHF (congestive heart failure): (5) Severe protein-calorie malnutrition: (6) Acute and chronic respiratory failure: (7) COPD (chronic obstructive pulmonary disease): Subjective Patient awake and in no distress. No family at bedside. Patient confused. Review of Systems Unobtainable due to cognitive status Physical Exam Vital Signs (Past 24 Hours): Last Vital Signs Temp 36.6 C 09/17/18 07:41 Pulse 93 H 09/17/18 13:48 Resp 17 09/17/18 13:48 BP 196/89 H 09/17/18 07:41 Pulse Ox 94 09/17/18 13:48 Constitutional: + ill appearing (chronically), + thin and + cachectic; no acute distress Eyes: PERRL ENMT: Ears: no hearing impairment Neck: normal visual inspection and trachea midline Respiratory: + labored breathing; no respiratory distress Auscultation: + diminished lung sounds Cardiovascular: RRR, no murmur, no edema Gastrointestinal (Abdomen): normal bowel sounds, soft, nontender, no hepatosplenomegaly Neurologic: awake and + confused Psychiatric: Orientation: oriented to person; + not oriented to place and + not oriented to time Time Spent Midlevel 25 minutes with >50% of time spent at bedside with patient and IDT discussing condition and plan of care. (1) Altered mental status Altered mental status type: unspecified Coma depth: Coma timing: Qualified Code(s): R41.82 - Altered mental status, unspecified (2) Pneumonia Aspiration pneumonia type: Laterality: right Lung location: upper lobe of lung Pneumonia type: due to unspecified organism Qualified Code(s): J18.1 - Lobar pneumonia, unspecified organism (3) Acute and chronic respiratory failure Respiratory failure complication: hypoxia Qualified Code(s): J96.21 - Acute and chronic respiratory failure with hypoxia (4) COPD (chronic obstructive pulmonary disease) COPD type: unspecified COPD Chronic bronchitis type: Emphysema type: Qualified Code(s): J44.9 - Chronic obstructive pulmonary disease, unspecified
--- NOTE | 2018-09-17 19:48 | Hospitalist Progress Note ---
Date of Service September 17, 2018 Assessment & Plan (1) Acute and chronic respiratory failure with hypoxia: (2) Pulmonary aspergilloma: (3) Pulmonary embolism: (4) Hypokalemia: (5) Pneumonia: (6) Chronic kidney disease, stage 3a: (7) Chronic diastolic CHF (congestive heart failure): (8) Chronic deep vein thrombosis (DVT): (9) Severe protein-calorie malnutrition: (10) Dementia: (11) Tibial plateau fracture, right: (12) COPD (chronic obstructive pulmonary disease): (13) Poor prognosis: The patient suffered a right-sided tibial plateau fracture in early July 2018 and has had numerous complications since that time including failed attempts at rehab, acute hypoxic resp failure 2nd to extensive PEs, development of nosocomial RUL pneumonia, severe protein calorie malnutrition, 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 Despite 10+ days of IV antibiotic therapy and supportive care she has done very poorly this admission. Pulmonary states she would need surgery for the invasive aspergillus - she is obviously not a candidate for such; antifungals d/ c. Numerous discussions have been held with the pt's son, Musa, regarding transitioning to palliative care/hospice. See my prior notes for details of those discussions. Despite copious KCL IV for her low potassium levels I have been unable to normalize her potassium level. Suspect total body depletion of K and/or renal wasting (diuretic phase of ATN??) . Warfarin has been held for several days due to elevated INR; lack of proper nutrition has allowed the INR to remain elevated. Give 3 bags of KCL today IV. Plan to speak with son Musa in the 24 hours so we can transition either to home w/ hospice or to SNF w/ hospice. Social work and palliative care team aware of the above. d/c date?? Subjective pt said catrachita during the visit denied pain staff report ongoing poor appetite unable to provide history or ROS due to dementia Review of Systems Unobtainable due to cognitive status Physical Exam 2 Vital Signs (Past 24 Hours): Last Vital Signs Temp 36.8 C 09/17/18 14:58 Pulse 81 09/17/18 14:58 Resp 18 09/17/18 14:58 BP 93/58 L 09/17/18 14:58 Pulse Ox 98 02/22/19 14:58 Constitutional: + ill appearing, + thin and + cachectic; no acute distress ENMT: external ear and nose normal, oropharynx normal Respiratory: tachypnea, decreased BS bases, no rales or wheeze today; no retractions today Cardiovascular: Rate/Rhythm: regular rate and regular rhythm Heart Sounds: normal S1 and normal S2 Vessels: dorsalis pedis pulses present; no JVD Extremities: no edema Gastrointestinal (Abdomen): normal bowel sounds, soft, nontender, no hepatosplenomegaly Psychiatric: Orientation: alert; + not oriented x 3 Results & Data Laboratory Results Laboratory Results - last 24 hr 09/17/18 09/17/18 07:22 07:22 PT 22.0 H INR 2.3 H Sodium 139 Potassium 2.6 L Chloride 101 Carbon Dioxide 33 H Anion Gap 5.0 BUN 8 Creatinine 0.63 Est Cr Clr Drug Dosing 50.2 Est GFR ( Amer) 94.1 Est GFR (Non-Af Amer) 81.2 BUN/Creatinine Ratio 12.8 Glucose 95 Calcium 7.4 L _ (1) Pulmonary embolism Pulmonary embolism type: other Chronicity: unspecified Acute cor pulmonale presence: without acute cor pulmonale Qualified Code(s): I26.99 - Other pulmonary embolism without acute cor pulmonale (2) Pneumonia Aspiration pneumonia type: Laterality: right Lung location: upper lobe of lung Pneumonia type: due to unspecified organism Qualified Code(s): J18.1 - Lobar pneumonia, unspecified organism (3) Chronic deep vein thrombosis (DVT) DVT location: lower extremity Affected thrombotic vein of extremity: femoral Laterality: left Qualified Code(s): I82.512 - Chronic embolism and thrombosis of left femoral vein (4) Dementia Dementia type: unspecified type Alzheimer's disease onset: Dementia behavioral disturbance: without behavioral disturbance Qualified Code(s): F03.90 - Unspecified dementia without behavioral disturbance (5) Tibial plateau fracture, right Encounter type: sequela Fracture type: closed Open fracture type: Fracture healing: Qualified Code(s): S82.141S - Displaced bicondylar fracture of right tibia, sequela (6) COPD (chronic obstructive pulmonary disease) COPD type: unspecified COPD Chronic bronchitis type: Emphysema type: Qualified Code(s): J44.9 - Chronic obstructive pulmonary disease, unspecified
[2018-09-18] MEDS: BREO ELLIPTA: ORDER AWAITING ACTION SCH ×4 (01:40→23:55)
[2018-09-18] MEDS: RESTASIS: ORDER AWAITING ACTION SCH ×4 (01:40→23:55)
[2018-09-18] MEDS: CHECK SCOPOLAMINE PATCH PLACEMENT SCH ×4 (01:40→23:55)
[2018-09-18] MEDS: IPRATROPIUM BROMIDE NEB SOLN 0.02% 2.5 ML VIAL INH SCH ×4 (02:15→22:08)
[2018-09-18] MEDS: LEVALBUTEROL 1.25MG/0.5ML NEB INH SCH ×4 (02:15→22:08)
[2018-09-18 06:27] LABS: INR 1.7 (0.9-1.1)
[2018-09-18 07:00] LABS: Magnesium 1.6 mg/dl (1.8-2.4)
[2018-09-18] MEDS: POTASSIUM CHLORIDE / WTR 10 MEQ/100 ML PLCT IV SCH ×2 (11:54→13:24)
[2018-09-18] MEDS: MAGNESIUM SULFATE / D5W 1 GM/100 ML BAG IV SCH ×2 (12:05→12:56)
[2018-09-18] MEDS: SCOPOLAMINE 1.5 MG TDSY TD SCH (13:29)
[2018-09-18] MEDS: WARFARIN SOD 2 MG TAB PO SCH (16:06)
--- NOTE | 2018-09-18 20:42 | Hospitalist Progress Note ---
Date of Service September 18, 2018 Assessment & Plan (1) Pneumonia: RUL, LLL - 10+ days of IV abx; these have been stopped. (2) Acute and chronic respiratory failure with hypoxia: Acute component 2nd to recurrent RUL pneumonia and LLL pneumonia. Amazingly she has recovered from this recurrent pneumonia. Stable O2 sats. Stable NC requirement (4-6 L). (3) Metabolic encephalopathy: Improved. MS appears at baseline. (4) Dementia: moderate-severe. seroquel HS for ing and to help promote sleep. (5) COPD (chronic obstructive pulmonary disease): cont nebs. (6) Chronic diastolic CHF (congestive heart failure): compensated (7) Pulmonary embolism: with DVT INR 1.7 today resume coumadin at least until d/c home (8) Chronic deep vein thrombosis (DVT): Left leg DVT. (9) HTN (hypertension): stable (10) Chronic kidney disease, stage 3a: creatinine has been stable (11) Tibial plateau fracture, right: Initial fracture date - 08/03/18; orthopedics ([facility]) recommended conservative measures. (12) Severe protein-calorie malnutrition: ongoing I have counseled his sons several times that this is due to dementia, infection , etc and force-feeding is unnecessary. (13) DVT prophylaxis: coumadin (14) Pulmonary aspergilloma: wound need surgery for her invasive pulmonary aspergillosis. antifungal Rx discontinued. (15) Hypokalemia: replace IV replace mag as well (16) Poor prognosis: I have encouraged his son, Musa, to select an agency to go home with for hospice care. They have been reluctant for several days to do so, citing several reasons for not having completed this. They were given lists of home health companies several days ago by social work. Ideally Ms. Rousseau transfers to SNF for hospice but sons have been adamant she go home. Social work will attempt to speak with her son(s) again tomorrow. Subjective patient awake, alert son was trying to feed her lunch - several times she said NO to additional food intake she spit out her strawberries during the visit she also put her arm out several times as a gesture she did not want additional food unable to obtain any ROS or history due to dementia staff report no issues Physical Exam 2 Vital Signs (Past 24 Hours): Last Vital Signs Temp 36.6 C 09/18/18 15:36 Pulse 65 09/18/18 15:36 Resp 22 09/18/18 15:36 BP 162/92 H 09/18/18 15:36 Pulse Ox 95 09/18/18 15:36 Constitutional: + ill appearing, + thin, + cachectic and + altered mental status; no acute distress ENMT: external ear and nose normal, oropharynx normal Mouth: no oropharynx abnormality and no oral mucosal abnormality Respiratory: + uses accessory muscles and + pursed lip breathing (normal for her); no respiratory distress, no labored breathing, no retractions and no audible wheezes Auscultation: + diminished lung sounds tachypnea Cardiovascular: Rate/Rhythm: regular rate and regular rhythm Heart Sounds: normal S1 and normal S2 Vessels: posterior tibial pulses present and dorsalis pedis pulses present; no JVD Extremities: no edema Gastrointestinal (Abdomen): normal bowel sounds, soft, nontender, no hepatosplenomegaly Psychiatric: Orientation: alert; + not oriented x 3 Results & Data Laboratory Results Laboratory Results - last 24 hr 09/18/18 09/18/18 05:32 05:32 PT 17.0 H INR 1.7 H Potassium 3.0 L D Magnesium 1.6 L _ (1) Pneumonia Aspiration pneumonia type: Laterality: right Lung location: upper lobe of lung Pneumonia type: due to unspecified organism Qualified Code(s): J18.1 - Lobar pneumonia, unspecified organism (2) Dementia Dementia type: unspecified type Alzheimer's disease onset: Dementia behavioral disturbance: without behavioral disturbance Qualified Code(s): F03.90 - Unspecified dementia without behavioral disturbance (3) COPD (chronic obstructive pulmonary disease) COPD type: unspecified COPD Chronic bronchitis type: Emphysema type: Qualified Code(s): J44.9 - Chronic obstructive pulmonary disease, unspecified (4) Pulmonary embolism Pulmonary embolism type: other Chronicity: unspecified Acute cor pulmonale presence: without acute cor pulmonale Qualified Code(s): I26.99 - Other pulmonary embolism without acute cor pulmonale (5) Chronic deep vein thrombosis (DVT) DVT location: lower extremity Affected thrombotic vein of extremity: femoral Laterality: left Qualified Code(s): I82.512 - Chronic embolism and thrombosis of left femoral vein (6) HTN (hypertension) Hypertension type: essential hypertension Qualified Code(s): I10 - Essential (primary) hypertension (7) Tibial plateau fracture, right Encounter type: sequela Fracture type: closed Open fracture type: Fracture healing: Qualified Code(s): S82.141S - Displaced bicondylar fracture of right tibia, sequela
[2018-09-18] MEDS: QUETIAPINE FUMARATE 25 MG TABLET PO PRN (20:52)
[2018-09-19] MEDS: IPRATROPIUM BROMIDE NEB SOLN 0.02% 2.5 ML VIAL INH SCH ×4 (02:06→19:39)
[2018-09-19] MEDS: LEVALBUTEROL 1.25MG/0.5ML NEB INH SCH ×4 (02:06→19:39)
[2018-09-19] MEDS: CHECK SCOPOLAMINE PATCH PLACEMENT SCH ×2 (08:55→16:39)
[2018-09-19] MEDS: BREO ELLIPTA: ORDER AWAITING ACTION SCH ×2 (08:56→16:39)
[2018-09-19] MEDS: RESTASIS: ORDER AWAITING ACTION SCH ×2 (08:56→16:39)
[2018-09-19 09:13] LABS: INR 1.4 (0.9-1.1); Prothrombin Time 13.6 Seconds (9.0-12.0)
[2018-09-19 09:34] LABS: BUN Creatinine Ratio 17.6 (10-20); Calcium 7.9 mg/dl (8.5-10.1); Creatinine Clr Calc Pharmacy 53.5 ml/min; Est GFR (African American) 96.1; Est GFR (Non-African American) 82.9; Magnesium 2.1 mg/dl (1.8-2.4); Potassium 3.6 mmol/L (3.5-5.1)
[2018-09-19] MEDS ORDERED: BISACODYL 10 MG SUPP PR STA (12:44)
[2018-09-19] MEDS: WARFARIN SOD 2 MG TAB PO SCH (16:39)
[2018-09-19] MEDS: ENOXAPARIN 80 MG/0.8 ML SYR SQ SCH (18:38)
--- NOTE | 2018-09-19 21:16 | Hospitalist Progress Note ---
Date of Service September 19, 2018 Assessment & Plan (1) Pneumonia: RUL, LLL - 10+ days of IV abx; these have been stopped. (2) Acute and chronic respiratory failure with hypoxia: Acute component 2nd to recurrent RUL pneumonia and LLL pneumonia. Amazingly she has recovered from this recurrent pneumonia. Stable O2 sats. Stable NC requirement (4-6 L). Will need NC O2 at d/c regardless of disposition. (3) Metabolic encephalopathy: Improved. MS at baseline (baseline is mod-severe dementia). (4) Dementia: moderate-severe. seroquel HS for and to help promote sleep. (5) COPD (chronic obstructive pulmonary disease): cont nebs as palliative measure. (6) Chronic diastolic CHF (congestive heart failure): compensated (7) Pulmonary embolism: with DVT INR 1.4 today ideally we simply d/c all anticoagulation in light of her status and probable transition to hospice however, her status is still uncertain as her son Musa - who has POA - has not fully committted yet to hospice, comfort/palliative, etc until we confirm hospice status will give 1.5mg/kg/day of lovenox with her coumadin other option is eliquis or xarelto temporarily until hospice status is confirmed (8) Chronic deep vein thrombosis (DVT): Left leg DVT. (9) HTN (hypertension): not aggressively treating in light of likely transition to hospice (10) Chronic kidney disease, stage 3a: creatinine stable (11) Tibial plateau fracture, right: Initial fracture date - 08/03/18; orthopedics ([facility]) recommended conservative measures. 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 antifungal Rx discontinued. (15) Hypokalemia: low mag and low K resolved (16) Poor prognosis: At this point, since both sons work full-time and since the family cannot afford private duty nurses (JERROD today stated he looked into [facility] and could not afford their hourly charge), the best option is SNF w/ hospice. However, Musa (POA) was adamantly opposed to this recently. Musa lives in [place] and JERROD lives near [place]. Best SNF option would likely be [facility] in [place] - if Musa allows. Will need social work to heavily assist with this complicated situation on Thursday. She is otherwise ready for d/c. Subjective 2 visits to pt's room today first was on AM rounds - patient soundly sleeping; I did not wake her staff report ongoing poor appetite - took nothing for breakfast 2nd visit was this afternoon - son, "JERROD" - was at bedside he reported that they put an addition on his house and had intended for his mom to come live there however, both he and his work full-time and patient would be unattended for long periods of time the only other family member that could stay with Mrs Rousseau would be the other son Musa but he, too, works full-time JERROD stated "Musa is the POA and I let him make all the decisions" JERROD voiced that "he was surprised she was still alive" and he confirmed she had been eating terribly "for a long time" Review of Systems Unobtainable due to cognitive status Physical Exam 2 Vital Signs (Past 24 Hours): Last Vital Signs Temp 36.4 C L 09/19/18 15:07 Pulse 55 L 09/19/18 19:42 Resp 16 09/19/18 19:42 BP 155/77 H 09/19/18 15:07 Pulse Ox 90 09/19/18 19:42 Constitutional: + ill appearing, + thin, + cachectic and + altered mental status; no acute distress ENMT: external ear and nose normal, oropharynx normal Mouth: no oral mucosal abnormality Respiratory: + tachypneic; no respiratory distress, no labored breathing, no retractions and no audible wheezes Auscultation: + diminished lung sounds Cardiovascular: Rate/Rhythm: regular rate and regular rhythm Heart Sounds: normal S1 and normal S2 Vessels: posterior tibial pulses present and dorsalis pedis pulses present; no JVD Extremities: no edema Gastrointestinal (Abdomen): normal bowel sounds, soft, nontender, no hepatosplenomegaly Psychiatric: Orientation: alert Results & Data Laboratory Results Laboratory Results - last 24 hr 09/19/18 09/19/18 08:54 08:54 PT 13.6 H INR 1.4 H Sodium 135 L Potassium 3.6 D Chloride 98 Carbon Dioxide 31 Anion Gap 6.0 BUN 10 Creatinine 0.58 L Est Cr Clr Drug Dosing 53.5 Est GFR ( Amer) 96.1 Est GFR (Non-Af Amer) 82.9 BUN/Creatinine Ratio 17.6 Glucose 97 Calcium 7.9 L Magnesium 2.1 _ (1) Pneumonia Aspiration pneumonia type: Laterality: right Lung location: upper lobe of lung Pneumonia type: due to unspecified organism Qualified Code(s): J18.1 - Lobar pneumonia, unspecified organism (2) Dementia Dementia type: unspecified type Alzheimer's disease onset: Dementia behavioral disturbance: without behavioral disturbance Qualified Code(s): F03.90 - Unspecified dementia without behavioral disturbance (3) COPD (chronic obstructive pulmonary disease) COPD type: unspecified COPD Chronic bronchitis type: Emphysema type: Qualified Code(s): J44.9 - Chronic obstructive pulmonary disease, unspecified (4) Pulmonary embolism Pulmonary embolism type: other Chronicity: unspecified Acute cor pulmonale presence: without acute cor pulmonale Qualified Code(s): I26.99 - Other pulmonary embolism without acute cor pulmonale (5) Chronic deep vein thrombosis (DVT) DVT location: lower extremity Affected thrombotic vein of extremity: femoral Laterality: left Qualified Code(s): I82.512 - Chronic embolism and thrombosis of left femoral vein (6) HTN (hypertension) Hypertension type: essential hypertension Qualified Code(s): I10 - Essential (primary) hypertension (7) Tibial plateau fracture, right Encounter type: sequela Fracture type: closed Open fracture type: Fracture healing: Qualified Code(s): S82.141S - Displaced bicondylar fracture of right tibia, sequela
[2018-09-20] MEDS: RESTASIS: ORDER AWAITING ACTION SCH ×4 (00:07→23:48)
[2018-09-20] MEDS: CHECK SCOPOLAMINE PATCH PLACEMENT SCH ×4 (00:07→23:48)
[2018-09-20] MEDS: BREO ELLIPTA: ORDER AWAITING ACTION SCH ×4 (00:07→23:48)
[2018-09-20] MEDS: LEVALBUTEROL 1.25MG/0.5ML NEB INH SCH ×4 (02:15→18:59)
[2018-09-20] MEDS: IPRATROPIUM BROMIDE NEB SOLN 0.02% 2.5 ML VIAL INH SCH ×4 (02:15→18:59)
[2018-09-20 08:31] LABS: INR 1.6 (0.9-1.1); Prothrombin Time 15.6 Seconds (9.0-12.0)
[2018-09-20] MEDS: WARFARIN SOD 2 MG TAB PO SCH (15:43)
[2018-09-20] MEDS: NICOTINE 7 MG/24 HR TDSY TD SCH (17:49)
[2018-09-20] MEDS: ENOXAPARIN 80 MG/0.8 ML SYR SQ SCH (18:39)
--- NOTE | 2018-09-20 21:07 | Hospitalist Progress Note ---
Date of Service September 20, 2018 Assessment & Plan (1) Pneumonia: - Developed worsening hypoxia on 09/08 likely related to progression of PNA. - CXR showed progressive infiltrate of right upper lung, bilateral pleural effusions. - CT chest 09/05: increase in RUL opacity, 3.9 cm RUL cavitary lesion - may be necrotizing PNA vs. fungal PNA. - Sputum culture +Aspergillus -- Aspergillus Ab, Fungitell Positive, Quantiferon gold serology negative. - Pulmonary following, greatly appreciate input. - At one-point she had been converted to comfort care measures, But then the family wanted antibiotics restarted and now she has made quite an improvement over the last week -Has now completed 10 days of combination of IV and oral antibiotics (2) Acute and chronic respiratory failure with hypoxia: Acute component 2nd to recurrent RUL pneumonia and LLL pneumonia. Amazingly she has recovered from this recurrent pneumonia. Stable O2 sats. Stable NC requirement (3L). Will need NC O2 at d/c regardless of disposition. -Can discontinue glycopyrrolate as secretions are improved (3) Metabolic encephalopathy: Improved. MS at baseline (baseline is mod-severe dementia). (4) Dementia: moderate-severe. seroquel HS for ing and to help promote sleep. (5) COPD (chronic obstructive pulmonary disease): cont nebs as palliative measure. (6) Chronic diastolic CHF (congestive heart failure): compensated (7) Pulmonary embolism: with DVT INR 1.6 today ideally we simply d/c all anticoagulation in light of her status and probable transition to hospice however, her status is still uncertain as her son Musa - who has POA - has not fully committted yet to hospice, comfort/palliative, etc until we confirm hospice status will Continue to give 1.5mg/kg/day of lovenox with her coumadin other option is eliquis or xarelto temporarily until hospice status is confirmed (8) Chronic deep vein thrombosis (DVT): Left leg DVT. (9) HTN (hypertension): not aggressively treating in light of likely transition to hospice (10) Chronic kidney disease, stage 3a: creatinine stable (11) Tibial plateau fracture, right: Initial fracture date - 08/03/18; orthopedics (Adeel) recommended conservative measures. 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 antifungal Rx discontinued. (14) Hypokalemia: low mag and low K resolved (15) Current smoker: Patient was trying to smoke her own fingers today -Started nicotine patch 7 mg daily to help with this (16) DVT prophylaxis: see "PE" above (17) Poor prognosis: At this point, since both sons work full-time and since the family cannot afford private duty nurses (JERROD today stated he looked into [facility] and could not afford their hourly charge), the best option is SNF w/ hospice. However, Musa (POA) was adamantly opposed to this recently. Musa lives in [place] and JERROD lives near [place]. Best SNF option would likely be [facility] in [place] -Case management has confirmed that son is agreeable to a referral to sniff at this time She is otherwise ready for d/c. Subjective This is the most awake and alert I have seen the patient in weeks. She has no complaints and nursing reports she was trying to smoke her fingers like cigarettes today and requested a nicotine patch. Patient denies cough and is starting to eat a little bit on her own today. Review of Systems All systems reviewed & are unremarkable except as noted in HPI & below Physical Exam 2 Vital Signs (Past 24 Hours): Last Vital Signs Temp 36.5 C 09/20/18 15:29 Pulse 75 09/20/18 19:00 Resp 20 09/20/18 19:00 BP 162/92 H 09/20/18 15:29 Pulse Ox 91 09/20/18 19:00 Constitutional: + thin and + frail appearing; no acute distress (Sitting up in bed awake and alert and answering questions) Eyes: PERRL, conjunctivae normal, anicteric sclerae ENMT: external ear and nose normal, oropharynx normal Neck: trachea midline, no thyromegaly Respiratory: normal respiratory effort Auscultation: + crackles (At right base); no wheezes Cardiovascular: RRR, no murmur, no edema Gastrointestinal (Abdomen): normal bowel sounds, soft, nontender, no hepatosplenomegaly Musculoskeletal: Extremities: extremities normal to inspection; no cyanosis and no clubbing Skin: no rashes, warm and dry Neurologic: moves all extremities and awake; no focal motor deficits Psychiatric: Orientation: alert, oriented to person and cooperative Affect : euthymic affect Results & Data Laboratory Results 09/20/18 Range/Units 07:55 PT 15.6 H (9.0-12.0) Seconds INR 1.6 H (0.9-1.1) _ (1) Pneumonia Aspiration pneumonia type: Laterality: right Lung location: upper lobe of lung Pneumonia type: due to unspecified organism Qualified Code(s): J18.1 - Lobar pneumonia, unspecified organism (2) Dementia Dementia type: unspecified type Alzheimer's disease onset: Dementia behavioral disturbance: without behavioral disturbance Qualified Code(s): F03.90 - Unspecified dementia without behavioral disturbance (3) COPD (chronic obstructive pulmonary disease) COPD type: unspecified COPD Chronic bronchitis type: Emphysema type: Qualified Code(s): J44.9 - Chronic obstructive pulmonary disease, unspecified (4) Pulmonary embolism Pulmonary embolism type: other Chronicity: unspecified Acute cor pulmonale presence: without acute cor pulmonale Qualified Code(s): I26.99 - Other pulmonary embolism without acute cor pulmonale (5) Chronic deep vein thrombosis (DVT) DVT location: lower extremity Affected thrombotic vein of extremity: femoral Laterality: left Qualified Code(s): I82.512 - Chronic embolism and thrombosis of left femoral vein (6) HTN (hypertension) Hypertension type: essential hypertension Qualified Code(s): I10 - Essential (primary) hypertension (7) Tibial plateau fracture, right Encounter type: sequela Fracture type: closed Open fracture type: Fracture healing: Qualified Code(s): S82.141S - Displaced bicondylar fracture of right tibia, sequela
[2018-09-21] MEDS: LEVALBUTEROL 1.25MG/0.5ML NEB INH SCH ×2 (02:46→07:05)
[2018-09-21] MEDS: IPRATROPIUM BROMIDE NEB SOLN 0.02% 2.5 ML VIAL INH SCH ×2 (02:46→07:05)
[2018-09-21 06:02] LABS: Basophils # (auto) 0.01 K/uL (0-0.2); Basophils % (auto) 0.1 %; Eosinophils # (auto) 0.22 K/uL (0-0.5); Eosinophils % (auto) 2.6 %; Hematocrit (blood only) 30.8 % (37-47); Hemoglobin 10.1 g/dL (12.0-16.0); Immature Granulocytes # (auto) 0.03 K/uL (0.00-0.02); Immature Granulocytes % (auto) 0.4 %; Lymphocytes # (auto) 0.88 K/uL (1.2-3.4); Lymphocytes % (auto) 10.5 %; Mean Corpuscular Hgb Conc 32.8 g/dL (32-36); Mean Corpuscular Volume 84.6 fL (80-100); Mean Platelet Volume 10.3 fL (7.4-10.4); Monocytes # (auto) 0.76 K/uL (0.11-0.59); Monocytes % (auto) 9.1 %; Neutrophils # (auto) 6.45 K/uL (1.4-6.5); Neutrophils % (auto) 77.3 %; Platelet Count 310 K/uL (130-400); RDW Coefficient of Variation 15.4 % (11.5-14.5); RDW Standard Deviation 47.5 fL (36.4-46.3); Red Blood Count 3.64 M/uL (4.2-5.4); White Blood Count 8.35 K/uL (4.8-10.8)
[2018-09-21 06:12] LABS: INR 1.7 (0.9-1.1); Prothrombin Time 16.4 Seconds (9.0-12.0)
[2018-09-21 06:40] LABS: BUN Creatinine Ratio 16.4 (10-20); Calcium 7.8 mg/dl (8.5-10.1); Creatinine Clr Calc Pharmacy 43.1 ml/min; Est GFR (African American) 87.3; Est GFR (Non-African American) 75.3; Magnesium 1.8 mg/dl (1.8-2.4); Potassium 3.4 mmol/L (3.5-5.1)
[2018-09-21] MEDS: CHECK SCOPOLAMINE PATCH PLACEMENT SCH ×2 (08:34→16:29)
[2018-09-21] MEDS: RESTASIS: ORDER AWAITING ACTION SCH ×2 (08:34→16:30)
[2018-09-21] MEDS: BREO ELLIPTA: ORDER AWAITING ACTION SCH ×2 (08:34→16:30)
[2018-09-21] MEDS: NICOTINE 7 MG/24 HR TDSY TD SCH (08:35)
[2018-09-21] MEDS ORDERED: MAGNESIUM SULFATE / D5W 1 GM/100 ML BAG IV ONE (10:03)
[2018-09-21] MEDS ORDERED: POTASSIUM CHLORIDE 20 MEQ TABCR PO STA (10:03)
[2018-09-21] MEDS: SCOPOLAMINE 1.5 MG TDSY TD SCH (11:03)
[2018-09-21] MEDS: WARFARIN SOD 2 MG TAB PO SCH (16:30)
--- NOTE | 2018-09-21 17:46 | Hospitalist Progress Note ---
Date of Service September 21, 2018 Assessment & Plan (1) Pneumonia: Patient presented with respiratory distress and evidence of bad right- sided pneumonia. - Developed worsening hypoxia on 09/08 likely related to progression of PNA. - CXR showed progressive infiltrate of right upper lung, bilateral pleural effusions. - CT chest 09/05: increase in RUL opacity, 3.9 cm RUL cavitary lesion - may be necrotizing PNA vs. fungal PNA. - Sputum culture +Aspergillus -- Aspergillus Ab, Fungitell Positive, Quantiferon gold serology negative. - Pulmonary following, greatly appreciate input. - At one-point she had been converted to comfort care measures, But then the family wanted antibiotics restarted and now she has made quite an improvement over the last week -Has now completed 10 days of combination of IV and oral antibiotics (2) Acute and chronic respiratory failure with hypoxia: Acute component 2nd to recurrent RUL pneumonia and LLL pneumonia. Amazingly she has recovered from this recurrent pneumonia. Stable O2 sats. Stable NC requirement (3L). Will need NC O2 at d/c regardless of disposition. (3) Metabolic encephalopathy: Improved. MS at baseline (baseline is mod-severe dementia). (4) Dementia: moderate-severe. seroquel HS for and to help promote sleep. (5) COPD (chronic obstructive pulmonary disease): cont nebs as palliative measure. (6) Chronic diastolic CHF (congestive heart failure): compensated (7) Pulmonary embolism: with DVT INR 1.7 today ideally we simply d/c all anticoagulation in light of her status and probable transition to hospice however, her status is still uncertain as her son Musa - who has POA - has not fully committted yet to hospice, comfort/palliative, etc until we confirm hospice status will Continue to give 1.5mg/kg/day of lovenox with her coumadin (8) Chronic deep vein thrombosis (DVT): Left leg DVT. (9) HTN (hypertension): not aggressively treating in light of likely transition to hospice (10) Chronic kidney disease, stage 3a: creatinine stable (11) Tibial plateau fracture, right: Initial fracture date - 08/03/18; orthopedics (Adeel) recommended conservative measures. 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 antifungal Rx discontinued. (14) Hypokalemia: Replaced today with p.o. potassium (15) Current smoker: -Continue nicotine patch 7 mg daily to help with grieving (16) DVT prophylaxis: Coumadin, Lovenox bridging (17) Poor prognosis: At this point, since both sons work full-time and since the family cannot afford private duty nurses (FJ today stated he looked into [facility] and could not afford their hourly charge), the best option is SNF w/ hospice. [facility]errals been made to [facility] as sons are in agreement with this-she is medically stable for discharge at this time but no bed will be available till Thursday Subjective Patient still pleasantly confused but has no complaints other than productive cough. The nurses about to feed her dinner. She has not been out of bed much at all and is very weak. Review of Systems All systems reviewed & are unremarkable except as noted in HPI & below Physical Exam 2 Vital Signs (Past 24 Hours): Last Vital Signs Temp 36.5 C 09/21/18 15:36 Pulse 86 09/21/18 15:36 Resp 20 09/21/18 15:36 BP 187/92 H 09/21/18 15:36 Pulse Ox 93 09/21/18 15:36 Constitutional: + thin and + frail appearing; no acute distress (Sitting up in bed awake and alert and answering questions) Eyes: PERRL, conjunctivae normal, anicteric sclerae ENMT: external ear and nose normal, oropharynx normal Neck: trachea midline, no thyromegaly Respiratory: normal respiratory effort Auscultation: + crackles (At right base); no wheezes Cardiovascular: RRR, no murmur, no edema Gastrointestinal (Abdomen): normal bowel sounds, soft, nontender, no hepatosplenomegaly Musculoskeletal: Extremities: extremities normal to inspection; no cyanosis and no clubbing Skin: no rashes, warm and dry Neurologic: moves all extremities and awake; no focal motor deficits Psychiatric: Orientation: alert, oriented to person and cooperative Affect : euthymic affect Genitourinary: + abnormal external appearance (Chavez catheter in place) Results & Data Laboratory Results 09/21/18 09/21/18 09/21/18 Range/Units 05:49 05:49 05:49 WBC 8.35 (4.8-10.8) K/uL RBC 3.64 L (4.2-5.4) M/uL Hgb 10.1 L (12.0-16.0) g/dL Hct 30.8 L (37-47) % MCV 84.6 (80-100) fL MCH 27.7 (25-34) pg MCHC 32.8 (32-36) g/dL RDW Std Deviation 47.5 H (36.4-46.3) fL RDW Coeff of [place] 15.4 H (11.5-14.5) % Plt Count 310 (130-400) K/uL MPV 10.3 (7.4-10.4) fL Immature Gran % (Auto) 0.4 % Neut % (Auto) 77.3 % Lymph % (Auto) 10.5 % [place] % (Auto) 9.1 % Eos % (Auto) 2.6 % Baso % (Auto) 0.1 % Immature Gran # (Auto) 0.03 H (0.00-0.02) K/uL Neut # (Auto) 6.45 (1.4-6.5) K/uL Lymph # (Auto) 0.88 L (1.2-3.4) K/uL [place] # (Auto) 0.76 H (0.11-0.59) K/uL Eos # (Auto) 0.22 (0-0.5) K/uL Baso # (Auto) 0.01 (0-0.2) K/uL PT 16.4 H (9.0-12.0) Seconds INR 1.7 H (0.9-1.1) Sodium 134 L (136-145) mmol/L Potassium 3.4 L (3.5-5.1) mmol/L Chloride 98 (98-107) mmol/L Carbon Dioxide 31 (21-32) mmol/L Anion Gap 5.0 (3-11) BUN 12 (7-18) mg/dl Creatinine 0.72 (0.6-1.2) mg/dl Est Cr Clr Drug Dosing 43.1 ml/min Est GFR ( Amer) 87.3 Est GFR (Non-Af Amer) 75.3 BUN/Creatinine Ratio 16.4 (10-20) Glucose 89 (70-99) mg/dl Calcium 7.8 L (8.5-10.1) mg/dl Magnesium 1.8 (1.8-2.4) mg/dl _ (1) Dementia Alzheimer's disease onset: Dementia behavioral disturbance: without behavioral disturbance Dementia type: unspecified type Qualified Code(s): F03.90 - Unspecified dementia without behavioral disturbance (2) Tibial plateau fracture, right Encounter type: sequela Fracture healing: Fracture type: closed Open fracture type: Qualified Code(s): S82.141S - Displaced bicondylar fracture of right tibia, sequela (3) Chronic deep vein thrombosis (DVT) Affected thrombotic vein of extremity: femoral DVT location: lower extremity Laterality: left Qualified Code(s): I82.512 - Chronic embolism and thrombosis of left femoral vein (4) COPD (chronic obstructive pulmonary disease) COPD type: unspecified COPD Chronic bronchitis type: Emphysema type: Qualified Code(s): J44.9 - Chronic obstructive pulmonary disease, unspecified (5) Pulmonary embolism Acute cor pulmonale presence: without acute cor pulmonale Chronicity: unspecified Pulmonary embolism type: other Qualified Code(s): I26.99 - Other pulmonary embolism without acute cor pulmonale (6) HTN (hypertension) Hypertension type: essential hypertension Qualified Code(s): I10 - Essential (primary) hypertension (7) Pneumonia Aspiration pneumonia type: Laterality: right Lung location: upper lobe of lung Pneumonia type: due to unspecified organism Qualified Code(s): J18.1 - Lobar pneumonia, unspecified organism
[2018-09-21] MEDS: ENOXAPARIN 80 MG/0.8 ML SYR SQ SCH (18:31)
[2018-09-21] MEDS: QUETIAPINE FUMARATE 25 MG TABLET PO PRN (20:58)
[2018-09-22] MEDS: RESTASIS: ORDER AWAITING ACTION SCH ×3 (00:46→16:29)
[2018-09-22] MEDS: CHECK SCOPOLAMINE PATCH PLACEMENT SCH ×3 (00:46→16:09)
[2018-09-22] MEDS: BREO ELLIPTA: ORDER AWAITING ACTION SCH ×3 (00:46→16:29)
[2018-09-22 06:54] LABS: INR 1.5 (0.9-1.1); Prothrombin Time 14.6 Seconds (9.0-12.0)
[2018-09-22 06:58] LABS: BUN Creatinine Ratio 29.5 (10-20); Calcium 7.5 mg/dl (8.5-10.1); Creatinine Clr Calc Pharmacy 57.5 ml/min; Est GFR (African American) 98.3; Est GFR (Non-African American) 84.8; Magnesium 1.9 mg/dl (1.8-2.4); Potassium 3.8 mmol/L (3.5-5.1)
[2018-09-22] MEDS: NICOTINE 7 MG/24 HR TDSY TD SCH (08:05)
--- NOTE | 2018-09-22 13:53 | Hospitalist Progress Note ---
Date of Service September 22, 2018 Assessment & Plan (1) Pneumonia: Patient presented with respiratory distress and evidence of bad right- sided pneumonia. - Developed worsening hypoxia on 09/08 likely related to progression of PNA. - CXR showed progressive infiltrate of right upper lung, bilateral pleural effusions. - CT chest 09/05: increase in RUL opacity, 3.9 cm RUL cavitary lesion - may be necrotizing PNA vs. fungal PNA. - Sputum culture +Aspergillus -- Aspergillus Ab, Fungitell Positive, Quantiferon gold serology negative. - Pulmonary following, greatly appreciate input. - At one-point she had been converted to comfort care measures, But then the family wanted antibiotics restarted and now she has made quite an improvement over the last week -Has now completed 10 days of combination of IV and oral antibiotics -should have repeat ches timaging in a few weeks to see if PNA clearing radiographically (2) Acute and chronic respiratory failure with hypoxia: Acute component 2nd to recurrent RUL pneumonia and LLL pneumonia. Amazingly she has recovered from this recurrent pneumonia. Stable O2 sats. Stable NC requirement (3L). Will need NC O2 at d/c regardless of disposition. (3) Metabolic encephalopathy: Improved. MS at baseline (baseline is mod-severe dementia). (4) Dementia: moderate-severe. seroquel HS for and to help promote sleep. (5) COPD (chronic obstructive pulmonary disease): cont nebs (6) Chronic diastolic CHF (congestive heart failure): compensated (7) Pulmonary embolism: with DVT INR still low at 1.5 today -continue AC as sons are not transitioning ot Hospice at this time - Continue to give 1.5mg/kg/day of lovenox with her coumadin -increase coumadin today to 3mg daily -follow INR in AM (8) Chronic deep vein thrombosis (DVT): Left leg DVT. (9) HTN (hypertension): BPs remain high and son requesting her lisinopril be restarted Will restart home lisinopril but at lower dose of 20mg daily (10) Chronic kidney disease, stage 3a: creatinine stable (11) Tibial plateau fracture, right: Initial fracture date - 08/03/18; orthopedics (Adeel) recommended conservative measures. 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 antifungal Rx discontinued. (14) Hypokalemia: Replaced -folow BMP (15) Current smoker: -Continue nicotine patch 7 mg daily to help with cravings (16) DVT prophylaxis: Coumadin, Lovenox bridging (17) Poor prognosis: At this point, since both sons work full-time and since the family cannot afford private duty nurses (FJ today stated he looked into [facility] and could not afford their hourly charge), the best option is SNF w/ hospice, although unclear if sons ready for transition to Hospice yet Referrals been made to [facility] as sons are in agreement with this-she is medically stable for discharge at this time but no bed will be available till Thursday Subjective Pt confused but awake and alert and eating lunch when I saw her. When asked how she is doing, she states "I've been waiting on you...nah, that's bullshit." When asked what her name is, she states "Ummm, [age]." Review of Systems Unobtainable due to cognitive status Physical Exam Vital Signs (Past 24 Hours): Last Vital Signs Temp 36.5 C 09/22/18 07:33 Pulse 79 09/22/18 07:33 Resp 18 09/22/18 07:33 BP 184/74 H 09/22/18 08:53 Pulse Ox 97 09/22/18 07:33 Constitutional: + thin and + frail appearing; no acute distress (Sitting up in bed awake and alert and answering questions) Eyes: PERRL, conjunctivae normal, anicteric sclerae ENMT: external ear and nose normal, oropharynx normal Neck: trachea midline, no thyromegaly Respiratory: normal respiratory effort Auscultation: + crackles (At right base); no wheezes Cardiovascular: RRR, no murmur, no edema Gastrointestinal (Abdomen): normal bowel sounds, soft, nontender, no hepatosplenomegaly Musculoskeletal: Extremities: extremities normal to inspection; no cyanosis and no clubbing Skin: no rashes, warm and dry Neurologic: moves all extremities and awake; no focal motor deficits Psychiatric: Orientation: alert and cooperative; + not oriented x 3 and + not oriented to person Affect: euthymic affect Genitourinary: + abnormal external appearance (Chavez catheter in place) Results & Data Laboratory Results 09/23/18 09/23/18 09/23/18 Range/Units 06:11 06:11 06:11 WBC 6.19 (4.8-10.8) K/uL RBC 3.56 L (4.2-5.4) M/uL Hgb 9.9 L (12.0-16.0) g/dL Hct 30.8 L (37-47) % MCV 86.5 (80-100) fL MCH 27.8 (25-34) pg MCHC 32.1 (32-36) g/dL RDW Std Deviation 49.8 H (36.4-46.3) fL RDW Coeff of [place] 15.8 H (11.5-14.5) % Plt Count 261 (130-400) K/uL MPV 10.4 (7.4-10.4) fL Immature Gran % (Auto) 0.8 % Neut % (Auto) 69.6 % Lymph % (Auto) 15.2 % [place] % (Auto) 9.7 % Eos % (Auto) 4.4 % Baso % (Auto) 0.3 % Immature Gran # (Auto) 0.05 H (0.00-0.02) K/uL Neut # (Auto) 4.31 (1.4-6.5) K/uL Lymph # (Auto) 0.94 L (1.2-3.4) K/uL [place] # (Auto) 0.60 H (0.11-0.59) K/uL Eos # (Auto) 0.27 (0-0.5) K/uL Baso # (Auto) 0.02 (0-0.2) K/uL PT 14.6 H (9.0-12.0) Seconds INR 1.5 H (0.9-1.1) Sodium 136 (136-145) mmol/L Potassium 3.7 (3.5-5.1) mmol/L Chloride 98 (98-107) mmol/L Carbon Dioxide 34 H (21-32) mmol/L Anion Gap 4.0 (3-11) BUN 15 (7-18) mg/dl Creatinine 0.59 L (0.6-1.2) mg/dl Est Cr Clr Drug Dosing 52.6 ml/min Est GFR ( Amer) 95.5 Est GFR (Non-Af Amer) 82.4 BUN/Creatinine Ratio 25.8 H (10-20) Glucose 88 (70-99) mg/dl Calcium 8.1 L (8.5-10.1) mg/dl Magnesium 1.8 (1.8-2.4) mg/dl (1) Dementia Dementia behavioral disturbance: without behavioral disturbance Dementia type: unspecified type Qualified Code(s): F03.90 - Unspecified dementia without behavioral disturbance (2) Tibial plateau fracture, right Encounter type: sequela Fracture type: closed Qualified Code(s): S82.141S - Displaced bicondylar fracture of right tibia, sequela (3) Chronic deep vein thrombosis (DVT) Affected thrombotic vein of extremity: femoral DVT location: lower extremity Laterality: left Qualified Code(s): I82.512 - Chronic embolism and thrombosis of left femoral vein (4) COPD (chronic obstructive pulmonary disease) COPD type: unspecified COPD Qualified Code(s): J44.9 - Chronic obstructive pulmonary disease, unspecified (5) Pulmonary embolism Acute cor pulmonale presence: without acute cor pulmonale Chronicity: unspecified Pulmonary embolism type: other Qualified Code(s): I26.99 - Other pulmonary embolism without acute cor pulmonale (6) HTN (hypertension) Hypertension type: essential hypertension Qualified Code(s): I10 - Essential (primary) hypertension (7) Pneumonia Laterality: right Lung location: upper lobe of lung Pneumonia type: due to unspecified organism Qualified Code(s): J18.1 - Lobar pneumonia, unspecified organism
[2018-09-22] MEDS: WARFARIN SOD 3 MG TAB PO SCH (16:09)
[2018-09-22] MEDS ORDERED: LISINOPRIL 20 MG TAB PO STA (16:38)
[2018-09-22] MEDS: ENOXAPARIN 80 MG/0.8 ML SYR SQ SCH (17:28)
[2018-09-23 06:36] LABS: Basophils # (auto) 0.02 K/uL (0-0.2); Basophils % (auto) 0.3 %; Eosinophils # (auto) 0.27 K/uL (0-0.5); Eosinophils % (auto) 4.4 %; Hematocrit (blood only) 30.8 % (37-47); Hemoglobin 9.9 g/dL (12.0-16.0); Immature Granulocytes # (auto) 0.05 K/uL (0.00-0.02); Immature Granulocytes % (auto) 0.8 %; Lymphocytes # (auto) 0.94 K/uL (1.2-3.4); Lymphocytes % (auto) 15.2 %; Mean Corpuscular Hgb Conc 32.1 g/dL (32-36); Mean Corpuscular Volume 86.5 fL (80-100); Mean Platelet Volume 10.4 fL (7.4-10.4); Monocytes % (auto) 9.7 %; Neutrophils # (auto) 4.31 K/uL (1.4-6.5); Neutrophils % (auto) 69.6 %; Platelet Count 261 K/uL (130-400); RDW Coefficient of Variation 15.8 % (11.5-14.5); RDW Standard Deviation 49.8 fL (36.4-46.3); Red Blood Count 3.56 M/uL (4.2-5.4); White Blood Count 6.19 K/uL (4.8-10.8)
[2018-09-23 06:45] LABS: INR 1.5 (0.9-1.1); Prothrombin Time 14.6 Seconds (9.0-12.0)
[2018-09-23 07:14] LABS: BUN Creatinine Ratio 25.8 (10-20); Calcium 8.1 mg/dl (8.5-10.1); Creatinine Clr Calc Pharmacy 52.6 ml/min; Est GFR (African American) 95.5; Est GFR (Non-African American) 82.4; Magnesium 1.8 mg/dl (1.8-2.4); Potassium 3.7 mmol/L (3.5-5.1)
[2018-09-23] MEDS ORDERED: LISINOPRIL 20 MG TAB PO SCH (09:00)
[2018-09-23] MEDS: NICOTINE 7 MG/24 HR TDSY TD SCH (09:15)
[2018-09-23] MEDS: NITROGLYCERIN 0.1 MG/HR PATCH TD SCH (13:05)
[2018-09-23] MEDS: WARFARIN SOD 3 MG TAB PO SCH (15:06)
[2018-09-23] MEDS: ENOXAPARIN 80 MG/0.8 ML SYR SQ SCH (18:23)
--- NOTE | 2018-09-23 20:20 | Hospitalist Progress Note ---
Date of Service September 23, 2018 Assessment & Plan (1) Pneumonia: RUL, LLL - resolved. completed 10+ days of IV abx earlier this stay. (2) Acute and chronic respiratory failure with hypoxia: Acute component 2nd to recurrent RUL pneumonia and LLL pneumonia. Stable NC requirement (4 L). Will need NC O2 at d/c. (3) Metabolic encephalopathy: Improved/resolved. MS at baseline (baseline is mod-severe dementia). Cont seroquel HS. (4) Dementia: moderate-severe. seroquel HS for ing and to help promote sleep. (5) COPD (chronic obstructive pulmonary disease): cont nebs prn. no exacerbation at this time. (6) Chronic diastolic CHF (congestive heart failure): compensated (7) Pulmonary embolism: with DVT INR 1.5 today cont lovenox 1.5mg/kg daily until INR >2 cont coumadin 3mg daily INR am (8) Chronic deep vein thrombosis (DVT): Left leg DVT. (9) HTN (hypertension): since not taking PO BP meds reliably will use nitropatch in urmila (10) Chronic kidney disease, stage 3a: creatinine stable on most recent labs (11) Tibial plateau fracture, right: Initial fracture date - 08/03/18; orthopedics (Adeel) recommended conservative measures. 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 pulmonary had advised d/c of the antifungal Rx. (15) Hypokalemia: low mag and low K resolved (16) Poor prognosis: Neither son has committed to hospice upon discharge. This will need to be readdressed in light of poor prognosis. Strongly consider POLST form completion. Dispo - [facility] updated today Subjective pt awake, alert during my visit. said catrachita after I entered her room. her answers to my questions did not make sense. both sons at bedside. her son, Musa, inquired about her cough and asked "should she get more antibi otics?" ate no breakfast or lunch today. no bowel movement in several days. Review of Systems Unobtainable due to cognitive status Physical Exam Vital Signs (Past 24 Hours): Last Vital Signs Temp 36.6 C 09/23/18 14:54 Pulse 81 09/23/18 14:54 Resp 20 09/23/18 14:54 BP 157/78 H 09/23/18 14:54 Pulse Ox 94 09/23/18 14:54 Constitutional: + ill appearing, + thin, + cachectic and + altered mental status; no acute distress ENMT: external ear and nose normal, oropharynx normal Mouth: no oropharynx abnormality and no oral mucosal abnormality Respiratory: + tachypneic and + pursed lip breathing (normal for her); no respiratory distress, no labored breathing, no retractions and no audible wheezes Auscultation: + diminished lung sounds Cardiovascular: Rate/Rhythm: regular rate and regular rhythm Heart Sounds: normal S1 and normal S2 Vessels: posterior tibial pulses present and dorsalis pedis pulses present; no JVD Extremities: no edema Gastrointestinal (Abdomen): normal bowel sounds, soft, nontender, no hepa tosplenomegaly Psychiatric: Orientation: alert; + not oriented x 3 Results & Data Laboratory Results Laboratory Results - last 24 hr 09/23/18 09/23/18 09/23/18 06:11 06:11 06:11 WBC 6.19 RBC 3.56 L Hgb 9.9 L Hct 30.8 L MCV 86.5 MCH 27.8 MCHC 32.1 RDW Std Deviation 49.8 H RDW Coeff of Juan Diego 15.8 H Plt Count 261 MPV 10.4 Immature Gran % (Auto) 0.8 Neut % (Auto) 69.6 Lymph % (Auto) 15.2 Mora % (Auto) 9.7 Eos % (Auto) 4.4 Baso % (Auto) 0.3 Immature Gran # (Auto) 0.05 H Neut # (Auto) 4.31 Lymph # (Auto) 0.94 L Mora # (Auto) 0.60 H Eos # (Auto) 0.27 Baso # (Auto) 0.02 PT 14.6 H INR 1.5 H Sodium 136 Potassium 3.7 Chloride 98 Carbon Dioxide 34 H Anion Gap 4.0 BUN 15 Creatinine 0.59 L Est Cr Clr Drug Dosing 52.6 Est GFR ( Amer) 95.5 Est GFR (Non-Af Amer) 82.4 BUN/Creatinine Ratio 25.8 H Glucose 88 Calcium 8.1 L Magnesium 1.8 (1) Dementia Dementia behavioral disturbance: without behavioral disturbance Dementia type: unspecified type Qualified Code(s): F03.90 - Unspecified dementia without behavioral disturbance (2) Tibial plateau fracture, right Encounter type: sequela Fracture type: closed Qualified Code(s): S82.141S - Displaced bicondylar fracture of right tibia, sequela (3) Chronic deep vein thrombosis (DVT) Affected thrombotic vein of extremity: femoral DVT location: lower extremity Laterality: left Qualified Code(s): I82.512 - Chronic embolism and thrombosis of left femoral vein (4) COPD (chronic obstructive pulmonary disease) COPD type: unspecified COPD Qualified Code(s): J44.9 - Chronic obstructive pulmonary disease, unspecified (5) Pulmonary embolism Acute cor pulmonale presence: without acute cor pulmonale Chronicity: unspecified Pulmonary embolism type: other Qualified Code(s): I26.99 - Other pulmonary embolism without acute cor pulmonale (6) HTN (hypertension) Hypertension type: essential hypertension Qualified Code(s): I10 - Essential (primary) hypertension (7) Pneumonia Laterality: right Lung location: upper lobe of lung Pneumonia type: due to unspecified organism Qualified Code(s): J18.1 - Lobar pneumonia, unspecified organism
[2018-09-23] MEDS: QUETIAPINE FUMARATE 25 MG TABLET PO SCH (21:30)
[2018-09-24 06:28] LABS: INR 1.7 (0.9-1.1); Prothrombin Time 16.5 Seconds (9.0-12.0)
[2018-09-24] MEDS: NITROGLYCERIN 0.1 MG/HR PATCH TD SCH (10:15)
[2018-09-24] MEDS: NICOTINE 7 MG/24 HR TDSY TD SCH (10:15)
[2018-09-24] MEDS: WARFARIN SOD 3 MG TAB PO SCH (16:17)
[2018-09-24] MEDS ORDERED: BISACODYL 10 MG SUPP PR PRN (18:26)
[2018-09-24] MEDS: QUETIAPINE FUMARATE 25 MG TABLET PO SCH (19:52)
[2018-09-24] MEDS: ENOXAPARIN 80 MG/0.8 ML SYR SQ SCH (19:52)
--- NOTE | 2018-09-24 21:02 | Hospitalist Progress Note ---
Date of Service September 24, 2018 Assessment & Plan (1) Pneumonia: RUL, LLL - resolved. completed 10+ days of IV abx earlier this stay. (2) Acute and chronic respiratory failure with hypoxia: Acute component 2nd to recurrent RUL pneumonia and LLL pneumonia. Stable NC requirement (4 L). Will need NC O2 at d/c. (3) Metabolic encephalopathy: resolved. tolerating seroquel although it causes AM sedation. sonMusa, requests that this continues to be given at 2000 each evening. (4) Dementia: moderate-severe. seroquel HS for and to help promote sleep. (5) COPD (chronic obstructive pulmonary disease): cont nebs prn. no exacerbation at this time. (6) Chronic diastolic CHF (congestive heart failure): compensated (7) Pulmonary embolism: with DVT INR 1.7 today cont lovenox 1.5mg/kg daily until INR >2 cont coumadin 3mg daily INR am (8) Chronic deep vein thrombosis (DVT): Left leg DVT. (9) HTN (hypertension): cont nitropatch will not be overly aggressive with BP in light of overall pt status (10) Chronic kidney disease, stage 3a: creatinine stable on most recent labs (11) Tibial plateau fracture, right: Initial fracture date - 08/03/18. no issues. never needed operative repair. 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 pulmonary had advised d/c of the antifungal Rx. (15) Hypokalemia: low mag and low K resolved (16) Poor prognosis: Neither son has committed to hospice upon discharge. This will need to be readdressed in light of poor prognosis. Strongly consider POLST form completion. Dispo - [facility] - hopefully Thursday Musa (son) updated today Subjective no change in pt's status sonMusa, at bedside today -- voiced no complaints no bowel movement in several days plan is for SNF placement on Thursday Review of Systems Unobtainable due to cognitive status Physical Exam Vital Signs (Past 24 Hours): Last Vital Signs Temp 36.2 C L 09/24/18 15:22 Pulse 82 09/24/18 15:22 Resp 22 09/24/18 15:22 BP 177/91 H 09/24/18 15:22 Pulse Ox 96 09/24/18 15:22 Constitutional: + ill appearing, + thin, + cachectic and + altered mental status; no acute distress ENMT: external ear and nose normal, oropharynx normal Mouth: no oropharynx abnormality and no oral mucosal abnormality Respiratory: + tachypneic; no respiratory distress, no labored breathing, no retractions and no audible wheezes Auscultation: + diminished lung sounds and + rales (left ant chest) Cardiovascular: Rate/Rhythm: regular rate and regular rhythm Heart Sounds: normal S1 and normal S2 Vessels: posterior tibial pulses present and dorsalis pedis pulses present; no JVD Extremities: no edema Gastrointestinal (Abdomen): normal bowel sounds, soft, nontender, no hepatosplenomegaly Psychiatric: Orientation: alert; + not oriented x 3 Results & Data Laboratory Results INR 1.7 (1) Dementia Dementia behavioral disturbance: without behavioral disturbance Dementia type: unspecified type Qualified Code(s): F03.90 - Unspecified dementia without behavioral disturbance (2) Tibial plateau fracture, right Encounter type: sequela Fracture type: closed Qualified Code(s): S82.141S - Displaced bicondylar fracture of right tibia, sequela (3) Chronic deep vein thrombosis (DVT) Affected thrombotic vein of extremity: femoral DVT location: lower extremity Laterality: left Qualified Code(s): I82.512 - Chronic embolism and thrombosis of left femoral vein (4) COPD (chronic obstructive pulmonary disease) COPD type: unspecified COPD Qualified Code(s): J44.9 - Chronic obstructive pulmonary disease, unspecified (5) Pulmonary embolism Acute cor pulmonale presence: without acute cor pulmonale Chronicity: unspecified Pulmonary embolism type: other Qualified Code(s): I26.99 - Other pulmonary embolism without acute cor pulmonale (6) HTN (hypertension) Hypertension type: essential hypertension Qualified Code(s): I10 - Essential (primary) hypertension (7) Pneumonia Laterality: right Lung location: upper lobe of lung Pneumonia type: due to unspecified organism Qualified Code(s): J18.1 - Lobar pneumonia, unspecified organism
[2018-09-25 07:11] LABS: INR 1.9 (0.9-1.1); Prothrombin Time 18.8 Seconds (9.0-12.0)
[2018-09-25] MEDS: NITROGLYCERIN 0.1 MG/HR PATCH TD SCH (07:47)
[2018-09-25] MEDS: NICOTINE 7 MG/24 HR TDSY TD SCH (07:48)
[2018-09-25] MEDS: NITROGLYCERIN 0.2 MG/HR PATCH TD SCH (09:31)
[2018-09-25] MEDS: WARFARIN SOD 3 MG TAB PO SCH (15:32)
[2018-09-25] MEDS: QUETIAPINE FUMARATE 25 MG TABLET PO SCH (20:14)
--- NOTE | 2018-09-25 20:23 | Hospitalist Progress Note ---
Date of Service September 25, 2018 Assessment & Plan (1) Pneumonia: RUL, LLL - resolved. (2) Acute and chronic respiratory failure with hypoxia: Acute component 2nd to recurrent RUL pneumonia and LLL pneumonia. Chronic component 2nd to COPD and PEs. Stable NC requirement (4 L). (3) Metabolic encephalopathy: resolved. tolerating seroquel although it causes AM sedation. (4) Dementia: moderate-severe. seroquel HS scheduled. (5) COPD (chronic obstructive pulmonary disease): cont nebs prn. (6) Chronic diastolic CHF (congestive heart failure): compensated (7) Pulmonary embolism: with DVT INR 1.9 today stop lovenox cont coumadin 3mg daily INR am (8) Chronic deep vein thrombosis (DVT): Left leg DVT. (9) HTN (hypertension): increase nitropatch to 0.2mg/24 hours (10) Chronic kidney disease, stage 3a: most recent Cr stable (11) Tibial plateau fracture, right: Initial fracture date - 08/03/18. no issues. never needed operative repair. 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 pulmonary had advised d/c of the antifungal Rx. (15) Hypokalemia: low mag and low K resolved (16) Poor prognosis: Neither son has committed to hospice upon discharge. Strongly consider POLST form completion prior to d/c to SNF on Thursday. Dispo - [facility] - hopefully Thursday of this week give dulcolax suppos x 1 today Subjective patient smiled and said hello upon my arrival she reported "being bored" appetite through the day very poor as usual no new issues per staff Review of Systems Unobtainable due to cognitive status Physical Exam Vital Signs (Past 24 Hours): Last Vital Signs Temp 36.6 C 09/25/18 15:08 Pulse 99 H 09/25/18 15:08 Resp 18 09/25/18 15:08 BP 135/77 09/25/18 15:08 Pulse Ox 94 09/25/18 15:08 Constitutional: + thin, + cachectic and + altered mental status; no acute distress ENMT: external ear and nose normal, oropharynx normal Respiratory: normal respiratory effort, lungs clear to auscultation Auscultation: + diminished lung sounds (bases) Cardiovascular: Rate/Rhythm: regular rate and regular rhythm Heart Sounds: normal S1 and normal S2 Vessels: no JVD Gastrointestinal (Abdomen): normal bowel sounds, soft, nontender, no hepatosplenomegaly Psychiatric: Orientation: alert; + not oriented x 3 Results & Data Laboratory Results INR 1.9 (1) Dementia Dementia behavioral disturbance: without behavioral disturbance Dementia type: unspecified type Qualified Code(s): F03.90 - Unspecified dementia without behavioral disturbance (2) Tibial plateau fracture, right Encounter type: sequela Fracture type: closed Qualified Code(s): S82.141S - Displaced bicondylar fracture of right tibia, sequela (3) Chronic deep vein thrombosis (DVT) Affected thrombotic vein of extremity: femoral DVT location: lower extremity Laterality: left Qualified Code(s): I82.512 - Chronic embolism and thrombosis of left femoral vein (4) COPD (chronic obstructive pulmonary disease) COPD type: unspecified COPD Qualified Code(s): J44.9 - Chronic obstructive pulmonary disease, unspecified (5) Pulmonary embolism Acute cor pulmonale presence: without acute cor pulmonale Chronicity: unspecified Pulmonary embolism type: other Qualified Code(s): I26.99 - Other pulmonary embolism without acute cor pulmonale (6) HTN (hypertension) Hypertension type: essential hypertension Qualified Code(s): I10 - Essential (primary) hypertension (7) Pneumonia Laterality: right Lung location: upper lobe of lung Pneumonia type: due to unspecified organism Qualified Code(s): J18.1 - Lobar pneumonia, unspecified organism
[2018-09-26 06:32] LABS: INR 2.5 (0.9-1.1); Prothrombin Time 23.9 Seconds (9.0-12.0)
[2018-09-26 07:00] LABS: BUN Creatinine Ratio 35.2 (10-20); Calcium 8.1 mg/dl (8.5-10.1); Creatinine Clr Calc Pharmacy 58.6 ml/min; Est GFR (African American) 98.9; Est GFR (Non-African American) 85.4; Potassium 3.8 mmol/L (3.5-5.1)
[2018-09-26] MEDS: NITROGLYCERIN 0.2 MG/HR PATCH TD SCH (07:28)
[2018-09-26] MEDS: NICOTINE 7 MG/24 HR TDSY TD SCH (07:29)
[2018-09-26] MEDS ORDERED: LISINOPRIL 20 MG TAB PO SCH (09:00)
[2018-09-26] MEDS: LISINOPRIL 10 MG TAB PO SCH (09:11)
[2018-09-26] MEDS: WARFARIN SOD 2 MG TAB PO SCH (15:30)
[2018-09-26] MEDS: QUETIAPINE FUMARATE 25 MG TABLET PO SCH (19:32)
--- NOTE | 2018-09-26 19:33 | Hospitalist Progress Note ---
Date of Service September 26, 2018 Assessment & Plan (1) Pneumonia: RUL, LLL - clinically resolved. (2) Acute and chronic respiratory failure with hypoxia: Acute component 2nd to recurrent RUL pneumonia and LLL pneumonia. Acute component resolved. Chronic component 2nd to COPD and PEs. Stable NC requirement over the last week. D/c to SNF on O2. (3) Metabolic encephalopathy: resolved. tolerating seroquel although it causes AM sedation at times. (4) Dementia: moderate-severe. seroquel HS scheduled. (5) COPD (chronic obstructive pulmonary disease): cont nebs prn. no exacerbation at this time. (6) Chronic diastolic CHF (congestive heart failure): compensated (7) Pulmonary embolism: with DVT INR 2.5 lower coumadin dose to 2mg daily INR am (8) Chronic deep vein thrombosis (DVT): Left leg DVT. (9) HTN (hypertension): cont nitropatch at 0.2mg/24 hours restart lisinopril (10) Chronic kidney disease, stage 3a: most recent Cr stable (11) Tibial plateau fracture, right: Initial fracture date - 08/03/18. no issues. never needed operative repair. 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 pulmonary had advised d/c of the antifungal Rx. (15) Hypokalemia: low mag and low K resolved (16) Poor prognosis: Neither son has committed to hospice upon discharge. I had a lengthy POLST discussion with the pt's son, Musa, who is Mrs. Gordon BRIDGES. She remains DNR. He was uncertain about other questions on the POLST form. I asked him to speak with his brother and try to complete the form by tomorrow before she discharges to [facility] in [place]. I don't get the sense he is ready to allow hospice at this time. I explained to him that her risk of readmission is VERY HIGH and that her anorexia/failure to thrive will continue. I also explained that she likely would be continue to be bed-bound. anticipate d/c to SNF tomorrow Subjective pt awake/alert during my AM rounds as usual said hello asking simple questions she would give irrelevant answers no issues per staff like previous days she is eating terribly son, Musa, was at bedside during my afternoon rounds we had a POLST discussion Review of Systems Unobtainable due to cognitive status Physical Exam Vital Signs (Past 24 Hours): Last Vital Signs Temp 35.7 C L 09/26/18 15:16 Pulse 87 09/26/18 15:16 Resp 18 09/26/18 15:16 BP 145/77 H 09/26/18 15:16 Pulse Ox 98 09/26/18 15:16 Constitutional: + ill appearing, + thin, + cachectic and + altered mental status; no acute distress ENMT: external ear and nose normal, oropharynx normal Mouth: no oropharynx abnormality and no oral mucosal abnormality Respiratory: normal respiratory effort, lungs clear to auscultation + tachypneic; no respiratory distress, no labored breathing, no retractions and no audible wheezes Auscultation: + diminished lung sounds (bases) Cardiovascular: Rate/Rhythm: regular rate and regular rhythm Heart Sounds: normal S1 and normal S2 Vessels: posterior tibial pulses present and dorsalis pedis pulses present; no JVD Extremities: no edema Gastrointestinal (Abdomen): normal bowel sounds, soft, nontender, no hepatosplenomegaly Musculoskeletal: severe muscle wasting around her shoulders, thighs, shins, arms; b/l foot drop Psychiatric: Orientation: alert; + not oriented x 3 Results & Data Laboratory Results Laboratory Results - last 24 hr 09/26/18 09/26/18 05:14 05:14 PT 23.9 H INR 2.5 H Sodium 138 Potassium 3.8 Chloride 100 Carbon Dioxide 33 H Anion Gap 4.0 BUN 19 H Creatinine 0.53 L Est Cr Clr Drug Dosing 58.6 Est GFR ( Amer) 98.9 Est GFR (Non-Af Amer) 85.4 BUN/Creatinine Ratio 35.2 H Glucose 89 Calcium 8.1 L (1) Pneumonia Laterality: right Lung location: upper lobe of lung Pneumonia type: due to unspecified organism Qualified Code(s): J18.1 - Lobar pneumonia, unspecified organism (2) Dementia Dementia type: unspecified type Dementia behavioral disturbance: without behavioral disturbance Qualified Code(s): F03.90 - Unspecified dementia without behavioral disturbance (3) COPD (chronic obstructive pulmonary disease) COPD type: unspecified COPD Qualified Code(s): J44.9 - Chronic obstructive pulmonary disease, unspecified (4) Pulmonary embolism Pulmonary embolism type: other Chronicity: unspecified Acute cor pulmonale presence: without acute cor pulmonale Qualified Code(s): I26.99 - Other pulmonary embolism without acute cor pulmonale (5) Chronic deep vein thrombosis (DVT) DVT location: lower extremity Affected thrombotic vein of extremity: femoral Laterality: left Qualified Code(s): I82.512 - Chronic embolism and thrombosis of left femoral vein (6) HTN (hypertension) Hypertension type: essential hypertension Qualified Code(s): I10 - Essential (primary) hypertension (7) Tibial plateau fracture, right Encounter type: sequela Fracture type: closed Qualified Code(s): S82.141S - Displaced bicondylar fracture of right tibia, sequela
[2018-09-27 06:35] LABS: Prothrombin Time 19.4 Seconds (9.0-12.0)
[2018-09-27] MEDS: NICOTINE 7 MG/24 HR TDSY TD SCH (07:31)
[2018-09-27] MEDS: LISINOPRIL 10 MG TAB PO SCH (07:32)
[2018-09-27] MEDS ORDERED: NITROGLYCERIN 0.2 MG/HR PATCH TD SCH (09:00)
--- NOTE | 2018-09-27 14:13 | Palliative Care Progress Note ---
Date of Service September 27, 2018 Assessment & Plan (1) Goals of care, counseling/discussion: -Patient feeling okay today. No family at bedside. She is awake but confused per her baseline. -NO s/s distress. Breathing is unlabored, patient appears comfortable. -Plan is for patient to go to SNF for permanent placement. Will not be participating in rehab. -Remains chronically ill with COPD and chronic respiratory failure. Little reserve and very poor nutritional status. High risk of recurrent acute respiratory failure. -Patient appears comfortable at this time. No symptom management needs. Again, worth noting that patient's son, Musa, absolutely does not want patient to have morphine even if she is in respiratory distress. If respiratory distress occurs, need to call patient's son. -Stopped by patient's room today to see if son, Musa, was present to complete POLST form. No family at bedside. (2) Altered mental status: (3) Chronic diastolic CHF (congestive heart failure): (4) Severe protein-calorie malnutrition: (5) Acute and chronic respiratory failure: (6) COPD (chronic obstructive pulmonary disease): Subjective Patient seen for follow-up by palliative care at request of physician to do POLST form with her son, Musa. Dr. Moffett spent a great deal of time yesterday explaining POLST form to patient's son, Musa. Patient has remained stable over the last week. Nearing time for discharge to SNF. Review of Systems limited ROS due to confusion Respiratory: no cough and no dyspnea Cardiovascular: no chest pain and no edema Gastrointestinal: no abdominal pain and no nausea Psychiatric: no anxiety Physical Exam Vital Signs (Past 24 Hours): Last Vital Signs Temp 36 C L 09/27/18 12:13 Pulse 81 09/27/18 12:13 Resp 20 09/27/18 12:13 BP 186/86 H 09/27/18 12:13 Pulse Ox 100 09/27/18 12:13 Constitutional: + cachectic and comfortable; no acute distress ENMT: external ear and nose normal, oropharynx normal Ears: + hearing impairment Neck: normal visual inspection and trachea midline Respiratory: normal respiratory effort, lungs clear to auscultation Auscultation: + diminished lung sounds Cardiovascular: RRR, no murmur, no edema Gastrointestinal (Abdomen): Inspection/Auscultation: abdomen normal to inspection and normal bowel sounds Percussion/Palpation: abdomen soft Musculoskeletal: Extremities: no cyanosis and no clubbing Skin: no rashes, warm and dry Neurologic: awake and + confused Psychiatric: Orientation: alert; + not oriented x 3 Supervising Physician Co-Signing Physician Notes Chart reviewed, patient seen and examined. No family at bedside Attempted to complete POLST form, but no family available - pt for transfer to [facility] today. PE: No acute distress HEENT: EOMI Respiratory: Unlabored, diminished breath sounds bilaterally, clear breath soun ds CV: Regular rate, no edema Abdomen: Soft, nontender Neuro:Confused Agree with above note, assessment and plan as per PARMINDER [facility] will be available to complete POLST form if son arrives prior to transfer. Time Spent Midlevel 25 minutes with >50% of time spent at bedside with patient and collaborating with physician to coordinate care and discuss case. (1) Acute and chronic respiratory failure Respiratory failure complication: hypoxia Qualified Code(s): J96.21 - Acute and chronic respiratory failure with hypoxia (2) Altered mental status Altered mental status type: unspecified Qualified Code(s): R41.82 - Altered mental status, unspecified (3) COPD (chronic obstructive pulmonary disease) COPD type: unspecified COPD Qualified Code(s): J44.9 - Chronic obstructive pulmonary disease, unspecified
[2018-09-27] MEDS: WARFARIN SOD 2 MG TAB PO SCH (16:07)
--- NOTE | 2018-09-28 12:11 | Discharge Summary ---
Date of Service date of admission - 09/05/2018 date of discharge - 09/27/2018 Admission HPI Per Admitting Provider 87yo female with advanced dementia, COPD, long-standing tobacco usage, right tibial plateau fracture on 08/02/2018 (treated nonoperatively), recent dense RUL pneumonia, and DVT/PE who presents with worsening pneumonia and lethargy. She was previously hospitalized at [facility] from 08/15/18 to 08/29/18 due to extensive PEs, DVT, and RUL pneumonia with resulting acute respiratory failure. The son reports that his mother was in her usual state of health on Thursday when he saw her at [facility]. She was tired, but had been up in a chair and had a normal conversation. On Thursday he saw her once again at the correction and she looked sicker and more tired, but was alert and talking with him. On Thursday when he visited her she was essentially unresponsive, only opening her eyes for a few minutes before falling back asleep and not really answering questions. He reports that she had a cough at that time with yellow sputum. Chest x-ray on admission showed a worsening RUL pneumonia, and a CT chest later on 09/05/18 showed a cavitary lesion in the RUL. Principal Diagnosis progressive RUL pneumonia with cavitation concerning for either necrotizing pneumonia OR aspergilloma Discharge Exam Constitutional + ill appearing, + thin, + cachectic and + altered mental status (due to dementia (baseline)); no acute distress ENMT external ear and nose normal, oropharynx normal Mouth: no oropharynx abnormality and no oral mucosal abnormality Respiratory normal respiratory effort, lungs clear to auscultation + tachypneic (chronic); no respiratory distress, no labored breathing, no retractions and no audible wheezes Auscultation: + diminished lung sounds (bases) Cardiovascular Rate/Rhythm: regular rate and regular rhythm Heart Sounds: normal S1 and normal S2 Vessels: posterior tibial pulses present and dorsalis pedis pulses present; no JVD Extremities: no edema Gastrointestinal (Abdomen) normal bowel sounds, soft, nontender, no hepatosplenomegaly Musculoskeletal muscle wasting of legs, arms, shoulder regions, etc Psychiatric Orientation: alert; + not oriented x 3 Discharge Data Allergies Allergy/AdvReac Type Severity Reaction Status Date / Time oxycodone Allergy Unknown Verified 09/05/18 10:12 Penicillins Allergy Unknown Verified 09/05/18 10:12 acetaminophen [From Tylenol] AdvReac Severe memory loss Verified 09/05/18 10:12 antidepressant AdvReac Hallucinati Uncoded 09/05/18 10:12 ng Consultations 1. [facility] - Gopal Xiong MD 2. [facility] 3. Palliative care 4. PT, OT 5. speech therapy 6. social work Ordered Studies CT chest - 09/05/18: IMPRESSION: 1. Interval increase in right upper lobe consolidation since CT of August 22, 2018 suggestive of pneumonia. Interval development of an associated 3.9 cm right upper lobe cavitary opacity which contains a 2.2 cm soft tissue focus. This favors a cavitary/necrotizing pneumonia. A fungal pneumonia such as aspergillosis could appear similar. A cavitary infarct is within the differential but considered less likely. Radiographic follow up to ensure resolution is recommended. 2. Extensive bilateral lower lobe opacity with volume loss, as described above. This may reflect atelectasis or pneumonia. Extensive lower lobe secretions raise the possibility of aspiration. 3. Small bilateral pleural effusions. 4. Moderate emphysema. 5. Apparent left-sided urothelial thickening which could be correlated with urinalysis. Hospital Course (1) Pneumonia: On 09/05/18 she was admitted for progressive RUL pneumonia. There was also evidence of b/l lower lobe pneumonia on CT chest from admission. The RUL pneumonia - which was treated aggressively with IV antibiotics during her previous hospitalization - now showed considerable cavitation. She was seen in consultation by [facility], and it was felt that this cavitation either represented fungal infection or she had a necrotizing process. She was started on anti-fungal therapy and continued on broad-spectrum IV antibiotic therapy. Sputum culture ultimately grew aspergillus fumigatis. Shtf-J-lrxggs test was also strongly positive. The patient developed severe respiratory distress over the following few days despite supportive care measures and IV antibiotics/antifungals. BIPAP was initiated for her distress but she tolerated this very poorly. End-of-life discussions were held with the patient's 2 sons, and on 09/08/18 into 09/09/18, the patient was transitioned to comfort care measures. Morphine was employed for significant air hunger due to severe respiratory distr ess. After only a short period of time of receiving comfort care measures the patient's son, Musa, REVERSED the comfort care measures. He strongly felt that the morphine was unnecessary and that it was robbing her of her ability to eat/drink/talk (she couldn't do these things even before the morphine was started because of her respiratory distress). He was counseled by numerous providers, nurses, the palliative care team, etc. regarding the need for comfort medications such as morphine given her respiratory status and her situation. Despite the presence of significant distress he adamantly forbade the staff from providing her morphine or any other comfort medications. He insisted on ongoing treatment of her pneumonia and therefore IV antibiotic therapy was continued per his wishes. She did indeed receive a full 10-day course of broad-spectrum IV antibiotic therapy. Antifungal therapy was stopped as recommended by pulmonary. Pulmonary felt she would not tolerate the medication and felt that it would not clear her aspergillus (pulmonary suggested that surgery of the RUL would be the only means to clear her suspected aspergilloma). Her respiratory status miraculously improved over the next week with supportive care measures. She did have intermittent episodes of tachypnea and increased work of breathing during her recovery period. NC O2 was continued; any time the patient pulled her O2 off her saturations immediately fell into the 70s in room air. At time of discharge she continues on 4 L of NC O2. She is not receiving any antibiotic therapy or antifungal therapy. She will continue on her usual COPD medications along with duonebs prn. She often has tachypnea, interspersed with times of distress, but at discharge her lung exam is relatively stable. (2) Acute and chronic respiratory failure with hypoxia: Acute component 2nd to recurrent RUL pneumonia and RLL/LLL pneumonia. Acute component resolved. Chronic component 2nd to COPD, PEs, and due to residual RUL cavitary pneumonia (vs aspergillosis). She will remain on 4 liters of NC O2 continuously at discharge. 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 Pulmonary advised that she would need surgery for her invasive pulmonary aspergillosis and obviously she was not a candidate for such. (4) Metabolic encephalopathy: Had significant delirium for the first 1-2 weeks of her stay related to her pulmonary infection. She returned to her baseline in the latter portion of her stay. Her son requested ongoing use of seroquel at bedtime for . She has considerable AM sedation from such. (5) Dementia: Moderate-severe. seroquel HS scheduled. On her best days during the hospitalization she was only alert to person. Her answers to typical questions are often nonsensical. She has some intact remote memory from years prior. (6) COPD (chronic obstructive pulmonary disease): Continue inhalers and nebs prn. No exacerbation at time of discharge. Requires 4 L of NC O2 continuously. Patient had been smoking up until her recent hospital stays. (7) Severe protein-calorie malnutrition: This has been an ongoing issue since her right leg fracture in July 2018. She has severe hypoalbuminemia (last albumin was <1.5). At most meals she takes little to nothing, whether it is solids or liquids. Her sons do come to visit with her frequently during mealtime and assist with feeding. They have been observed, however, to sometimes encourage her to continue eating against her objection. They have been counseled several times about her anorexia -- which is likely multifactorial from her dementia, fungal infection, etc. The anorexia will likely continue and her sons have been told this. She has considerable muscle wasting in the face of her failure to thrive. (8) Chronic diastolic CHF (congestive heart failure): compensated during this hospitalization. (9) Pulmonary embolism: Diagnosed in July 2018. The PEs were in the setting of significant immobility from her recent right leg tibia fracture. She also has a DVT in the LLE. She is on coumadin for the PEs/DVT. INR on day of discharge is 2. Coumadin schedule - 3mg //Thursday/Thursday 4mg Thursday/Thursday/Thursday Repeat INR in 2-3 days post-discharge advised to ensure INR is in target range of 2-3. (10) Chronic deep vein thrombosis (DVT): Left leg DVT. (11) HTN (hypertension): continue nitropatch at 0.2mg/24 hours and lisinopril 10mg BID. (12) Chronic kidney disease, stage 3a: most recent Cr stable at 0.5. (13) Tibial plateau fracture, right: Initial fracture date - 08/03/18. Due to fall at her home. Never needed operative repair. She can WBAT on the right leg but she should use hinged brace to the right knee with ambulation. She has, however, been largely bed-bound during this protracted stay and bed-b ound status likely will continue. (14) Hypokalemia: Most recent K prior to discharge was normal. (15) Hypomagnesemia: Most recent mag level prior to discharge was normal. (16) Poor prognosis: Neither son has committed to hospice upon discharge. Again see "pneumonia" above regarding the comfort care measures incident that was witnessed earlier this stay. Lengthy POLST discussion was held with the patient's son, Musa (he is Mrs. Gordon BRIDGES), on 09/26/18. She remains DNR. He was uncertain about other questions on the POLST form. I asked him to speak with his brother and try to complete the form prior to discharge to [facility] in [place]. The form was not completed prior to discharge. I explained to her son Musa that her risk of readmission is VERY HIGH and that her anorexia/failure to thrive will continue. I also explained that she likely would continue to be bed-bound and her rehab potential is very low, if any. Again she has not been out of bed in several weeks. The patient is transferring to [facility] in [place] at discharge. Total Time Total Time Spent Total Time Spent (In Minutes): 45 Total Time Includes: Examination of the Patient, Discharge Planning, Medication Reconciliation and Communication With Other Providers Discharge Plan Discharge Items Patient Disposition: Transfer Jail Fac Reason For Visit: PNEUMONIA, LETHARGY Discharge Diagnosis: RUL and LLL pneumonia - resolved. Acute/Chronic respiratory failure. Severe failure to thrive. Dementia with delirium. High blood pressure. Recent pulmonary emboli on coumadin. Discharge Goals: Decrease discomfort, Diagnostic testing and Therapeutic intervention Activity: Resume your previous activity Weightbearing: Right weightbearing Weightbearing Comment: WBAT to RLE with hinged knee brace but patient has been largely bedbound Non-emergency contact: Primary Care Provider Call non-emergency contact if: you have any medication questions, your symptoms worsen, your pain is not controlled, your pain is worsening and your temperature is above 101 Diet: Regular Diet Texture: Dental soft (bite-sized) Addtl Provider Instructions: From Juan Luis Moffett - Hospitalist: Patient had protracted hospitalization (20+ days) due to RUL pneumonia, LLL pneumonia, fungal infection of lungs, acute/chronic respiratory failure, severe failure to thrive, severe malnutrition, dementia with intermittent delirium, severely low potassium and magnesium, and ongoing treatment of pulmonary emboli. She also suffered a right tibial fracture about 6 weeks ago which was treated NONOPERATIVELY. She has largely been bed-bound for most of this stay and has severe muscle wasting. Several end-of-life talks were held with the pt's 2 sons. Palliative care was heavily involved. POLST discussion was held on 09/26/18 with her son, Musa. Pt's sons have NOT committed to hospice, palliative care or comfort. Prognosis is VERY POOR. Sons have been counseled regarding her very poor prognosis. She is a DNR. At this time recommend the following - 1. repeat INR on 09/29/18. Then repeat INR in 5-7 days after that depending on Thursday's test result. Results to emergency medical technician please. 2. patient has largely been bed-bound. In the rare event she gets out of bed she should use a hinged-brace to the right knee during ambulation. I do not suspect she will walk, however, given her severe deconditioning and weakness. 3. oxygen 4 liters continuously at all times. 4. patient eats very little, if anything, at meal times. Hydration is also minimal. 5. please leave ortiz catheter in place. It is due to be changed in 1 week after discharge. Then change ortiz every 28-30 days thereafter. 6. patient's son Musa has previously directed our team NOT to administer pain medications (ie morphine) for air hunger or respiratory distress. 7. please continue end-of-life talks and POLST discussions with her 2 sons, Musa and "JERROD." Prognosis is very poor. 8. return to any emergency department if - * there is respiratory distress or worsening shortness of breath * fevers over 101 degrees * intractable pain in any location * any other concerns Prescriptions: New acetaminophen [Mapap (acetaminophen)] 325 mg Tablet 650 mg PO Q4H PRN (Reason: fever or pain) Qty: 30 RF: 0 nitroglycerin 0.2 mg/hr Patch 24 Hour 1 patch Transdermal QAM Qty: 30 RF: 2 warfarin 3 mg tablet See Rx Instructions .ROUTE .COMPLEX Qty: 30 RF: 2 lisinopril 10 mg tablet 10 mg PO BID Qty: 60 RF: 2 nicotine 7 mg/24 hr patch 24 hour 1 patch TD DAILY Qty: 14 RF: 2 Oxygen Home Liters Per Minute .ROUTE .MEDSUPPLY Qty: 1 RF: 0 Continued cyclosporine [Restasis] 0.05 % Dropperette 1 drp OPB Q12H RF: 0 ipratropium-albuterol 0.5 mg-3 mg(2.5 mg base)/3 mL Solution For Nebulization 3 ml Inhalation QID PRN (Reason: Shortness Of Breath Or Wheezing) RF: 0 magnesium hydroxide [Milk of Magnesia] 400 mg/5 mL Suspension 30 ml PO DAILY PRN (Reason: Constipation) RF: 0 bisacodyl 10 mg Suppository 10 mg MN DAILY PRN (Reason: Constipation) RF: 0 docusate sodium 100 mg Capsule 100 mg PO BID PRN (Reason: Constipation) RF: 0 montelukast 10 mg Tablet 10 mg PO PM RF: 0 fluticasone-vilanterol [Breo Ellipta] 100-25 mcg/dose Blister With Device 1 inh INHALATION DAILY RF: 0 Changed quetiapine 25 mg Tablet 12.5 mg PO HS Qty: 30 RF: 2 sennosides [senna] 8.6 mg Tablet 17.2 mg PO DAILY Qty: 60 RF: 2 warfarin [Coumadin] 2 mg Tablet See Rx Instructions .ROUTE .COMPLEX Qty: 30 RF: 2 Discontinued albuterol sulfate 90 mcg/actuation HFA aerosol inhaler 2 puff Inhalation Q6H PRN (Reason: Shortness Of Breath Or Wheezing) RF: 0 ipratropium-albuterol 20-100 mcg/actuation mist 1 puff Inhalation QID RF: 0 amlodipine 5 mg Tablet 5 mg PO DAILY RF: 0 levofloxacin 750 mg Tablet 750 mg PO Q48H Qty: 1 RF: 0 Caltrate 600-D Plus Minerals 600 mg calcium- 800 unit-50 mg Tablet 1 tab PO BID Qty: 60 RF: 0 tramadol 50 mg Tablet 25 mg PO Q4 PRN (Reason: Pain) Qty: 6 RF: 0 Stand-Alone Forms: [facility] Discharge Orders: Discharge Order (Routine); Ordered 09/27/18 Ordered By: Juan Luis Moffett Skilled Items Patient informed of condition?: No DNR: Yes Discharge Level of Care: Skilled Communicable Disease: No Discharge Prognosis: Deteriorating Admission Data Admit Date/Time: 09/05/18 12:07 Attending Provider: Juan Luis Moffett Admit Provider: Gerardo Laird Primary Care Provider: PCP,NO Other Providers: Gerardo Laird ; Cinthya Ribeiro ; Kirill Valenzuela Service: Medical Other Interventions: Discharge Summary Assessment (RN) Last Done: 09/27/18 12:13 Pending Studies at Discharge: No DC Date/Time DO NOT enter until pt leaves facility: 09/27/18 18:15
== END 2018-09-27 18:15 | DRG 193 ==
LOC: ED 09:43 → 4E 12:07 → SUATTDRO 12:07 → 4E 14:08